=== PATIENT | female | born 1950 | race Caucasian/White ===

== ENCOUNTER 2019-10-09 06:33 | Outpatient (CLI) | payer OTHER, SELFPAY ==
--- NOTE | ~2019-10-09 | CT_ITS ---
EXAMINATION: CT abdomen pelvis w con DATE: 10/09/2019 07:15 INDICATION: Abdominal and pelvic pain, swelling, mass TECHNIQUE: Computed tomography (CT) of the abdomen and pelvis was performed with 100 cc Omnipaque 350 intravenous contrast. Automated exposure control and iterative reconstruction technique were employe d. Exam dose: 1510.42 mGy-cm total exam DLP. COMPARISON: 08/20/2013 CT abdomen pelvis FINDINGS: Calcified pulmonary granuloma, right lower lobe. No infiltrate or consolidation at the incl uded lung bases. Normal heart size. Pacemaker leads are noted in the right atrium, right ventricle and coronary sinus. The liver, gallbladder, bile ducts, pancreas and pancreatic duct are unremarkable. There are calcifie d splenic granulomas. Normal adrenal glands. No renal mass lesion, urinary tract calculus or hydroureteronephrosis. The urinary bladder is unrema rkable. Status post hysterectomy. There is atherosclerotic calcification of the abdominal aorta and branches but no abdominal aortic an eurysm. No intraperitoneal or retroperitoneal or pelvic mass lesion or adenopathy or ascites. Small sliding hiatal hernia. Normal appendix. No bowel obstruction, bowel wall thickening, pneumatosi s or intraperitoneal free air. Small fat-containing umbilical hernia. There are some degenerative changes of the thoracic and lumbar spine. No suspicious osteolytic or ost eoblastic lesions. IMPRESSION: Small sliding hiatal hernia Reviewed, dictated and finalized at [facility] Reviewed, dictated and finalized at [facility]. IMPRESSION: Small sliding hiatal hernia
[2019-10-09 07:05] LABS: Estimated Glomerular Filt Rate 32
== END 2019-10-09 06:34 | disposition home or self-care (01) ==
LOC: ANHIMG 06:37
PROVIDERS: PCP Family Medicine; Visit Provider Family Medicine
DX: R19.00 Intra-abdominal and pelvic swelling, mass and lump, unspecified site (principal); K44.9 Diaphragmatic hernia without obstruction or gangrene
CPT/HCPCS: 36415; 74177; Q9967

== ENCOUNTER 2020-01-14 03:12 | Inpatient (IN) | payer OTHER, MEDICARE, SELFPAY ==
[2020-01-14] VITALS (10 sets, daily range): BP systolic 100–145; BP diastolic 48–79; PULSE 73–86; RESP 16–18; TEMP 35.9–37.3; O2SAT 92–100; BMI 45.0
--- NOTE | ~2020-01-14 | US_ITS ---
EXAMINATION: US right upper quadrant DATE: 01/14/2020 10:58 INDICATION: Right upper quadrant abdominal pain. Acute pancreatitis. TECHNIQUE: Multiple grayscale and Doppler ultrasound images of the abdomen were obtained. COMPARISON: CT abdomen and pelvis 01/14/2020 FINDINGS: The visualized portions of the head and body of the pancreas are normal. The liver is sophie l without focal lesion. There is normal flow in main portal vein. The gallbladder is normal in size a nd contains sludge. No gallbladder wall thickening. There was no sonographic Giron sign. The common duct is normal and measures 5 mm. IMPRESSION: 1. Gallbladder sludge. No evidence of acute cholecystitis. Reviewed, dictated and finalized at [facility].
--- NOTE | ~2020-01-14 | CT_ITS ---
EXAMINATION: CT abdomen pelvis wo con DATE: 01/14/2020 04:00 INDICATION: Right flank pain. TECHNIQUE: Computed tomography (CT) of the abdomen and pelvis was performed without intravenous contr ast. Automated exposure control and iterative reconstruction technique were employed. The dose-length product was 1506.55 mGy-cm. COMPARISON: CT abdomen and pelvis 10/09/2019 FINDINGS: The visualized portions of the lung bases demonstrate minimal atelectasis on the right. Chepe cified right lung nodules are consistent with old granulomatous disease. No pleural effusion. The hea rt size is normal. No pericardial effusion. Partially visualized are pacer wires in right ventricle a nd coronary sinus. There is a small sliding hiatal hernia. The liver and gallbladder are normal. Calc ifications in the spleen are consistent with old granulomatous disease. There is fat stranding around the head of the pancreas, consistent with acute interstitial pancreatitis. The adrenal glands and ki dneys are normal. There is diverticulosis of the colon without evidence of diverticulitis. There are no dilated loops of bowel. The appendix is normal. There are no pathologically enlarged lymph nodes. There is no free intraperitoneal fluid. There is a 2.3 cm cyst in the left ovary, likely benign. Ther e is moderate thoracolumbar spondylosis. IMPRESSION: 1. Acute interstitial pancreatitis. 2. Small sliding hiatal hernia. Reviewed, dictated and finalized at [facility].
--- NOTE | ~2020-01-14 | XR_ITS ---
EXAMINATION: XR chest 1V portable DATE: 01/15/2020 13:58 INDICATION: Acute pancreatitis. Preop. TECHNIQUE: A single frontal view of the chest was obtained. COMPARISON: CT abdomen and pelvis 01/14/2020, chest 2 views 10/01/2018 FINDINGS: There is no pneumonia, pleural effusion, or pneumothorax. Cardiomegaly is noted. There is a right chest pacer with leads in right atrium, right ventricle, and coronary sinus. IMPRESSION: 1. Cardiomegaly. Reviewed, dictated and finalized at [facility]. IMPRESSION: 1. Cardiomegaly.
--- NOTE | ~2020-01-14 | XR_ITS ---
EXAMINATION: XR cholangiogram surg 1st inj DATE: 01/16/2020 15:07 INDICATION: Intraoperative cholangiogram TECHNIQUE: 161 fluoroscopic images of the right upper quadrant were obtained during intraoperative ch olangiography performed by the surgeon. I was not present in the operating room. Fluoroscopy exposure time was 24.2 seconds. The DAP was 0.22160 mGym2. COMPARISON: None. FINDINGS: There is no filling defect or stricture of the common bile duct. There is free spillage of contrast into the duodenum. IMPRESSION: 1. No biliary obstruction identified. This was communicated directly to Dr. Marks by phone in the oper ating room at 1458 hours on 01/16/2020. Reviewed, dictated and finalized at [facility]. IMPRESSION: 1. No biliary obstruction identified. This was communicated directly to Dr. Matt moody by phone in the operating room at 1458 hours on 01/16/2020.
--- NOTE | 2020-01-14 03:28 | ED.BACK ---
HPI - Back Pain/Injury General Chief Complaint: Back Pain/Injury Stated Complaint: RIGHT SIDE PAIN INTO BACK Time Seen by Provider: 01/14/20 03:24 History of Present Illness HPI Narrative: RLQ pain radiating into the flank/back for the past 2 days. Associated with loss of appetitie. Improves slightly with pressure. Unable to sleep tonight due to the pain. No prior abdominal surgery. She tried alkaseltzer and mountain dew without relief. Related Data Home Medications Medication Instructions Recorded Confirmed aspirin 81 mg tablet,delayed 81 mg PO DAILY 06/28/19 release carvedilol 12.5 mg tablet 12.5 mg PO Q12H 06/28/19 citalopram 40 mg tablet 20 mg PO DAILY 06/28/19 furosemide 20 mg tablet 20 mg PO TID tablet 06/28/19 losartan 25 mg tablet 25 mg PO DAILY 06/28/19 pantoprazole 40 mg tablet,delayed 40 mg PO QAM 06/28/19 release simvastatin 20 mg tablet 20 mg PO DAILY 06/28/19 spironolactone 25 mg tablet 25 mg PO DAILY 06/28/19 calcium carbonate 600 mg (1,500 1 cap PO .QD cap 10/07/19 mg)-vitamin D3 500 unit capsule Allergies Allergy/AdvReac Type Severity Reaction Status Date / Time duloxetine Allergy Unknown jittery Verified 10/07/19 11:29 and hyper lisinopril Allergy Unknown cough Verified 01/14/20 03:27 naproxen Allergy Unknown swelling Verified 01/14/20 03:27 in ankles and feet Review of Systems Review of Systems: All systems reviewed & are unremarkable except as noted in HPI and below Constitutional: Constitutional: Denies fever(s) Cardiovascular: Cardiovascular: Denies chest pain Respiratory: Respiratory: Denies dyspnea Gastrointestinal: Gastrointestinal: Reports abdominal pain, Denies constipation, Denies diarrhea, Denies nausea and Denies vomiting Genitourinary: Genitourinary: Denies hematuria, Denies nocturia and Denies dysuria Neurologic: Denies dizziness and Denies weakness [facility] Past Medical History Medical History (Updated 01/14/20 @ 03:56 by Landen Laird MD) Cardiomyopathy Pacemaker Surgical History Surgical History H/O: hysterectomy History of cardiac cath History of implantable cardioverter-defibrillator (ICD) placement History of knee replacement Hx of tonsillectomy Family History Family History Father Acute myocardial infarction Hypertension Family history of cardiovascular disease Mother Diabetes mellitus Hypertension Family history of cardiovascular disease Sibling Hypertension Social History Social History Smoking status: Former smoker Alcohol intake: never Gender identity (if verbalized by the patient): Female Exam Const: General: healthy appearing, no acute distress and alert Nutritional Appearance: obese Orientation/consciousness: patient oriented x3 HENMT: Head: normal to inspection Neck: Neck: normal visual inspection and no lymphadenopathy Chest: Chest palpation & inspection: no tenderness Resp: Effort & Inspection: normal respiratory effort Auscultation: clear to auscultation bilaterally, no rales, no rhonchi and no wheezes Cardio: Jugular venous distension: no JVD Rate: regular rate Rhythm: regular rhythm Heart sounds: no murmurs GI: Inspection: non-distended GI Palp: Yes Soft to palpation and No Tenderness to palpation present (GI) Skin: General skin exam: normal color Neuro: General: patient oriented x3 and moves all extremities Speech: normal speech Extrem: General: no edema Psych: Appearance: well kempt Affect: normal affect Course Vital Signs Vital signs: Vital Signs Temperature 35.9 C L 01/14/20 03:21 Pulse Rate 86 01/14/20 03:21 Respiratory Rate 18 01/14/20 03:21 Blood Pressure 133/54 L 01/14/20 03:21 Pulse Oximetry 99 01/14/20 03:21 Temperature 35.9 C L 01/14/20 03:21 Pulse Rate
[2020-01-14] MEDS: MORPHINE SULFATE 4 MG/ML INJ 2 MG IV PUSH (03:45)
[2020-01-14 03:51] LABS: Basophils Absolute Auto 0.1 K/mm3 (0.0-0.1); Basophils Percent Auto 0.4 % (0.2-1.2); Eosinophils Absolute Auto 0.3 K/mm3 (0-0.3); Eosinophils Percent Auto 2.3 % (0-4.4); Hematocrit 37.6 % (37.0-47.0); Hemoglobin 12.8 g/dL (12.0-15.0); Immature Granulocyte Absolute 0.06 K/mm3 (0.00-0.031); Immature Granulocyte Percent A 0.4 % (0-0.5); Lymphocytes Percent Auto 15.5 % (18.3-44.2); Mean Corpuscular Hemoglobin 31.4 pg (26-34); Mean Corpuscular Volume 92.4 fl (80-100); Mean Platelet Volume 9.8 fl (7.4-10.4); Monocytes Absolute Auto 1.1 K/mm3 (0.1-0.6); Monocytes Percent Auto 7.6 % (2.6-8.5); Neutrophils Absolute Auto 10.5 K/mm3 (1.3-6.7); Neutrophils Percent Auto 73.8 % (45.5-73.1); Platelet Count Result 199 k/mm3 (150-375); Red Blood Count 4.07 M/mm3 (4.2-5.4); Red Cell Distribution Width 12.8 % (11.5-14.5); White Blood Count 14.2 K/mm3 (4.5-10.0)
[2020-01-14 03:56] LABS: Add Urine Microscopic? YES; Appearance Urine Clear (Clear); Bacteria Urine Trace /hpf; Bilirubin Urine Negative (Negative); Blood Urine Negative (Negative); Color Urine Straw (Yellow); Glucose Urine UA Negative (Negative); Ketones Urine Negative (Negative); Leukocyte Esterase Ur Trace LEU/UL (Negative); Nitrate Urine Negative (Negative); Protein Urine Negative (Negative); RBC Urine 0-2 /hpf (0-2); Specific Grav Ur 1.009 (1.001-1.035); Squamous Epithelial Cell Urine Moderate /hpf (Few); Urobilinogen Urine Negative mg/dL (<2.0)
[2020-01-14 04:03] LABS: Alanine Aminotransferase 24 U/L (4-35); Albumin Level 4.4 g/dL (3.5-5.1); Alkaline Phosphatase 134 U/L (38-126); Aspartate Amino Transferase 23 U/L (14-36); Bilirubin,Total 1.6 mg/dL (0.2-1.3); Blood Urea Nitrogen 28 mg/dL (7-17); Calcium 9.2 mg/dL (8.4-10.2); Carbon Dioxide 28 mmol/L (22-30); Chloride 96 mmol/L (98-107); Estimated CRCL calculation 41 ml/min; Estimated Glomerular Filt Rate 32; Glucose 133 mg/dL (65-105); Lipase 969 U/L (23-300); Potassium 4.1 mmol/L (3.4-5.0); Sodium 133 mmol/L (137-145)
[2020-01-14] MEDS: MORPHINE SULFATE 4 MG/ML INJ IV PUSH ×6 (04:34→21:33)
--- NOTE | 2020-01-14 06:15 | ADMGEN ---
This patient, Eva Arriaza, was admitted to [facility] Surg Room 321-01. Patient/family oriented to hospital policies and general routines including ID bracelet, bed and alarms, visiting hours, pain management, procedures, bathroom and other care routines, personal items, smoking policy, room service/diet, and visiting hours. Valuables list has been completed. Information on how to activate the Rapid Response Team has been discussed. Patient/Family are encouraged to report perceived risks to care and to ask questions if they do not understand what they are told or what they should do.
[2020-01-14] MEDS: LACTATED RINGERS 1,000 ML 125 ML IV CONT ×2 (06:19→17:16)
--- NOTE | 2020-01-14 13:15 | PM.IMHP ---
H&P: HPI History of Present Illness Chief complaint: Acute pancreatitis Narrative: Eva Arriaza is a 69 year old female with history of cardiomyopathy morbidly obesity patient presented emergency department with 1 day onset of epigastric pain radiating to the back nausea and just did not feel right see denies any fever or chills, denies any history of alcohol, is no family history of pancreatitis, patient had a CT scan of the abdomen which showed patient has a interstitial pancreatitis with elevated lipase of close to 1 thigh, to further evaluate with abdominal ultrasound which showed biliary sludge but no acute cholecystitis, the plan is to continue hydrate the patient continue pain management and trend lipase, currently NPO, her symptoms improved will start the patient on clear liquid and further recommendation to follow, patient may benefit surgical consult as outpatient to electively remove the gallbladder as patient is morbidly obese high risk of gallstones Review of Systems Review of Systems: All systems reviewed & are unremarkable except as noted in HPI and below PMFSH Surgical History Surgical History H/O: hysterectomy History of cardiac cath History of implantable cardioverter-defibrillator (ICD) placement History of knee replacement Hx of tonsillectomy Family History Family History Father Acute myocardial infarction Hypertension Family history of cardiovascular disease Mother Diabetes mellitus Hypertension Family history of cardiovascular disease Sibling Hypertension Social History Social History Smoking status: Former smoker Alcohol intake: never Substance use: never Gender identity (if verbalized by the patient): Female Spiritual care concerns: No Meds Home Medications and Allergies Home Medications Medication Instructions Recorded Confirmed Type aspirin 81 mg tablet,delayed 81 mg PO DAILY 06/28/19 01/14/20 History release carvedilol 12.5 mg tablet 12.5 mg PO Q12H 06/28/19 01/14/20 History citalopram 40 mg tablet 20 mg PO DAILY 06/28/19 01/14/20 History furosemide 20 mg tablet 20 mg PO BID tablet 06/28/19 01/14/20 History losartan 25 mg tablet 25 mg PO DAILY 06/28/19 01/14/20 History pantoprazole 40 mg tablet,delayed 40 mg PO QAM 06/28/19 01/14/20 History release simvastatin 20 mg tablet 20 mg PO DAILY 06/28/19 01/14/20 History spironolactone 25 mg tablet 25 mg PO DAILY 06/28/19 01/14/20 History Allergies Allergy/AdvReac Type Severity Reaction Status Date / Time duloxetine Allergy Unknown jittery Verified 10/07/19 11:29 and hyper lisinopril Allergy Unknown cough Verified 01/14/20 03:27 naproxen Allergy Unknown swelling Verified 01/14/20 03:27 in ankles and feet Vital Signs Vital Signs - 24 hr 01/14/20 03:21 01/14/20 04:12 01/14/20 04:40 Temperature 96.6 F L Pulse Rate 86 82 74 Respiratory Rate 18 18 18 Blood Pressure 133/54 L 130/79 100/69 Pulse Oximetry 99 100 97 01/14/20 05:19 01/14/20 05:37 01/14/20 05:45 Temperature 99.1 F Pulse Rate 75 73 76 Respiratory Rate 18 16 16 Blood Pressure 137/67 145/48 H 140/72 Pulse Oximetry 95 97 95 Exam Narrative: Exam Narrative: Morbidly obese with BMI 45 Const: General: no acute distress and uncomfortable HENMT: General nose exam: Normal nares present Mouth: Yes moist mucous membranes Eyes: General: appearance normal, both eyes and all related structures Sclera: sclerae normal Neck: Neck: supple Resp: Effort & Inspection: normal respiratory effort Auscultation: clear to auscultation bilaterally Cardio: Rate: regular rate Rhythm: regular rhythm GI: GI Palp: Yes Soft to palpation Auscultation: normal bowel sounds Other: Tender in epigastric Skin: General skin exam: normal color Neuro: Speech: normal spe
[2020-01-14] MEDS: FUROSEMIDE 20 MG TABLET PO (18:56)
[2020-01-14] MEDS: carvediloL 12.5 MG TABLET PO (21:34)
[2020-01-15] MEDS: LACTATED RINGERS 1,000 ML 125 ML IV CONT (01:18)
[2020-01-15] MEDS: MORPHINE SULFATE 4 MG/ML INJ IV PUSH ×2 (01:23→05:52)
[2020-01-15 06:00] VITALS: BP 142/58; PULSE 77; RESP 18; TEMP 36.6; O2SAT 96
[2020-01-15 06:47] LABS: Hematocrit 32.5 % (37.0-47.0); Hemoglobin 10.9 g/dL (12.0-15.0); Mean Corpuscular HGB Conc 33.5 g/dl (32-36); Mean Corpuscular Hemoglobin 31.5 pg (26-34); Mean Corpuscular Volume 93.9 fl (80-100); Mean Platelet Volume 10.1 fl (7.4-10.4); Platelet Count Result 154 k/mm3 (150-375); Red Blood Count 3.46 M/mm3 (4.2-5.4); Red Cell Distribution Width 13.1 % (11.5-14.5); White Blood Count 11.6 K/mm3 (4.5-10.0)
[2020-01-15 06:57] LABS: Alanine Aminotransferase 19 U/L (4-35); Albumin Level 3.8 g/dL (3.5-5.1); Alkaline Phosphatase 99 U/L (38-126); Aspartate Amino Transferase 19 U/L (14-36); Bilirubin,Total 2.8 mg/dL (0.2-1.3); Blood Urea Nitrogen 22 mg/dL (7-17); Calcium 8.5 mg/dL (8.4-10.2); Carbon Dioxide 27 mmol/L (22-30); Chloride 102 mmol/L (98-107); Estimated CRCL calculation 46 ml/min; Estimated Glomerular Filt Rate 37; Glucose 109 mg/dL (65-105); Lipase 359 U/L (23-300); Potassium 4.2 mmol/L (3.4-5.0); Sodium 134 mmol/L (137-145)
[2020-01-15 09:16] VITALS: PULSE 77
[2020-01-15] MEDS: CITALOPRAM HYDROBROMIDE 20 MG TABLET PO (09:16)
[2020-01-15] MEDS: LOSARTAN POTASSIUM 25 MG TABLET PO (09:16)
[2020-01-15] MEDS: FUROSEMIDE 20 MG TABLET PO ×2 (09:16→18:05)
[2020-01-15] MEDS: carvediloL 12.5 MG TABLET PO ×2 (09:16→21:25)
[2020-01-15] MEDS: ASPIRIN 81 MG ENTERIC TABLET PO (09:16)
[2020-01-15] MEDS: PANTOPRAZOLE 40 MG TABLET PO (09:17)
[2020-01-15] MEDS: SPIRONOLACTONE 25 MG TABLET PO (09:17)
[2020-01-15] MEDS: SIMVASTATIN 20 MG TABLET PO (09:17)
--- NOTE | 2020-01-15 13:01 | PM.CNGS ---
Assessment and Plan Assessment and plan (1) Acute pancreatitis: Code(s): K85.90 - Acute pancreatitis without necrosis or infection, unspecified Status: Acute Assessment and Plan: CT shows evidence of acute pancreatitis. She has been started on analgesics, IV fluids and bowel rest. Lipase is down to 359 today and she seems to be clinically improving. She has no history of alcohol abuse or binge drinking that would account for the etiology. No recent medications that would be a likely cause. No lipid panel has been ordered, but hypertriglyceridemia is a less likely, but other possible etiology. She does have evidence of gallbladder sludge on the ultrasound, which would be the most likely cause of her pancreatitis. Discussed the patient's case and plan of care with Dr. Marks. Would continue with current management of the pancreatitis. I discussed the disease process with the patient and treatment options at this point. To prevent further complications or episodes of pancreatitis, we would recommend proceeding with a laparoscopic cholecystectomy, possible IOC, by Dr. Marks. She does have multiple co-morbidities that increase her risk for surgery, which I discussed with the patient. Description of the procedure, risks, benefits, indications, and expected outcomes were discussed with the patient in detail. All questions were answered. She would like to proceed with surgery. We will plan to proceed with her surgery tomorrow and make her NPO after midnight. Thank you for allowing me to see the patient in consultation and we will continue to follow along with you. (2) Gallbladder sludge: Code(s): K82.8 - Other specified diseases of gallbladder Status: Acute (3) Dilated cardiomyopathy: Code(s): I42.0 - Dilated cardiomyopathy Status: Acute Assessment and Plan: Increases risk of surgery. Last Echocardiogram was 01/10/20 that showed an ejection fraction of 35%. (4) Obstructive sleep apnea (adult) (pediatric): Code(s): G47.33 - Obstructive sleep apnea (adult) (pediatric) Status: Acute Assessment and Plan: Increases risk of surgery. (5) Essential (primary) hypertension: Code(s): I10 - Essential (primary) hypertension Status: Acute (6) Mixed hyperlipidemia: Code(s): E78.2 - Mixed hyperlipidemia Status: Acute Assessment and Plan: Will check a lipid panel. (7) ICD (implantable cardioverter-defibrillator) battery depletion: Code(s): Z45.02 - Encounter for adjustment and management of automatic implantable cardiac defibrillator Status: Acute Assessment and Plan: Total bilirubin up to 2.8 today. Unable to do an MRI due to the ICD. Could consider an intra-operative cholangiogram to look for common bile duct obstruction. (8) Morbid obesity with BMI of 45.0-49.9, adult: Code(s): E66.01 - Morbid (severe) obesity due to excess calories; Z68.42 - Body mass index (BMI) 45.0-49.9, adult Status: Acute Assessment and Plan: Increases risk of surgery. Encouraged weight loss. History of Present Illness Consult details Consult date: 01/15/20 Reason for consult: other (Gallbladder sludge with acute interstitial pancreatitis) Requesting physician: Bing Espinal MD Narrative: This is a 69-year-old obese female with a history of cardiomyopathy, obstructive sleep apnea, and hyperlipidemia, who presented to the emergency department with complaints of right-sided abdominal pain.The patient reports a sudden onset of mild right upper quadrant abdominal pain 3 days ago. Initially, she thought the abdominal pain was gas related and states that it would come and go. She states the pain was mild enough to sleep but continued through to Monday. During the day, her pain gradually worsened. She had associated nausea but no vomiting. Denies fever or chills. Reports bowels have been moving normally with her last bowel movement Monday. She tried taking
--- NOTE | 2020-01-15 13:28 | PM.IMPN ---
Progress Note: A&P Assessment and Plan (1) Acute pancreatitis: Code(s): K85.90 - Acute pancreatitis without necrosis or infection, unspecified Status: Acute Assessment and Plan: 01/15/20 13:28 Eva Arriaza is a 69 year old female with history of cardiomyopathy morbidly obesity patient presented emergency department with 1 day onset of epigastric pain radiating to the back nausea and just did not feel right see denies any fever or chills, denies any history of alcohol, is no family history of pancreatitis, patient had a CT scan of the abdomen which showed patient has a interstitial pancreatitis with elevated lipase of close to 1 thigh, to further evaluate with abdominal ultrasound which showed biliary sludge but no acute cholecystitis, the plan is to continue hydrate the patient continue pain management and trend lipase, currently NPO, her symptoms improved will start the patient on clear liquid and further recommendation to follow, patient may benefit surgical consult as outpatient to electively remove the gallbladder as patient is morbidly obese high risk of gallstones, today patient states feeling not as nauseated pain is also better denies any fever or chills, patient's lipase are trending down will going to start the patient on clear liquid, patient would like to consult surgery for possible cholecystectomy, patient has a history of cardiomyopathy seen by cardiology last ejection fraction was 35%, patient is being hydrated that appear volume overload note patient has any complaint, since patient is drinking on clear liquids will stop the IV fluids, will monitor patient 1 more day discharge the patient in the morning, and will be seen by surgery and further recommendation to follow Subjective Date/time seen: 01/15/20 13:28 Eva Arriaza is a 69 year old female with history of cardiomyopathy morbidly obesity patient presented emergency department with 1 day onset of epigastric pain radiating to the back nausea and just did not feel right see denies any fever or chills, denies any history of alcohol, is no family history of pancreatitis, patient had a CT scan of the abdomen which showed patient has a interstitial pancreatitis with elevated lipase of close to 1 thigh, to further evaluate with abdominal ultrasound which showed biliary sludge but no acute cholecystitis, the plan is to continue hydrate the patient continue pain management and trend lipase, currently NPO, her symptoms improved will start the patient on clear liquid and further recommendation to follow, patient may benefit surgical consult as outpatient to electively remove the gallbladder as patient is morbidly obese high risk of gallstones, today patient states feeling not as nauseated pain is also better denies any fever or chills, patient's lipase are trending down will going to start the patient on clear liquid, patient would like to consult surgery for possible cholecystectomy, patient has a history of cardiomyopathy seen by cardiology last ejection fraction was 35%, patient is being hydrated that appear volume overload note patient has any complaint, since patient is drinking on clear liquids will stop the IV fluids, will monitor patient 1 more day discharge the patient in the morning, and will be seen by surgery and further recommendation to follow Review of Systems Review of Systems: All systems reviewed & are unremarkable except as noted in HPI and below Exam Narrative: Exam Narrative: Morbidly obese with BMI 45 Const: General: no acute distress and uncomfortable HENMT: General nose exam: Normal nares present Mouth: Yes moist mucous membranes Eyes: General: appearance normal, both eyes and all related structures Sclera: sclerae normal Neck: Neck: supple Resp: Effort & Inspection: normal respiratory effort Auscultation: clear to auscultation bilaterally Cardio: Rate: regular rate Rhythm: regular rhythm GI: Auscultation: normal bowel sounds O
--- NOTE | 2020-01-15 13:45 | ECG_ITS ---
Measurements Intervals [place] Rate: 77 P: 267 LA: 121 QRS: -72 QRSD: 154 T: 70 QT: 445 QTc: 504 Interpretive Statements ELECTRONIC ATRIAL PACEMAKER ELECTRONIC VENTRICULAR PACEMAKER BASELINE ARTIFACT- I, III, AVL, AVF, V6 NO FURTHER INTERPRETATION IS POSSIBLE ATYPICAL ECG Electronically Signed On 01-15-2020 14:27:14 CDT by Dagoberto Ruff D.O.
[2020-01-15 14:00] VITALS: BP 90/68; PULSE 76; RESP 18; TEMP 36.7; O2SAT 94
[2020-01-15 15:16] LABS: Cholesterol 133 mg/dL (0-200); HDL Direct 27 mg/dL; Triglycerides 75 mg/dL (<150)
[2020-01-15 15:26] LABS: LDL Cholesterol Direct 81 mg/dL
--- NOTE | 2020-01-15 16:46 | PM.PNGS ---
Progress Note: A&P Assessment and Plan (1) Acute biliary pancreatitis without infection or necrosis: Code(s): K85.10 - Biliary acute pancreatitis without necrosis or infection Status: Acute Assessment and Plan: I explained to the patient that the likely cause of her acute pancreatitis is the sludge and possibly even stones in her gallbladder. I have recommended proceeding with laparoscopic cholecystectomy with intraoperative cholangiogram. I discussed this procedure thoroughly with the patient. I discussed the usual hospital stay and time of recovery. I talked about the time she would need to be off work. All questions were answered. She understands and agrees to go ahead. (2) Type 2 diabetes mellitus with complication, without long-term current use of insulin: Code(s): E11.8 - Type 2 diabetes mellitus with unspecified complications Status: Chronic Assessment and Plan: Increases risk of the surgical procedure. (3) Dilated cardiomyopathy: Code(s): I42.0 - Dilated cardiomyopathy Status: Chronic Assessment and Plan: Increases risk of the surgical procedure. (4) ICD (implantable cardioverter-defibrillator) battery depletion: Code(s): Z45.02 - Encounter for adjustment and management of automatic implantable cardiac defibrillator Status: Chronic (5) Essential (primary) hypertension: Code(s): I10 - Essential (primary) hypertension Status: Chronic Assessment and Plan: Increases risk of the surgical procedure. (6) Morbid obesity with BMI of 45.0-49.9, adult: Code(s): E66.01 - Morbid (severe) obesity due to excess calories; Z68.42 - Body mass index (BMI) 45.0-49.9, adult Status: Chronic Assessment and Plan: Increases risk of the surgical procedure. Subjective Subjective Date/Time Seen: 01/15/20 16:46 Patient is a 69-year-old woman with multiple medical problems including and dilated cardiomyopathy and an internal cardioverter defibrillator. She presented with epigastric pain that radiated to her back. She was found to have very elevated serum lipase as well as CT scan evidence of acute pancreatitis primarily in the head of the pancreas. An ultrasound of the gallbladder shows biliary sludge. She does not drink alcohol. She feels better today with her pain almost gone. She would like to eat. She is seen in consultation regarding her biliary pancreatitis. Review of Systems Review of Systems: All systems reviewed & are unremarkable except as noted in HPI and below Constitutional: Constitutional: Denies headache(s) ENT: Denies headache(s) Cardiovascular: Cardiovascular: Denies chest pain and Denies dyspnea Respiratory: Respiratory: Denies cough and Denies dyspnea Gastrointestinal: Gastrointestinal: Reports as per HPI Neurologic: Denies confusion and Denies headache(s) Psychiatric: Psychiatric: Denies confusion Exam Const: General: comfortable, no acute distress, alert, awake and well groomed; No confusion Nutritional Appearance: obese Orientation/consciousness: patient oriented x3 and No confusion Resp: Effort & Inspection: normal respiratory effort Auscultation: clear to auscultation bilaterally Cardio: Rate: regular rate Rhythm: regular rhythm GI: Inspection: obesity and no scars GI Palp: Yes Firmness to palpation present (GI) ( Especially upper abdomen), Yes Tenderness to palpation present (GI) ( Right upper quadrant and epigastric area.), No Guarding due to palpation present (GI), No Hernia present, No Palpable mass present and No Rebound tenderness present Auscultation: normal bowel sounds Neuro: General: patient oriented x3, no focal motor deficits and No confusion Extrem: General: no calf tenderness and no edema Psych: Affect: normal affect Insight: Good insight present (Psych) Judgement: Good judgement present (Psych) Objective Data Vital Signs Vital Signs: Vital Signs - 24 hr 01/14/20
--- NOTE | 2020-01-15 17:15 | WPDANESEPP ---
Anes - Eval Pre Procedure Procedure: Operation Date: 01/16/20 14:30 Proposed Procedures p Laparoscopic Cholecystectomy With Intraoperative Cholangiogram - Francesco Marks MD Date/Time: 01/15/20 17:15 Pre Op Diagnosis: Acute pancreatitis Patient Data Age: 69 Gender: F Height: 5 ft 6 in Weight: 126.6 kg Last Vital Signs Temp 98.1 F 01/15/20 14:00 Pulse 76 01/15/20 14:00 Resp 18 01/15/20 14:00 BP 90/68 L 01/15/20 14:00 Pulse Ox 94 01/15/20 14:00 Allergies Allergy/AdvReac Type Severity Reaction Status Date / Time duloxetine Allergy Unknown jittery Verified 10/07/19 11:29 and hyper lisinopril Allergy Unknown cough Verified 01/14/20 03:27 naproxen Allergy Unknown swelling Verified 01/14/20 03:27 in ankles and feet Home Medications Medication Instructions Recorded Confirmed Type aspirin 81 mg tablet,delayed 81 mg PO DAILY 06/28/19 01/14/20 History release carvedilol 12.5 mg tablet 12.5 mg PO Q12H 06/28/19 01/14/20 History citalopram 40 mg tablet 20 mg PO DAILY 06/28/19 01/14/20 History furosemide 20 mg tablet 20 mg PO BID tablet 06/28/19 01/14/20 History losartan 25 mg tablet 25 mg PO DAILY 06/28/19 01/14/20 History pantoprazole 40 mg tablet,delayed 40 mg PO QAM 06/28/19 01/14/20 History release simvastatin 20 mg tablet 20 mg PO DAILY 06/28/19 01/14/20 History spironolactone 25 mg tablet 25 mg PO DAILY 06/28/19 01/14/20 History Laboratory Tests 01/15/20 01/15/20 01/15/20 06:40 06:40 14:48 WBC 11.6 K/mm3 H K/mm3 (4.5-10.0) RBC 3.46 M/mm3 L M/mm3 (4.2-5.4) Hgb 10.9 g/dL L g/dL (12.0-15.0) Hct 32.5 % L % (37.0-47.0) MCV 93.9 fl fl (80-100) MCH 31.5 pg pg (26-34) MCHC 33.5 g/dl g/dl (32-36) RDW 13.1 % % (11.5-14.5) Plt Count 154 k/mm3 k/mm3 (150-375) MPV 10.1 fl fl (7.4-10.4) Sodium 134 mmol/L L mmol/L (137-145) Potassium 4.2 mmol/L mmol/L (3.4-5.0) Chloride 102 mmol/L mmol/L (98-107) Carbon Dioxide 27 mmol/L mmol/L (22-30) BUN 22 mg/dL H mg/dL (7-17) Creatinine 1.40 mg/dL H mg/dL (0.7-1.0) Estim Creat Clear Calc 46 ml/min ml/min Estimated GFR 37 L (59 - ) Glucose 109 mg/dL H mg/dL (65-105) Calcium 8.5 mg/dL mg/dL (8.4-10.2) Total Bilirubin 2.8 mg/dL H mg/dL (0.2-1.3) AST 19 U/L U/L (14-36) ALT 19 U/L U/L (4-35) Alkaline Phosphatase 99 U/L U/L (38-126) Total Protein 7.0 g/dL g/dL (6.3-8.2) Albumin 3.8 g/dL g/dL (3.5-5.1) Triglycerides 75 mg/dL mg/dL (<150) Cholesterol 133 mg/dL mg/dL (0-200) LDL Cholesterol Direct 81 mg/dL mg/dL HDL Direct 27 mg/dL mg/dL Lipase 359 U/L H U/L (23-300) Blood Type Antibody Screen 01/15/20 14:48 WBC RBC Hgb Hct MCV MCH MCHC RDW Plt Count MPV Sodium Potassium Chloride Carbon Dioxide BUN Creatinine Estim Creat Clear Calc Estimated GFR Glucose Calcium Total Bilirubin AST ALT Alkaline Phosphatase Total Protein Albumin Triglycerides Cholesterol LDL Cholesterol Direct HDL Direct Lipase Blood Type A Negative Antibody Screen Negative Patient hx anesthesia problems: none Family hx anesthesia problems: none PMFSH Past Medical History Medical History Acute biliary pancreatitis without infection or necrosis Acute pancreatitis Arthritis Cardiomyopathy Most recent JANINA with Echo on 01/10/20 showing an ejection fraction of 35%, mild to moderate aortic valve regurgitation, left ventricu
[2020-01-15 21:25] VITALS: PULSE 80
[2020-01-15 22:00] VITALS: BP 111/54; PULSE 77; RESP 16; TEMP 36.6; O2SAT 95
[2020-01-16] VITALS (14 sets, daily range): BP systolic 100–129; BP diastolic 47–82; PULSE 64–81; RESP 8–20; TEMP 36.6–36.8; O2SAT 93–100
[2020-01-16 06:30] LABS: Hematocrit 32.4 % (37.0-47.0); Hemoglobin 10.7 g/dL (12.0-15.0); Mean Corpuscular Hemoglobin 31.1 pg (26-34); Mean Corpuscular Volume 94.2 fl (80-100); Mean Platelet Volume 10.6 fl (7.4-10.4); Platelet Count Result 145 k/mm3 (150-375); Red Blood Count 3.44 M/mm3 (4.2-5.4); White Blood Count 7.9 K/mm3 (4.5-10.0)
[2020-01-16 06:45] LABS: Alanine Aminotransferase 22 U/L (4-35); Albumin Level 3.6 g/dL (3.5-5.1); Alkaline Phosphatase 102 U/L (38-126); Aspartate Amino Transferase 24 U/L (14-36); Bilirubin,Total 2.7 mg/dL (0.2-1.3); Blood Urea Nitrogen 27 mg/dL (7-17); Calcium 8.5 mg/dL (8.4-10.2); Carbon Dioxide 25 mmol/L (22-30); Chloride 103 mmol/L (98-107); Estimated CRCL calculation 38 ml/min; Estimated Glomerular Filt Rate 30; Glucose 105 mg/dL (65-105); Lipase 313 U/L (23-300); Sodium 136 mmol/L (137-145)
[2020-01-16] MEDS: CITALOPRAM HYDROBROMIDE 20 MG TABLET PO (08:55)
[2020-01-16] MEDS: carvediloL 12.5 MG TABLET PO ×2 (08:55→21:05)
[2020-01-16] MEDS: LACTATED RINGERS 1,000 ML 30 ML IV CONT ×2 (13:00→15:28)
--- NOTE | 2020-01-16 13:33 | WPDANESEFPP ---
Anes - Eval Final PreProcedure Day of Procedure 01/16/20 13:33 Patient weight: morbidly obese Heart: regular rate and rhythm Lungs: clear to auscultation Airway: Mallampati scale class II Neurological: alert and oriented Last oral intake: >/= 8 hours ASA classification: III Emergent: no Anesthetic plan: proceed Anesthesia type and monitoring: general ETT and standard monitoring Informed Consent: The patient's anesthetic plan and its attendant risks and benefits were discussed with the patient/family/POA. Questions were solicited and answers provided to the satisfaction of the patient/family/POA.
[2020-01-16] MEDS: ceFAZolin 3 GM/D5W 100 ML 100 ML IVPB (13:40)
[2020-01-16] MEDS: BUPIVACAINE/EPINEPHRINE 0.5% 30 ML VIAL INFILTRATE (14:39)
--- NOTE | 2020-01-16 15:11 | PM.IMPN ---
Progress Note: A&P Assessment and Plan (1) Acute pancreatitis: Code(s): K85.90 - Acute pancreatitis without necrosis or infection, unspecified Status: Acute Assessment and Plan: 01/16/20 15:11 Eva Arriaza is a 69 year old female with history of cardiomyopathy morbidly obesity patient presented emergency department with 1 day onset of epigastric pain radiating to the back nausea and just did not feel right see denies any fever or chills, denies any history of alcohol, is no family history of pancreatitis, patient had a CT scan of the abdomen which showed patient has a interstitial pancreatitis with elevated lipase of close to 1 thigh, to further evaluate with abdominal ultrasound which showed biliary sludge but no acute cholecystitis, the plan is to continue hydrate the patient continue pain management and trend lipase, currently NPO, her symptoms improved will start the patient on clear liquid and further recommendation to follow, patient may benefit surgical consult as outpatient to electively remove the gallbladder as patient is morbidly obese high risk of gallstones, today patient states feeling not as nauseated pain is also better denies any fever or chills, patient's lipase are trending down will going to start the patient on clear liquid, patient would like to consult surgery for possible cholecystectomy, patient has a history of cardiomyopathy seen by cardiology last ejection fraction was 35%, patient is being hydrated that appear volume overload note patient has any complaint, since patient is drinking on clear liquids will stop the IV fluids, patient was seen by surgery team on 01/14 and scheduled for cholecystectomy later today, patient lipase and liver enzymes are trending down, patient is in pain and is persisting denies any nausea or vomiting fever or chill, will follow-up Subjective Date/time seen: 01/16/20 15:11 Eva Arriaza is a 69 year old female with history of cardiomyopathy morbidly obesity patient presented emergency department with 1 day onset of epigastric pain radiating to the back nausea and just did not feel right see denies any fever or chills, denies any history of alcohol, is no family history of pancreatitis, patient had a CT scan of the abdomen which showed patient has a interstitial pancreatitis with elevated lipase of close to 1 thigh, to further evaluate with abdominal ultrasound which showed biliary sludge but no acute cholecystitis, the plan is to continue hydrate the patient continue pain management and trend lipase, currently NPO, her symptoms improved will start the patient on clear liquid and further recommendation to follow, patient may benefit surgical consult as outpatient to electively remove the gallbladder as patient is morbidly obese high risk of gallstones, today patient states feeling not as nauseated pain is also better denies any fever or chills, patient's lipase are trending down will going to start the patient on clear liquid, patient would like to consult surgery for possible cholecystectomy, patient has a history of cardiomyopathy seen by cardiology last ejection fraction was 35%, patient is being hydrated that appear volume overload note patient has any complaint, since patient is drinking on clear liquids will stop the IV fluids, patient was seen by surgery team on 01/14 and scheduled for cholecystectomy later today, patient lipase and liver enzymes are trending down, patient is in pain and is persisting denies any nausea or vomiting fever or chill, will follow-up Review of Systems Review of Systems: All systems reviewed & are unremarkable except as noted in HPI and below Exam Narrative: Exam Narrative: Morbidly obese with BMI 45 Const: General: no acute distress and uncomfortable HENMT: General nose exam: Normal nares present Mouth: Yes moist mucous membranes Eyes: General: appearance normal, both eyes and all related structures Sclera: sclerae normal Neck: Nec
--- NOTE | 2020-01-16 15:42 | P.OP_ITS ---
Procedure Note - Detailed Date of procedure: 01/16/20 Pre-op diagnosis: Acute biliary pancreatitis Acute biliary pancreatitis Post-op diagnosis: same Procedure performed: Laparoscopic cholecystectomy with intraoperative cholangiogram Description of procedure: The patient was taken to surgery and induced into general anesthesia. The abdomen was prepped and draped. Trocars were placed in the usual fashion using 0.5% Marcaine with epinephrine and applied Medical optical trocars. A 5 millimeter camera was used. There were multiple adhesions to the gallbladder. The gallbladder was very edematous probably from the pancreatitis but also possibly from chronic cholecystitis. The adhesions were taken down so that the gallbladder was exposed. The gallbladder was decompressed with a laparoscopic aspirator. The cholecystotomy was closed with a Vicryl endo-loop. Eventually these adhesions were taken down and the infundibulum of the gallbladder was exposed. It was retracted anterosuperiorly. We exposed the cholecystohepatic triangle and dissected out the cystic duct and cystic artery.The gallbladder was dissected off the liver at its lower 3rd. Critical view was achieved. The cystic artery was securely clipped and divided. Cystic duct was dissected through most of its length. The cystic duct was clipped at the distal gallbladder. A small incision was made in the upper cystic duct with cystic duct scissors. The cholangiogram catheter was passed into the cystic duct. We then brought the C-arm fluoroscopy into the field. Intraoperative cholangiograms were done with C-arm fluoroscopy. This showed a normal cholangiogram with no evidence of common bile duct filling defects. There was prompt duodenal filling and no evidence of common bile duct injury. I discussed the cholangiogram results with the radiologist over the speaker phone. The cholangiogram catheter was removed from the cystic duct. The cystic duct was then securely clipped and divided. The gallbladder was then dissected free of its peritoneal attachments to the liver. Once completely freed, it was placed in an Endo-Catch bag and retrieved through the 10 11 epigastric trocar. The epigastric trocar was then replaced. We reviewed the right upper quadrant and gallbladder fossa. It was irrigated and suctioned repeatedly. All looked good with no evidence of bleeding or bile leakage. We then evacuated CO2 and removed the trocar sleeves. The fascia was closed at the epigastric trocar site with [id number] 0 Vicryl suture. The subcutaneous was closed with interrupted 3 0 Vicryl suture. All skin wounds were closed with subcuticular 4 O Monocryl skin suture. The wounds were dressed with Exofin surgical adhesive. The patient transferred to recovery in good condition. Sponge and needle counts were correct x2. Anesthesia: GETA and local (0.5% Marcaine with epinephrine) Surgeon: Francesco Marks MD Raw Stock Machine Feeder: Gavin BABCOCK Estimated blood loss (mL): 10 Drains: No Packing: No Pathology: yes (Gallbladder) Complications: None Condition: stable Disposition: PACU Findings: Chronic inflammation with no biliary ductal dilatation. Cholangiogram showed prompt duodenal filling with no filling defects in the extrahepatic or intrahepatic biliary system. No stones in the gallbladder but with thickened gallbladder wall and edema in the gallbladder wall as well.
--- NOTE | 2020-01-16 18:17 | PC.NURSE ---
Returned from OR per @ [id number].
[2020-01-16] MEDS: SIMVASTATIN 20 MG TABLET PO (18:21)
[2020-01-16] MEDS: FUROSEMIDE 20 MG TABLET PO (18:21)
[2020-01-16] MEDS: SPIRONOLACTONE 25 MG TABLET PO (18:21)
[2020-01-16] MEDS: PANTOPRAZOLE 40 MG TABLET PO (18:21)
[2020-01-16] MEDS: LOSARTAN POTASSIUM 25 MG TABLET PO (18:22)
[2020-01-16] MEDS: LACTATED RINGERS 1,000 ML 100 ML IV CONT (18:33)
[2020-01-16] MEDS: SENNA/DOCUSATE SODIUM TABLET 2 TAB PO (21:05)
[2020-01-16] MEDS: ENOXAPARIN 30 MG/0.3 ML SYRINGE SUB-Q (21:05)
[2020-01-17 02:00] VITALS: BP 115/58; PULSE 83; RESP 18; TEMP 36.2; O2SAT 94
[2020-01-17 06:00] VITALS: BP 130/84; PULSE 76; RESP 18; TEMP 36.4; O2SAT 97
[2020-01-17 06:21] LABS: Hematocrit 32.9 % (37.0-47.0); Hemoglobin 10.9 g/dL (12.0-15.0); Mean Corpuscular HGB Conc 33.1 g/dl (32-36); Mean Corpuscular Hemoglobin 30.4 pg (26-34); Mean Corpuscular Volume 91.9 fl (80-100); Mean Platelet Volume 10.1 fl (7.4-10.4); Platelet Count Result 178 k/mm3 (150-375); Red Blood Count 3.58 M/mm3 (4.2-5.4); Red Cell Distribution Width 12.6 % (11.5-14.5); White Blood Count 9.1 K/mm3 (4.5-10.0)
[2020-01-17 06:29] LABS: Alanine Aminotransferase 43 U/L (4-35); Albumin Level 3.9 g/dL (3.5-5.1); Alkaline Phosphatase 101 U/L (38-126); Aspartate Amino Transferase 52 U/L (14-36); Bilirubin,Total 1.4 mg/dL (0.2-1.3); Blood Urea Nitrogen 26 mg/dL (7-17); Calcium 8.8 mg/dL (8.4-10.2); Carbon Dioxide 28 mmol/L (22-30); Chloride 102 mmol/L (98-107); Estimated CRCL calculation 41 ml/min; Estimated Glomerular Filt Rate 32; Glucose 151 mg/dL (65-105); Lipase 79 U/L (23-300); Potassium 4.5 mmol/L (3.4-5.0); Sodium 137 mmol/L (137-145)
[2020-01-17] MEDS: SIMVASTATIN 20 MG TABLET PO (08:20)
[2020-01-17] MEDS: FUROSEMIDE 20 MG TABLET PO ×2 (08:20→16:45)
[2020-01-17] MEDS: ASPIRIN 81 MG ENTERIC TABLET PO (08:20)
[2020-01-17] MEDS: SPIRONOLACTONE 25 MG TABLET PO (08:20)
[2020-01-17] MEDS: PANTOPRAZOLE 40 MG TABLET PO (08:20)
[2020-01-17] MEDS: ENOXAPARIN 30 MG/0.3 ML SYRINGE SUB-Q (08:20)
[2020-01-17] MEDS: CITALOPRAM HYDROBROMIDE 20 MG TABLET PO (08:20)
[2020-01-17] MEDS: LOSARTAN POTASSIUM 25 MG TABLET PO (08:20)
[2020-01-17] MEDS: polyethylene glycoL 3350 17 GM POWD.PACK PO (08:20)
[2020-01-17 08:21] VITALS: PULSE 63
[2020-01-17] MEDS: carvediloL 12.5 MG TABLET PO (08:21)
[2020-01-17] MEDS: SODIUM CHLORIDE 0.9% IV 1,000 ML 75 ML IV CONT (08:22)
--- NOTE | 2020-01-17 09:11 | WPDANESPN ---
Anes - Prog Note Post-Op Date/Time: 01/17/20 09:11 Cardiovascular status: normal Respiratory status: normal Airway patency: baseline Mental status: baseline Post-Op hydration status: normal Vital Signs: Last Vital Signs Temp 36.4 C 01/17/20 06:00 Pulse 63 01/17/20 08:21 Resp 18 01/17/20 06:00 BP 130/84 01/17/20 06:00 Pulse Ox 97 01/17/20 06:00 I/O: Intake & Output 01/16/20 01/17/20 01/17/20 23:59 07:59 15:59 Intake Total 360 340 Output Total 600 800 Balance -240 -460 Laboratory Tests 01/17/20 06:01 01/17/20 06:01 01/17/20 01/17/20 06:01 06:01 WBC 9.1 RBC 3.58 L Hgb 10.9 L Hct 32.9 L MCV 91.9 MCH 30.4 MCHC 33.1 RDW 12.6 Plt Count 178 MPV 10.1 Sodium 137 Potassium 4.5 Chloride 102 Carbon Dioxide 28 BUN 26 H Creatinine 1.60 H Estim Creat Clear Calc 41 Estimated GFR 32 L Glucose 151 H Calcium 8.8 Total Bilirubin 1.4 H AST 52 H ALT 43 H Alkaline Phosphatase 101 Total Protein 7.0 Albumin 3.9 Lipase 79 Post-procedural complaints: none Patient Feedback: Patient satisfied with anesthetic care.
[2020-01-17 09:35] VITALS: O2SAT 97
[2020-01-17 10:14] VITALS: BP 127/73; PULSE 68; RESP 18; TEMP 36.6; O2SAT 99
--- NOTE | 2020-01-17 12:35 | PM.PNGS ---
Progress Note: A&P Assessment and Plan (1) Acute biliary pancreatitis without infection or necrosis: Code(s): K85.10 - Biliary acute pancreatitis without necrosis or infection Status: Acute Assessment and Plan: Doing well after laparoscopic cholecystectomy yesterday. Intraoperative cholangiogram was negative. Okay to discharge later today from surgical standpoint. I will see her in 2 weeks. She does not need any prescription analgesics. Subjective Subjective Date/Time Seen: 01/17/20 12:35 Post Op day: 1 Patient reports: no new complaints, feels better, pain is less and afebrile Exam GI: Inspection: non-distended and incision (Trocar sites all healing well) GI Palp: Yes Soft to palpation, Yes Tenderness to palpation present (GI), No Guarding due to palpation present (GI), No Hernia present and No Palpable mass present Auscultation: normal bowel sounds Objective Data Vital Signs Vital Signs: Vital Signs - 24 hr 01/16/20 13:20 01/16/20 15:28 01/16/20 15:40 Temperature 36.8 C 36.7 C Pulse Rate 74 77 77 Respiratory Rate 18 8 L 12 Blood Pressure 124/63 100/54 L 119/53 L Pulse Oximetry 99 95 99 01/16/20 15:55 01/16/20 16:10 01/16/20 16:25 Temperature Pulse Rate 75 75 76 Respiratory Rate 10 L 10 L 18 Blood Pressure 127/58 L 123/51 L 115/47 L Pulse Oximetry 100 97 95 01/16/20 16:40 01/16/20 17:00 01/16/20 17:15 Temperature Pulse Rate 75 76 75 Respiratory Rate 18 16 16 Blood Pressure 129/82 122/53 L 119/53 L Pulse Oximetry 93 93 95 01/16/20 18:00 01/16/20 21:05 01/16/20 22:00 Temperature 36.6 C Pulse Rate 73 64 81 Respiratory Rate 16 18 Blood Pressure 120/51 L 123/55 L Pulse Oximetry 96 97 01/17/20 02:00 01/17/20 06:00 01/17/20 08:21 Temperature 36.2 C L 36.4 C Pulse Rate 83 76 63 Respiratory Rate 18 18 Blood Pressure 115/58 L 130/84 Pulse Oximetry 94 97 01/17/20 09:35 01/17/20 10:14 Temperature 36.6 C Pulse Rate 68 Respiratory Rate 18 Blood Pressure 127/73 Pulse Oximetry 97 99 Intake/Output Intake/Output: Intake & Output 01/14/20 01/15/20 01/16/20 01/17/20 23:59 23:59 23:59 23:59 Intake Total 1000 2340 960 460 Output Total 1000 1300 1700 800 Balance 0 4140 -935 -686 Meds/Results Medications: Active Medications Generic Name Dose Route Start Last Admin Trade Name Freq PRN Reason Stop Dose Admin Acetaminophen 500 mg 01/16/20 16:50 Tylenol Tablet PO Q6H PRN Mild Pain (1-3) or Fever Hydrocodone Bitart/Acetaminophen 1 tab 01/16/20 16:50 [place] 5-325 Mg PO Q4H PRN Pain Rated 4-6 Hydrocodone Bitart/Acetaminophen 1 tab 01/16/20 16:50 01/17/20 00:33 [place] 10-325 Mg PO 1 tab Q6H PRN Administration Pain Rated 7-10 Aspirin 81 mg 01/15/20 09:00 01/17/20 08:20 Aspirin Ec PO 81 mg DAILY SHARIFA Administration Carvedilol 12.5 mg 01/14/20 21:00 01/17/20 08:21 Coreg PO 12.5 mg Q12HR SHARIFA Administration Citalopram Hydrobromide 20 mg 01/15/20 09:00 01/17/20 08:20 Celexa PO 20 mg DAILY SHARIFA Administration Diphenhydramine HCl 25 mg 01/16/20 16:50 Benadryl Inj IV PUSH Q6H PRN Itching Enoxaparin Sodium 30 mg 01/16/20 21:00 01/17/20 08:20 Lovenox SUB-Q 30 mg Q12HR SHARIFA Administration Furosemide 20 mg 01/14/20 17:00 01/17/20 08:20 Lasix Tablet PO 20 mg BID SHARIFA Administration Sodium Chloride 1,000 mls @ 75 mls/hr 01/17/20 07:55 01/17/20 10:08 Normal Saline Iv IV CONT 75 mls/hr .[id number] SHARIFA Infusion Losartan Potassium 25 mg 01/15/20 09:00 01/17/20 08:20 Cozaar PO 25 mg DAILY SHARIFA Administration Morphine Sulfate 1 mg 01/16/20 16:50 Morphine Sulfate Inj IV PUSH Q2H PRN Pain Rated 4-6 Morphine Sulfate 2 mg 01/16/20 16:50 Morphine Sulfate Inj IV PUSH Q2H PRN Pain Rated 7-10 Naloxone HCl 0.1 mg 01/16/20 16:50 Narcan IV PUSH Q2M PRN Opiate Reversal Ondansetron H
[2020-01-17 14:00] VITALS: BP 120/46; PULSE 76; RESP 18; TEMP 36.7; O2SAT 98
[2020-01-17 16:20] LABS: Potassium 4.1 mmol/L (3.4-5.0)
[2020-01-17 16:38] LABS: Blood Urea Nitrogen 27 mg/dL (7-17); Calcium 8.5 mg/dL (8.4-10.2); Carbon Dioxide 25 mmol/L (22-30); Chloride 104 mmol/L (98-107); Estimated CRCL calculation 43 ml/min; Estimated Glomerular Filt Rate 34; Glucose 116 mg/dL (65-105); Sodium 137 mmol/L (137-145)
--- NOTE | 2020-01-17 16:52 | PM.DS ---
DS: Admitting Diagnosis Admitting Diagnosis Admitting Diagnosis: Acute pancreatitis without necrosis or infection, unspecified DS: Discharge Diagnosis Discharge Diagnosis (1) Acute pancreatitis: Code(s): K85.90 - Acute pancreatitis without necrosis or infection, unspecified Status: Acute Assessment and Plan: 01/16/20 15:11 Eva Arriaza is a 69 year old female with history of cardiomyopathy morbidly obesity patient presented emergency department with 1 day onset of epigastric pain radiating to the back nausea and just did not feel right see denies any fever or chills, denies any history of alcohol, is no family history of pancreatitis, patient had a CT scan of the abdomen which showed patient has a interstitial pancreatitis with elevated lipase of close to 1 thigh, to further evaluate with abdominal ultrasound which showed biliary sludge but no acute cholecystitis, the plan is to continue hydrate the patient continue pain management and trend lipase, currently NPO, her symptoms improved will start the patient on clear liquid and further recommendation to follow, patient may benefit surgical consult as outpatient to electively remove the gallbladder as patient is morbidly obese high risk of gallstones, today patient states feeling not as nauseated pain is also better denies any fever or chills, patient's lipase are trending down will going to start the patient on clear liquid, patient would like to consult surgery for possible cholecystectomy, patient has a history of cardiomyopathy seen by cardiology last ejection fraction was 35%, patient is being hydrated that appear volume overload note patient has any complaint, since patient is drinking on clear liquids will stop the IV fluids, patient was seen by surgery team on 01/14 and scheduled for cholecystectomy later today, patient lipase and liver enzymes are trending down, patient is in pain and is persisting denies any nausea or vomiting fever or chill, will follow-up DS: Summary Hospital Course Reason for hospitalization: Eva Arriaza is a 69 year old female with history of cardiomyopathy morbidly obesity patient presented emergency department with 1 day onset of epigastric pain radiating to the back nausea and just did not feel right see denies any fever or chills, denies any history of alcohol, is no family history of pancreatitis, patient had a CT scan of the abdomen which showed patient has a interstitial pancreatitis with elevated lipase of close to 1 thigh, to further evaluate with abdominal ultrasound which showed biliary sludge but no acute cholecystitis, the plan is to continue hydrate the patient continue pain management and trend lipase, currently NPO, her symptoms improved will start the patient on clear liquid and further recommendation to follow, patient may benefit surgical consult as outpatient to electively remove the gallbladder as patient is morbidly obese high risk of gallstones Hospital Course: 01/16/20 15:11 Eva Arriaza is a 69 year old female with history of cardiomyopathy morbidly obesity patient presented emergency department with 1 day onset of epigastric pain radiating to the back nausea and just did not feel right see denies any fever or chills, denies any history of alcohol, is no family history of pancreatitis, patient had a CT scan of the abdomen which showed patient has a interstitial pancreatitis with elevated lipase of close to 1 thigh, to further evaluate with abdominal ultrasound which showed biliary sludge but no acute cholecystitis, the plan is to continue hydrate the patient continue pain management and trend lipase, currently NPO, her symptoms improved will start the patient on clear liquid and further recommendation to follow, patient may benefit surgical consult as outpatient to electively remove the gallbladder as patient is morbidly obese high risk of gallstones, today patient states feeling not as nauseated pain is also better denies an
== END 2020-01-17 18:00 | disposition home or self-care (01) | DRG 418 ==
LOC: ANHED 05:22 → ANH3MEDSUR 08:37
PROVIDERS: Nurse Practitioner Family; Surgery; Admitting Provider Internal Medicine; Emergency Provider Emergency Medicine; PCP Family Medicine; Visit Provider Family Medicine
PROC: 0FT44ZZ Resection of Gallbladder, Percutaneous Endoscopic Approach (ICD-10-PCS; CPT 47562; principal; 2020-01-16 14:30)
DX: K85.10 Biliary acute pancreatitis without necrosis or infection (principal); Z68.42 Body mass index [BMI] 45.0-49.9, adult; I42.0 Dilated cardiomyopathy; F33.9 Major depressive disorder, recurrent, unspecified; K81.1 Chronic cholecystitis; E66.01 Morbid (severe) obesity due to excess calories; E11.8 Type 2 diabetes mellitus with unspecified complications; E78.2 Mixed hyperlipidemia; G47.33 Obstructive sleep apnea (adult) (pediatric); I44.7 Left bundle-branch block, unspecified; I10 Essential (primary) hypertension; M19.90 Unspecified osteoarthritis, unspecified site; Z96.653 Presence of artificial knee joint, bilateral; Z90.710 Acquired absence of both cervix and uterus; Z95.810 Presence of automatic (implantable) cardiac defibrillator; Z87.891 Personal history of nicotine dependence; Z79.82 Long term (current) use of aspirin
CPT/HCPCS: 36415; 71045; 74176; 74300; 76705; 80048; 80053; 80061; 81001; 83690; 85025; 85027; 86850; 86900; 86901; 87077; 87086; 87088; 87186; 88304; 93005; 96374; 96376; 99285; A9270; C1713; J0330; J0690; J1100; J1650; J2001; J2250; J2270; J2405; J2704; J3010; J7030; J7120; Q9966

== ENCOUNTER → 2020-03-28 08:03 | Outpatient (CLI) | payer OTHER, SELFPAY ==
--- NOTE | ~2020-03-28 | US_ITS ---
US renal BI 03/28/2020 08:22 Procedure: Realtime transabdominal ultrasound of the kidneys and bladder. Indication: Chronic kidney disease stage III Comparison: CT dated 01/14/2020 Findings: There is mild bilateral renal cortical thinning. No stones, hydronephrosis or renal masses are identified. The right kidney measures 10.8 cm and left kidney measures 9.9 cm. Bladder within no rmal limits. Impression: 1: Mild bilateral renal cortical thinning. Reviewed, dictated and finalized at location A. Impression: 1: Mild bilateral renal cortical thinning.
== END ==
PROVIDERS: Visit Provider Internal Medicine Nephrology
DX: N18.3 Chronic kidney disease, stage 3 (moderate) (principal); E11.29 Type 2 diabetes mellitus with other diabetic kidney complication; I42.8 Other cardiomyopathies
CPT/HCPCS: 76775

== ENCOUNTER → 2020-06-29 12:20 | Outpatient (CLI) | payer OTHER, SELFPAY ==
--- NOTE | ~2020-06-29 | XR_ITS ---
EXAMINATION: XR foot LT min 3V EXAM DATE: 06/29/2020 12:34 INDICATION: R60.9 - Edema, unspecified; lat Lt foot pain x 4 days;no inj. TECHNIQUE: Left foot dorsoplantar, lateral and oblique projections obtained and reviewed. Comparison is made to prior examination from 08/16/2014. FINDINGS: Left metatarsal bones unremarkable. There is mild polyarticular primary osteoarthritis. S everal 1st metatarsal head. Lucencies probably subchondral cysts from osteoarthritis. Moderate size i nferior calcaneal spur. There are no acute fractures or dislocations identified. There is no subcuta neous gas. Mild soft tissue swelling over the foot. There are no radiopaque foreign bodies. IMPRESSION: 1. XR foot LT min 3V exam without acute osseous findings. 2. Soft tissue swelling. 3. Mild osteoarthritis. 4. Moderate sized calcaneal spur Reviewed, dictated and finalized at location A. 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
== END ==
PROVIDERS: PCP Family Medicine; Visit Provider Family Medicine
DX: I50.9 Heart failure, unspecified (principal); M79.672 Pain in left foot; M19.072 Primary osteoarthritis, left ankle and foot; M77.32 Calcaneal spur, left foot; M79.89 Other specified soft tissue disorders; R60.0 Localized edema
CPT/HCPCS: 73630

== ENCOUNTER → 2020-10-28 10:27 | Outpatient (CLI) | payer OTHER, SELFPAY ==
--- NOTE | ~2020-10-28 | MM_ITS ---
EXAMINATION: MM screening [facility] BI w neo HISTORY: Screening mammogram TECHNIQUE: Craniocaudal and mediolateral oblique 3-D tomosynthesis images were obtained and synthetic 2-D images were generated. CAD analysis was submitted and interpreted. COMPARISON: 07/03/2019, 07/25/2017, 06/28/2017, 06/14/2014 BREAST PARENCHYMAL COMPOSITION: There are scattered areas of fibroglandular density. FINDINGS: There is no evidence of suspicious mass, calcification, or architectural distortion to sugg est malignancy in either breast. There has been no suspicious interval change. IMPRESSION: 1. No mammographic evidence of malignancy. 2. Recommend routine screening mammography in one year. BI-RADS Category 1: Negative Reviewed, dictated and finalized at location A.
== END ==
PROVIDERS: PCP Family Medicine; Visit Provider Family Medicine
DX: Z12.31 Encounter for screening mammogram for malignant neoplasm of breast (principal)
CPT/HCPCS: 77063; 77067

== ENCOUNTER → 2021-10-21 12:34 | Outpatient (CLI) | payer OTHER, SELFPAY ==
--- NOTE | ~2021-10-21 | XR_ITS ---
XR chest 2V 10/21/2021 12:57 Indication: Preop. Cardiomyopathy. Procedure: 2 view chest Comparison: Comparison to multiple prior studies sequentially, with oldest reviewed study dated 01/14. Findings: Cardiomegaly. Pacemaker/defibrillator leads are stable. No focal air space disease, pulmona ry edema, pleural effusion or suspected pneumothorax. Impression: 1: No acute cardiopulmonary disease. Reviewed, dictated and finalized at location A. Impression: 1: No acute cardiopulmonary disease.
== END ==
PROVIDERS: PCP Family Medicine; Visit Provider Family Medicine
DX: Z01.818 Encounter for other preprocedural examination (principal); I42.9 Cardiomyopathy, unspecified
CPT/HCPCS: 71046

== ENCOUNTER → 2022-02-18 11:45 | Outpatient (CLI) | payer OTHER, SELFPAY ==
--- NOTE | ~2022-02-18 | XR_ITS ---
XR foot LT min 3V DATE: 02/18/2022 12:54 INDICATION: Left foot pain TECHNIQUE: 4 views COMPARISON: 06/29/2020 left foot FINDINGS: Moderate plantar calcaneal enthesopathy. Slight distal Achilles tendon calcification. Osteopenia. No fracture, dislocation, periosteal reaction or bone destruction is detected. Mild osteoarthritis at first metatarsophalangeal joint. IMPRESSION: Plantar calcaneal enthesopathy Minimal distal Achilles tendon calcification Mild osteoarthritis at the first metatarsophalangeal joint Reviewed, dictated and finalized at location B.
== END ==
PROVIDERS: PCP Family Medicine; Visit Provider Physician Assistant
DX: M79.672 Pain in left foot (principal); M77.32 Calcaneal spur, left foot; M65.872 Other synovitis and tenosynovitis, left ankle and foot; M19.072 Primary osteoarthritis, left ankle and foot
CPT/HCPCS: 73630

== ENCOUNTER 2022-07-22 00:15 | Day surgery (SDC) | payer OTHER, SELFPAY ==
[2022-07-18 14:12] VITALS: BMI 47.0
--- NOTE | 2022-07-21 12:46 | PM.HPGS ---
History of Present Illness History of Present Illness Consent: Risks, benefits, and alternatives have been discussed and questions answered. Patient agrees to proceed with procedure. Chief complaint: neoplasm screening Narrative: Eva Arriaza is a 71 year old female Referred for colon cancer screening. Her last colonoscopy was 10 years ago. Review of Systems Review of Systems: All systems reviewed & are unremarkable except as noted in HPI and below PMFSH Past Medical History Medical History Abdominal mass fullness Acute biliary pancreatitis without infection or necrosis Acute pancreatitis Arthritis Cardiomyopathy Most recent [facility] with Echo on 01/10/20 showing an ejection fraction of 35%, mild to moderate aortic valve regurgitation, left ventricular systolic dysfunction, and grade II diastolic dysfunction. Depression, recurrent Encounter for surgical aftercare following surgery on the digestive system Esophageal reflux Essential (primary) hypertension Gallbladder sludge History of type 2 diabetes mellitus No current home medications. Reportedly her last Hgb A1C was normal. Hyperlipidemia ICD (implantable cardioverter-defibrillator) battery depletion placed 2009 ICD (implantable cardioverter-defibrillator) in place Left hip pain Lumbago Major depressive disorder, single episode, unspecified Metabolic syndrome Morbid obesity Morbid obesity with BMI of 45.0-49.9, adult Obstructive sleep apnea Osteopenia after menopause Other left bundle branch block Type 2 diabetes mellitus with unspecified complications Surgical History Surgical History H/O: hysterectomy Vaginal partial hysterectomy History of cardiac cath 2009 cardiac cath due to abnormal stress test that reportedly showed no coronary artery disease. History of implantable cardioverter-defibrillator (ICD) placement replaced 04/21 History of knee replacement Bilateral Hx laparoscopic cholecystectomy Hx of tonsillectomy Family History Family History Father Acute myocardial infarction Hypertension Family history of cardiovascular disease Gallbladder disease Mother Diabetes mellitus Hypertension Family history of cardiovascular disease Sibling Hypertension Social History Social History Social History: caffeine-daily soda Smoking status: Former smoker Tobacco type: cigarettes Alcohol intake: current Alcohol use details: Rare occasions, such as 2-3 times per year. Substance use: never Substance use type: does not use Living arrangements: with family Additional living arrangements comments: Her . Has 4 children. Additional occupation/education comments: [employer]. Gender identity (if verbalized by the patient): Female Sexual Orientation (if Verbalized by the Patient): Straight or Heterosexual Spiritual care concerns: No Meds Home Medications and Allergies Home Medications Medication Instructions Recorded Confirmed Type aspirin 81 mg tablet,delayed 81 mg PO DAILY 06/28/19 07/18/22 History release carvedilol 12.5 mg tablet 12.5 mg PO BID #180 tabs 10/11/21 07/18/22 Rx losartan 25 mg tablet 25 mg PO DAILY #90 tabs 10/11/21 07/18/22 Rx pantoprazole 40 mg tablet,delayed 40 mg PO QAM #90 tabs 10/11/21 07/18/22 Rx release simvastatin 20 mg tablet 20 mg PO QHS #90 tabs 10/11/21 07/18/22 Rx spironolactone 25 mg tablet 25 mg PO BID #180 tabs 10/11/21 07/18/22 Rx apixaban 5 mg tablet (Eliquis) 5 mg PO BID 06/01/22 07/18/22 History budesonide-formoterol HFA 160 2 puff inhalation Q12H PRN 06/01/22 07/18/22 History mcg-4.5 mcg/actuation aerosol Shortness Of Breath Or Wheezing inhaler (Symbicort) furosemide 20 mg tablet 20 mg PO DAILY 06/01/22 07/18/22 History allopurinol 100 m
[2022-07-22 07:00] VITALS: BP 123/74; PULSE 94; RESP 20; TEMP 36.4; O2SAT 100; BMI 47.4
[2022-07-22] MEDS: LACTATED RINGERS 1,000 ML 150 ML IV CONT (07:11)
--- NOTE | 2022-07-22 07:41 | WPDANESEPPF ---
Anes - Initial Pre Proc Eval Procedure: Operation Date: 07/22/22 08:30 Proposed Procedures p Screening Colonoscopy - Rufus Peters MD Date/Time: 07/22/22 07:41 Surgeon: Rufus Peters MD Pre Op Diagnosis: neoplasm screening Patient Data Age: 71 Gender: F Height: 1.68 m Weight: 133.3 kg Last Vital Signs Temp 36.4 C L 07/22/22 07:00 Pulse 94 07/22/22 07:00 Resp 20 07/22/22 07:00 BP 123/74 07/22/22 07:00 Pulse Ox 100 07/22/22 07:00 O2 Del Method Room Air 07/22/22 07:00 Allergies Allergy/AdvReac Type Severity Reaction Status Date / Time naproxen Allergy Severe swelling Verified 07/22/22 06:59 in ankles and feet duloxetine Allergy Intermediate jittery Verified 07/22/22 06:59 and hyper lisinopril Allergy Intermediate cough Verified 07/22/22 06:59 Home Medications Medication Instructions Recorded Confirmed Type aspirin 81 mg tablet,delayed 81 mg PO DAILY 06/28/19 07/18/22 History release carvedilol 12.5 mg tablet 12.5 mg PO BID #180 tabs 10/11/21 07/18/22 Rx losartan 25 mg tablet 25 mg PO DAILY #90 tabs 10/11/21 07/18/22 Rx pantoprazole 40 mg tablet,delayed 40 mg PO QAM #90 tabs 10/11/21 07/18/22 Rx release simvastatin 20 mg tablet 20 mg PO QHS #90 tabs 10/11/21 07/18/22 Rx spironolactone 25 mg tablet 25 mg PO BID #180 tabs 10/11/21 07/18/22 Rx apixaban 5 mg tablet (Eliquis) 5 mg PO BID 06/01/22 07/18/22 History budesonide-formoterol HFA 160 2 puff inhalation Q12H PRN 06/01/22 07/18/22 History mcg-4.5 mcg/actuation aerosol Shortness Of Breath Or Wheezing inhaler (Symbicort) furosemide 20 mg tablet 20 mg PO DAILY 06/01/22 07/18/22 History allopurinol 100 mg tablet 200 mg PO DAILY 07/18/22 07/18/22 History citalopram 40 mg tablet 40 mg PO DAILY 07/18/22 07/18/22 History Patient hx anesthesia problems: none Family hx anesthesia problems: none Results Review: All pre-operative results and documents have been reviewed as part of the pre-operative evaluation. [facility] Past Medical History Medical History Abdominal mass fullness Acute biliary pancreatitis without infection or necrosis Acute pancreatitis Arthritis Cardiomyopathy Most recent JANINA with Echo on 01/10/20 showing an ejection fraction of 35%, mild to moderate aortic valve regurgitation, left ventricular systolic dysfunction, and grade II diastolic dysfunction. Depression, recurrent Encounter for surgical aftercare following surgery on the digestive system Esophageal reflux Essential (primary) hypertension Gallbladder sludge History of type 2 diabetes mellitus No current home medications. Reportedly her last Hgb A1C was normal. Hyperlipidemia ICD (implantable cardioverter-defibrillator) battery depletion placed 2009 ICD (implantable cardioverter-defibrillator) in place Left hip pain Lumbago Major depressive disorder, single episode, unspecified Metabolic syndrome Morbid obesity Morbid obesity with BMI of 45.0-49.9, adult Obstructive sleep apnea Osteopenia after menopause Other left bundle branch block Type 2 diabetes mellitus with unspecified complications Surgical History Surgical History H/O: hysterectomy Vaginal partial hysterectomy History of cardiac cath 2009 cardiac cath due to abnormal stress test that reportedly showed no coronary artery disease. History of implantable cardioverter-defibrillator (ICD) placement replaced 04/21 History of knee replacement Bilateral Hx laparoscopic cholecystectomy Hx of tonsillectomy Family History Family History Father Acute myocardial infarction Hypertension Family history of cardiovascular disease Gallbladder disease Mother Diabetes mellitus Hypertension Family history of cardiovascular disease Sibling Hypertension Social History Social History (Rev
[2022-07-22 08:10] VITALS: BP 126/72; PULSE 67; RESP 20; O2SAT 100
[2022-07-22 08:20] VITALS: BP 147/60; PULSE 64; RESP 20; O2SAT 100
[2022-07-22 08:30] VITALS: BP 129/61; PULSE 64; RESP 20; O2SAT 100
== END 2022-07-22 08:41 | disposition home or self-care (01) ==
PROVIDERS: PCP Family Medicine; Visit Provider Internal Medicine Gastroenterology
PROC: 0DJD8ZZ Inspection of Lower Intestinal Tract, Via Natural or Artificial Opening Endoscopic (ICD-10-PCS; CPT 45378; principal; 2022-07-22 08:30)
DX: Z12.11 Encounter for screening for malignant neoplasm of colon (principal); I42.9 Cardiomyopathy, unspecified; F33.9 Major depressive disorder, recurrent, unspecified; I10 Essential (primary) hypertension; E78.5 Hyperlipidemia, unspecified; G47.33 Obstructive sleep apnea (adult) (pediatric); M85.80 Other specified disorders of bone density and structure, unspecified site; K21.9 Gastro-esophageal reflux disease without esophagitis; Z95.810 Presence of automatic (implantable) cardiac defibrillator; E66.01 Morbid (severe) obesity due to excess calories; Z68.42 Body mass index [BMI] 45.0-49.9, adult; Z87.891 Personal history of nicotine dependence; Z79.01 Long term (current) use of anticoagulants; Z79.82 Long term (current) use of aspirin; Z79.51 Long term (current) use of inhaled steroids
CPT/HCPCS: G0121; J2704; J7120

== ENCOUNTER → 2022-09-21 13:10 | Outpatient (CLI) | payer OTHER, SELFPAY ==
--- NOTE | ~2022-09-21 | MM_ITS ---
EXAMINATION: MM screening [facility] BI w neo HISTORY: Screening mammogram TECHNIQUE: Craniocaudal and mediolateral oblique 3-D tomosynthesis images were obtained and synthetic 2-D images were generated. CAD analysis was submitted and interpreted. COMPARISON: 3 , 06/2019 screening mammogram examinations BREAST PARENCHYMAL COMPOSITION: There are scattered areas of fibroglandular density. FINDINGS: There is no evidence of suspicious mass, calcification, or architectural distortion to sugg est malignancy in either breast. There has been no suspicious interval change. IMPRESSION: 1. No mammographic evidence of malignancy. 2. Recommend routine screening mammography in one year. BI-RADS Category 1: Negative Reviewed, dictated and finalized at location A. EMENTATION LEAD
--- NOTE | ~2022-09-21 | DEXA_ITS ---
Bone Density Report Name: GULSHAN PARKER Age: 72 Sex: Female Ethnicity: White Date of : 1950 Indication: postmenopausal; screening for osteoporosis; parental hip fracture; height loss; hysterectomy; Referring Provider: Dawna Akers Study: Bone densitometry was performed. Exam Date: September 21, 2022 Accession number: [id number] Bone Density: Region BMD T-score Z-score Classification AP Spine (L1-L4) 1.154 1.0 3.2 Normal Femoral Neck (Left) 0.561 -2.6 -0.7 Osteoporosis Total Hip (Left) 0.856 -0.7 0.9 Normal Femoral Neck (Right) 0.676 -1.6 0.4 Osteopenia Total Hip (Right) 0.874 -0.6 1.1 Normal Total Hip Mean 0.865 -0.7 1.0 Normal World Health Organization criteria for BMD impression classify patients as: Normal (T-score at or above -1.0), Osteopenia (T-score between -1.0 and -2.5), or Osteoporosis (T-score at or below -2.5). 10-year Fracture Risk: FRAX not reported because: Some T-score for Spine Total or Hip Total or Femoral Neck at or below -2.5 Previous Exams: Region Exam Age BMD T-score BMD Change BMD Change Date g/cm2 vs Baseline vs Previous AP Spine(L1-L4) 09/21/2022 72 1.154 1.0 0.007 0.137* 07/03/2019 68 1.017 -0.3 -0.130* -0.130* 06/28/2017 66 1.147 0.9 Total Hip(Left) 09/21/2022 72 0.856 -0.7 -0.012 -0.023 07/03/2019 68 0.879 -0.5 0.011 0.011 06/28/2017 66 0.868 -0.6 Total Hip(Right) 09/21/2022 72 0.874 -0.6 -0.005 0.009 07/03/2019 68 0.865 -0.6 -0.014 -0.014 06/28/2017 66 0.879 -0.5 *Denotes significance at 95% confidence level, LSC for AP Spine = 0.022 g/cm2, LSC for Total Hip = 0.027 g/cm2 Clinical Information Provided by Patient: Parent has had a hip fracture Has the following medical conditions: Hysterectomy Patient maximum height was 66.5 Menopause Age: 44 No regular weight bearing exercise Drinks caffeinated beverages Onset of menses at age 12 Number of children 5 Impression: The patient has osteoporosis, based on the Left Femoral Neck T-score. The patient has risk factors, including: parental hip fracture. No significant bone loss was observed. Discussion: INCREASED RISK OF FRACTURE. BONE DENSITY IS UNDESIRABLY LOW AT ONE OR MORE SKELETAL SITES, CONSISTENT WITH POSTMENOPAUSAL OSTEOPOROSIS. This patient's lowest T-score meets the World Health Organization's (WHO) c
== END ==
PROVIDERS: PCP Family Medicine; Visit Provider Physician Assistant
DX: Z12.31 Encounter for screening mammogram for malignant neoplasm of breast (principal); Z78.0 Asymptomatic menopausal state; M81.0 Age-related osteoporosis without current pathological fracture; M85.851 Other specified disorders of bone density and structure, right thigh
CPT/HCPCS: 77063; 77067; 77080

== ENCOUNTER → 2023-09-12 14:33 | Outpatient (CLI) | payer OTHER, SELFPAY ==
--- NOTE | ~2023-09-12 | XR_ITS ---
XR foot LT 2V DATE: 09/12/2023 14:56 INDICATION: Lateral foot pain. No injury. TECHNIQUE: AP and lateral views COMPARISON: None FINDINGS: Prominent plantar calcaneal enthesopathy without associated erosive change or periostitis. Chronic minimal distal Achilles tendon calcification. Mild osteoarthritis at the first metatarsophalangeal joint. No fracture, dislocation, periosteal reaction or bone destruction is detected. IMPRESSION: Plantar calcaneal enthesopathy Mild osteoarthritis at first metatarsophalangeal joint No significant change since 02/18/2022 Reviewed, dictated and finalized at location L. 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
== END ==
PROVIDERS: PCP Family Medicine; Visit Provider Physician Assistant
DX: M77.32 Calcaneal spur, left foot (principal); M19.072 Primary osteoarthritis, left ankle and foot
CPT/HCPCS: 73620

== ENCOUNTER 2023-10-31 12:32 | Outpatient (CLI) | payer OTHER, SELFPAY ==
--- NOTE | ~2023-10-31 | MM_ITS ---
EXAMINATION: MM screening [facility] BI w neo HISTORY: Screening TECHNIQUE: Craniocaudal and mediolateral oblique 3-D tomosynthesis images were obtained and synthetic 2-D images were generated. CAD analysis was submitted and interpreted. COMPARISON: Comparison to multiple prior studies sequentially, with oldest reviewed study dated 04/30. BREAST PARENCHYMAL COMPOSITION: Dense: The breasts are heterogeneously dense, which may obscure small masses FINDINGS: There is no evidence of suspicious mass, calcification, or architectural distortion to sugg est malignancy in either breast. There has been no suspicious interval change. IMPRESSION: 1. No mammographic evidence of malignancy. 2. Recommend routine screening mammography in one year. BI-RADS Category 1: Negative Reviewed, dictated and finalized at location A.
== END 2023-10-31 12:33 ==
PROVIDERS: PCP Family Medicine; Visit Provider Family Medicine
DX: Z12.31 Encounter for screening mammogram for malignant neoplasm of breast (principal)
CPT/HCPCS: 77063; 77067

== ENCOUNTER 2024-03-08 08:24 | Outpatient (CLI) | payer OTHER, SELFPAY ==
--- NOTE | ~2024-03-08 | XR_ITS ---
XR foot RT 2V Ordering provider: Álvaro French APRN History: . M79.671 - Pain in right foot . Comparison: None. FINDINGS: BONES: No acute fracture or dislocation. Calcaneus spur. JOINT SPACES: Narrowing of the proximal and distal interphalangeal joints. Possible fusion of the cub oid and navicular bone is not excluded. SOFT TISSUES: Normal. IMPRESSION: No acute osseous abnormality of the right foot. Reviewed, dictated and finalized at location A.
== END 2024-03-08 08:25 ==
PROVIDERS: PCP Family Medicine; Visit Provider Student in an Organized Health Care Education/Training Program
DX: M79.671 Pain in right foot (principal)
CPT/HCPCS: 73620

== ENCOUNTER 2024-03-26 08:38 | Outpatient (CLI) | payer OTHER, SELFPAY ==
--- NOTE | 2024-04-18 12:47 | WPDSLEEPSTUD ---
Sleep Study Date of Study: 03/26/24 Ordering Provider: Charisse Isaac MD Interpreting Physician: Maris Garcia DO Sleep Study Type: Split Polysomnogram Height: 1.68 m Weight: 135.171 kg Body Mass Index: 48.1 Neck Circumference (inches): 19 Bath: 12 Reason for Sleep Study Daytime hypersomnia Sleep History The patient is a 73-year-old female that had a sleep study ordered by her primary care physician for evaluation of daytime hypersomnia despite CPAP use. The patient denies awakening from sleep short breath. She rarely awakens at night with heartburn, belching or cough. She denies snoring. She rarely has trouble sleeping when she has a cold. She denies waking up gasping for air throughout the night. She denies having breathing problems at night observed by herself or others. He denies sweating excessively at night. She denies having heart palpitations or irregular heartbeats during the night. He frequently falls asleep during the day but never while driving. She denies sleep paralysis, cataplexy and hypnagogic / hypnopompic hallucinations. She denies having trouble at school or work due to sleepiness. She occasionally feels afraid of going to sleep. She occasionally has nightmares. She occasionally has thoughts racing through her mind. She denies feeling sad or depressed. She rarely has anxiety. She denies having muscular tension. She denies noticing parts of her body jerk. She denies kicking during the. She occasionally has crawling and aching feelings in her legs but denies having leg pain during the night. She denies grinding her teeth during sleep and denies awakening with morning jaw pain. She is occasionally bothered by pain during the day but never awakened by pain during the. She occasionally wakes feeling stiff morning. She denies waking up with sore or achy muscles. She denies waking up with pain in the or other. She goes to bed at 9:00 p.m. on both weekdays and weekends. It takes her 5-30 minutes to fall asleep. She wakes up 3-4 times throughout the night for unknown reasons and she will read for 30-60 minutes until she is able to fall back asleep. She wakes up at 6:30 a.m. weekdays but does not have set wake up time on the weekends. She typically gets 7-8 hours of sleep per night. She does not stay in bed after waking morning. She currently lives with her . She denies consuming any caffeinated beverages within 2 hours of bedtime. She denies engaging in physical exercise before bedtime. She will read watch television before falling asleep. He will take naps in the afternoon or the evening but they are refreshing. She consumes 1 caffeinated beverage per day. She denies tobacco, and recreational drug use. [facility] Past Medical History Medical History Abdominal mass fullness Acute biliary pancreatitis without infection or necrosis Arthritis Esophageal reflux Foot pain, left Great toe pain Hyperlipidemia Left hip pain Lumbago Other left bundle branch block Surgical History Surgical History H/O: hysterectomy Vaginal partial hysterectomy History of cardiac cath 2009 cardiac cath due to abnormal stress test that reportedly showed no coronary artery disease. History of implantable cardioverter-defibrillator (ICD) placement replaced 04/21 History of knee replacement Bilateral Hx laparoscopic cholecystectomy Hx of tonsillectomy Family History Family History Father Acute myocardial infarction Hypertension Family history of cardiovascular disease Gallbladder disease Mother Diabetes mellitus Hypertension Family history of cardiovascular disease Sibling Hypertension Social History Social History Social History: caffeine-daily soda Sm
[2024-04-18 12:49] VITALS: BMI 48.1
== END 2024-03-27 07:46 | disposition home or self-care (01) ==
LOC: ANHCSM 08:39
PROVIDERS: PCP Family Medicine; Visit Provider Family Medicine
DX: G47.33 Obstructive sleep apnea (adult) (pediatric) (principal); I95.9 Hypotension, unspecified
CPT/HCPCS: 95811

== ENCOUNTER 2024-08-01 13:32 | Outpatient (CLI) | payer OTHER, SELFPAY ==
--- NOTE | ~2024-08-01 | XR_ITS ---
CHEST RADIOGRAPH, PA AND LATERAL CLINICAL HISTORY: R05.8 - Other specified cough . COMPARISON: 07/28/2010 TECHNIQUE: PA and lateral views of the chest. FINDINGS The left mid lung is partially obscured due to pacemaker/AICD generator. Wires project over the right atrium, coronary sinus and right ventricle. The remainder of the cardiomediastinal silhouette is otherwise unremarkable. The lungs are clear. Visualized osseous structures and soft tissues are unremarkable. IMPRESSION: No focal infiltrate or effusion. Reviewed, dictated and finalized at location A. ER SOLDERER
== END 2024-08-01 13:33 | disposition home or self-care (01) ==
LOC: GOSHIMG 13:33
PROVIDERS: PCP Family Medicine; Visit Provider Family Medicine
DX: R05.8 Other specified cough (principal)
CPT/HCPCS: 71046

== ENCOUNTER 2024-11-11 13:15 | Outpatient (RCR) | payer OTHER, SELFPAY ==
--- NOTE | 2024-10-29 13:21 | OPREHPOC ---
Outpatient Therapy Plan of Care This is a Multidisciplinary Plan of Care that may contain components documented by all disciplines (PT, OT, and ST.) PT Problem 1 PT Problem #1 Knowledge Deficit PT Goal 1 Goal / Goal Update 1. Patient will perform independent HEP 2. Patient will verbalize urge suppression strategies Target Visit 3 PT Problem 2 PT Problem #2 Impaired Strength PT Goal 1 Goal / Goal Update 1. Improve pelvic floor strength to 4/5 to reduce incontinence 2. Improve pelvic floor endurance to 10 seconds to reduce incontinence 3. Improve hip strength to 4+/5 in all planes trina Target Visit 5 PT Problem 3 PT Problem #3 Impaired Functional ADLs PT Goal 1 Goal / Goal Update 1. Patient will report no fecal incontinence for at least 1 month 2. Patient will report urinary incontinence no more than 1 time per week 3. Patient will not report limitation going out in the community due to incontinence Target Visit 5
--- NOTE | 2024-10-29 13:21 | PTOPEVAL1 ---
Assessment and note entered by Charlotte Kent DPT Evaluation Information Assessment Status Evaluation Diagnosis r15.9 ICD-10 Condition Codes (PT) Weakness R53.1,Stress incontinence N39.3 Subjective Information Pt reports fecal incontinence that has been happening for a few years. Pt unable to correlate any triggers. Reports frequency varies often, 1 instance in the last month. Volume is a large amount when it does happen and patient will change clothes and shower. Wears pads, 2-4 a day. Has been increasing fiber intake per MD and may have BM daily but not always. Denies pain with BM. Voids more than 10 times a day and takes a diuretic. Up to 2-3 times at night. Can hold urge to void at least 15-30 minutes depending on the situation. Urinary incontinence multiple times a day, often if waiting too long to void and with coughing, sneezing, lifting. Denies pain with urination. Denies history of pelvic pain. Pt had 5 vaginal deliveries, thinks she had tearing with at least 1. Partial hysterectomy in approximately 1993. No b/b history. Diet: drinks water, 1 can of soda or a glass of tea in the evening, 10 ounce cup of coffee. sometimes juice or milk. Eats 3 meals a day and snacks, does not eat a lot of fruit but does eat some vegetables. Eats all food groups. Due to incontinence, patient reports she does not go out in the community as much. Will take a change of clothes if going out. Patient goal: get back to normal and not have to worry about the incontinence Returns to MD today. Reported Pain Level Pain Score 0: Self Report Assessment PT Clinical Summary The patient is presenting to skilled therapy with a history of fecal and urinary incontinence. She presents with decreased pelvic floor muscle strength and endurance, as well as decreased hip and abdominal strength. These impairments are contributing to her fecal incontinence and daily urinary incontinence. She will highly benefit from skilled therapy to address her impairments in order to reduce incontinence and restore function. Plan of Care Interventions Manual Therapy,Neuro Re-education,Patient/ Caregiver Education,Therapeutic Activities, Therapeutic Exercise PT Services Indicated Yes Treatment Frequency and 1 time a week for 5 visits Duration These treatments will address the objective and functional deficits as defined above. The patient will be advanced safely and appropriately in order for the patient to progress towards his/her prior level of function. Additional exercises will be introduced and as well as a comprehensive home exercise program upon discharge, if needed, ?to ensure carryover of functional gains achieved in the clinic. This treatment plan has been reviewed and agreement upon by the patient.
--- NOTE | 2024-11-18 13:37 | PCPTNOTE ---
Patient did not show up for appointment 11/18/24. Left voicemail for patient to reschedule.
--- NOTE | 2024-11-25 11:36 | PCPTNOTE ---
Patient called to cancel appointment 11/25/24 due to a in the family. Rescheduled to next week.
--- NOTE | 2024-12-16 13:40 | PCPTNOTE ---
Called patient 12/16/24 who reported she is still in the hospital. Plan to keep chart open for another month and will discharge if patient cannot return during that time.
--- NOTE | 2025-01-09 10:08 | PTOPDC ---
Assessment and note entered by Charlotte Kent DPT Evaluation Information Assessment Status Discharge - Pt Not Present Diagnosis r15.9 ICD-10 Condition Codes (PT) Weakness R53.1,Stress incontinence N39.3 Subjective Information - Assessment PT Clinical Summary The patient has not returned to therapy after extended hospitalization. Her case will be discharged this date. Plan of Care PT Services Indicated No
== END 2025-01-09 13:37 | disposition home or self-care (01) ==
LOC: ANHGOSHPT 13:15
PROVIDERS: PCP Family Medicine; Visit Provider Family Medicine
DX: R15.9 Full incontinence of feces (principal)
CPT/HCPCS: 97112; 97161; 97530

== ENCOUNTER 2024-11-25 14:13 | Emergency (ER) | payer OTHER, SELFPAY ==
[2024-11-25] VITALS (7 sets, daily range): BP systolic 108–159; BP diastolic 67–123; PULSE 95–109; RESP 19–22; TEMP 36.4–37.1; O2SAT 98–100
--- NOTE | ~2024-11-25 | XR_ITS ---
EXAMINATION: XR chest 2V Exam Date/Time: 11/25/2024 15:12 CDT HISTORY: SOB Comparison: None. RESULT: Lines, tubes, and devices: The right chest pacer/AICD, with intact leads, terminating in expected po sition. Leads coil at the pocket. Right upper quadrant surgical clips. Lungs and pleura: Clear. Cardiomediastinal silhouette: Stable. Right atrial enlargement. Other: No acute osseous or upper abdominal finding. IMPRESSION: No acute cardiopulmonary process. Reviewed, dictated and finalized at location K.
--- NOTE | 2024-11-25 14:35 | ECG_ITS ---
Test Date: 2024-11-25 14:42:39 Measurements Intervals [place] Rate: 97 P: -78 NC: 262 QRS: -21 QRSD: 149 T: 85 QT: 402 QTc: 511 Interpretive Statements ELECTRONIC VENTRICULAR PACEMAKER WITH FUSION COMPLEXES UNDERLYING ATRIAL FLUTTER/TACHYCARDIA BASELINE ARTIFACT- I, II, III, AVR, AVL, AVF, V4-V6 NO FURTHER INTERPRETATION IS POSSIBLE ABNORMAL ECG No previous ECG available for comparison Electronically Signed On 11-25-2024 14:51:33 CDT by Dagoberto Ruff D.O.
--- NOTE | 2024-11-25 14:35 | ED.SOB ---
HPI - SOB/Dyspnea General Chief Complaint: Shortness of Breath/Dyspnea <Keila Pina PA-C - Last Filed: 11/26/24 10:32> Stated Complaint: SOB w exertion <Keila Pina PA-C - Last Filed: 11/26/24 10:32> Time Seen by Provider: 11/25/24 14:35 <Keila Pina PA-C - Last Filed: 11/26/24 10:32> Focused HPI: This is a 74 year old female that presents to the ER for shortness of breath. Reports when she was walking out of the store today she had to stop twice because she was having trouble breathing. Reports she does have a pacemaker. Her spool maker is Dr. Wyatt. Reports feeling hot. Denies chest pain. GENERAL: Well-appearing, well-nourished, and in no acute distress. HEAD: Normocephalic, atraumatic. CHEST: Clear to auscultation. ?No respiratory distress. HEART: Regular rate and rhythm.? NEURO: ?Alert and oriented x3. Patient screened in triage and initial orders placed.? ?Additional care and disposition to be based upon?diagnostic testing and treatment. <Keila Pina PA-C - Last Filed: 11/26/24 10:32> Focused HPI: This is a 74 year old female that presents to the ER for shortness of breath. Reports when she was walking out of the store today she had to stop twice because she was having trouble breathing. Reports she does have a pacemaker. Her spool maker is Dr. Wyatt. Reports feeling hot. Denies chest pain. Patient states she feels like she was having a panic attack as presently she is asymptomatic. GENERAL: Well-appearing, well-nourished, and in no acute distress. HEAD: Normocephalic, atraumatic. CHEST: Clear to auscultation. ?No respiratory distress. HEART: Regular rate and rhythm.? NEURO: ?Alert and oriented x3. Patient screened in triage and initial orders placed.? ?Additional care and disposition to be based upon?diagnostic testing and treatment. <Bradley Lanier MD - Last Filed: 11/25/24 20:18> History of Present Illness HPI Narrative: Agree with the HPI above <Bradley Lanier MD - Last Filed: 11/25/24 20:18> Related Data Home Medications: Home Medications ?Medication ?Instructions ?Recorded ?Confirmed ?Last Taken ?Type aspirin 81 mg tablet,delayed 81 mg PO DAILY 06/28/19 10/29/24 07/21/22 History release <Keila Pina PA-C - Last Filed: 11/26/24 10:32> Allergies/Adverse Reactions: Allergies Allergy/AdvReac Type Severity Reaction Status Date / Time naproxen Allergy Severe swelling Verified 11/25/24 18:58 in ankles and feet duloxetine Allergy Intermediate jittery Verified 11/25/24 18:58 and hyper lisinopril Allergy Intermediate cough Verified 11/25/24 18:58 <Keila Pina PA-C - Last Filed: 11/26/24 10:32> Review of Systems Review of Systems: As reviewed above in HPI <Bradley Lanier MD - Last Filed: 11/25/24 20:18> [facility] Past Medical History Medical History: Medical History Great toe pain Epistaxis Foot pain, left Lumbago Left hip pain Esophageal reflux Acute biliary pancreatitis without infection or necrosis Arthritis Hyperlipidemia Abdominal mass fullness Other left bundle branch block <Keila Pina PA-C - Last Filed: 11/26/24 10:32> Surgical History Surgical History: Surgical History Hx laparoscopic cholecystectomy History of implantable cardioverter-defibrillator (ICD) placement replaced 04/21 Hx of tonsillectomy H/O: hysterectomy Vaginal partial hysterectomy History of knee replacement Bilateral History of cardiac cath 2010 cardiac cath due to abnormal stress test that reportedly showed no coronary artery disease. <Keila Pina PA-C - Last Filed: 11/26/24 10:32> Family History Family History: Family History Father Acute myocardial infarction Hypertension Family history of cardiovascular disease Gallbladder disease Mother Diabetes mellitus Hypertension Family history of cardiovascular disease Sibling Hypertension <Keila Pina PA-C - Last Filed: 11/26/24 10:32> Social History Social History: Social History Social History: caffeine-daily soda Smoking status: Former smoker Tobacco type: cigarettes Alcohol intake: current Alcohol use details: Rare occasions, such as 2-3 times per year. Substance use: never Substance use type: does not use Do You Feel Safe in your Home?: Yes Lack of Transportation: No Lack of Food: Never True Current Housing: I Have Housing Concerned About Future Housing: No Difficulty Paying Gas/Electric Bills: No Difficulty Paying for Meds: No Currently Unemployed: No Education: High School Diploma/GED Difficulty w/ Childcare or Family Care: No Living arrangements: with family Additional living arrangements comments: Her . Has 4 children. Occupation/Education: occupation Additional occupation/education comments: [employer]. Gender identity (if verbalized by the patient): Female Sexual Orientation (if Verbalized by the Patient): Straight or Heterosexual Spiritual care concerns: No <Keila Pina PA-C - Last Filed: 11/26/24 10:32> Exam Narrative: GENERAL: [Well-appearing, well-nourished, and in no acute distress.] HEAD: [Normocephalic, atraumatic.] EYES: [PERRLA and EOMI.] ENT: Nares clear, no rhinorrhea or epistaxis. Mucous membranes moist. NECK: Supple. CHEST: [Clear to auscultation. No respiratory distress.] HEART: [Regular rate and rhythm]. No murmur heard. [Normal peripheral pulses.] ABDOMEN: [Soft, nondistended], [nontender], [No rigidity or guarding] EXTREMITIES: Normal range of motion. [No edema.] SKIN: Warm, dry, no rash. NEURO: [No focal deficits]. Alert and oriented [x3.] PSYCH: [Normal mood and affect.] <Bradley Lanier MD - Last Filed: 11/25/24 20:18> Course Vital Signs Vital signs: Vital Signs Temperature 97.5 F L 11/25/24 14:36 Pulse Rate 102 H 11/25/24 14:36 Respiratory Rate 22 H 11/25/24 14:36 Blood Pressure 133/67 11/25/24 14:36 Pulse Oximetry 100 11/25/24 14:36 Oxygen Delivery Room Air 11/25/24 14:36 Temperature 98.8 F 11/25/24 20:10 Pulse Rate 97 11/25/24 20:10 Respiratory Rate 20 11/25/24 20:10 Blood Pressure 108/70 11/25/24 20:10 Pulse Oximetry 98 11/25/24 20:10 Oxygen Delivery Room Air 11/25/24 18:57 <Keila Pina PA-C - Last Filed: 11/26/24 10:32> Vital Signs Temperature 97.5 F L 11/25/24 14:36 Pulse Rate 102 H 11/25/24 14:36 Respiratory Rate 22 H 11/25/24 14:36 Blood Pressure 133/67 11/25/24 14:36 Pulse Oximetry 100 11/25/24 14:36 Oxygen Delivery Room Air 11/25/24 14:36 Temperature 98.8 F 11/25/24 20:10 Pulse Rate 97 11/25/24 20:10 Respiratory Rate 20 11/25/24 20:10 Blood Pressure 108/70 11/25/24 20:10 Pulse Oximetry 98 11/25/24 20:10 Oxygen Delivery Room Air 11/25/24 18:57 <Bradley Lanier MD - Last Filed: 11/25/24 20:18> MDM - SOB/Dyspnea MDM Narrative Medical decision making narrative: 74-year-old female with a past medical history including cardiomyopathy status post AICD pacemaker placement 10 years ago. She presents to the emergency room today with some shortness of breath she experienced while walking around a grocery/department store. Patient states that she was feeling panicky and feeling like she was having anxiety attack. She has had similar symptoms before but has been exacerbated recently and she has had multiple family members dying last few weeks. Presently she is asymptomatic and wishes to go home. She denies any chest pain, shortness a breath, nausea, vomiting abdominal pain, back pain, fever, chills. No worsening leg swelling. She takes her medications without issue and follows up regularly with her doctor. She is overall well-appearing not any distress, normal vital signs presently without any hypoxia or significant tachycardia. Suspicion presently for potential anxiety, ACS, pneumonia, pneumothorax, deconditioning, anemia, CHF exacerbation. Workup ordered including a BNP, troponin, EKG, chest x-ray, CBC and CMP. Patient was placed on environmental monitoring technician and pulse oximetry and frequently was re-evaluated. Workup shows slight leukocytosis of 10.9 but nonspecific. No anemia, normal platelet count. Normal coagulation panel, negative initial troponin. BUN and creatinine at her normal CKD range. No significant will change from baseline. Slight hyperkalemia 5.3 but not severe range. No need for emergent correction. Glucose 111. BNP elevated congruent with her cardiomyopathy history. Mildly elevated LFTs. Chest x-ray shows no acute cardiopulmonary disease. EKG shows ventricular paced rhythm, no ST segment concerns such as elevations or acute depressions. Patient re-evaluated and still asymptomatic. Patient requesting to go home at this time and since she does not have any urgent or emergent need for hospitalization we had some shared decision-making and instructions to have close outpatient follow-up with her PCP. Patient was safely discharged home at this time with return precautions. <Bradley Lanier MD - Last Filed: 11/25/24 20:18> Medical Records Attestation: I reviewed the patient's medical records. <Bradley Lanier MD - Last Filed: 11/25/24 20:18> Lab Data Attestation: I reviewed the patient's lab results. <Bradley Lanier MD - Last Filed: 11/25/24 20:18> Result diagrams: 11/25/24 17:11 11/25/24 17:11 <Keila Pina PA-C - Last Filed: 11/26/24 10:32> Labs: Lab Results 11/25/24 11/25/24 11/25/24 Range/Units 17:11 17:11 17:11 WBC 10.9 H (4.5-10.0) K/mm3 RBC 3.97 L (4.2-5.4) M/mm3 Hgb 13.1 (12.0-15.0) g/dL Hct 39.4 (37.0-47.0) % MCV 99.2 (80-100) fl MCH 33.0 (26-34) pg MCHC 33.2 (32-36) g/dl RDW 13.6 (11.5-14.5) % Plt Count 189 (150-375) k/mm3 MPV 10.3 (7.4-10.4) fl Immature Gran % (Auto) 0.3 (0-0.5) % Neut % (Auto) 69.9 (45.5-73.1) % Lymph % (Auto) 21.7 (18.3-44.2) % [place] % (Auto) 6.3 (2.6-8.5) % Eos % (Auto) 1.3 (0-4.4) % Baso % (Auto) 0.5 (0.2-1.2) % Lymph # (Auto) 2.37 (0.9-3.2) K/mm3 [place] # (Auto) 0.7 H (0.1-0.6) K/mm3 Eos # (Auto) 0.1 (0-0.3) K/mm3 Baso # (Auto) 0.1 (0.0-0.1) K/mm3 Abs Immat Gran (auto) 0.03 (0.00-0.031) K/mm3 Absolute Neuts (auto) 7.6 H (1.3-6.7) K/mm3 Absolute Nucleated RBC 0.000 (0.0-0.012) K/mm3 Nucleated RBC % 0.0 (0.0-0.2) % PT 13.8 (11.1-14.7) Seconds INR 1.0 APTT 27.2 (22.3-36.8) Seconds Sodium Cancelled 138 Potassium Cancelled 5.3 H Chloride Cancelled Carbon Dioxide Anion Gap BUN Creatinine Estim Creat Clear Calc Estimated GFR Glucose Calcium Total Bilirubin AST ALT Alkaline Phosphatase Troponin I (0.000-0.034) ng/mL NT-Pro-B Natriuret Pep Total Protein Albumin Lipase (23-300) U/L 11/25/24 11/25/24 11/25/24 Range/Units 17:11 17:11 17:11 WBC (4.5-10.0) K/mm3 RBC (4.2-5.4) M/mm3 Hgb (12.0-15.0) g/dL Hct (37.0-47.0) % MCV (80-100) fl MCH (26-34) pg MCHC (32-36) g/dl RDW (11.5-14.5) % Plt Count (150-375) k/mm3 MPV (7.4-10.4) fl Immature Gran % (Auto) (0-0.5) % Neut % (Auto) (45.5-73.1) % Lymph % (Auto) (18.3-44.2) % [place] % (Auto) (2.6-8.5) % Eos % (Auto) (0-4.4) % Baso % (Auto) (0.2-1.2) % Lymph # (Auto) (0.9-3.2) K/mm3 [place] # (Auto) (0.1-0.6) K/mm3 Eos # (Auto) (0-0.3) K/mm3 Baso # (Auto) (0.0-0.1) K/mm3 Abs Immat Gran (auto) (0.00-0.031) K/mm3 Absolute Neuts (auto) (1.3-6.7) K/mm3 Absolute Nucleated RBC (0.0-0.012) K/mm3 Nucleated RBC % (0.0-0.2) % PT (11.1-14.7) Seconds INR APTT (22.3-36.8) Seconds Sodium Potassium Chloride 105 Carbon Dioxide Cancelled 27 Anion Gap Cancelled 6 BUN Cancelled Creatinine Estim Creat Clear Calc Estimated GFR Glucose Calcium Total Bilirubin AST ALT Alkaline Phosphatase Troponin I (0.000-0.034) ng/mL NT-Pro-B Natriuret Pep Total Protein Albumin Lipase (23-300) U/L 11/25/24 11/25/24 11/25/24 Range/Units 17:11 17:11 17:11 WBC (4.5-10.0) K/mm3 RBC (4.2-5.4) M/mm3 Hgb (12.0-15.0) g/dL Hct (37.0-47.0) % MCV (80-100) fl MCH (26-34) pg MCHC (32-36) g/dl RDW (11.5-14.5) % Plt Count (150-375) k/mm3 MPV (7.4-10.4) fl Immature Gran % (Auto) (0-0.5) % Neut % (Auto) (45.5-73.1) % Lymph % (Auto) (18.3-44.2) % [place] % (Auto) (2.6-8.5) % Eos % (Auto) (0-4.4) % Baso % (Auto) (0.2-1.2) % Lymph # (Auto) (0.9-3.2) K/mm3 [place] # (Auto) (0.1-0.6) K/mm3 Eos # (Auto) (0-0.3) K/mm3 Baso # (Auto) (0.0-0.1) K/mm3 Abs Immat Gran (auto) (0.00-0.031) K/mm3 Absolute Neuts (auto) (1.3-6.7) K/mm3 Absolute Nucleated RBC (0.0-0.012) K/mm3 Nucleated RBC % (0.0-0.2) % PT (11.1-14.7) Seconds INR APTT (22.3-36.8) Seconds Sodium Potassium Chloride Carbon Dioxide Anion Gap BUN 32 H Creatinine Cancelled 1.76 H Estim Creat Clear Calc Cancelled 35 Estimated GFR Cancelled Glucose Calcium Total Bilirubin AST ALT Alkaline Phosphatase Troponin I (0.000-0.034) ng/mL NT-Pro-B Natriuret Pep Total Protein Albumin Lipase (23-300) U/L 11/25/24 11/25/24 11/25/24 Range/Units 17:11 17:11 17:11 WBC (4.5-10.0) K/mm3 RBC (4.2-5.4) M/mm3 Hgb (12.0-15.0) g/dL Hct (37.0-47.0) % MCV (80-100) fl MCH (26-34) pg MCHC (32-36) g/dl RDW (11.5-14.5) % Plt Count (150-375) k/mm3 MPV (7.4-10.4) fl Immature Gran % (Auto) (0-0.5) % Neut % (Auto) (45.5-73.1) % Lymph % (Auto) (18.3-44.2) % [place] % (Auto) (2.6-8.5) % Eos % (Auto) (0-4.4) % Baso % (Auto) (0.2-1.2) % Lymph # (Auto) (0.9-3.2) K/mm3 [place] # (Auto) (0.1-0.6) K/mm3 Eos # (Auto) (0-0.3) K/mm3 Baso # (Auto) (0.0-0.1) K/mm3 Abs Immat Gran (auto) (0.00-0.031) K/mm3 Absolute Neuts (auto) (1.3-6.7) K/mm3 Absolute Nucleated RBC (0.0-0.012) K/mm3 Nucleated RBC % (0.0-0.2) % PT (11.1-14.7) Seconds INR APTT (22.3-36.8) Seconds Sodium Potassium Chloride Carbon Dioxide Anion Gap BUN Creatinine Estim Creat Clear Calc Estimated GFR 28 L Glucose Cancelled 111 H Calcium Cancelled 9.2 Total Bilirubin Cancelled AST ALT Alkaline Phosphatase Troponin I (0.000-0.034) ng/mL NT-Pro-B Natriuret Pep Total Protein Albumin Lipase (23-300) U/L 11/25/24 11/25/24 11/25/24 Range/Units 17:11 17:11 17:11 WBC (4.5-10.0) K/mm3 RBC (4.2-5.4) M/mm3 Hgb (12.0-15.0) g/dL Hct (37.0-47.0) % MCV (80-100) fl MCH (26-34) pg MCHC (32-36) g/dl RDW (11.5-14.5) % Plt Count (150-375) k/mm3 MPV (7.4-10.4) fl Immature Gran % (Auto) (0-0.5) % Neut % (Auto) (45.5-73.1) % Lymph % (Auto) (18.3-44.2) % [place] % (Auto) (2.6-8.5) % Eos % (Auto) (0-4.4) % Baso % (Auto) (0.2-1.2) % Lymph # (Auto) (0.9-3.2) K/mm3 [place] # (Auto) (0.1-0.6) K/mm3 Eos # (Auto) (0-0.3) K/mm3 Baso # (Auto) (0.0-0.1) K/mm3 Abs Immat Gran (auto) (0.00-0.031) K/mm3 Absolute Neuts (auto) (1.3-6.7) K/mm3 Absolute Nucleated RBC (0.0-0.012) K/mm3 Nucleated RBC % (0.0-0.2) % PT (11.1-14.7) Seconds INR APTT (22.3-36.8) Seconds Sodium Potassium Chloride Carbon Dioxide Anion Gap BUN Creatinine Estim Creat Clear Calc Estimated GFR Glucose Calcium Total Bilirubin 1.7 H AST Cancelled 37 H ALT Cancelled 41 H Alkaline Phosphatase Cancelled Troponin I (0.000-0.034) ng/mL NT-Pro-B Natriuret Pep Total Protein Albumin Lipase (23-300) U/L 11/25/24 11/25/24 11/25/24 Range/Units 17:11 17:11 17:11 WBC (4.5-10.0) K/mm3 RBC (4.2-5.4) M/mm3 Hgb (12.0-15.0) g/dL Hct (37.0-47.0) % MCV (80-100) fl MCH (26-34) pg MCHC (32-36) g/dl RDW (11.5-14.5) % Plt Count (150-375) k/mm3 MPV (7.4-10.4) fl Immature Gran % (Auto) (0-0.5) % Neut % (Auto) (45.5-73.1) % Lymph % (Auto) (18.3-44.2) % [place] % (Auto) (2.6-8.5) % Eos % (Auto) (0-4.4) % Baso % (Auto) (0.2-1.2) % Lymph # (Auto) (0.9-3.2) K/mm3 [place] # (Auto) (0.1-0.6) K/mm3 Eos # (Auto) (0-0.3) K/mm3 Baso # (Auto) (0.0-0.1) K/mm3 Abs Immat Gran (auto) (0.00-0.031) K/mm3 Absolute Neuts (auto) (1.3-6.7) K/mm3 Absolute Nucleated RBC (0.0-0.012) K/mm3 Nucleated RBC % (0.0-0.2) % PT (11.1-14.7) Seconds INR APTT (22.3-36.8) Seconds Sodium Potassium Chloride Carbon Dioxide Anion Gap BUN Creatinine Estim Creat Clear Calc Estimated GFR Glucose Calcium Total Bilirubin AST ALT Alkaline Phosphatase 143 H Troponin I 0.021 (0.000-0.034) ng/mL NT-Pro-B Natriuret Pep Cancelled 42762 H Total Protein Cancelled 7.0 Albumin Cancelled Lipase (23-300) U/L 11/25/24 Range/Units 17:11 WBC (4.5-10.0) K/mm3 RBC (4.2-5.4) M/mm3 Hgb (12.0-15.0) g/dL Hct (37.0-47.0) % MCV (80-100) fl MCH (26-34) pg MCHC (32-36) g/dl RDW (11.5-14.5) % Plt Count (150-375) k/mm3 MPV (7.4-10.4) fl Immature Gran % (Auto) (0-0.5) % Neut % (Auto) (45.5-73.1) % Lymph % (Auto) (18.3-44.2) % [place] % (Auto) (2.6-8.5) % Eos % (Auto) (0-4.4) % Baso % (Auto) (0.2-1.2) % Lymph # (Auto) (0.9-3.2) K/mm3 [place] # (Auto) (0.1-0.6) K/mm3 Eos # (Auto) (0-0.3) K/mm3 Baso # (Auto) (0.0-0.1) K/mm3 Abs Immat Gran (auto) (0.00-0.031) K/mm3 Absolute Neuts (auto) (1.3-6.7) K/mm3 Absolute Nucleated RBC (0.0-0.012) K/mm3 Nucleated RBC % (0.0-0.2) % PT (11.1-14.7) Seconds INR APTT (22.3-36.8) Seconds Sodium Potassium Chloride Carbon Dioxide Anion Gap BUN Creatinine Estim Creat Clear Calc Estimated GFR Glucose Calcium Total Bilirubin AST ALT Alkaline Phosphatase Troponin I (0.000-0.034) ng/mL NT-Pro-B Natriuret Pep Total Protein Albumin 4.0 Lipase 114 (23-300) U/L <Keila Pina PA-C - Last Filed: 11/26/24 10:32> Lab Results 11/25/24 11/25/24 11/25/24 Range/Units 17:11 17:11 17:11 WBC 10.9 H (4.5-10.0) K/mm3 RBC 3.97 L (4.2-5.4) M/mm3 Hgb 13.1 (12.0-15.0) g/dL Hct 39.4 (37.0-47.0) % MCV 99.2 (80-100) fl MCH 33.0 (26-34) pg MCHC 33.2 (32-36) g/dl RDW 13.6 (11.5-14.5) % Plt Count 189 (150-375) k/mm3 MPV 10.3 (7.4-10.4) fl Immature Gran % (Auto) 0.3 (0-0.5) % Neut % (Auto) 69.9 (45.5-73.1) % Lymph % (Auto) 21.7 (18.3-44.2) % [place] % (Auto) 6.3 (2.6-8.5) % Eos % (Auto) 1.3 (0-4.4) % Baso % (Auto) 0.5 (0.2-1.2) % Lymph # (Auto) 2.37 (0.9-3.2) K/mm3 [place] # (Auto) 0.7 H (0.1-0.6) K/mm3 Eos # (Auto) 0.1 (0-0.3) K/mm3 Baso # (Auto) 0.1 (0.0-0.1) K/mm3 Abs Immat Gran (auto) 0.03 (0.00-0.031) K/mm3 Absolute Neuts (auto) 7.6 H (1.3-6.7) K/mm3 Absolute Nucleated RBC 0.000 (0.0-0.012) K/mm3 Nucleated RBC % 0.0 (0.0-0.2) % PT 13.8 (11.1-14.7) Seconds INR 1.0 APTT 27.2 (22.3-36.8) Seconds Sodium Cancelled 138 Potassium Cancelled 5.3 H Chloride Cancelled Carbon Dioxide Anion Gap BUN Creatinine Estim Creat Clear Calc Estimated GFR Glucose Calcium Total Bilirubin AST ALT Alkaline Phosphatase Troponin I (0.000-0.034) ng/mL NT-Pro-B Natriuret Pep Total Protein Albumin Lipase (23-300) U/L 11/25/24 11/25/24 11/25/24 Range/Units 17:11 17:11 17:11 WBC (4.5-10.0) K/mm3 RBC (4.2-5.4) M/mm3 Hgb (12.0-15.0) g/dL Hct (37.0-47.0) % MCV (80-100) fl MCH (26-34) pg MCHC (32-36) g/dl RDW (11.5-14.5) % Plt Count (150-375) k/mm3 MPV (7.4-10.4) fl Immature Gran % (Auto) (0-0.5) % Neut % (Auto) (45.5-73.1) % Lymph % (Auto) (18.3-44.2) % [place] % (Auto) (2.6-8.5) % Eos % (Auto) (0-4.4) % Baso % (Auto) (0.2-1.2) % Lymph # (Auto) (0.9-3.2) K/mm3 [place] # (Auto) (0.1-0.6) K/mm3 Eos # (Auto) (0-0.3) K/mm3 Baso # (Auto) (0.0-0.1) K/mm3 Abs Immat Gran (auto) (0.00-0.031) K/mm3 Absolute Neuts (auto) (1.3-6.7) K/mm3 Absolute Nucleated RBC (0.0-0.012) K/mm3 Nucleated RBC % (0.0-0.2) % PT (11.1-14.7) Seconds INR APTT (22.3-36.8) Seconds Sodium Potassium Chloride 105 Carbon Dioxide Cancelled 27 Anion Gap Cancelled 6 BUN Cancelled Creatinine Estim Creat Clear Calc Estimated GFR Glucose Calcium Total Bilirubin AST ALT Alkaline Phosphatase Troponin I (0.000-0.034) ng/mL NT-Pro-B Natriuret Pep Total Protein Albumin Lipase (23-300) U/L 11/25/24 11/25/24 11/25/24 Range/Units 17:11 17:11 17:11 WBC (4.5-10.0) K/mm3 RBC (4.2-5.4) M/mm3 Hgb (12.0-15.0) g/dL Hct (37.0-47.0) % MCV (80-100) fl MCH (26-34) pg MCHC (32-36) g/dl RDW (11.5-14.5) % Plt Count (150-375) k/mm3 MPV (7.4-10.4) fl Immature Gran % (Auto) (0-0.5) % Neut % (Auto) (45.5-73.1) % Lymph % (Auto) (18.3-44.2) % [place] % (Auto) (2.6-8.5) % Eos % (Auto) (0-4.4) % Baso % (Auto) (0.2-1.2) % Lymph # (Auto) (0.9-3.2) K/mm3 [place] # (Auto) (0.1-0.6) K/mm3 Eos # (Auto) (0-0.3) K/mm3 Baso # (Auto) (0.0-0.1) K/mm3 Abs Immat Gran (auto) (0.00-0.031) K/mm3 Absolute Neuts (auto) (1.3-6.7) K/mm3 Absolute Nucleated RBC (0.0-0.012) K/mm3 Nucleated RBC % (0.0-0.2) % PT (11.1-14.7) Seconds INR APTT (22.3-36.8) Seconds Sodium Potassium Chloride Carbon Dioxide Anion Gap BUN 32 H Creatinine Cancelled 1.76 H Estim Creat Clear Calc Cancelled 35 Estimated GFR Cancelled Glucose Calcium Total Bilirubin AST ALT Alkaline Phosphatase Troponin I (0.000-0.034) ng/mL NT-Pro-B Natriuret Pep Total Protein Albumin Lipase (23-300) U/L 11/25/24 11/25/24 11/25/24 Range/Units 17:11 17:11 17:11 WBC (4.5-10.0) K/mm3 RBC (4.2-5.4) M/mm3 Hgb (12.0-15.0) g/dL Hct (37.0-47.0) % MCV (80-100) fl MCH (26-34) pg MCHC (32-36) g/dl RDW (11.5-14.5) % Plt Count (150-375) k/mm3 MPV (7.4-10.4) fl Immature Gran % (Auto) (0-0.5) % Neut % (Auto) (45.5-73.1) % Lymph % (Auto) (18.3-44.2) % [place] % (Auto) (2.6-8.5) % Eos % (Auto) (0-4.4) % Baso % (Auto) (0.2-1.2) % Lymph # (Auto) (0.9-3.2) K/mm3 [place] # (Auto) (0.1-0.6) K/mm3 Eos # (Auto) (0-0.3) K/mm3 Baso # (Auto) (0.0-0.1) K/mm3 Abs Immat Gran (auto) (0.00-0.031) K/mm3 Absolute Neuts (auto) (1.3-6.7) K/mm3 Absolute Nucleated RBC (0.0-0.012) K/mm3 Nucleated RBC % (0.0-0.2) % PT (11.1-14.7) Seconds INR APTT (22.3-36.8) Seconds Sodium Potassium Chloride Carbon Dioxide Anion Gap BUN Creatinine Estim Creat Clear Calc Estimated GFR 28 L Glucose Cancelled 111 H Calcium Cancelled 9.2 Total Bilirubin Cancelled AST ALT Alkaline Phosphatase Troponin I (0.000-0.034) ng/mL NT-Pro-B Natriuret Pep Total Protein Albumin Lipase (23-300) U/L 11/25/24 11/25/24 11/25/24 Range/Units 17:11 17:11 17:11 WBC (4.5-10.0) K/mm3 RBC (4.2-5.4) M/mm3 Hgb (12.0-15.0) g/dL Hct (37.0-47.0) % MCV (80-100) fl MCH (26-34) pg MCHC (32-36) g/dl RDW (11.5-14.5) % Plt Count (150-375) k/mm3 MPV (7.4-10.4) fl Immature Gran % (Auto) (0-0.5) % Neut % (Auto) (45.5-73.1) % Lymph % (Auto) (18.3-44.2) % [place] % (Auto) (2.6-8.5) % Eos % (Auto) (0-4.4) % Baso % (Auto) (0.2-1.2) % Lymph # (Auto) (0.9-3.2) K/mm3 [place] # (Auto) (0.1-0.6) K/mm3 Eos # (Auto) (0-0.3) K/mm3 Baso # (Auto) (0.0-0.1) K/mm3 Abs Immat Gran (auto) (0.00-0.031) K/mm3 Absolute Neuts (auto) (1.3-6.7) K/mm3 Absolute Nucleated RBC (0.0-0.012) K/mm3 Nucleated RBC % (0.0-0.2) % PT (11.1-14.7) Seconds INR APTT (22.3-36.8) Seconds Sodium Potassium Chloride Carbon Dioxide Anion Gap BUN Creatinine Estim Creat Clear Calc Estimated GFR Glucose Calcium Total Bilirubin 1.7 H AST Cancelled 37 H ALT Cancelled 41 H Alkaline Phosphatase Cancelled Troponin I (0.000-0.034) ng/mL NT-Pro-B Natriuret Pep Total Protein Albumin Lipase (23-300) U/L 11/25/24 11/25/24 11/25/24 Range/Units 17:11 17:11 17:11 WBC (4.5-10.0) K/mm3 RBC (4.2-5.4) M/mm3 Hgb (12.0-15.0) g/dL Hct (37.0-47.0) % MCV (80-100) fl MCH (26-34) pg MCHC (32-36) g/dl RDW (11.5-14.5) % Plt Count (150-375) k/mm3 MPV (7.4-10.4) fl Immature Gran % (Auto) (0-0.5) % Neut % (Auto) (45.5-73.1) % Lymph % (Auto) (18.3-44.2) % [place] % (Auto) (2.6-8.5) % Eos % (Auto) (0-4.4) % Baso % (Auto) (0.2-1.2) % Lymph # (Auto) (0.9-3.2) K/mm3 [place] # (Auto) (0.1-0.6) K/mm3 Eos # (Auto) (0-0.3) K/mm3 Baso # (Auto) (0.0-0.1) K/mm3 Abs Immat Gran (auto) (0.00-0.031) K/mm3 Absolute Neuts (auto) (1.3-6.7) K/mm3 Absolute Nucleated RBC (0.0-0.012) K/mm3 Nucleated RBC % (0.0-0.2) % PT (11.1-14.7) Seconds INR APTT (22.3-36.8) Seconds Sodium Potassium Chloride Carbon Dioxide Anion Gap BUN Creatinine Estim Creat Clear Calc Estimated GFR Glucose Calcium Total Bilirubin AST ALT Alkaline Phosphatase 143 H Troponin I 0.021 (0.000-0.034) ng/mL NT-Pro-B Natriuret Pep Cancelled 43275 H Total Protein Cancelled 7.0 Albumin Cancelled Lipase (23-300) U/L 11/25/24 Range/Units 17:11 WBC (4.5-10.0) K/mm3 RBC (4.2-5.4) M/mm3 Hgb (12.0-15.0) g/dL Hct (37.0-47.0) % MCV (80-100) fl MCH (26-34) pg MCHC (32-36) g/dl RDW (11.5-14.5) % Plt Count (150-375) k/mm3 MPV (7.4-10.4) fl Immature Gran % (Auto) (0-0.5) % Neut % (Auto) (45.5-73.1) % Lymph % (Auto) (18.3-44.2) % [place] % (Auto) (2.6-8.5) % Eos % (Auto) (0-4.4) % Baso % (Auto) (0.2-1.2) % Lymph # (Auto) (0.9-3.2) K/mm3 [place] # (Auto) (0.1-0.6) K/mm3 Eos # (Auto) (0-0.3) K/mm3 Baso # (Auto) (0.0-0.1) K/mm3 Abs Immat Gran (auto) (0.00-0.031) K/mm3 Absolute Neuts (auto) (1.3-6.7) K/mm3 Absolute Nucleated RBC (0.0-0.012) K/mm3 Nucleated RBC % (0.0-0.2) % PT (11.1-14.7) Seconds INR APTT (22.3-36.8) Seconds Sodium Potassium Chloride Carbon Dioxide Anion Gap BUN Creatinine Estim Creat Clear Calc Estimated GFR Glucose Calcium Total Bilirubin AST ALT Alkaline Phosphatase Troponin I (0.000-0.034) ng/mL NT-Pro-B Natriuret Pep Total Protein Albumin 4.0 Lipase 114 (23-300) U/L <Bradley Lanier MD - Last Filed: 11/25/24 20:18> Imaging Data Attestation: I personally reviewed and interpreted this imaging study as follows: <Bradley Lanier MD - Last Filed: 11/25/24 20:18> My impression: Impressions Chest X-Ray 11/25/24 15:24 IMPRESSION: No acute cardiopulmonary process. ADDENDUM: 11/25/24 1528 Comparison made to 08/01/2024. 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 <Bradley Lanier MD - Last Filed: 11/25/24 20:18> Critical Care Time Critical Care Time Critical Care Time: No <Keila Pina PA-C - Last Filed: 11/26/24 10:32> Discharge Plan Discharge Clinical Impression: Shortness of breath <Keila Pina PA-C - Last Filed: 11/26/24 10:32> Patient Disposition: Home <ALEXIS Swain Last Filed: 11/26/24 10:32> Condition: Stable <ALEXIS Swain Last Filed: 11/26/24 10:32> Instructions: Antibiotic Form <ALEXIS Swain Last Filed: 11/26/24 10:32> Additional Instructions: Follow-up with your primary care provider on a short-term basis regarding your shortness of breath. If you have any persistent or new symptoms return to the emergency department. <ALEXIS Swain Last Filed: 11/26/24 10:32> Patient Language: Maltese <ALEXIS Swain Last Filed: 11/26/24 10:32> Prescriptions: No Action aspirin 81 mg tablet,delayed release (DR/EC) 81 mg PO DAILY (DME) cpap See Rx Instructions .Route .MEDSUPPLY Qty: 1 0RF Rx Instructions: Resmed AirSense 11 CPAP 11 cm H2O, size medium Resmed AirTouch F20 full face mask, CPAP filters/tubing and heated humidity. furosemide 20 mg tablet 20 mg PO DAILY Qty: 90 1RF carvedilol 12.5 mg tablet 12.5 mg PO BID Qty: 180 1RF allopurinol 300 mg tablet 300 mg PO BID Qty: 180 3RF budesonide-formoterol [Symbicort] 160-4.5 mcg/actuation HFA aerosol inhaler 2 puff inhalation Q12H PRN (Reason: Shortness Of Breath Or Wheezing) Qty: 10.2 1RF albuterol sulfate 90 mcg/actuation HFA aerosol inhaler See Rx Instructions .ROUTE .COMPLEX Qty: 8.5 0RF Dose Instruction: INHALE 1 PUFF EVERY 4 HOURS NEEDED FOR SHORTNESS OF BREATH OR WHEEZING Rx Instructions: INHALE 1 PUFF EVERY 4 HOURS NEEDED FOR SHORTNESS OF BREATH OR WHEEZING citalopram 40 mg tablet See Rx Instructions .ROUTE .COMPLEX Qty: 90 1RF Dose Instruction: TAKE 1 TABLET BY MOUTH EVERY DAY Rx Instructions: TAKE 1 TABLET BY MOUTH EVERY DAY simvastatin 20 mg tablet See Rx Instructions .ROUTE .COMPLEX Qty: 90 1RF Dose Instruction: TAKE 1 TABLET BY MOUTH EVERYDAY AT BEDTIME Rx Instructions: TAKE 1 TABLET BY MOUTH EVERYDAY AT BEDTIME pantoprazole 40 mg tablet,delayed release (DR/EC) See Rx Instructions .ROUTE .COMPLEX Qty: 90 1RF Dose Instruction: TAKE 1 TABLET BY MOUTH EVERY DAY IN THE MORNING Rx Instructions: TAKE 1 TABLET BY MOUTH EVERY DAY IN THE MORNING spironolactone 25 mg tablet 25 mg PO DAILY Qty: 90 1RF losartan 25 mg tablet 25 mg PO DAILY Qty: 90 1RF <Keila Pina PA-C - Last Filed: 11/26/24 10:32> Follow-up/Referrals: Charisse Isaac MD [Primary Care Provider] - <Keila Pina PA-C - Last Filed: 11/26/24 10:32> Time of Disposition: 19:44 <Keila Pina PA-C - Last Filed: 11/26/24 10:32> 19:44 <Bradley Lanier MD - Last Filed: 11/25/24 20:18>
--- OUTSIDE RECORDS SUMMARY | 2024-11-25 16:17 | XMS_ITS | Referral Summary ---
Author Organization [address] Address [address] [place] [phone] Care Team Providers Care Sign Manufacturer Name Role Phone Charisse Isaac MD Primary Care Provider + Charisse Isaac MD Unavailable [phone] Encounters Date Type Department Care Team Description 10/23/2024 11:15 AM CDT Office Visit [facility] Surgery [address] [place] [address] Medical Office Building 4 [address] [place] [address] Gianna Thomas PA Incontinence of feces, unspecified fecal incontinence type (Primary Dx); Urinary incontinence, unspecified type 10/21/2024 2:45 PM CDT Ancillary Procedure [facility] [address] [facility] [address] [address] Presence of biventricular automatic cardioverter/defibril lator (AICD) (Primary Dx); Dilated cardiomyopathy (HCC) 09/11/2024 9:30 AM CUSTOMER SALES ADVISOR Telemedicine [facility] Surgery [address] [place] [address] Medical Office Building [address] [place] [address] Gianna Thomas PA Incontinence of feces, unspecified fecal incontinence type (Primary Dx); Urinary incontinence, unspecified type from Last 3 Months Allergies Active Allergy Reactions Criticality Noted Date Comments Ibuprofen Naproxen Swelling Medium Salicylates Unknown 08/06/2013 Medications carvedilol (COREG) 12.5 mg tablet take 1 tablet (12.5MG) by oral route 2 times every day with food 60 6 2 Active simvastatin (ZOCOR) 20 mg tablet take 1 tablet (20MG) by oral route every day at bedtime 0 2 Active aspirin 81 mg chewable tablet chew 1 tablet (81MG) by oral route every day [address] (PROTONIX) 40 mg EC tablet take 1 tablet (40MG) by oral route every day 0 3 Active furosemide (LASIX) 20 mg tablet take 1 tablet by oral route every day 0 0 5 Active losartan (COZAAR) 25 mg tablet take 1 tablet by oral route every day 90 3 6 Active Symbicort 160-4.5 mcg/actuation inhaler 0 Active spironolactone (ALDACTONE) 25 mg tablet Take 1 tablet (25 mg total) by mouth 2 (two) times a day 0 Active citalopram (CeleXA) 20 mg tablet Take 1 tablet (20 mg total) by mouth daily Active allopurinoL (ZYLOPRIM) 300 mg tablet Take 1 tablet (300 mg total) by mouth daily Active cholestyramine (QUESTRAN) 4 gram packet TAKE 1 PACKET BY MOUTH 2 TIMES A DAY WITH MEALS. 180 packet 1 5 Active cholestyramine (QUESTRAN) 4 gram packet Take 1 packet by mouth 2 (two) times a day with meals 30 packet 5 11/05/19 25 Discontinued Active Problems Problem Noted Date Diagnosed Date Visit for wound check 04/11/2022 Presence of biventricular au tomatic cardioverter/defibrillator (AICD) 03/03/2022 Overview (04/05/2022): Medtronic [place] BIV ICD. Dx; NICM (Dilated), CHF, LBBB. DOI 04/01/2022-Cipriano. Chronic leads 07/13/2010. Carelink remote monitoring. Dilated cardiomyopathy 03/30/2017 Social History Tobacco Use Types Packs/Day Years Used Date Smoking Tobacco: Former Cigarettes Q uit: 1994 Smokeless Tobacco: Never Tobacco Cessation:Counseling Given: Not Answered Comments:Smoking History Packs/day: 1 Packs Alcohol Use Standard Drinks/Week Comments Yes 0 (1 standard drink = 0.6 oz pur e alcohol) AUDIT-C Answer Date Recorded Q1: How often do you have a drink containing alcohol? Never 10/23/2024 Q2: How many drinks containi ng alcohol do you have on a typical day when you are drinking? Patient does not drink Q3: How often do you have si x or more drinks on one occasion? Never 10/23/2024 Comments Unknown Sex and Gender Information Value Date Recorded Sex Assigned at Not on file Legal Sex Female 3:20 PM CUSTOMER SALES ADVISOR Gender Identity Female 09/10/2024 9:39 PM CUSTOMER SALES ADVISOR Sexual Orientation Straight 09/10/2024 9: 39 PM CUSTOMER SALES ADVISOR Last Filed Vital Signs Vital Sign Reading Time Taken Comments Blood Pressure 136/78 10/23/2024 11:15 AM CDT Pulse 93 10/23/2024 11:15 AM CDT Temperature 36.9 C (98.5 F) 10/23/2024 11:15 AM CDT Respiratory Rate 16 06/29/2023 10:0 4 AM CUSTOMER SALES ADVISOR Oxygen Saturation 93% 10/23/2024 11: 15 AM CDT Inhaled Oxygen Concentration - - Weight 130.4 kg (287 lb 6.4 oz) 025 11:15 AM CDT Height 167.6 cm (5' 6 ) 10/23/2024 11:1 5 AM CDT Body Mass Index 46.39 10/23/2024 11:15 AM CDT Plan of Treatment Not on file Medical Devices Implanted Type Area Civil Drafter Device Identifier Shelf Expiration Date Model / Serial / Lot Medtronic Inc [place] Hf Tray Server-D Mri Surescan Df1 [id number] - [id number] - [id number] Implanted:Qty: 1 on 04/01/2022 by Brayan Cota MD at [facility] ICD Medtronic Inc [id number] 06/27/2023 [id number] / [id number] / Medtronic Inc Tyrx Absorbable Antibacterial Envelope-Large 3.3x2.9in [id number] - [id number] Implanted:Qty: 1 on 04/01/2022 by Brayan Cota MD at [facility] Medtronic Inc 12/25/2022 CMR [id number] / / [id number] Procedures Procedure Name Priority Date/Time Associated Diagnosis Comments DEVICE CHECK - REMOTE Routine 10/21/2024 2:43 PM CDT Dilated cardiomyopathy (HCC) from Last 3 Months Results * DEVICE CHECK - REMOTE (10/21/2024 2:43 PM CDT) Anatomical Region Laterality Modality Other Narrative 10/29/2024 10:34 AM CDT Table formatting from the original result was not included. BiV ICD CHECK (REMOTE) Patient ID: Norberto Arriaza is a 74 y.o. female. This patient received a Medtronic BiV ICD. They had a routine remote transmission on 10/21/2024 Device implant indications: Nonischemic cardiomyopathy, CHF, LBBB Interrogation of the patient's device demonstrates the following: Presenting EGM: A paced Bi V paced @ 75 bpm Original Device Settings Right Atrium Right Ventricle Left Ventricle Sensitivity (mV) 0.3 mV 0.3 mV N/a mV Pacing Outputs 1.50 V @ 0.4 ms 1.125 V @ 0.4 ms 3.5 V @ 1.0 ms Testing Measurements Right Atrium Right Ventricle Left Ventricle Sensitivity (mV) 2.6 mV 9 mV Not done mV Impedence (Ohms) 437 ohms 361 ohms 741 ohms Pace Threshold 0.375 V @ 0.4 ms 1.125 V @ 0.4 ms 2.75 V @ 1.0 ms Pacing % 56.4 % 93.1 % 93.1 % HV Lead Impedance N/A 48/61 ohms N/A Battery Status: 3.8 years to KT, charge time 4 seconds. Episodes last 90 days/Comments: AF [place] <0.1 %, 1 episode of AFib lasting 1 minute 41 seconds. This episode was treated with ATP x3 with eventual termination of AF. No new ventricular events . NORMAL DEVICE FUNCTION PROGRAMMED MEDICATIONS: Anti-coagulant(s): Aspirin 81 mg Anti-arrhythmic(s): Coreg 12.5 mg twice a day PLAN: 1) Medtronic BiV ICD evaluation 2) Medtronic remote transmission scheduled in 3 months. 3) Programming appropriate for device settings Katelyn Conley RN Benji Lock MD [facility] CARDIAC SERVICES PROC EDURES Final Result from Last 3 Months Insurance HEALTHCARE HEALTHCARE HEALTHCARE [facility] [place] Care Teams Sign Manufacturer Relationship Specialty Start Date End Date Charisse Isaac MD [address] [place] [address] [address] [place] [address] PCP - General Family Medicine 08/15/24 Charisse Isaac MD [address] [place] [address] [address] [place] [address] [phone] Family Medicine 08/15/24
--- OUTSIDE RECORDS SUMMARY | 2024-11-25 16:17 | XMS_ITS | Clinical Summary ---
Author Organization [address] Address [address] [place] [phone] Care Team Providers Care Rodeo Performer Name Role Phone Charisse Isaac MD Primary Care Provider + Charisse Isaac MD Unavailable [phone] Allergies Active Allergy Reactions Criticality Noted Date [...] tomatic cardioverter/defibrillator (AICD) 03/03/2022 Overview (04/05/2022): Medtronic [place] BIV ICD. Dx; NICM (Dilated), CHF, LBBB. DOI 04/01/2022-Cipriano. Chronic leads 07/13/2010. Carelink remote monitoring. Dilated cardiomyopathy 03/30/2017 Encounters Date Type Department Care Team Description 10/23/2024 11:15 AM CDT Office Visit [facility] Surgery [address] [place] [address] Medical Office Building [address] [place] [address] Gianna Thomas PA Incontinence of feces, unspecified fecal incontinence type (Primary Dx); Urinary incontinence, unspecified type 10/21/2024 2:45 PM CDT Ancillary Procedure Arrhythmia Center [address] [facility] [address], [place] [address] Presence of biventricular automatic cardioverter/defibril lator (AICD) (Primary Dx); Dilated cardiomyopathy (HCC) 09/11/2024 9:30 AM DEPUTY CLERK Telemedicine [facility] Surgery [address] [place] [address] Medical Office Building [address] [place] [phone] Gianna Thomas PA Incontinence of feces, unspecified fecal incontinence type (Primary Dx); Urinary incontinence, unspecified type from Last 3 Months Surgical History Surgery Date Site/Laterality Comments INSERT / REPLACE / REMOVE PACEMAKER OTHER SURGICAL HISTORY generator changes in 2013 and 2019 HYSTERECTOMY 1994 CHOLECYSTECTOMY 2020 COLONOSCOPY 07/31/2023 - 07/30/2024 TONSILLECTOMY 1957 Medical History Medical History Date Comments Depression Depression Presence of biventricular au tomatic cardioverter/defibrillator (AICD) Medtronic 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 Hypertension Sleep apnea Gout Family History Medical History Relation Name Comments Heart attack Father Myocardial Infa rction; Cause of : Myocardial Infarction Other Mother due to age Relation Name Status Comments Father (Age 71) Mother (Age 93) Social History Tobacco Use Types Packs/Day Years [...] on file Legal Sex Female 3:20 PM DEPUTY CLERK Gender Identity Female 09/10/2024 9:39 PM DEPUTY CLERK Sexual Orientation Straight 09/10/2024 9: 39 PM DEPUTY CLERK Obstetrics History Last Filed Vital Signs Vital Sign Reading Time Taken Comments Blood Pressure 136/78 10/23/2024 11:15 AM CDT Pulse 93 10/23/2024 11:15 AM CDT Temperature 36.9 C (98.5 F) 10/23/2024 11:15 AM CDT Respiratory Rate 16 06/29/2023 10:0 4 AM DEPUTY CLERK Oxygen Saturation 93% 10/23/2024 11: 15 AM CDT Inhaled Oxygen Concentration - - Weight 130.4 kg (287 lb 6.4 oz) 025 11:15 AM CDT Height 167.6 cm (5' 6 ) 10/23/2024 11:1 5 AM CDT Body Mass Index 46.39 10/23/2024 11:15 AM CDT Plan of Treatment Health Maintenance Due Date Last Done Comments Breast Cancer Screening-Mammogram 1950 Colon Cancer Screening-Colonoscopy 1950 Depression Screening 1950 Hepatitis C Screening 1950 Osteoporosis Screening-Bone Density Scan 1950 DTaP/Tdap/Td Vaccine (1 - Tdap) 1961 Hepatitis B Screening 1968 Pneumococcal vaccine 65+ (1 of 1 - PCV) 2000 Zoster Vaccine (1 of 2) 2000 Well Visit 65+ 2015 Fall Risk Assessment 04/01/2023 04/01/2022 Influenza Vaccine (Season Ended) 2025 05/17/2019, 07/02/2018, 08/27/2013, Additional history exists Medical Devices Implanted Type Area Hair Machine Operator Device Identifier Shelf Expiration Date Model / Serial / Lot Medtronic Inc [place] Hf Head Teller-D Mri Surescan Df1 [id number] - [id number] - [id number] Implanted:Qty: 1 on 04/01/2022 by Brayan Cota MD at [facility] ICD Medtronic Inc [id number] 06/27/2023 [id number] / [id number] / Medtronic Inc Tyrx Absorbable Antibacterial Envelope-Large 3.3x2.9in [id number] - [id number] Implanted:Qty: 1 on 04/01/2022 by Brayan Cota MD at [facility] Medtronic Inc 12/25/2022 CMR M6133 / / [id number] Procedures Procedure Name Priority Date/Time Associated Diagnosis [...] 4 seconds. Episodes last 90 days/Comments: AF [place] <0.1 %, 1 episode of AFib lasting [...] Final Result from Last 3 Months Insurance [facility] Care Teams Rodeo Performer Relationship Specialty Start Date End Date Charisse Isaac MD [facility] [address] [place] [address] PCP - General Family Medicine 08/15/24 Charisse Isaac MD [address] [place] [address] [address] [place] [phone] Family Medicine 08/15/24
[2024-11-25 17:33] LABS: Basophils Absolute Auto 0.1 K/mm3 (0.0-0.1); Basophils Percent Auto 0.5 % (0.2-1.2); Eosinophils Absolute Auto 0.1 K/mm3 (0-0.3); Eosinophils Percent Auto 1.3 % (0-4.4); Hematocrit 39.4 % (37.0-47.0); Hemoglobin 13.1 g/dL (12.0-15.0); Immature Granulocyte Absolute 0.03 K/mm3 (0.00-0.031); Immature Granulocyte Percent A 0.3 % (0-0.5); Lymphocytes Absolute Auto 2.37 K/mm3 (0.9-3.2); Lymphocytes Percent Auto 21.7 % (18.3-44.2); Mean Corpuscular HGB Conc 33.2 g/dl (32-36); Mean Corpuscular Volume 99.2 fl (80-100); Mean Platelet Volume 10.3 fl (7.4-10.4); Monocytes Absolute Auto 0.7 K/mm3 (0.1-0.6); Monocytes Percent Auto 6.3 % (2.6-8.5); Neutrophils Absolute Auto 7.6 K/mm3 (1.3-6.7); Neutrophils Percent Auto 69.9 % (45.5-73.1); Platelet Count Result 189 k/mm3 (150-375); Red Blood Count 3.97 M/mm3 (4.2-5.4); Red Cell Distribution Width 13.6 % (11.5-14.5); White Blood Count 10.9 K/mm3 (4.5-10.0)
[2024-11-25 17:43] LABS: Prothrombin Time 13.8 Seconds (11.1-14.7)
[2024-11-25 17:44] LABS: Partial Thromboplastin Time 27.2 Seconds (22.3-36.8)
[2024-11-25 17:55] LABS: Alanine Aminotransferase 41 U/L (6-35); Alkaline Phosphatase 143 U/L (38-126); Anion Gap 6 mmol/L (4-12); Aspartate Amino Transferase 37 U/L (14-36); Bilirubin,Total 1.7 mg/dL (0.2-1.3); Blood Urea Nitrogen 32 mg/dL (7-17); Calcium 9.2 mg/dL (8.4-10.2); Carbon Dioxide 27 mmol/L (22-30); Chloride 105 mmol/L (98-107); Estimated CRCL calculation 35 ml/min; Estimated Glomerular Filt Rate 28; Glucose 111 mg/dL (65-110); Potassium 5.3 mmol/L (3.4-5.0); Sodium 138 mmol/L (137-145)
[2024-11-25 18:06] LABS: NT Pro B Type Natriuretic Pept 11900 pg/mL (19.9-100); Troponin I 0.021 ng/mL (0.000-0.034)
[2024-11-25 19:00] LABS: Lipase 114 U/L (23-300)
--- NOTE | 2024-11-25 19:31 | PC.NURSE ---
Assumed care of pt after receiving bedside report from Gisela @ 0590.
--- OUTSIDE RECORDS SUMMARY | 2024-11-25 19:57 | XMS_ITS | Referral Summary ---
Author Organization [address] Address [address] [place] [phone] Care Team Providers Care Slate Trimmer Name Role Phone Charisse Isaac MD Primary Care Provider + Charisse Isaac MD Unavailable [phone] Encounters Date Type Department Care Team Description 10/23/2024 11:15 AM CDT Office Visit [facility] Surgery [address] [place] [address] Medical Office Building [address] [place] [address] Gianna Thomas PA Incontinence of feces, unspecified fecal incontinence type (Primary Dx); Urinary incontinence, unspecified type 10/21/2024 2:45 PM CDT Ancillary Procedure Ar[facility]hythmia [facility] [address] [facility] [address], [place] [address] Presence of biventricular automatic cardioverter/defibril lator (AICD) (Primary Dx); Dilated cardiomyopathy (HCC) 09/11/2024 9:30 AM MARSHMALLOW MAKER Telemedicine [facility] Surgery [address] [place] [address] Medical Office Building [address] [place] [address] Gianna Thomas PA Incontinence of [...] tomatic cardioverter/defibrillator (AICD) 03/03/2022 Overview (04/05/2022): Medtronic [place] BIV ICD. Dx; NICM (Dilated), CHF, LBBB. [...] on file Legal Sex Female 3:20 PM MARSHMALLOW MAKER Gender Identity Female 09/10/2024 9:39 PM MARSHMALLOW MAKER Sexual Orientation Straight 09/10/2024 9: 39 PM MARSHMALLOW MAKER Last Filed Vital Signs Vital Sign Reading Time Taken Comments Blood Pressure 136/78 10/23/2024 11:15 AM CDT Pulse 93 10/23/2024 11:15 AM CDT Temperature 36.9 C (98.5 F) 10/23/2024 11:15 AM CDT Respiratory Rate 16 06/29/2023 10:0 4 AM MARSHMALLOW MAKER Oxygen Saturation 93% 10/23/2024 11: 15 AM CDT Inhaled Oxygen Concentration - - Weight 130.4 kg (287 lb 6.4 oz) 025 11:15 AM CDT Height 167.6 cm (5' 6 ) 10/23/2024 11:1 5 AM CDT Body Mass Index 46.39 10/23/2024 11:15 AM CDT Plan of Treatment Not on file Medical Devices Implanted Type Area Placement Assistant Device Identifier Shelf Expiration Date Model / Serial / Lot Medtronic Inc [place] Hf Oral Surgeon-D Mri Surescan Df1 [id number] - [id number] - [id number] Implanted:Qty: 1 on 04/01/2022 by Brayan Cota MD at [facility] ICD Medtronic Inc [id number] 06/27/2023 [id number] / [id number] / Medtronic Inc Tyrx Absorbable Antibacterial Envelope-Large 3.3x2.9in [id number] - [id number] Implanted:Qty: 1 on 04/01/2022 by Brayan Cota MD at [facility] Medtronic Inc 12/25/2022 CMR M6133 / / [id number] Procedures Procedure Name Priority Date/Time Associated Diagnosis [...] 4 seconds. Episodes last 90 days/Comments: AF [place] <0.1 %, 1 episode of AFib lasting [...] Last 3 Months Insurance [facility]ALTHCARE HEALTHCARE [facility]ARE [facility] Care Teams Slate Trimmer Relationship Specialty Start Date End Date Charisse Isaac MD [address] [place] [address] [address] [place] [address] PCP - General Family Medicine 08/15/24 Charisse Isaac MD [address] [place] [address] [address] [place] [phone] Family Medicine 08/15/24
--- OUTSIDE RECORDS SUMMARY | 2024-11-25 19:57 | XMS_ITS | Clinical Summary ---
Author Organization [address] Address [address] [place] [phone] Care Team Providers Care Tariff Clerk Name Role Phone Charisse Isaac MD Primary Care Provider + Charisse Isaac MD Unavailable [phone] Allergies Active Allergy Reactions Criticality Noted Date [...] tomatic cardioverter/defibrillator (AICD) 03/03/2022 Overview (04/05/2022): Medtronic [place] BIV ICD. Dx; NICM (Dilated), CHF, LBBB. DOI 04/01/2022-Cipriano. Chronic leads 07/13/2010. Carelink remote monitoring. Dilated cardiomyopathy 03/30/2017 Encounters Date Type Department Care Team Description 10/23/2024 11:15 AM CDT Office Visit [facility] Surgery [address] [place] [address] Medical Office Building [address] [place] [address] Gianna Thomas PA Incontinence of feces, unspecified fecal incontinence type (Primary Dx); Urinary incontinence, unspecified type 10/21/2024 2:45 PM CDT Ancillary Procedure Arrhythmia Center [address] [facility] [address], [place] [address] Presence of biventricular automatic cardioverter/defibril lator (AICD) (Primary Dx); Dilated cardiomyopathy (HCC) 09/11/2024 9:30 AM A AND P TECHNICIAN Telemedicine [facility] Surgery [address] [place] [address] Medical Office Building [address] [place] [phone] Gianna Thomas PA Incontinence of feces, unspecified [...] biventricular au tomatic cardioverter/defibrillator (AICD) Medtronic 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 -D Hypertension Sleep apnea Gout Family History [...] on file Legal Sex Female 3:20 PM A AND P TECHNICIAN Gender Identity Female 09/10/2024 9:39 PM A AND P TECHNICIAN Sexual Orientation Straight 09/10/2024 9: 39 PM A AND P TECHNICIAN Obstetrics History Last Filed Vital Signs Vital Sign Reading Time Taken Comments Blood Pressure 136/78 10/23/2024 11:15 AM CDT Pulse 93 10/23/2024 11:15 AM CDT Temperature 36.9 C (98.5 F) 10/23/2024 11:15 AM CDT Respiratory Rate 16 06/29/2023 10:0 4 AM A AND P TECHNICIAN Oxygen Saturation 93% 10/23/2024 11: 15 AM [...] history exists Medical Devices Implanted Type Area Maintenance Carpenter Device Identifier Shelf Expiration Date Model / Serial / Lot Medtronic Inc [place] Hf Stranding Machine Operator-D Mri Surescan Df1 [id number] - [id number] - [id number] Implanted:Qty: 1 on 04/01/2022 by Brayan Cota MD at [facility] ICD Medtronic Inc [id number] 06/27/2023 [id number] / [id number] / Medtronic Inc Tyrx Absorbable Antibacterial Envelope-Large 3.3x2.9in [id number] - [id number] Implanted:Qty: 1 on 04/01/2022 by Brayan Cota MD at [facility] Medtronic Inc 12/25/2022 CMR M6133 / / [id number] Procedures Procedure Name Priority Date/Time Associated Diagnosis [...] 4 seconds. Episodes last 90 days/Comments: AF [place] <0.1 %, 1 episode of AFib lasting [...] Final Result from Last 3 Months Insurance [facility] HE[facility]CARE HEALTHCARE HEALTHCARE Care Teams Tariff Clerk Relationship Specialty Start Date End Date Charisse Isaac MD [facility] [address] [place] [address] PCP - General Family Medicine 08/15/24 Charisse Isaac MD [address] [place] [address] [address] [place] [id number] Family Medicine 08/15/24
== END 2024-11-25 20:12 | disposition home or self-care (01) ==
LOC: ANHED 19:56
PROVIDERS: Physician Assistant; Emergency Provider Student in an Organized Health Care Education/Training Program; PCP Family Medicine
DX: R06.02 Shortness of breath (principal); I42.9 Cardiomyopathy, unspecified; E78.5 Hyperlipidemia, unspecified; M19.90 Unspecified osteoarthritis, unspecified site; K21.9 Gastro-esophageal reflux disease without esophagitis; Z95.810 Presence of automatic (implantable) cardiac defibrillator; Z87.891 Personal history of nicotine dependence; Z90.49 Acquired absence of other specified parts of digestive tract; Z90.710 Acquired absence of both cervix and uterus; Z79.82 Long term (current) use of aspirin; Z79.899 Other long term (current) drug therapy; I48.92 Unspecified atrial flutter; I47.19 Other supraventricular tachycardia
CPT/HCPCS: 36415; 71046; 80053; 83690; 83880; 84484; 85025; 85610; 85730; 93005; 99284

== ENCOUNTER 2024-12-03 22:27 | Inpatient (IN) | payer OTHER, SELFPAY ==
--- NOTE | ~2024-12-03 | XR_ITS ---
CHEST RADIOGRAPH CLINICAL HISTORY: ROEL . COMPARISON: TECHNIQUE: Single portable view of the chest. FINDINGS The right mid to upper lung is partially obscured due to AICD generator. Wires project over the right atrium, coronary sinus and right ventricle. The remainder of the cardiomediastinal silhouette is enlarged (unchanged) and otherwise unremarkable. Coarse interstitial lung markings are redemonstrated. The remainder of the lungs are clear. IMPRESSION: Persistent cardiomegaly coarse lung markings, without focal infiltrate or effusion Reviewed, dictated and finalized at location A. IMPRESSION: Persistent cardiomegaly coarse lung markings, without focal infiltrate or effus ion
--- NOTE | ~2024-12-03 | NM_ITS ---
EXAMINATION: NM lung vent and perfusion DATE: 12/04/2024 13:45 INDICATION: Hypoxic respiratory failure. Elevated d-dimer. TECHNIQUE: 7.9 mCi xenon-133 by inhalation and 4.51 mCi Tc-99m MAA by intravenous route. Scintigraph ic images of the chest were obtained. COMPARISON: Chest radiograph dated 12/04/2024 FINDINGS: There is homogeneous radiotracer activity throughout the lungs on the single breath ventilation seque nce. There is relatively homogeneous perfusion throughout the lungs. No discrete ventilation and pe rfusion mismatch is identified. There is photopenic defect overlying the anterior right upper lung zo ne corresponding to a cardiac pacemaker. Cardiomegaly. IMPRESSION: 1. Low probability for pulmonary embolism. Reviewed, dictated and finalized at location A.
--- NOTE | ~2024-12-03 | US_ITS ---
EXAMINATION: US renal BI, US abdomen limited DATE: 12/04/2024 14:31 INDICATION: Elevated liver function tests. Acute on chronic kidney disease. TECHNIQUE: Multiple ultrasound grayscale images of the right upper quadrant of the abdomen as well as of the kidneys were obtained. COMPARISON: None. FINDINGS: The pancreatic head and body are normal in appearance. The pancreatic tail is not visualized. Liver has normal echogenicity and contour, with a smooth surface. No liver lesion identified. No intrahepat ic biliary duct dilation suspected. Portal venous flow was seen in the hepatopetal, normal direction. There is increased portal venous pulsatility along with dilation of the hepatic veins, both findings which can be seen in setting of right heart failure. The gallbladder is nonvisualized and reportedly surgically absent. The common bile duct measures up to 6 7 7 mm which within normal limits for age a nd accounting for prior cholecystectomy. The right kidney measures 11.2 x 5.0 x 5.2 cm. The left kidney measures 10.5 x 4.9 x 5.4 cm. There is cortical thinning with diffuse mild increased cortical echogenicity of both kidneys consistent with medical renal disease. There is no hydronephrosis in either kidney. No stones identified. The bladde r is decompressed with a Matos catheter reportedly in place which limits evaluation. IMPRESSION: 1. Normal portal venous direction of flow but with increased pulsatility which along with dilation o f the hepatic veins, can be seen in the setting of right heart failure. 2. Mild bilateral renal cortical thinning with increased echogenicity consistent with likely chronic medical renal disease. No hydronephrosis. Reviewed, dictated and finalized at location A. IMPRESSION: 1. Normal portal venous direction of flow but with increased pulsatility which along with dilation of the hepatic veins, can be seen in the setting of right heart failure. 2. Mild bilateral renal cortical thinning with increased echogenicity consisten t with likely chronic medical renal disease. No hydronephrosis.
--- NOTE | ~2024-12-03 | XR_ITS ---
Portable chest x-ray Comparison: 12/04/2024 Clinical History: Shortness of breath Findings: Lungs are clear, without focal consolidation or pleural effusion. Cardiomediastinal silho uette is stable, with pacemaker device. Bones and soft tissues are unremarkable. Impression: Clear lungs. Stable cardiomegaly with pacemaker device. Reviewed, dictated and finalized at location . Impression: Clear lungs. Stable cardiomegaly with pacemaker device.
--- NOTE | ~2024-12-03 | US_ITS ---
BILATERAL LOWER EXTREMITY VENOUS ULTRASOUND Ordering provider: Paulo Leslie MD History: . Swelling . Comparison: None. FINDINGS: RIGHT LOWER EXTREMITY VEINS: --COMMON FEMORAL: Patent and free of thrombus. Normal compressibility, phasic flow and augmentation. --PROXIMAL SUPERFICIAL FEMORAL: Patent and free of thrombus. Normal compressibility, phasic flow and augmentation. --DISTAL SUPERFICIAL FEMORAL: Patent and free of thrombus. Normal compressibility, phasic flow and au gmentation. --POPLITEAL: Patent and free of thrombus. Normal compressibility, phasic flow and augmentation. --POSTERIOR TIBIAL: Patent and free of thrombus. Normal compressibility, phasic flow and augmentation . LEFT LOWER EXTREMITY VEINS: --COMMON FEMORAL: Patent and free of thrombus. Normal compressibility, phasic flow and augmentation. --PROXIMAL SUPERFICIAL FEMORAL: Patent and free of thrombus. Normal compressibility, phasic flow and augmentation. --DISTAL SUPERFICIAL FEMORAL: Patent and free of thrombus. Normal compressibility, phasic flow and au gmentation. --POPLITEAL: Patent and free of thrombus. Normal compressibility, phasic flow and augmentation. --POSTERIOR TIBIAL: Patent and free of thrombus. Normal compressibility, phasic flow and augmentation . IMPRESSION: Negative bilateral lower extremity venous US. No deep vein thrombosis. Reviewed, dictated and finalized at location A.
--- NOTE | ~2024-12-03 | XR_ITS ---
Portable chest x-ray Comparison: 12/03/2024 Clinical History: Hypoxic respiratory failure Findings: Lungs are clear, without focal consolidation or pleural effusion. Cardiomediastinal silho uette is stable, with pacemaker device. Bones and soft tissues are unremarkable. Impression: Clear lungs. Reviewed, dictated and finalized at location . Impression: Clear lungs.
--- OUTSIDE RECORDS SUMMARY | 2024-12-03 22:29 | XMS_ITS | Referral Summary ---
Author Organization [address] Address [address] [place] [phone] Care Team Providers Care Human Services Supervisor Name Role Phone Charisse Isaac MD Primary Care Provider + Charisse Isaac MD Unavailable [phone] Encounters Date Type Department Care Team Description 12/02/2024 Telephone [facility] [address] [address] Marcy Kent NP Insurance Referrals 11/27/2024 Orders Only [facility] [address] [place] [phone] Benji Lock MD Cardiac arrhythmia, unspecified cardiac arrhythmia type (Primary Dx); Atrial flutter, unspecified type (HCC) 11/27/2024 Orders Only [facility] [address] [address] Miscellaneous, Not In File 11/27/2024 Telephone [facility] [address] [address] Benji Lock MD Medtronic alert for AF burden and HVRs during AF 10/23/2024 11:15 AM CDT Office Visit [facility] Office Building [address] [place] [address] Gianna Thomas PA Incontinence of feces, unspecified fecal incontinence type (Primary Dx); Urinary incontinence, unspecified type 10/21/2024 2:45 PM CDT Ancillary Procedure [facility] [address] [facility] [address] [place] [address] Presence of biventricular automatic cardioverter/defibril lator (AICD) (Primary Dx); Dilated cardiomyopathy (HCC) 09/11/2024 9:30 AM DIRECTOR DIGITAL COMMUNICATIONS Telemedicine [facility] Surgery [address] [facility] Building [address] [place] [address] Gianna Thomas PA Incontinence of [...] tomatic cardioverter/defibrillator (AICD) 03/03/2022 Overview (04/05/2022): Medtronic [place] BIV ICD. Dx; NICM (Dilated), CHF, LBBB. [...] on file Legal Sex Female 3:20 PM DIRECTOR DIGITAL COMMUNICATIONS Gender Identity Female 09/10/2024 9:39 PM DIRECTOR DIGITAL COMMUNICATIONS Sexual Orientation Straight 09/10/2024 9: 39 PM DIRECTOR DIGITAL COMMUNICATIONS Last Filed Vital Signs Vital Sign Reading Time Taken Comments Blood Pressure 136/78 10/23/2024 11:15 AM CDT Pulse 93 10/23/2024 11:15 AM CDT Temperature 36.9 C (98.5 F) 10/23/2024 11:15 AM CDT Respiratory Rate 16 06/29/2023 10:0 4 AM DIRECTOR DIGITAL COMMUNICATIONS Oxygen Saturation 93% 10/23/2024 11: 15 AM CDT Inhaled Oxygen Concentration - - Weight 130.4 kg (287 lb 6.4 oz) 025 11:15 AM CDT Height 167.6 cm (5' 6 ) 10/23/2024 11:1 5 AM CDT Body Mass Index 46.39 10/23/2024 11:15 AM CDT Plan of Treatment Not on file Medical Devices Implanted Type Area Desktop Specialist Device Identifier Shelf Expiration Date Model / Serial / Lot Medtronic Inc [place] Hf Fiberglass Machine Operator-D Mri Surescan Df1 [id number] - [id number] - [id number] Implanted:Qty: 1 on 04/01/2022 by Brayan Cota MD at [facility] ICD Medtronic Inc [id number] 06/27/2023 [id number] / [id number] / Medtronic Inc Tyrx Absorbable Antibacterial Envelope-Large 3.3x2.9in [id number] - [id number] Implanted:Qty: 1 on 04/01/2022 by Brayan Cota MD at [facility] Medtronic Inc 12/25/2022 CMR [id number] / / [id number] Procedures Procedure Name Priority Date/Time Associated Diagnosis Comments DEVICE CHECK - REMOTE Routine 11/27/2024 7:13 AM CDT DEVICE CHECK - REMOTE Routine 10/21/2024 2:43 PM CDT Dilated cardiomyopathy (HCC) from Last 3 Months Results * DEVICE CHECK - REMOTE (11/27/2024 7:13 AM CDT) Anatomical Region Laterality Modality Other 11/27/2024 7:13 AM CDT Narrative 11/27/2024 10:18 AM CDT Refer to Epic phone encounter. MUNDO Gamez Device Specialist us Not In File Miscellaneous CV CARDIAC SERVICES MD OCEDURES Final Result * DEVICE CHECK - REMOTE (10/21/2024 2:43 PM CDT) Anatomical Region Laterality Modality Other Narrative 10/29/2024 10:34 AM CDT Table formatting from the original result was not included. BiV ICD CHECK (REMOTE) Patient ID: Norberot Arriaza is a 74 y.o. female. This [...] 4 seconds. Episodes last 90 days/Comments: AF [place] <0.1 %, 1 episode of AFib lasting [...] Final Result from Last 3 Months Insurance [facility] Care Teams Human Services Supervisor Relationship Specialty Start Date End Date Charisse Isaac MD [address] [place] [address] [address] [place] [address] PCP - General Family Medicine 08/15/24 Charisse Isaac MD [address] [place] [address] [address] [place] [address] Family Medicine 08/15/24
--- OUTSIDE RECORDS SUMMARY | 2024-12-03 22:29 | XMS_ITS | Clinical Summary ---
Author Organization [address] Address [address] [place] [address] Care Team Providers Care Information Security Architect Name Role Phone Charisse Isaac MD Primary Care Provider + Charisse Isaac MD Unavailable [phone] Allergies Active Allergy Reactions Criticality Noted Date [...] tomatic cardioverter/defibrillator (AICD) 03/03/2022 Overview (04/05/2022): Medtronic [place] BIV ICD. Dx; NICM (Dilated), CHF, LBBB. DOI 04/01/2022-Cipriano. Chronic leads 07/13/2010. [facility]link remote monitoring. Dilated cardiomyopathy 03/30/2017 Encounters Date Type Department Care Team Description 12/02/2024 Telephone [facility] [address] [place] [phone] Marcy Kent NP Insurance Referrals 11/27/2024 Orders Only [facility] [address] [place] [phone] Benji Lock MD Cardiac arrhythmia, unspecified cardiac arrhythmia type (Primary Dx); Atrial flutter, unspecified type (HCC) 11/27/2024 Orders Only [facility] [address] [place] [phone] Miscellaneous, Not In File 11/27/2024 Telephone [facility] [address] [place] [address] Benji Lock MD Medtronic alert for AF burden and HVRs during AF 10/23/2024 11:15 AM CDT Office Visit [facility] Surgery [address] [facility] Building [address] [place] [address] Gianna Thomas PA Incontinence of feces, unspecified fecal incontinence type (Primary Dx); Urinary incontinence, unspecified type 10/21/2024 2:45 PM CDT Ancillary Procedure [facility] [address] [facility] [address] [place] [address] Presence of biventricular automatic cardioverter/defibril lator (AICD) (Primary Dx); Dilated cardiomyopathy (HCC) 09/11/2024 9:30 AM HOSTESS PARTY SALES REPRESENTATIVE Telemedicine [facility] Surgery [address] [facility] Building [address] [place] [address] Ginana Thomas PA Incontinence of feces, unspecified fecal [...] biventricular au tomatic cardioverter/defibrillator (AICD) Medtronic Claria BEEF FARMER -D Hypertension Sleep apnea Gout Family History [...] on file Legal Sex Female 3:20 PM HOSTESS PARTY SALES REPRESENTATIVE Gender Identity Female 09/10/2024 9:39 PM HOSTESS PARTY SALES REPRESENTATIVE Sexual Orientation Straight 09/10/2024 9: 39 PM HOSTESS PARTY SALES REPRESENTATIVE Obstetrics History Last Filed Vital Signs Vital Sign Reading Time Taken Comments Blood Pressure 136/78 10/23/2024 11:15 AM CDT Pulse 93 10/23/2024 11:15 AM CDT Temperature 36.9 C (98.5 F) 10/23/2024 11:15 AM CDT Respiratory Rate 16 06/29/2023 10:0 4 AM HOSTESS PARTY SALES REPRESENTATIVE Oxygen Saturation 93% 10/23/2024 11: 15 AM [...] history exists Medical Devices Implanted Type Area Supervisor Machining Device Identifier Shelf Expiration Date Model / Serial / Lot Medtronic Inc [place] Hf Tripe Washer-D Mri Surescan Df1 [id number] - [id number] - [id number] Implanted:Qty: 1 on 04/01/2022 by Brayan Cota MD at [facility] ICD Medtronic Inc [id number] 06/27/2023 [id number] / [id number] / Medtronic Inc Tyrx Absorbable Antibacterial Envelope-Large 3.3x2.9in [id number] - [id number] Implanted:Qty: 1 on 04/01/2022 by Brayan Cota MD at [facility] Med[employer]onic Inc 12/25/2022 CMR [id number] / / [id number] Procedures Procedure Name Priority Date/Time Associated Diagnosis Comments DEVICE CHECK - REMOTE Routine 11/27/2024 7:13 AM CDT DEVICE CHECK - REMOTE Routine 10/21/2024 2:43 PM CDT Dilated cardiomyopathy (HCC) from Last 3 Months Results * DEVICE CHECK - REMOTE (11/27/2024 7:13 AM CDT) Anatomical Region Laterality Modality Other 11/27/2024 7:1 3 AM CDT Narrative 11/27/2024 10:18 AM CDT Refer to Epic phone encounter. MUNDO Gamez Device Specialist us Not In File Miscellaneous CV CARDIAC SERVICES ID OCEDURES Final Result * DEVICE CHECK - [...] 4 seconds. Episodes last 90 days/Comments: AF [place] <0.1 %, 1 episode of AFib lasting [...] Final Result from Last 3 Months Insurance [facility] Care Teams Information Security Architect Relationship Specialty Start Date End Date Charisse Isaac MD [address] [place] [address] [address] [place] [address] PCP - General Family Medicine 08/15/24 Charisse Isaac MD [address] [place] [address] [address] [place], [place] [id number] Family Medicine 08/15/24
--- OUTSIDE RECORDS SUMMARY | 2024-12-03 22:29 | XMS_ITS | Encounter Summary ---
Author Organization [facility] Healthcare Address [address] [place] [address] Care Team Providers Care Rigging Man Name Role Phone Charsise Isaac MD Primary Care Provider + Charisse Isaac MD Unavailable [phone] Reason for Visit * Reason Onset Date Comments Insurance Referrals 12/02/2024 Encounter Details Date Type Department Care Team (Late st Contact Info) Description 12/02/2024 Telephone Arrhythmia Center [address] [facility] [address], [place] [address] Marcy Kent NP [address] [facility] [address], [place] [address] Insurance Referrals Social History Tobacco Use Types Packs/Day Years Used Date Smoking Tobacco: Former Cigarettes Q uit: 1994 Smokeless Tobacco: Never Comments:Smoking History Pac ks/day: 1 Packs Alcohol Use Standard Drinks/Week Comments [...] file Legal Sex Female 3:20 PM DIRECTOR OF RETENTION Gender Identity Female 09/10/2024 9:39 PM DIRECTOR OF RETENTION Sexual Orientation Straight 09/10/2024 9: 39 PM DIRECTOR OF RETENTION documented as of this encounter Miscellaneous Notes * Telephone Encounter - Noemi Vieira - 12/02/2024 9:44 AM CDT Requested [employer] referral from 's office documented in this encounter Plan of Treatment Not on file documented as of this encounter Visit Diagnoses Not on filedocumented in this encounter Care Teams Rigging Man Relationship Specialty Start Date End Date Charisse Isaac MD [address] [place] [address] [place] [address] PCP - General Family Medicine 08/15/24 Charisse Isaac MD [address] [place] [address] [address] [place] [address] Family Medicine 08/15/24 documented as of this encounter
--- NOTE | 2024-12-03 22:30 | ECG_ITS ---
Test Date: 2024-12-03 22:43:44 Measurements Intervals [place] Rate: 156 P: 0 MD: 0 QRS: 10 QRSD: 165 T: 149 QT: 304 QTc: 490 Interpretive Statements ATRIAL FIBRILLATION WITH RAPID VENTRICULAR RESPONSE LEFT BUNDLE BRANCH BLOCK ABNORMAL ECG Compared to ECG 11/25/2024 14:42:39 ATRIAL FIBRILLATION REPLACES SINUS RHYTHM WITH ATRIAL SENSING AND VENTRICULAR PACING PACEMAKER IS INHIBITED Electronically Signed On 12-04-2024 07:24:31 CDT by Matheus Wyatt M.D.
[2024-12-03 22:43] VITALS: BP 130/93; PULSE 177; RESP 30; TEMP 36.1; O2SAT 85
--- NOTE | 2024-12-03 22:53 | ED.ARRPALP ---
HPI - Arrhythmia/Palpitations General Chief Complaint: Arrhythmia/Palpitations <Bridget Smallwood PA-C - Last Filed: 12/04/24 02:19> Stated Complaint: Hx Afib-shortness of breath <ALEXIS Forde Last Filed: 12/04/24 02:19> Time Seen by Provider: 12/03/24 22:45 <ALEXIS Forde Last Filed: 12/04/24 02:19> History of Present Illness HPI narrative: 74-year-old female history of AICD placement, type 2 diabetes, CKD, dilated cardiomyopathy, hypertension, hyperlipidemia presents to the emergency department for shortness of breath the past 3 days. Patient states she received a call from her pacemaker company that she was in AFib last week. She is post follow-up with her state attorney today but did not make her appointment. She has had shortness of breath for the past 3 days but came in today because the shortness of breath worsened. Upon arrival the patient was found to be hypoxic at 85%. She was placed on 3 L nasal cannula, normally does not wear O2. She denies chest pain, lower extremity edema, abdominal pain, cough, congestion, hemoptysis. Is endorsing nausea. Denies smoking, history of COPD or asthma, history of CHF. Her state attorney is Dr. Wyatt. willie drip protocol <ALEXIS Forde Last Filed: 12/04/24 02:19> Related Data Home Medications: Home Medications ?Medication ?Instructions ?Recorded ?Confirmed ?Last Taken ?Type aspirin 81 mg tablet,delayed 81 mg PO DAILY 06/28/19 10/29/24 07/21/22 History release <ALEXIS Forde Last Filed: 12/04/24 02:19> Allergies/Adverse Reactions: Allergies Allergy/AdvReac Type Severity Reaction Status Date / Time naproxen Allergy Severe swelling Verified 12/03/24 22:28 in ankles and feet duloxetine Allergy Intermediate jittery Verified 12/03/24 22:28 and hyper lisinopril Allergy Intermediate cough Verified 12/03/24 22:28 <ALEXIS Forde Last Filed: 12/04/24 02:19> Review of Systems Review of Systems: All systems reviewed & are unremarkable except as noted in HPI and below <Bridget Smallwood PA-C - Last Filed: 12/04/24 02:19> [facility] Past Medical History Medical History: Medical History (Updated 12/04/24 @ 02:32 by YOMAIRA Aldridge) Acute kidney injury Leukocytosis Shock Hypoxic respiratory failure Septic shock Great toe pain Epistaxis Foot pain, left Lumbago Left hip pain Esophageal reflux Acute biliary pancreatitis without infection or necrosis Arthritis Hyperlipidemia Abdominal mass fullness Other left bundle branch block <Bridget Smallwood PA-C - Last Filed: 12/04/24 02:19> Surgical History Surgical History: Surgical History Hx laparoscopic cholecystectomy History of implantable cardioverter-defibrillator (ICD) placement replaced 04/21 Hx of tonsillectomy H/O: hysterectomy Vaginal partial hysterectomy History of knee replacement Bilateral History of cardiac cath 2009 cardiac cath due to abnormal stress test that reportedly showed no coronary artery disease. <Bridget Smallwood PA-C - Last Filed: 12/04/24 02:19> Family History Family History: Family History Father Acute myocardial infarction Hypertension Family history of cardiovascular disease Gallbladder disease Mother Diabetes mellitus Hypertension Family history of cardiovascular disease Sibling Hypertension <Bridget Smallwood PA-C - Last Filed: 12/04/24 02:19> Social History Social History: Social History Social History: caffeine-daily soda Smoking status: Former smoker Tobacco type: cigarettes Alcohol intake: current Alcohol use details: Rare occasions, such as 2-3 times per year. Substance use: never Substance use type: does not use Do You Feel Safe in your Home?: Yes Lack of Transportation: No Lack of Food: Never True Current Housing: I Have Housing Concerned About Future Housing: No Difficulty Paying Gas/Electric Bills: No Difficulty Paying for Meds: No Currently Unemployed: No Education: High School Diploma/GED Difficulty w/ Childcare or Family Care: No Living arrangements: with family Additional living arrangements comments: Her . Has 4 children. Occupation/Education: occupation Additional occupation/education comments: [employer] [place]. Gender identity (if verbalized by the patient): Female Sexual Orientation (if Verbalized by the Patient): Straight or Heterosexual Spiritual care concerns: No <Bridget Smallwood PA-C - Last Filed: 12/04/24 02:19> Exam Narrative: GENERAL: Ill-appearing, obese, diaphoretic HEAD: Normocephalic, atraumatic. EYES: EOMI. ENT: Nares clear, no rhinorrhea or epistaxis. Mucous membranes moist. NECK: Supple. CHEST: Labored breathing, tachypnea, decreased breath sounds in lower lung vinson HEART: Regular rate and rhythm. No murmur heard. Normal peripheral pulses. ABDOMEN: Soft, nontender, nondistended, normal active bowel sounds. EXTREMITIES: Normal range of motion. No edema. SKIN: Cool extremities, diaphoretic NEURO: No focal deficits. Alert and oriented x3 <Bridget Smallwood PA-C - Last Filed: 12/04/24 02:19> Course SMALL ANIMAL VETERINARIAN/PA Physician Supervision I agree with midlevel documentation; I performed the medical decision making component of this evaluation. Briefly, patient presenting with AFib with RVR, initially shortness of breath and respiratory distress, improved on BiPAP and after several doses of metoprolol, the heart rate still persistently elevated, discussed with Cardiology and starting amiodarone with improvement and will be admitted to ICU. <Cristina Martin MD - Last Filed: 12/04/24 03:43> Vital Signs Vital signs: Vital Signs Temperature 97 F L 12/03/24 22:43 Pulse Rate 177 H 12/03/24 22:43 Respiratory Rate 30 H 12/03/24 22:43 Blood Pressure 130/93 H 12/03/24 22:43 Pulse Oximetry 85 L 12/03/24 22:43 Oxygen Delivery Room Air 12/03/24 22:43 Temperature 97 F L 12/03/24 22:43 Pulse Rate 110 H 12/04/24 03:29 Respiratory Rate 28 H 12/04/24 03:29 Blood Pressure 96/77 L 12/04/24 03:29 Pulse Oximetry 98 12/04/24 03:29 Oxygen Delivery BiPAP 12/04/24 01:20 Oxygen Flow Rate 5 12/03/24 23:06 <Bridget Smallwood PA-C - Last Filed: 12/04/24 02:19> Vital Signs Temperature 97 F L 12/03/24 22:43 Pulse Rate 177 H 12/03/24 22:43 Respiratory Rate 30 H 12/03/24 22:43 Blood Pressure 130/93 H 12/03/24 22:43 Pulse Oximetry 85 L 12/03/24 22:43 Oxygen Delivery Room Air 12/03/24 22:43 Temperature 97 F L 12/03/24 22:43 Pulse Rate 110 H 12/04/24 03:29 Respiratory Rate 28 H 12/04/24 03:29 Blood Pressure 96/77 L 12/04/24 03:29 Pulse Oximetry 98 12/04/24 03:29 Oxygen Delivery BiPAP 12/04/24 01:20 Oxygen Flow Rate 5 12/03/24 23:06 <Cristina Martin MD - Last Filed: 12/04/24 03:43> Procedures EJ/Peripheral Line Arm L: EJ/Peripheral Line Date: 12/04/24 <Cristina Martin MD - Last Filed: 12/04/24 03:43> EJ/Peripheral Line Time: 03:41 <Cristina Martin MD - Last Filed: 12/04/24 03:43> Skin Cleansed in Sterile Fashion: Yes <Cristina Martin MD - Last Filed: 12/04/24 03:43> Ultrasound Guided: Yes <Cristina Martin MD - Last Filed: 12/04/24 03:43> Size (gauge): 18 <Cristina Martin MD - Last Filed: 12/04/24 03:43> IV Secured and Dressing Applied: Yes <Cristina Martin MD - Last Filed: 12/04/24 03:43> Patient Tolerated Procedure: well and no complications <Cristina Martin MD - Last Filed: 12/04/24 03:43> Arm R: EJ/Peripheral Line Date: 12/03/24 <Cristina Martin MD - Last Filed: 12/04/24 03:43> EJ/Peripheral Line Time: 23:06 <Cristina Martin MD - Last Filed: 12/04/24 03:43> Skin Cleansed in Sterile Fashion: Yes <Cristina Martin MD - Last Filed: 12/04/24 03:43> Ultrasound Guided: Yes <Cristina Martin MD - Last Filed: 12/04/24 03:43> Size (gauge): 18 <Cristina Martin MD - Last Filed: 12/04/24 03:43> IV Secured and Dressing Applied: Yes <Cristina Martin MD - Last Filed: 12/04/24 03:43> Patient Tolerated Procedure: well and no complications <Cristina Martin MD - Last Filed: 12/04/24 03:43> MDM - Arrhythmia/Palpitations MDM Narrative Medical decision making narrative: 74-year-old female history of AICD placement, type 2 diabetes, CKD, dilated cardiomyopathy, hypertension, hyperlipidemia presents to the emergency department for shortness of breath the past 3 days. Upon arrival to the ED patient was found to be in AFib RVR with a rate of 177, tachypneic, diaphoretic, hypoxic at 85% on room air and respiratory distress. She was placed on 3 L nasal cannula and brought back to exam room. IV access obtained patient given 5 mg of metoprolol push and p.o. metoprolol with minimal improvement, repeat metoprolol provided. Patient monitored and did have some improvement in heart rate but still in AFib RVR with a rate of 140 bpm. She was also immediately placed on BiPAP. CBC with leukocytosis of 21.6. Chemistries with mild hyperkalemia of 5.1, bicarb of 21 anion gap of 15, creatinine of 2.06 and BUN of 34. Patient's renal function normally ranges between 1.3-1.75. TSH and Mag [place] [address], [place] [address]. Chest x-ray does show cardiomegaly and coarse lung markings, patient was given 40 mg of Lasix. Troponin is within normal limits. D-dimer is elevated to 3.07. Unfortunately patient's GFR is too low at [address] with contrast. Plan to obtain V/Q scan upon admission for evaluation of PE. Patient monitored in the ED and unfortunately her heart rate remained elevated despite metoprolol. Blood pressures did become soft. I did contact state attorney, Dr. Sparks, who advises to start amiodarone. Patient significantly improved after amiodarone. Heart rate now less than 110 blood pressure is stable at 100s-110s/70s. Clinically she looks much better is speaking full sentences, for some BiPAP. Plan to admit to ICU for further management. Discussed with Dr. Leslie who recommends starting the patient on antibiotics to cover CAP and to obtain blood cultures, lactic procalcitonin. Advises Matos catheter for I&Os. Patient started on Rocephin and doxycycline due to borderline prolonged QTC. She is agreeable to admission. She does verbalize that she would like to be DNR/DNI. She was also given a dose of Lovenox for chadsvasc score of 5 and to cover for potential PE until V/Q scan is able to be completed. <Bridget Smallwood PA-C - Last Filed: 12/04/24 02:19> Lab Data Result diagrams: 12/03/24 23:03 12/03/24 23:03 <Bridget Smallwood PA-C - Last Filed: 12/04/24 02:19> Labs: Lab Results 12/03/24 12/03/24 12/03/24 Range/Units 22:51 23:02 23:03 WBC 21.6 H (4.5-10.0) K/mm3 RBC 4.06 L (4.2-5.4) M/mm3 Hgb 13.2 (12.0-15.0) g/dL Hct 41.0 (37.0-47.0) % MCV 101.0 H (80-100) fl MCH 32.5 (26-34) pg MCHC 32.2 (32-36) g/dl RDW 13.6 (11.5-14.5) % Plt Count 237 (150-375) k/mm3 MPV 10.5 H (7.4-10.4) fl Immature Gran % (Auto) 0.6 H (0-0.5) % Neut % (Auto) 76.1 H (45.5-73.1) % Lymph % (Auto) 13.2 L (18.3-44.2) % Mellette % (Auto) 9.6 H (2.6-8.5) % Eos % (Auto) 0.1 (0-4.4) % Baso % (Auto) 0.4 (0.2-1.2) % Lymph # (Auto) 2.86 (0.9-3.2) K/mm3 Mellette # (Auto) 2.1 H (0.1-0.6) K/mm3 Eos # (Auto) 0.0 (0-0.3) K/mm3 Baso # (Auto) 0.1 (0.0-0.1) K/mm3 Abs Immat Gran (auto) 0.14 H (0.00-0.031) K/mm3 Absolute Neuts (auto) 16.4 H (1.3-6.7) K/mm3 Absolute Nucleated RBC 0.020 H (0.0-0.012) K/mm3 Nucleated RBC % 0.1 (0.0-0.2) % PT (11.1-14.7) Seconds INR APTT (22.3-36.8) Seconds D-Dimer (<0.48) ug/mL Expiratory Pressure 7 CMH2O Inspiratory Pressure 16 CMH2O Sodium 135 L (137-145) mmol/L Potassium 5.1 H (3.4-5.0) mmol/L Chloride 99 (98-107) mmol/L Carbon Dioxide 21 L (22-30) mmol/L Anion Gap 15 H (4-12) mmol/L BUN 34 H (7-17) mg/dL Creatinine 2.06 H (0.7-1.0) mg/dL Estim Creat Clear Calc 30 ml/min Estimated GFR 24 L (59 - ) Glucose 219 H (65-110) mg/dL Calcium 9.0 (8.4-10.2) mg/dL Magnesium 1.9 (1.6-2.3) mg/dL Total Bilirubin 4.1 H (0.2-1.3) mg/dL AST 36 (14-36) U/L ALT 37 H (6-35) U/L Alkaline Phosphatase 154 H (38-126) U/L Troponin I 0.028 (0.000-0.034) ng/mL NT-Pro-B Natriuret Pep 92222 H (19.9-100) pg/mL Total Protein 8.0 (6.3-8.2) g/dL Albumin 4.3 (3.5-5.1) g/dL Lipase 74 (23-300) U/L TSH (Reflex) 1.910 (0.465-4.68) uIU/mL 12/03/24 12/03/24 12/04/24 Range/Units 23:07 23:07 01:47 WBC (4.5-10.0) K/mm3 RBC (4.2-5.4) M/mm3 Hgb (12.0-15.0) g/dL Hct (37.0-47.0) % MCV (80-100) fl MCH (26-34) pg MCHC (32-36) g/dl RDW (11.5-14.5) % Plt Count (150-375) k/mm3 MPV (7.4-10.4) fl Immature Gran % (Auto) (0-0.5) % Neut % (Auto) (45.5-73.1) % Lymph % (Auto) (18.3-44.2) % Mellette % (Auto) (2.6-8.5) % Eos % (Auto) (0-4.4) % Baso % (Auto) (0.2-1.2) % Lymph # (Auto) (0.9-3.2) K/mm3 Mellette # (Auto) (0.1-0.6) K/mm3 Eos # (Auto) (0-0.3) K/mm3 Baso # (Auto) (0.0-0.1) K/mm3 Abs Immat Gran (auto) (0.00-0.031) K/mm3 Absolute Neuts (auto) (1.3-6.7) K/mm3 Absolute Nucleated RBC (0.0-0.012) K/mm3 Nucleated RBC % (0.0-0.2) % PT 16.1 H (11.1-14.7) Seconds INR 1.2 APTT 27.8 (22.3-36.8) Seconds D-Dimer 3.07 H Cancelled (<0.48) ug/mL Expiratory Pressure CMH2O Inspiratory Pressure CMH2O Sodium (137-145) mmol/L Potassium (3.4-5.0) mmol/L Chloride (98-107) mmol/L Carbon Dioxide (22-30) mmol/L Anion Gap (4-12) mmol/L BUN (7-17) mg/dL Creatinine (0.7-1.0) mg/dL Estim Creat Clear Calc ml/min Estimated GFR (59 - ) Glucose (65-110) mg/dL Calcium (8.4-10.2) mg/dL Magnesium (1.6-2.3) mg/dL Total Bilirubin (0.2-1.3) mg/dL AST (14-36) U/L ALT (6-35) U/L Alkaline Phosphatase (38-126) U/L Troponin I 0.070 H* D (0.000-0.034) ng/mL NT-Pro-B Natriuret Pep (19.9-100) pg/mL Total Protein (6.3-8.2) g/dL Albumin (3.5-5.1) g/dL Lipase (23-300) U/L TSH (Reflex) (0.465-4.68) uIU/mL <Bridget Smallwood PA-C - Last Filed: 12/04/24 02:19> Lab Results 12/03/24 12/03/24 12/03/24 Range/Units 22:51 23:02 23:03 WBC 21.6 H (4.5-10.0) K/mm3 RBC 4.06 L (4.2-5.4) M/mm3 Hgb 13.2 (12.0-15.0) g/dL Hct 41.0 (37.0-47.0) % MCV 101.0 H (80-100) fl MCH 32.5 (26-34) pg MCHC 32.2 (32-36) g/dl RDW 13.6 (11.5-14.5) % Plt Count 237 (150-375) k/mm3 MPV 10.5 H (7.4-10.4) fl Immature Gran % (Auto) 0.6 H (0-0.5) % Neut % (Auto) 76.1 H (45.5-73.1) % Lymph % (Auto) 13.2 L (18.3-44.2) % Mellette % (Auto) 9.6 H (2.6-8.5) % Eos % (Auto) 0.1 (0-4.4) % Baso % (Auto) 0.4 (0.2-1.2) % Lymph # (Auto) 2.86 (0.9-3.2) K/mm3 Mellette # (Auto) 2.1 H (0.1-0.6) K/mm3 Eos # (Auto) 0.0 (0-0.3) K/mm3 Baso # (Auto) 0.1 (0.0-0.1) K/mm3 Abs Immat Gran (auto) 0.14 H (0.00-0.031) K/mm3 Absolute Neuts (auto) 16.4 H (1.3-6.7) K/mm3 Absolute Nucleated RBC 0.020 H (0.0-0.012) K/mm3 Nucleated RBC % 0.1 (0.0-0.2) % PT (11.1-14.7) Seconds INR APTT (22.3-36.8) Seconds D-Dimer (<0.48) ug/mL Expiratory Pressure 7 CMH2O Inspiratory Pressure 16 CMH2O Sodium 135 L (137-145) mmol/L Potassium 5.1 H (3.4-5.0) mmol/L Chloride 99 (98-107) mmol/L Carbon Dioxide 21 L (22-30) mmol/L Anion Gap 15 H (4-12) mmol/L BUN 34 H (7-17) mg/dL Creatinine 2.06 H (0.7-1.0) mg/dL Estim Creat Clear Calc 30 ml/min Estimated GFR 24 L (59 - ) Glucose 219 H (65-110) mg/dL Calcium 9.0 (8.4-10.2) mg/dL Magnesium 1.9 (1.6-2.3) mg/dL Total Bilirubin 4.1 H (0.2-1.3) mg/dL AST 36 (14-36) U/L ALT 37 H (6-35) U/L Alkaline Phosphatase 154 H (38-126) U/L Troponin I 0.028 (0.000-0.034) ng/mL NT-Pro-B Natriuret Pep 65205 H (19.9-100) pg/mL Total Protein 8.0 (6.3-8.2) g/dL Albumin 4.3 (3.5-5.1) g/dL Lipase 74 (23-300) U/L TSH (Reflex) 1.910 (0.465-4.68) uIU/mL 12/03/24 12/03/24 12/04/24 Range/Units 23:07 23:07 01:47 WBC (4.5-10.0) K/mm3 RBC (4.2-5.4) M/mm3 Hgb (12.0-15.0) g/dL Hct (37.0-47.0) % MCV (80-100) fl MCH (26-34) pg MCHC (32-36) g/dl RDW (11.5-14.5) % Plt Count (150-375) k/mm3 MPV (7.4-10.4) fl Immature Gran % (Auto) (0-0.5) % Neut % (Auto) (45.5-73.1) % Lymph % (Auto) (18.3-44.2) % Mellette % (Auto) (2.6-8.5) % Eos % (Auto) (0-4.4) % Baso % (Auto) (0.2-1.2) % Lymph # (Auto) (0.9-3.2) K/mm3 Mellette # (Auto) (0.1-0.6) K/mm3 Eos # (Auto) (0-0.3) K/mm3 Baso # (Auto) (0.0-0.1) K/mm3 Abs Immat Gran (auto) (0.00-0.031) K/mm3 Absolute Neuts (auto) (1.3-6.7) K/mm3 Absolute Nucleated RBC (0.0-0.012) K/mm3 Nucleated RBC % (0.0-0.2) % PT 16.1 H (11.1-14.7) Seconds INR 1.2 APTT 27.8 (22.3-36.8) Seconds D-Dimer 3.07 H Cancelled (<0.48) ug/mL Expiratory Pressure CMH2O Inspiratory Pressure CMH2O Sodium (137-145) mmol/L Potassium (3.4-5.0) mmol/L Chloride (98-107) mmol/L Carbon Dioxide (22-30) mmol/L Anion Gap (4-12) mmol/L BUN (7-17) mg/dL Creatinine (0.7-1.0) mg/dL Estim Creat Clear Calc ml/min Estimated GFR (59 - ) Glucose (65-110) mg/dL Calcium (8.4-10.2) mg/dL Magnesium (1.6-2.3) mg/dL Total Bilirubin (0.2-1.3) mg/dL AST (14-36) U/L ALT (6-35) U/L Alkaline Phosphatase (38-126) U/L Troponin I 0.070 H* D (0.000-0.034) ng/mL NT-Pro-B Natriuret Pep (19.9-100) pg/mL Total Protein (6.3-8.2) g/dL Albumin (3.5-5.1) g/dL Lipase (23-300) U/L TSH (Reflex) (0.465-4.68) uIU/mL <Cristina Martin MD - Last Filed: 12/04/24 03:43> ABG Data ABG results: 12/03/24 22:51 Puncture Site Right radial ABG pH 7.301 L ABG pCO2 38.6 ABG pO2 62.6 L ABG PO2/FiO2 Ratio 1.79 ABG HCO3 18.6 L ABG O2 Saturation 89.9 L ABG O2 Content 17.4 ABG Base Excess -7.2 A-a Gradient 142.1 Oxyhemoglobin 88.2 L Total Hemoglobin 14.0 O2 Delivery Device Non-invasive vent O2 Liters/Min Not Reportable Vent Rate 18 FiO2 35 <Bridget Smallwood PA-C - Last Filed: 12/04/24 02:19> 12/03/24 22:51 Puncture Site Right radial ABG pH 7.301 L ABG pCO2 38.6 ABG pO2 62.6 L ABG PO2/FiO2 Ratio 1.79 ABG HCO3 18.6 L ABG O2 Saturation 89.9 L ABG O2 Content 17.4 ABG Base Excess -7.2 A-a Gradient 142.1 Oxyhemoglobin 88.2 L Total Hemoglobin 14.0 O2 Delivery Device Non-invasive vent O2 Liters/Min Not Reportable Vent Rate 18 FiO2 35 <Cristina Martin MD - Last Filed: 12/04/24 03:43> Discharge Plan Discharge Clinical Impression: Atrial fibrillation with RVR, Pulmonary congestion, D-dimer, elevated, Acute hypoxic respiratory failure <Bridget Smallwood PA-C - Last Filed: 12/04/24 02:19> Patient Disposition: Still a Patient <Bridget Smallwood PA-C - Last Filed: 12/04/24 02:19> Condition: Stable <Bridget Smallwood PA-C - Last Filed: 12/04/24 02:19>
[2024-12-03 22:59] VITALS: PULSE 144
[2024-12-03] MEDS: METOPROLOL TARTRATE 50 MG TAB PO (22:59)
[2024-12-03 23:01] VITALS: PULSE 165
[2024-12-03] MEDS: METOPROLOL TARTRATE INJ 5 MG/5 ML VIAL IV PUSH ×2 (23:01→23:42)
[2024-12-03 23:06] VITALS: O2SAT 96
--- OUTSIDE RECORDS SUMMARY | 2024-12-03 23:07 | XMS_ITS | Clinical Summary ---
Author Organization [address] Address [address] [place] [id number] Care Team Providers Care Retail Asset Protection Specialist Name Role Phone Charisse Isaac MD Primary Care Provider + Charisse Isaac MD Unavailable [phone] Allergies Active Allergy Reactions Criticality Noted Date [...] tomatic cardioverter/defibrillator (AICD) 03/03/2022 Overview (04/05/2022): Medtronic [place] BIV ICD. Dx; NICM (Dilated), CHF, LBBB. DOI 04/01/2022-Cipriano. Chronic leads 07/13/2010. [facility] remote monitoring. Dilated cardiomyopathy 03/30/2017 Encounters Date Type Department Care Team Description 12/02/2024 Telephone [facility] [address] [place] [phone] Marcy Kent NP Insurance Referrals 11/27/2024 Orders Only [facility] [address] [place] [phone] Benji Lock MD Cardiac arrhythmia, unspecified cardiac arrhythmia type (Primary Dx); Atrial flutter, unspecified type (HCC) 11/27/2024 Orders Only Ar[facility] [address] [place] [phone] Miscellaneous, Not In File 11/27/2024 Telephone Ar[facility]hythmia Center [address] [place] [phone] Benji Lock MD Medtronic alert for AF burden and HVRs during AF 10/23/2024 11:15 AM CDT Office Visit [facility] [address] [facility] [address] [place] [address] Gianna Thomas PA Incontinence of feces, unspecified fecal incontinence type (Primary Dx); Urinary incontinence, unspecified type 10/21/2024 2:45 PM CDT Ancillary Procedure Arrhythmia [facility] [address] [facility] [address] [place] [address] Presence of biventricular automatic cardioverter/defibril lator (AICD) (Primary Dx); Dilated cardiomyopathy (HCC) 09/11/2024 9:30 AM SENIOR ELECTRICAL ENGINEER Telemedicine [facility] [address] [facility] [address] [place] [address] Gianna Tohmas PA Incontinence of feces, unspecified fecal incontinence [...] biventricular au tomatic cardioverter/defibrillator (AICD) Medtronic Claria SCRUB WHEEL OPERATOR -D Hypertension Sleep apnea Gout Family History [...] on file Legal Sex Female 3:20 PM SENIOR ELECTRICAL ENGINEER Gender Identity Female 09/10/2024 9:39 PM SENIOR ELECTRICAL ENGINEER Sexual Orientation Straight 09/10/2024 9: 39 PM SENIOR ELECTRICAL ENGINEER Obstetrics History Last Filed Vital Signs Vital Sign Reading Time Taken Comments Blood Pressure 136/78 10/23/2024 11:15 AM CDT Pulse 93 10/23/2024 11:15 AM CDT Temperature 36.9 C (98.5 F) 10/23/2024 11:15 AM CDT Respiratory Rate 16 06/29/2023 10:0 4 AM SENIOR ELECTRICAL ENGINEER Oxygen Saturation 93% 10/23/2024 11: 15 AM [...] history exists Medical Devices Implanted Type Area Feather Shaper Device Identifier Shelf Expiration Date Model / Serial / Lot Medtronic Inc [place] H[employer] Services Administrator-D Mri Surescan Df1 [id number] - [id number] - [id number] Implanted:Qty: 1 on 04/01/2022 by Brayan Cota MD at [facility] ICD Medtronic Inc [id number] 06/27/2023 [id number] / [id number] / Medtronic Inc Tyrx Absorbable Antibacterial Envelope-Large 3.3x2.9in [id number] - [id number] Implanted:Qty: 1 on 04/01/2022 by Brayan Cota MD at [facility] Med[employer]onic Inc 12/25/2022 CMR [id number] / / [id number] Procedures Procedure Name Priority Date/Time Associated Diagnosis [...] Not In File Miscellaneous CV CARDIAC SERVICES [place] OCEDURES Final Result * DEVICE CHECK - [...] 4 seconds. Episodes last 90 days/Comments: AF [place] <0.1 %, 1 episode of AFib [...] Final Result from Last 3 Months Insurance [facility] Care Teams Retail Asset Protection Specialist Relationship Specialty Start Date End Date Charisse Isaac MD [address] [place] [address] [address] [place] [address] PCP - General Family Medicine 08/15/24 Charisse Isaac MD [address] [place] [address] [address] [place], [place] [id number] Family Medicine 08/15/24
--- OUTSIDE RECORDS SUMMARY | 2024-12-03 23:07 | XMS_ITS | Referral Summary ---
Author Organization [address] Address [address] [place] [id number] Care Team Providers Care Pony Trimmer Name Role Phone Charisse Isaac MD Primary Care Provider + Charisse Isaac MD Unavailable [phone] Encounters Date Type Department Care Team Description 12/02/2024 Telephone [facility] [address] [address] Marcy Kent NP Insurance Referrals 11/27/2024 Orders Only [facility] [address] [place] [id number] Benji Lock MD Cardiac arrhythmia, unspecified cardiac arrhythmia type (Primary Dx); Atrial flutter, unspecified type (HCC) 11/27/2024 Orders Only [facility] [address] [address] Miscellaneous, Not In File 11/27/2024 Telephone [facility] [address] [address] Benji Lock MD Medtronic alert for AF burden and HVRs during AF 10/23/2024 11:15 AM CDT Office Visit [facility] Located Within [facility] Medical Office Building [address] [place] [address] Gianna Thomas PA Incontinence of feces, unspecified fecal incontinence type (Primary Dx); Urinary incontinence, unspecified type 10/21/2024 2:45 PM CDT Ancillary Procedure [facility] [address] [facility] [address] [place] [address] Presence of biventricular automatic cardioverter/defibril lator (AICD) (Primary Dx); Dilated cardiomyopathy (HCC) 09/11/2024 9:30 AM MARINE HABITAT RESOURCE SPECIALIST Telemedicine [facility] Surgery [address] Located Within [facility] Medical Office Building [address] [place] [address] Gianna Thomas PA Incontinence of [...] tomatic cardioverter/defibrillator (AICD) 03/03/2022 Overview (04/05/2022): Medtronic [place] BIV ICD. Dx; NICM (Dilated), CHF, LBBB. [...] on file Legal Sex Female 3:20 PM MARINE HABITAT RESOURCE SPECIALIST Gender Identity Female 09/10/2024 9:39 PM MARINE HABITAT RESOURCE SPECIALIST Sexual Orientation Straight 09/10/2024 9: 39 PM MARINE HABITAT RESOURCE SPECIALIST Last Filed Vital Signs Vital Sign Reading Time Taken Comments Blood Pressure 136/78 10/23/2024 11:15 AM CDT Pulse 93 10/23/2024 11:15 AM CDT Temperature 36.9 C (98.5 F) 10/23/2024 11:15 AM CDT Respiratory Rate 16 06/29/2023 10:0 4 AM MARINE HABITAT RESOURCE SPECIALIST Oxygen Saturation 93% 10/23/2024 11: 15 AM CDT Inhaled Oxygen Concentration - - Weight 130.4 kg (287 lb 6.4 oz) 025 11:15 AM CDT Height 167.6 cm (5' 6 ) 10/23/2024 11:1 5 AM CDT Body Mass Index 46.39 10/23/2024 11:15 AM CDT Plan of Treatment Not on file Medical Devices Implanted Type Area Yarn Salvager Device Identifier Shelf Expiration Date Model / Serial / Lot Medtronic Inc [place] Hf Qa Specialist-D Mri Surescan Df1 [id number] - [id number] - [id number] Implanted:Qty: 1 on 04/01/2022 by Brayan Cota MD at [facility] ICD Medtronic Inc [id number] 06/27/2023 [id number] / [id number] / Medtronic Inc Tyrx Absorbable Antibacterial Envelope-Large 3.3x2.9in [id number] - [id number] Implanted:Qty: 1 on 04/01/2022 by Brayan Cota MD at [facility] Medtronic Inc 12/25/2022 CMR [id number] / / [id number] Procedures Procedure Name Priority Date/Time Associated Diagnosis [...] Not In File Miscellaneous CV CARDIAC SERVICES [place] OCEDURES Final Result * DEVICE CHECK - [...] 4 seconds. Episodes last 90 days/Comments: AF [place] <0.1 %, 1 episode of AFib lasting [...] Final Result from Last 3 Months Insurance [facility] HE[facility]CARE HEALTHCARE Care Teams Pony Trimmer Relationship Specialty Start Date End Date Charisse Isaac MD [address] [place] [address] [address] [place] [address] PCP - General Family Medicine 08/15/24 Charisse Isaac MD [address] [place] [address] [address] [place] [address] Family Medicine 08/15/24
--- OUTSIDE RECORDS SUMMARY | 2024-12-03 23:08 | XMS_ITS | Encounter Summary ---
Author Organization [facility] Address [address] [place] [address] Care Team Providers Care Project Engineer Chemicals Name Role Phone Charisse Isaac MD Primary Care Provider + Charisse Isaac MD Unavailable [phone] Reason for Visit * Reason Onset Date Comments Insurance Referrals 12/02/2024 Encounter Details Date Type Department Care Team (Late st Contact Info) Description 12/02/2024 Telephone Arrhythmia [facility] [address] [facility] [address], [place] [address] Marcy Kent NP [address] [facility] [address] [address] Insurance Referrals Social History Tobacco Use Types [...] on file Legal Sex Female 3:20 PM BRAILLE AND TALKING BOOKS CLERK Gender Identity Female 09/10/2024 9:39 PM BRAILLE AND TALKING BOOKS CLERK Sexual Orientation Straight 09/10/2024 9: 39 PM BRAILLE AND TALKING BOOKS CLERK documented as of this encounter Miscellaneous Notes * Telephone Encounter - Noemi Vieira - 12/02/2024 9:44 AM CDT Requested [employer] referral from 's office documented in this encounter Plan of Treatment Not on file documented as of this encounter Visit Diagnoses Not on filedocumented in this encounter Care Teams Project Engineer Chemicals Relationship Specialty Start Date End Date Charisse Isaac MD [address] [place] [address] [place] [address] PCP - General Family Medicine 08/15/24 Charisse Isaac MD [address] [place] [address] [place] [address] Family Medicine 08/15/24 documented as of this encounter
[2024-12-03 23:11] LABS: Basophils Absolute Auto 0.1 K/mm3 (0.0-0.1); Basophils Percent Auto 0.4 % (0.2-1.2); Eosinophils Percent Auto 0.1 % (0-4.4); Hemoglobin 13.2 g/dL (12.0-15.0); Immature Granulocyte Absolute 0.14 K/mm3 (0.00-0.031); Immature Granulocyte Percent A 0.6 % (0-0.5); Lymphocytes Absolute Auto 2.86 K/mm3 (0.9-3.2); Lymphocytes Percent Auto 13.2 % (18.3-44.2); Mean Corpuscular HGB Conc 32.2 g/dl (32-36); Mean Corpuscular Hemoglobin 32.5 pg (26-34); Mean Platelet Volume 10.5 fl (7.4-10.4); Monocytes Absolute Auto 2.1 K/mm3 (0.1-0.6); Monocytes Percent Auto 9.6 % (2.6-8.5); Neutrophils Absolute Auto 16.4 K/mm3 (1.3-6.7); Neutrophils Percent Auto 76.1 % (45.5-73.1); Nucleated Red Blood Cells Perc 0.1 % (0.0-0.2); Platelet Count Result 237 k/mm3 (150-375); Red Blood Count 4.06 M/mm3 (4.2-5.4); Red Cell Distribution Width 13.6 % (11.5-14.5); White Blood Count 21.6 K/mm3 (4.5-10.0)
[2024-12-03 23:11] LABS: Alveolar/Arterial O2 Gradient 142.1 mmHg; Base Excess ABG -7.2 mEq/l (+/-2.0); Fractional Inspired Oxygen 35 %; HCO3 ABG 18.6 mEq/l (22.0-26.0); Oxygen Content ABG 17.4 %vol (16.0-22.0); Oxygen Saturation ABG 89.9 % (95.0-100.0); Oxyhemoglobin 88.2 % THb (90.0-100.0); PCO2 ABG 38.6 mmHg (35.0-45.0); PO2 ABG 62.6 mmHg (80.0-100.0); PO2 FiO2 Ratio Arterial Blood 1.79 %; pH ABG 7.301 (7.350-7.450)
[2024-12-03 23:12] LABS: Device NON-INVASIVE VENT; Modified Allen's Test Pass; Non-Invasive Expiratory Pressure 7 CMH2O; Non-Invasive Inspiratory Pressure 16 CMH2O; Non-Invasive Vent Rate 18 /MIN; Site Drawn RIGHT RADIAL
[2024-12-03 23:13] VITALS: RESP 46
[2024-12-03 23:19] LABS: Alanine Aminotransferase 37 U/L (6-35); Albumin Level 4.3 g/dL (3.5-5.1); Alkaline Phosphatase 154 U/L (38-126); Anion Gap 15 mmol/L (4-12); Aspartate Amino Transferase 36 U/L (14-36); Bilirubin,Total 4.1 mg/dL (0.2-1.3); Blood Urea Nitrogen 34 mg/dL (7-17); Carbon Dioxide 21 mmol/L (22-30); Chloride 99 mmol/L (98-107); Estimated CRCL calculation 30 ml/min; Estimated Glomerular Filt Rate 24; Glucose 219 mg/dL (65-110); Potassium 5.1 mmol/L (3.4-5.0); Sodium 135 mmol/L (137-145)
[2024-12-03 23:39] LABS: Lipase 74 U/L (23-300)
[2024-12-03 23:40] LABS: Magnesium 1.9 mg/dL (1.6-2.3)
[2024-12-03 23:42] VITALS: PULSE 165
[2024-12-03 23:51] LABS: NT Pro B Type Natriuretic Pept 13300 pg/mL (19.9-100); Troponin I 0.028 ng/mL (0.000-0.034)
[2024-12-04] VITALS (32 sets, daily range): BP systolic 89–154; BP diastolic 52–124; PULSE 90–146; RESP 18–48; TEMP 36.1–36.9; O2SAT 95–100; BMI 45.6
--- NOTE | 2024-12-04 | ECHO_ITS ---
Patient Info Name: Eva Arriaza Age: 74 years : 1950 Gender: Female Ht: 66 in Wt: 282 lbs BSA: 2.51 m2 HR: 91 bpm BP: 116 / 62 mmHg Heart Rhythm: Atrial Fibrillation Technical Quality: Fair Exam Date: 12/04/2024 11:55 AM Exam Location: Echo Lab Patient Status: Inpatient Admit Date: 12/04/2024 Staff Ordering Physician: Maris Portillo Cook Seafood: Kina Schneider RDCS Attending Provider: Fawad Jackson MD Referring Physician: Bandar GRAHAM; Exam Type: CA echo dop color flow w con Study Info Indications - Respiratory failure Complete two-dimensional, color flow and Doppler transthoracic echocardiogram is performed with contrast to opacify the left ventricle and to improve the deliniation of the left ventricle endocardial borders. Contrast/Agitated Saline Contrast/Ag. Saline: Definity Amount: 5.00 ml Summary 1. Left ventricular chamber dimension is moderately enlarged. 2. Left ventricular systolic function is moderately reduced, estimated at 30-35%. 3. There is mildly increased left ventricular wall thickness. 4. Right ventricular systolic function is normal. 5. Left atrial chamber dimension is severely enlarged. 6. Right atrial chamber dimension is moderately enlarged. 7. There is moderate to severe mitral valve regurgitation. 8. There is mild tricuspid valve regurgitation. 9. There is mild aortic valve regurgitation. 10. There is small pericardial effusion. Left Ventricle Left ventricular chamber dimension is moderately enlarged. Left ventricular systolic function is moderately reduced, estimated at 30-35%. There is mildly increased left ventricular wall thickness. The left ventricular diastolic function is abnormal. Right Ventricle Linear artifact in right ventricle suggestive of catheter(s), pacemaker lead(s), or ICD lead(s). Right ventricular chamber dimension is normal. Right ventricular systolic function is normal. Left Atria Left atrial chamber dimension is severely enlarged. Right Atria Linear artifact in the right atrium suggestive of catheter(s), pacemaker lead(s), or ICD lead(s). Right atrial chamber dimension is moderately enlarged. Atrial Septum Intact interatrial septum visualized by color flow imaging. Aortic Valve The aortic valve is not well visualized. There is no aortic valve stenosis. There is mild aortic valve regurgitation. Pulmonic Valve The pulmonic valve is not well visualized. Mitral Valve The mitral valve has thickened leaflets. There is moderate to severe mitral valve regurgitation. Tricuspid Valve There is mild tricuspid valve regurgitation. Pericardium/Pleural There is small pericardial effusion. Inferior Vena Cava Inferior vena cava is not well visualized. Aorta The aortic root size at the sinus of Valsalva is normal. Left Ventricular Outflow Tract Name Value Normal LVOT 2D LVOT Diameter 2.14 cm LVOT Doppler LVOT Peak Gradient 3 mmHg LVOT Mean Gradient 1 mmHg LVOT VTI 16.04 cm LVOT VTI/AV VTI Ratio 0.52 LVOT Stroke Volume 57.48 ml LVOT CO 4.11 l/min LVOT CI 1.64 L/min/m2 Pulmonic Valve Name Value Normal RVOT Doppler RVOT Peak Gradient 1 mmHg PV Doppler PV Peak Gradient 3 mmHg PV Regurgitation Doppler DC Peak End Diastolic Velocity 134.92 cm/s Mitral Valve Name Value Normal MV Doppler MV Decel [place] 678.20 cm/s2 MV PHT 0 s MV Area (PHT) 3.46 cm2 4.00-5.00 MV Diastolic Function MV E Peak Velocity 148.70 cm/s MV A Peak Velocity 1.57 cm/s MV E/A 94.56 MV Decel Time 0 s MV Annular TDI MV E/e' (Septal) 15.33 <=8.00 MV E/e' (Lateral) 19.22 <=8.00 MV E/e' (Average) 17.27 Tricuspid Valve Name Value Normal TV Regurgitation Doppler TR Peak Velocity 294.85 cm/s TR Peak Gradient 35 mmHg Aortic Valve Name Value Normal AV Doppler AV Peak Velocity 161.24 cm/s AV Peak Gradient 9 mmHg AV Mean Gradient 5 mmHg AV VTI 31.09 cm AV Area (Cont Eq VTI) 1.85 cm2 >=3.00 AV Area (Cont Eq Chinedu) 1.78 cm2 AV Regurgitation 2D LVOT Area 3.58 cm2 Ventricles Name Value Normal LV Dimensions 2D/MM IVS Diastolic Thickness (2D) 0.96 cm 0.60-1.00 LVID Diastole (2D) 5.86 cm 3.80-5.20 LVIW Diastolic Thickness (2D) 1.18 cm 0.60-0.90 LVID Systole (2D) 5.05 cm 2.20-3.50 LVOT Diameter 2.14 cm LV Mass (2D Cubed) 259.68 g 67.00-162.00 LV Mass Index (2D Cubed) 0.01 g/cm2 0.00-0.01 Relative Wall Thickness (2D) 0.40 LV Fractional Shortening/Ejection Fraction 2D/MM LV Fractional Shortening (2D) 14 % 27-45 LV EF (2D Teichandrey) 29 % 54-74 LV Diastolic Volume (4C MOD) 194.31 ml LV EF (4C MOD) 52 % LV Diastolic Volume (2C MOD) 207.04 ml LV EF (2C MOD) 28 % LV Diastolic Volume (BP MOD) 205.37 ml 46.00-106.00 LV Diastolic Volume Index (BP MOD) 0.08 l/m2 0.03-0.06 LV Systolic Volume (BP MOD) 122.02 ml 14.00-42.00 LV Systolic Volume Index (BP MOD) 0.05 l/m2 0.01-0.02 LV EF (BP MOD) 41 % 54-74 LV Diastolic Length (4C) 7.93 cm LV Systolic Length (4C) 6.79 cm LV Stroke Volume (4C MOD) 101.39 ml Atria Name Value Normal LA Dimensions LA Volume (4C A-L) 240.93 ml LA Volume (BP A-L) 175.09 ml RA Dimensions RA Area (4C) 30.69 cm2 <=18.00 Report Signatures
[2024-12-04 00:21] LABS: INR 1.2; Prothrombin Time 16.1 Seconds (11.1-14.7)
[2024-12-04 00:22] LABS: Partial Thromboplastin Time 27.8 Seconds (22.3-36.8)
[2024-12-04 00:29] LABS: D Dimer 3.07 ug/mL (<0.48)
[2024-12-04] MEDS: FUROSEMIDE INJ 40 MG/4 ML VIAL IV PUSH (01:25)
[2024-12-04] MEDS: AMIODARONE 150 MG/D5W 100 ML 150 MG/100 ML BAG 600 MG IV CONT (01:36)
--- NOTE | 2024-12-04 01:54 | ECG_ITS ---
Test Date: 2024-12-04 02:01:40 Measurements Intervals [place] Rate: 96 P: 0 [place]: 0 QRS: -47 QRSD: 162 T: 94 QT: 422 QTc: 533 Interpretive Statements ATRIAL FLUTTER ELECTRONIC VENTRICULAR PACEMAKER ABNORMAL RHYTHM ECG Compared to ECG 12/03/2024 22:43:44 VENTRICULAR RESPONSE TO ATRIAL FLUTTER IS SLOWED ELECTRONIC VENTRICULAR PACING IS SEEN Electronically Signed On 12-04-2024 07:26:35 CDT by Matheus Wyatt M.D.
[2024-12-04] MEDS: AMIODARONE 360 MG/D5W 200 ML 360 MG/200 ML BAG 33.33 MG IV CONT (02:02)
--- NOTE | 2024-12-04 02:11 | P.HP_ITS ---
H&P: HPI History of Present Illness Date/Time: 12/04/24 02:11 Chief Complaint: Palpitations and dyspnea Narrative: This is a very pleasant 74-year-old female patient with past medical history significant of type 2 diabetes mellitus, chronic kidney disease, atrial fibrillation with pacemaker/AICD placement, left bundle-branch block, hypertension, cardiomyopathy, hypertension, hyperlipidemia, GERD and Pancreatit is who presents to the emergency room with complaints of having 2 days of persistent dyspnea and palpitations that is worsening. Patient endorses that last week her pacemaker company called her and told her that she had been in AFib. Patient was supposed to see Dr. Lock, her corrections counselor at [facility] tomorrow, however patient states her symptoms became so severe she decided to come to the emergency room today. She denies any chest pain. Patient also sees Dr. Matias for routine cardiology care. Patient has not recently had any acute illness but today when her palpitations became so severe she had an episode of nausea followed by diarrhea. Upon arrival to the emergency room she was found to be in respiratory distress with initial saturations 85% and found to be in atrial fibrillation with rapid ventricular response with initial rate in the 160s to 180s. Patient ultimately required BiPAP and amiodarone drip based upon patient's soft blood pressures to maintain her hemodynamic and respiratory status. Patient started on BiPAP at a pressure of 16/7, rate of 18 and 45% oxygen. ABG showing pH of 7.301, pCO2 of 38.6, PO2 of 62.6 and bicarb of 18.6. Again amiodarone was initiated based upon patient has soft blood pressures of 90s over 50s. Once initiating amiodarone patient's blood pressure is improved and her rate decreased. Further workup performed in the emergency room consisted of EKG demonstrating AFib RVR with a rate of 156 and a new intraventricular conduction delay. Repeat EKG after initiating amiodarone demonstrating a normal ventricular paced rhythm at 96 beats per minute and resolution of intraventricular conduction delay and AFib. Cardiology will be consulted for comanagement of this patient. Labs were performed showing elevated white blood cell count of 21.6 with left shift. H&H is normal at 13.2/41.0 and platelets are normal at 237. Metabolic panel demonstrating worsening of kidney function with a creatinine of 2.06 were baseli ne is 1.3-1.7. Sodium is 135 and potassium was 5.1. Alk-phos is elevated at 154, magnesium 1.9. Patient's total bilirubin is elevated at 4.1. Coags are unremarkable with PT of 16.1, INR 1.2 and PTT of 27.8. Patient's D-dimer is noted to be elevated at 3.07, unable to age adjust and given patient's renal function we are unable to do IV contrast she will need a V/Q scan. Patient's imaging showing persistent cardiomegaly with coarse lung markings without focal infiltrate or effusion, however given patient's left shifted leukocytosis will empirically begin treatment with antibiotics. ER physician has discussed with medical officer psychiatry, Dr. Leslie, and he will consult on pt's care. She is being admitted to ICU at this time in guarded condition with concern for decompensation requiring IV pressors, intubation and possible cardioversion. Acute Admitting dx: A-Fib RVR, Septic Shock, Hypoxic Respiratory Failure. Elevated D-dimer Review of Systems Review of Systems: All systems reviewed & are unremarkable except as noted in HPI and below PMFSH Past Medical History Medical History (Updated 12/04/24 @ 02:32 by YOMAIRA Aldridge) Acute kidney injury Leukocytosis Shock Hypoxic respiratory failure Septic shock Great toe pain Epistaxis Foot pain, left Lumbago Left hip pain Esophageal reflux Acute biliary pancreatitis without infection or necrosis Arthritis Hyperlipidemia Abdominal mass fullness Other left bundle branch block Surgical History Surgical History Hx laparoscopic cholecystectomy History of implantable cardioverter-defibrillator (ICD) placement replaced 04/21 Hx of tonsillectomy H/O: hysterectomy Vaginal partial hysterectomy History of knee replacement Bilateral History of cardiac cath 2009 cardiac cath due to abnormal stress test that reportedly showed no coronary artery disease. Family History Family History Father Acute myocardial infarction Hypertension Family history of cardiovascular disease Gallbladder disease Mother Diabetes mellitus Hypertension Family history of cardiovascular disease Sibling Hypertension Social History Social History Social History: caffeine-daily soda Smoking status: Former smoker Tobacco type: cigarettes Alcohol intake: current Alcohol use details: Rare occasions, such as 2-3 times per year. Substance use: never Substance use type: does not use Do You Feel Safe in your Home?: Yes Lack of Transportation: No Lack of Food: Never True Current Housing: I Have Housing Concerned About Future Housing: No Difficulty Paying Gas/Electric Bills: No Difficulty Paying for Meds: No Currently Unemployed: No Education: High School Diploma/GED Difficulty w/ Childcare or Family Care: No Living arrangements: with family Additional living arrangements comments: Her . Has 4 children. Occupation/Education: occupation Additional occupation/education comments: [employer]. Gender identity (if verbalized by the patient): Female Sexual Orientation (if Verbalized by the Patient): Straight or Heterosexual Spiritual care concerns: No Meds Home Medications and Allergies Home Medications ?Medication ?Instructions ?Recorded ?Confirmed ?Type aspirin 81 mg tablet,delayed 81 mg PO DAILY 06/28/19 10/29/24 History release cpap #1 ea 04/18/24 10/29/24 Rx carvedilol 12.5 mg tablet 12.5 mg PO BID #180 tabs 05/20/24 10/29/24 Rx furosemide 20 mg tablet 20 mg PO DAILY #90 tabs 05/20/24 10/29/24 Rx allopurinol 300 mg tablet 300 mg PO BID #180 tabs 05/30/24 10/29/24 Rx budesonide-formoterol HFA 160 2 puff inhalation Q12H PRN 07/25/24 10/29/24 Rx mcg-4.5 mcg/actuation aerosol Shortness Of Breath Or Wheezing inhaler (Symbicort) #10.2 grams albuterol sulfate 90 mcg/actuation See Rx Instructions .Route 08/26/24 10/29/24 Rx aerosol inhaler .COMPLEX #8.5 ea citalopram 40 mg tablet See Rx Instructions .Route 09/30/24 10/29/24 Rx .COMPLEX #90 tabs pantoprazole 40 mg tablet,delayed See Rx Instructions .Route 10/02/24 10/29/24 Rx release .COMPLEX #90 tabs simvastatin 20 mg tablet See Rx Instructions .Route 10/02/24 10/29/24 Rx .COMPLEX #90 tabs spironolactone 25 mg tablet 25 mg PO DAILY #90 tabs 10/14/24 10/29/24 Rx losartan 25 mg tablet 25 mg PO DAILY #90 tabs 10/24/24 10/29/24 Rx Allergies Allergy/AdvReac Type Severity Reaction Status Date / Time naproxen Allergy Severe swelling Verified 12/03/24 22:28 in ankles and feet duloxetine Allergy Intermediate jittery Verified 12/03/24 22:28 and hyper lisinopril Allergy Intermediate cough Verified 12/03/24 22:28 Vital Signs Vital Signs - 24 hr 12/03/24 22:43 12/03/24 22:59 12/03/24 23:01 Temperature 97 F L Pulse Rate 177 H 144 H 165 H Respiratory Rate 30 H Blood Pressure 130/93 H Pulse Oximetry 85 L Oxygen Delivery Room Air Oxygen Flow Rate 12/03/24 23:06 12/03/24 23:13 12/03/24 23:42 Temperature Pulse Rate 165 H Respiratory Rate 46 H Blood Pressure Pulse Oximetry 96 Oxygen Delivery Nasal Cannula BiPAP Oxygen Flow Rate 5 12/04/24 00:00 12/04/24 01:20 12/04/24 01:36 Temperature Pulse Rate 146 H 129 H Respiratory Rate 48 H 30 H Blood Pressure 154/124 H 89/62 L Pulse Oximetry 100 Oxygen Delivery BiPAP Oxygen Flow Rate 12/04/24 01:49 12/04/24 01:55 12/04/24 02:02 Temperature Pulse Rate 128 H 129 H 120 H Respiratory Rate 27 H Blood Pressure 111/57 L 100/61 100/61 Pulse Oximetry 98 Oxygen Delivery Oxygen Flow Rate Exam Const: General: uncomfortable Other: Morbidly obese female patient sitting up in bed in high Murguia's position at this time. BiPAP is on patient. HENMT: Face/Nose/Sinus: Normal nares present Mouth: Yes dry mucous membranes Eyes: General: appearance normal, both eyes and all related structures Sclera: sclerae normal Pupils: Equal, round and reactive pupils present EOM: EOMs intact bilaterally Neck: Neck: supple and no JVD Carotids: no bruits Lymphatic: lymphadenopathy not noted Chest: Other: Nontender Resp: Effort & Inspection: abnormal respiratory effort (Increased respiratory effort) Auscultation: rales bilateral (Very faint) in the lower lung vinson Cardio: Rate: tachycardic Rhythm: abnormal rhythm (AFib) regularly irregular Heart sounds: no gallops, no murmurs and no rubs GI: Inspection: non-distended GI Palp: Yes Soft to palpation and No Tenderness to palpation present (GI) Auscultation: normal bowel sounds Urinary Catheter: Urinary Catheter: other (Pure wick present) Skin: General skin exam: normal color and no rashes or lesions noted Lesions: no lesions noted Rashes: no rashes noted Wounds: no wounds Neuro: General: gait normal Speech: normal speech Motor exam (neuro): 5/5 motor strength present throughout, Normal motor muscle tone present throughout and strength normal Sensory Exam: normal sensation Extrem: General: normal exam except as noted and edema (Bilateral lower extremity nonpitting) Psych: Mental Status: mental status grossly normal Affect: normal affect H&P: Results Labs Labs: Short CBC 12/03/24 Range/Units 23:03 WBC 21.6 H (4.5-10.0) K/mm3 Hgb 13.2 (12.0-15.0) g/dL Hct 41.0 (37.0-47.0) % Plt Count 237 (150-375) k/mm3 BMP 12/03/24 23:03 Sodium 135 L Potassium 5.1 H Chloride 99 Carbon Dioxide 21 L BUN 34 H Creatinine 2.06 H Glucose 219 H Calcium 9.0 Cardiac Enzymes 12/03/24 Range/Units 23:02 Troponin I 0.028 (0.000-0.034) ng/mL Liver Function 12/03/24 Range/Units 23:03 Total Bilirubin 4.1 H (0.2-1.3) mg/dL AST 36 (14-36) U/L ALT 37 H (6-35) U/L Alkaline Phosphatase 154 H (38-126) U/L Albumin 4.3 (3.5-5.1) g/dL Assessment and Plan Assessment and plan (1) Atrial fibrillation with RVR: Code(s): I48.91 - Unspecified atrial fibrillation Status: Acute Assessment and Plan: * Acute on chronic with exacerbation as demonstrated by RVR with rates in the 160s * As patient has history of cardiomyopathy, Cardizem not initiated and amiodarone initiated in its place. * Continue amiodarone drip as per protocol * Consult cardiology * Heparin 5000 units BID ordered * Trend labs and imaging * Telemetry * Initial troponin normal. (2) Shock: Code(s): R57.9 - Shock, unspecified Status: Acute Assessment and Plan: * Etiology unknown. Suspect degree of infection as patient has left shifted leukocytosis, however potential for cardiogenic especially with history cardiomyopathy. * Obtain echo * Blood pressures waxing and waning. * Consider addition of Levophed * Trend vital signs * Maintain map greater than 65 * Blood cultures pending, procalcitonin and lactic acid 4. Still awaiting UA. * Consult medical officer psychiatry (3) Leukocytosis: Code(s): D72.829 - Elevated white blood cell count, unspecified Status: Acute Assessment and Plan: * Source of infection on known. * Elevated at 21.6 with elevated absolute neutrophils * Blood cultures pending * Awaiting procalcitonin, lactic acid and urinalysis. * Empiric antibiotics initiated with Rocephin and doxycycline given patient's prolonged QTC on EKG. * Trend labs and vital signs (4) Hypoxic respiratory failure: Code(s): J96.91 - Respiratory failure, unspecified with hypoxia Status: Acute Assessment and Plan: * BiPAP initiated with settings of pressure 16/7, rate of 18 and 45% FiO2. * ABG after initiation of BiPAP with pH of 7.301, pCO2 of 38.6, PO2 of 62.6 and bicarb of 18.6. * BNP elevated at 13,300 thousand three hundred. * Chest x-ray nondiagnostic for acute pulmonary infection * Patient unable to have IV contrast due to declined renal function. * Consider non con CT of chest when stable * Empirically treating with Rocephin and doxycycline. (5) Acute kidney injury: Code(s): N17.9 - Acute kidney failure, unspecified Status: Acute Assessment and Plan: * Baseline renal function 1.3-1.7. * Mild elevation with creatinine of 2.06. * Etiology of elevation shock versus chronic effects long-term diabetes mellitus * Gentle hydration * Monitor from labs, consider Nephrology consult if worsening (6) Essential (primary) hypertension: Code(s): I10 - Essential (primary) hypertension Status: Chronic Assessment and Plan: * Continue home medications as appropriate after confirmed dosing (7) Dilated cardiomyopathy: Code(s): I42.0 - Dilated cardiomyopathy Status: Chronic Assessment and Plan: * Repeat echocardiogram * Daily weight * Accurate I&O (8) D-dimer, elevated: Code(s): R79.89 - Other specified abnormal findings of blood chemistry Status: Acute Assessment and Plan: * Acutely elevated D-dimer is 3.07. Etiology cardiac demand versus pulmonary embolism. * Unable to perform CT with contrast secondary to declining renal function therefore will order V/Q scan * Heparin 5000 units SC Q12 hrs (9) Type 2 DM with CKD stage 3 and hypertension: Code(s): E11.22 - Type 2 diabetes mellitus with diabetic chronic kidney disease; I12.9 - Hypertensive chronic kidney disease with stage 1 through stage 4 chronic kidney disease, or unspecified chronic kidney disease; N18.30 - Chronic kidney disease, stage 3 unspecified Status: Acute Assessment and Plan: * Adult sliding scale protocol * Check A1c * Hypoglycemic protocol * Glucose checks a.c. and HS * Monitor and trend labs Quality VTE Prophylaxis VTE prophylaxis: pharmacologic ordered Hospitalist MIPS Advance Care Plan I have confirmed that the patient's Advanced Care Plan is present, code status is documented, or surrogate decision maker is listed in patient medical record.: Yes Medication Reconciliation I have utilized all available resources to obtain, update and review the patients current medications (includes all prescriptions, OTC, herbals, cannabis, and nutritional supplements).: Yes
[2024-12-04 02:53] LABS: Lactic Acid Reflex 1.7 mmol/L (0.7-2.0)
[2024-12-04 03:18] LABS: Add Urine Microscopic? YES; Appearance Urine Turbid (Clear); Bacteria Urine 1+ /hpf; Bilirubin Urine 1+ (Negative); Blood Urine Trace (Negative); Budding Yeast Urine Present /hpf; Color Urine Dark Yellow (Yellow); Glucose Urine UA Negative (Negative); Ketones Urine Trace mg/dL (Negative); Leukocyte Esterase Ur 3+ LEU/UL (Negative); Need Manual Microscopic Reviewed; Nitrate Urine Negative (Negative); Protein Urine 1+ mg/dL (Negative); RBC Urine 0-2 /hpf (0-2); Specific Grav Ur 1.016 (1.001-1.035); Squamous Epithelial Cell Urine Few /hpf (Few); WBC Urine >100 /hpf (0-3)
[2024-12-04] MEDS: HEPARIN SODIUM 5,000 UNITS/ML VIAL 5000 UNITS SUB-Q (03:24)
[2024-12-04 03:44] LABS: Hemoglobin A1C 6.4 % (<5.7)
--- NOTE | 2024-12-04 04:31 | ADMGEN ---
This patient, Eva Arriaza, was admitted to Intensive Care Unit-4. Patient/family oriented to hospital policies and general routines including ID bracelet, bed and alarms, visiting hours, pain management, procedures, bathroom and other care routines, personal items, smoking policy, room service/diet, and visiting hours. Information on how to activate the Rapid Response Team has been discussed. Patient/Family are encouraged to report perceived risks to care and to ask questions if they do not understand what they are told or what they should do.
[2024-12-04] MEDS: DOXYCYCLINE 100 MG/NS 100 ML 100 MG/100 ML BAG IVPB ×2 (04:44→16:52)
[2024-12-04] MEDS: SODIUM CHLORIDE 0.9% IV 1,000 ML 75 ML IV CONT (04:48)
[2024-12-04 05:06] LABS: Basophils Percent Auto 0.2 % (0.2-1.2); Hematocrit 36.9 % (37.0-47.0); Hemoglobin 11.8 g/dL (12.0-15.0); Immature Granulocyte Percent A 0.6 % (0-0.5); Lymphocytes Absolute Auto 1.15 K/mm3 (0.9-3.2); Lymphocytes Percent Auto 7.3 % (18.3-44.2); Mean Corpuscular Hemoglobin 32.3 pg (26-34); Mean Corpuscular Volume 101.1 fl (80-100); Mean Platelet Volume 10.4 fl (7.4-10.4); Monocytes Absolute Auto 0.8 K/mm3 (0.1-0.6); Neutrophils Absolute Auto 13.8 K/mm3 (1.3-6.7); Neutrophils Percent Auto 86.9 % (45.5-73.1); Platelet Count Result 158 k/mm3 (150-375); Red Blood Count 3.65 M/mm3 (4.2-5.4); Red Cell Distribution Width 13.7 % (11.5-14.5); White Blood Count 15.9 K/mm3 (4.5-10.0)
[2024-12-04 05:18] LABS: INR 1.5; Partial Thromboplastin Time 28.8 Seconds (22.3-36.8); Prothrombin Time 18.5 Seconds (11.1-14.7)
[2024-12-04 05:24] LABS: Alveolar/Arterial O2 Gradient 153.7 mmHg; Base Excess ABG -1.7 mEq/l (+/-2.0); Device NON-INVASIVE VENT; Fractional Inspired Oxygen 45 %; HCO3 ABG 21.7 mEq/l (22.0-26.0); Modified Allen's Test Pass; Oxygen Content ABG 17.6 %vol (16.0-22.0); Oxygen Saturation ABG 98.7 % (95.0-100.0); PCO2 ABG 32.9 mmHg (35.0-45.0); PO2 ABG 129.7 mmHg (80.0-100.0); PO2 FiO2 Ratio Arterial Blood 2.88 %; Site Drawn LEFT RADIAL; Total Hemoglobin 12.6 g/dL (12.0-18.0); pH ABG 7.438 (7.350-7.450)
[2024-12-04 05:25] LABS: Non-Invasive Expiratory Pressure 7 CMH2O; Non-Invasive Inspiratory Pressure 16 CMH2O; Non-Invasive Vent Rate 18 /MIN
[2024-12-04 05:30] LABS: Albumin Level 3.7 g/dL (3.5-5.1); Alkaline Phosphatase 126 U/L (38-126); Anion Gap 12 mmol/L (4-12); Bilirubin,Total 3.9 mg/dL (0.2-1.3); Blood Urea Nitrogen 40 mg/dL (7-17); Calcium 8.8 mg/dL (8.4-10.2); Carbon Dioxide 26 mmol/L (22-30); Chloride 101 mmol/L (98-107); Estimated CRCL calculation 22 ml/min; Estimated Glomerular Filt Rate 16; Glucose 169 mg/dL (65-110); Magnesium 1.9 mg/dL (1.6-2.3); Potassium 4.5 mmol/L (3.4-5.0); Sodium 139 mmol/L (137-145)
[2024-12-04 05:35] LABS: Alanine Aminotransferase 795 U/L (6-35); Aspartate Amino Transferase 847 U/L (14-36)
[2024-12-04] MEDS: AMIODARONE 360 MG/D5W 200 ML 360 MG/200 ML BAG 16.67 MG IV CONT ×2 (07:12→18:18)
[2024-12-04 07:45] LABS: MRSA (PCR) DETECTED (NOT DETECTE)
[2024-12-04 08:02] LABS: Troponin I 0.086 ng/mL (0.000-0.034)
[2024-12-04 08:18] LABS: Glucose Point of Care 129 mg/dl (65-105)
[2024-12-04 10:14] LABS: Creatine Kinase 50 U/L (30-135)
[2024-12-04] MEDS: APIXABAN 5 MG TABLET PO ×2 (10:24→20:40)
[2024-12-04] MEDS: ALBUMIN HUMAN 25% 25 GM/100 ML 100 ML IVPB ×3 (10:27→20:40)
--- NOTE | 2024-12-04 11:21 | WPDCNINT ---
Assessment and Plan Assessment and plan (1) Acute hypoxic respiratory failure: Code(s): J96.01 - Acute respiratory failure with hypoxia Status: Acute Assessment and Plan: Patient presented with acute respiratory failure likely secondary to pulmonary edema from congestive heart failure and AFib with RVR. Chest x-ray showed clear lungs at the time of admission She has a perfusion scan ordered which is pending. Patient has been started on anticoagulation for her AFib. She is not a candidate for CTA due to her elevated creatinine. Will also check Dopplers of lower extremity Patient was started on BiPAP but has not been weaned off to 2 L nasal cannula. Continue monitor Hold diuretics at this time considering worsening renal function She was also started on antibiotics to cover community-acquired pneumonia. Cultures have been sent and are pending Urine Legionella and pneumococcal antigen are pending (2) Atrial fibrillation with RVR: Code(s): I48.91 - Unspecified atrial fibrillation Status: Acute Assessment and Plan: Presented with AFib with RVR. Patient has history of atrial flutter in the past and was on apixaban which was discontinued due to resolution. She was started on amiodarone infusion in the ER I will restart apixaban. Check echocardiogram Continue amiodarone infusion Cardiology consult pending (3) Dilated cardiomyopathy: Code(s): I42.0 - Dilated cardiomyopathy Status: Chronic Assessment and Plan: Patient has dilated cardiomyopathy status post AICD and pacemaker placement She has evidence of heart failure as she has lower extremity edema I have consulted Cardiology Repeat echo Serial troponins are being done Aspirin apixaban Resume Coreg at low-dose as blood pressure allows Started is on hold due to worsening renal function Statins on hold due to elevated LFTs (4) Nonrheumatic mitral (valve) insufficiency: Code(s): I34.0 - Nonrheumatic mitral (valve) insufficiency Status: Acute Assessment and Plan: See above (5) AICD (automatic cardioverter/defibrillator) present: Code(s): Z95.810 - Presence of automatic (implantable) cardiac defibrillator Status: Acute Assessment and Plan: See above (6) Type 2 DM with CKD stage 3 and hypertension: Code(s): E11.22 - Type 2 diabetes mellitus with diabetic chronic kidney disease; I12.9 - Hypertensive chronic kidney disease with stage 1 through stage 4 chronic kidney disease, or unspecified chronic kidney disease; N18.30 - Chronic kidney disease, stage 3 unspecified Status: Acute Assessment and Plan: Sliding scale insulin ordered (7) Acute kidney injury: Code(s): N17.9 - Acute kidney failure, unspecified Status: Acute Assessment and Plan: Patient has a chronic kidney disease but presented with elevated creatinine likely secondary to AFib with RVR leading to hypotension and respiratory distress hypoxia Check renal ultrasound Consult nephrology Normal CK Cautious IV fluid Monitor urine output electrolytes and creatinine (8) Stage 3b chronic kidney disease (CKD): Code(s): N18.32 - Chronic kidney disease, stage 3b Status: Acute Assessment and Plan: See above (9) Elevated liver enzymes: Code(s): R74.8 - Abnormal levels of other serum enzymes Status: Acute Assessment and Plan: Likely secondary to hypoperfusion from AFib with RVR and poor cardiac function Check right upper quadrant ultrasound Hold statin (10) UTI (urinary tract infection): Code(s): N39.0 - Urinary tract infection, site not specified Status: Acute Assessment and Plan: UA suggestive UTI. Urine cultures pending. History of E coli UTI which was pansensitive few years ago. Continue Rocephin Plan DVT prophylaxis -start apixaban Stress ulcer prophylaxis -PPI Nutrition -diet ordered Code Status -at the admission time patient expressed her wishes to be DNR DNI but after discussion with her daughter she changed her mind and wants to be full code. Code status changed in the chart I spoke to patient and her family at bedside answered all their questions. Total Critical Care Time - 35 minutes Due to a high probability of clinically significant, life threatening deterioration, the patient required my highest level of preparedness to intervene emergently and I personally spent this critical care time directly and personally managing the patient. This critical care time included obtaining a history; examining the patient; pulse oximetry; ordering and review of studies; arranging urgent treatment with development of a management plan; evaluation of patient's response to treatment; frequent reassessment; and discussions with other providers. It was exclusive of separately billable procedures and treating other patients and teaching time. Please see Assessment and Plan section and the rest of the note for further information on patient assessment and treatment Signal Apprentice Consult Note Consult date: 12/04/24 Reason for consult: Acute respiratory failure, AFib with RVR HPI: Eva Arriaza is a 74 year old female with history of nonischemic dilated cardiomyopathy status post pacemaker and AICD. History of atrial flutter but not on any anticoagulation at this time, left bundle-branch block, CKD, hypertension, hyperlipidemia who presented to ER yesterday with chief complaint of shortness of breath. Patient states that she has been feeling short of breath since Monday. Shortness of breath was worse with exertion and she was unable to lay flat are back. She felt weak and tired and had poor appetite. She did not had any palpitations or chest pain. She also did not had any cough or fever. She denies any dysuria hematuria hematochezia melena. No abdominal pain all other systems were reviewed and were negative. She was told by the pacemaker company that she was having AFib and she was supposed to see her EP doctor but symptoms got worse and hence she presented to ER. In ER patient was diagnosed with AFib with RVR and was in respiratory distress and placed on BiPAP. Patient was given several dose of metoprolol but did not help hence patient was started on amiodarone infusion. Workup also showed elevated WBC at 15.9 hemoglobin 11.8 ABG 7.43//32/ 129/21 on BiPAP. Creatinine elevated at 2.87 lactic 1.6 troponin elevated at 0.07 elevated ALT and AST Procalcitonin 5 UA was suggestive of UTI Patient was admitted to ICU for further evaluation management. This morning patient states she feels much better. Overnight BiPAP was weaned off and she is currently on 2 L nasal cannula. She is on amiodarone 0.5 and she is mostly in a paced rhythm she denies any shortness a breath at this time. All other systems were reviewed and were negative. Review of Systems Review of Systems: All systems reviewed & are unremarkable except as noted in HPI and below (HPI) [facility] Past Medical History Medical History Acute kidney injury Leukocytosis Shock Hypoxic respiratory failure Septic shock Great toe pain Epistaxis Foot pain, left Lumbago Left hip pain Esophageal reflux Acute biliary pancreatitis without infection or necrosis Arthritis Hyperlipidemia Abdominal mass fullness Other left bundle branch block Surgical History Surgical History Hx laparoscopic cholecystectomy History of implantable cardioverter-defibrillator (ICD) placement replaced 09/22 Hx of tonsillectomy H/O: hysterectomy Vaginal partial hysterectomy History of knee replacement Bilateral History of cardiac cath 2010 cardiac cath due to abnormal stress test that reportedly showed no coronary artery disease. Family History Family History Father Acute myocardial infarction Hypertension Family history of cardiovascular disease Gallbladder disease Mother Diabetes mellitus Hypertension Family history of cardiovascular disease Sibling Hypertension Social History Social History Social History: caffeine-daily soda Smoking packs per day: 1 Smoking cigarettes per day: 20.0 Years smoked: 10 Smoking pack-years: 10.00 Smoking status: Former smoker Tobacco type: cigarettes Alcohol intake: former Alcohol use details: Rare occasions, such as 2-3 times per year. Substance use: never Substance use type: does not use Do You Feel Safe in your Home?: Yes Lack of Transportation: No Lack of Food: Never True Current Housing: I Have Housing Concerned About Future Housing: No Difficulty Paying Gas/Electric Bills: No Difficulty Paying for Meds: No Currently Unemployed: No Education: High School Diploma/GED Difficulty w/ Childcare or Family Care: No Living arrangements: with family Additional living arrangements comments: Her . Has 4 children. Occupation/Education: occupation Additional occupation/education comments: [employer]. Gender identity (if verbalized by the patient): Female Sexual Orientation (if Verbalized by the Patient): Straight or Heterosexual Spiritual care concerns: No Meds Home Medications and Allergies Home Medications ?Medication ?Instructions ?Recorded ?Confirmed ?Type aspirin 81 mg tablet,delayed 81 mg PO DAILY 06/28/19 12/04/24 History release cpap #1 ea 04/18/24 12/04/24 Rx carvedilol 12.5 mg tablet 12.5 mg PO BID #180 tabs 05/20/24 12/04/24 Rx furosemide 20 mg tablet 20 mg PO DAILY #90 tabs 05/20/24 12/04/24 Rx allopurinol 300 mg tablet 300 mg PO BID #180 tabs 05/30/24 12/04/24 Rx budesonide-formoterol HFA 160 2 puff inhalation Q12H PRN 07/25/24 12/04/24 Rx mcg-4.5 mcg/actuation aerosol Shortness Of Breath Or Wheezing inhaler (Symbicort) #10.2 grams albuterol sulfate 90 mcg/actuation See Rx Instructions .Route 08/26/24 12/04/24 Rx aerosol inhaler .COMPLEX #8.5 ea citalopram 40 mg tablet See Rx Instructions .Route 09/30/24 12/04/24 Rx .COMPLEX #90 tabs pantoprazole 40 mg tablet,delayed See Rx Instructions .Route 10/02/24 12/04/24 Rx release .COMPLEX #90 tabs simvastatin 20 mg tablet See Rx Instructions .Route 10/02/24 12/04/24 Rx .COMPLEX #90 tabs spironolactone 25 mg tablet 25 mg PO DAILY #90 tabs 10/14/24 12/04/24 Rx losartan 25 mg tablet 25 mg PO DAILY #90 tabs 10/24/24 12/04/24 Rx Allergies Allergy/AdvReac Type Severity Reaction Status Date / Time naproxen Allergy Severe swelling Verified 12/03/24 22:28 in ankles and feet duloxetine Allergy Intermediate jittery Verified 12/03/24 22:28 and hyper lisinopril Allergy Intermediate cough Verified 12/03/24 22:28 Vital Signs Vital Signs - 24 hr 12/03/24 22:43 12/03/24 22:59 12/03/24 23:01 Temperature 36.1 C L Pulse Rate 177 H 144 H 165 H Respiratory Rate 30 H Blood Pressure 130/93 H Pulse Oximetry 85 L Oxygen Delivery Room Air Oxygen Flow Rate 12/03/24 23:06 12/03/24 23:13 12/03/24 23:42 Temperature Pulse Rate 165 H Respiratory Rate 46 H Blood Pressure Pulse Oximetry 96 Oxygen Delivery Nasal Cannula BiPAP Oxygen Flow Rate 5 12/04/24 00:00 12/04/24 01:20 12/04/24 01:36 Temperature Pulse Rate 146 H 129 H Respiratory Rate 48 H 30 H Blood Pressure 154/124 H 89/62 L Pulse Oximetry 100 Oxygen Delivery BiPAP Oxygen Flow Rate 12/04/24 01:49 12/04/24 01:55 12/04/24 02:02 Temperature Pulse Rate 128 H 129 H 120 H Respiratory Rate 27 H Blood Pressure 111/57 L 100/61 100/61 Pulse Oximetry 98 Oxygen Delivery Oxygen Flow Rate 12/04/24 02:15 12/04/24 03:00 12/04/24 03:29 Temperature Pulse Rate 113 H 135 H 110 H Respiratory Rate 31 H 26 H 28 H Blood Pressure 117/89 103/66 96/77 L Pulse Oximetry 99 98 98 Oxygen Delivery Oxygen Flow Rate 12/04/24 04:23 12/04/24 04:26 12/04/24 05:27 Temperature 36.1 C L Pulse Rate 99 92 Respiratory Rate 26 H 19 27 H Blood Pressure 121/72 Pulse Oximetry 98 99 Oxygen Delivery BiPAP BiPAP Oxygen Flow Rate 12/04/24 05:30 12/04/24 05:53 12/04/24 06:00 Temperature Pulse Rate 99 91 Respiratory Rate 23 H Blood Pressure 93/52 L Pulse Oximetry 99 97 Oxygen Delivery Nasal Cannula Oxygen Flow Rate 2 12/04/24 06:00 12/04/24 07:12 12/04/24 08:00 Temperature Pulse Rate 90 96 101 H Respiratory Rate Blood Pressure 93/52 L 112/73 Pulse Oximetry Oxygen Delivery Oxygen Flow Rate 12/04/24 08:00 12/04/24 08:00 12/04/24 08:00 Temperature 36.9 C Pulse Rate 101 H 95 Respiratory Rate 20 Blood Pressure 94/65 L 94/65 L Pulse Oximetry 97 97 Oxygen Delivery Nasal Cannula Oxygen Flow Rate 2 12/04/24 08:58 12/04/24 10:00 12/04/24 10:00 Temperature 36.8 C Pulse Rate 97 97 Respiratory Rate 21 H Blood Pressure 106/72 106/72 Pulse Oximetry 98 97 Oxygen Delivery Nasal Cannula Oxygen Flow Rate 2 Exam Narrative: General: Pt is alert awake and in NAD Lungs/Chest: Trachea central Clear BS B/L, few bibasilar crackles, no wheezing Cardiac: RRR. Normal S1 S2. No murmurs Circulation: Pedal pulses are intact and symmetrical. Abdomen: Normal bowel sounds. Obese. Soft. NT. ND. Extremities: Bilateral pitting edema present : Matos in place Neurologic: Follows commands. Moves all 4 extremities PERRL AO x3 Skin: No Rash Results Labs 12/04/24 05:00 12/04/24 05:00 Labs: Short CBC 12/03/24 12/04/24 Range/Units 23:03 05:00 WBC 21.6 H 15.9 H (4.5-10.0) K/mm3 Hgb 13.2 11.8 L (12.0-15.0) g/dL Hct 41.0 36.9 L (37.0-47.0) % Plt Count 237 158 (150-375) k/mm3 BMP 12/03/24 12/04/24 23:03 05:00 Sodium 135 L 139 Potassium 5.1 H 4.5 Chloride 99 101 Carbon Dioxide 21 L 26 BUN 34 H 40 H Creatinine 2.06 H 2.87 H Glucose 219 H 169 H Calcium 9.0 8.8 Cardiac Enzymes 12/03/24 12/04/24 12/04/24 Range/Units 23:02 01:47 05:00 Total Creatine Kinase 50 (30-135) U/L Troponin I 0.028 0.070 H* D 0.086 H* D (0.000-0.034) ng/mL Liver Function 12/03/24 12/04/24 Range/Units 23:03 05:00 Total Bilirubin 4.1 H 3.9 H (0.2-1.3) mg/dL AST 36 847 H (14-36) U/L ALT 37 H 795 H (6-35) U/L Alkaline Phosphatase 154 H 126 (38-126) U/L Albumin 4.3 3.7 (3.5-5.1) g/dL Urine 12/04/24 Range/Units 02:59 Urine Color Dark yellow (Yellow) Urine Appearance Turbid H (Clear) Urine pH 5.0 (5.0-9.0) Ur Specific [place] 1.016 (1.001-1.035) Urine Protein 1+ H (Negative) mg/dL Urine Glucose (UA) Negative (Negative) mg/dL
[2024-12-04 11:30] LABS: Troponin I 0.093 ng/mL (0.000-0.034)
--- NOTE | 2024-12-04 12:22 | P.CONNP_ITS ---
Assessment and Plan Assessment and plan (1) Acute kidney injury: Code(s): N17.9 - Acute kidney failure, unspecified Status: Acute Assessment and Plan: * as noted on admission * suspect multifactorial: * atrial fibrillation with RVR * hypotension/hemodynamic instability * ARB use prior to admission * diuretic use (lasix + spironolactone) prior to admission * infection/early sepsis(?) * worsening of cardiomyopathy(?) * other (?) * follow-up on renal ultrasound and urine studies * monitor trend of repeat labs and UOP (2) Stage 3b chronic kidney disease (CKD): Code(s): N18.32 - Chronic kidney disease, stage 3b Status: Chronic Assessment and Plan: * baseline creatinine has been running ~ 1.5 - 2.0mg/dl in the last several years * however, has been closer to 1.5 - 1.7mg/dl in the last year or so... * due to diabetes, hypertension, cardiovascular disease (cardiomyopathy/CHF), and age-related change * outpatient evaluation noted a normal kidneys by ultrasound and a serological evaluation that was negative wtih mild proteinuria History of Present Illness Reason for Consult Consult date: 12/06/24 Reason for consult: acute renal failure (on chronic kidney disease) Chief Complaint Chief complaint: Acute hypoxic respiratory failure Review of Systems 2 Review of Systems: As per HPI. [facility] Past Medical History Medical History Acute kidney injury Leukocytosis Shock Hypoxic respiratory failure Septic shock Great toe pain Epistaxis Foot pain, left Lumbago Left hip pain Esophageal reflux Acute biliary pancreatitis without infection or necrosis Arthritis Hyperlipidemia Abdominal mass fullness Other left bundle branch block Surgical History Surgical History Hx laparoscopic cholecystectomy History of implantable cardioverter-defibrillator (ICD) placement replaced 04/21 Hx of tonsillectomy H/O: hysterectomy Vaginal partial hysterectomy History of knee replacement Bilateral History of cardiac cath 2009 cardiac cath due to abnormal stress test that reportedly showed no coronary artery disease. Family History Family History Father Acute myocardial infarction Hypertension Family history of cardiovascular disease Gallbladder disease Mother Diabetes mellitus Hypertension Family history of cardiovascular disease Sibling Hypertension Social History Social History Social History: caffeine-daily soda Smoking packs per day: 1 Smoking cigarettes per day: 20.0 Years smoked: 10 Smoking pack-years: 10.00 Smoking status: Former smoker Tobacco type: cigarettes Alcohol intake: former Alcohol use details: Rare occasions, such as 2-3 times per year. Substance use: never Substance use type: does not use Do You Feel Safe in your Home?: Yes Lack of Transportation: No Lack of Food: Never True Current Housing: I Have Housing Concerned About Future Housing: No Difficulty Paying Gas/Electric Bills: No Difficulty Paying for Meds: No Currently Unemployed: No Education: High School Diploma/GED Difficulty w/ Childcare or Family Care: No Living arrangements: with family Additional living arrangements comments: Her . Has 4 children. Occupation/Education: occupation Additional occupation/education comments: [employer]. Gender identity (if verbalized by the patient): Female Sexual Orientation (if Verbalized by the Patient): Straight or Heterosexual Spiritual care concerns: No Meds Home Medications and Allergies Home Medications ?Medication ?Instructions ?Recorded ?Confirmed ?Type aspirin 81 mg tablet,delayed 81 mg PO DAILY 06/28/19 12/04/24 History release cpap #1 ea 04/18/24 12/04/24 Rx carvedilol 12.5 mg tablet 12.5 mg PO BID #180 tabs 05/20/24 12/04/24 Rx furosemide 20 mg tablet 20 mg PO DAILY #90 tabs 05/20/24 12/04/24 Rx allopurinol 300 mg tablet 300 mg PO BID #180 tabs 05/30/24 12/04/24 Rx budesonide-formoterol HFA 160 2 puff inhalation Q12H PRN 07/25/24 12/04/24 Rx mcg-4.5 mcg/actuation aerosol Shortness Of Breath Or Wheezing inhaler (Symbicort) #10.2 grams albuterol sulfate 90 mcg/actuation See Rx Instructions .Route 08/26/24 12/04/24 Rx aerosol inhaler .COMPLEX #8.5 ea citalopram 40 mg tablet See Rx Instructions .Route 09/30/24 12/04/24 Rx .COMPLEX #90 tabs pantoprazole 40 mg tablet,delayed See Rx Instructions .Route 10/02/24 12/04/24 Rx release .COMPLEX #90 tabs simvastatin 20 mg tablet See Rx Instructions .Route 10/02/24 12/04/24 Rx .COMPLEX #90 tabs spironolactone 25 mg tablet 25 mg PO DAILY #90 tabs 10/14/24 12/04/24 Rx losartan 25 mg tablet 25 mg PO DAILY #90 tabs 10/24/24 12/04/24 Rx Allergies Allergy/AdvReac Type Severity Reaction Status Date / Time naproxen Allergy Severe swelling Verified 12/03/24 22:28 in ankles and feet duloxetine Allergy Intermediate jittery Verified 12/03/24 22:28 and hyper lisinopril Allergy Intermediate cough Verified 12/03/24 22:28 Vital Signs Vital Signs Temp Pulse Resp BP Pulse Ox O2 Del Method O2 Flow Rate 12/04/24 12:00 97.7 F 102 H 22 H 106/64 95 Nasal Cannula 1 12/04/24 10:00 97 12/04/24 10:00 97 106/72 12/04/24 10:00 98.2 F 97 21 H 106/72 97 12/04/24 08:58 98 Nasal Cannula 2 12/04/24 08:00 97 Nasal Cannula 2 12/04/24 08:00 98.5 F 95 20 94/65 L 97 12/04/24 08:00 101 H 94/65 L 12/04/24 08:00 101 H 12/04/24 07:12 96 112/73 12/04/24 06:00 90 93/52 L 12/04/24 06:00 91 23 H 93/52 L 97 12/04/24 05:53 99 12/04/24 05:30 99 Nasal Cannula 2 12/04/24 05:27 92 27 H 99 BiPAP 12/04/24 04:26 97 F L 99 19 121/72 98 12/04/24 04:23 26 H BiPAP 12/04/24 03:29 110 H 28 H 96/77 L 98 12/04/24 03:00 135 H 26 H 103/66 98 12/04/24 02:15 113 H 31 H 117/89 99 12/04/24 02:02 120 H 100/61 12/04/24 01:55 129 H 100/61 12/04/24 01:49 128 H 27 H 111/57 L 98 12/04/24 01:36 129 H 89/62 L 12/04/24 01:20 30 H BiPAP 12/04/24 00:00 146 H 48 H 154/124 H 100 12/03/24 23:42 165 H 12/03/24 23:13 46 H BiPAP 12/03/24 23:06 96 Nasal Cannula 5 12/03/24 23:01 165 H 12/03/24 22:59 144 H 12/03/24 22:43 97 F L 177 H 30 H 130/93 H 85 L Room Air Results Lab Results 12/06/24 04:15 12/06/24 04:15 Lab results: Most recent lab results ABG pH 7.438 (7.350-7.450) 12/04/24 05:15 ABG pCO2 32.9 mmHg (35.0-45.0) L 12/04/24 05:15 ABG pO2 129.7 mmHg (80.0-100.0) H 12/04/24 05:15 ABG HCO3 21.7 mEq/l (22.0-26.0) L 12/04/24 05:15 ABG O2 Saturation 98.7 % (95.0-100.0) 12/04/24 05:15 Calcium 8.8 mg/dL (8.4-10.2) 12/04/24 05:00 Magnesium 1.9 mg/dL (1.6-2.3) 12/04/24 05:00
[2024-12-04] MEDS: PERFLUTREN LIPID MICROSPHERES 1.5 ML VIAL DILUTED TO 10 ML TOTAL VOLUME IV PUSH (12:40)
--- NOTE | 2024-12-04 12:49 | IVDEFINITY ---
Prior to administration of IV Definity the patient was educated on the risks and benefits of the imaging enhancing agent including potential adverse side effects. The patient verbalized understanding. Allergies were verified. No exclusion criteria were identified and at least one of the following inclusion criteria were met: 1) physician request, 2) patient technically difficult to image (per the [place] [employer] guidelines of two or more segments not discernable within the apical view), or 3) questionable left ventricular function. ?
[2024-12-04 13:00] LABS: Glucose Point of Care 126 mg/dl (65-105)
--- NOTE | 2024-12-04 13:40 | PM.CNCAR ---
Assessment and Plan Assessment and plan (1) Atrial fibrillation with RVR: Code(s): I48.91 - Unspecified atrial fibrillation Status: Acute (2) Dilated cardiomyopathy: Code(s): I42.0 - Dilated cardiomyopathy Status: Chronic (3) AICD (automatic cardioverter/defibrillator) present: Code(s): Z95.810 - Presence of automatic (implantable) cardiac defibrillator Status: Acute (4) Mixed hyperlipidemia: Code(s): E78.2 - Mixed hyperlipidemia Status: Acute (5) Essential (primary) hypertension: Code(s): I10 - Essential (primary) hypertension Status: Chronic (6) D-dimer, elevated: Code(s): R79.89 - Other specified abnormal findings of blood chemistry Status: Acute Plan Problem list: -A fib with RVR -Moderate to severe MR -SOB secondary to above -Elevated troponin without chest pain- most likely secondary to A fib with RVR -Elevated D-dimer but unable to do CT chest due to renal failure -Hypoxic respiratory failure- most likely secondary to MR -HTN -HLD -Chronic systolic heart failure with LVEF 30-35% -S/p PM, ICD -Sepsis -Acute on chronic kidney disease -T2DM Plan: -Continue amiodarone drip. Rates are in the 90s-100s with this -Continue Apixaban for anticoagulation -TTE -IV lasix 40 mg BID if SBP>110 -Start GDMT when SBP>110. Can start with carvedilol 6.25mg BID -Add SGLT2 inhibitor -Consider V/Q scan to r/o PE -Outpatient SHD consult to evaluate MR with JANINA and institute appropriate therapy. She would be a candidate for MitraClip if MR remains moderate to severe after diuresis and GDMT -Management of other medical problems per primary team. Cardiology will continue to follow History of Present Illness History of Present Illness Consult date/time: 12/04/24 13:40 Reason For Visit: Acute hypoxic respiratory failure Narrative: 74-year-old female with history of hyperlipidemia, HTN, cardiomyopathy with LVEF 35% in 2019 (originally diagnoses in 2009 at which time cath showed no CAD), transient A flutter 3 years ago (was on Xarelto for 6 months and then stopped), s/p PM and ICD, type 2 diabetes mellitus, chronic kidney disease,GERD, arthritis, left branch block presents with chief complaints of worsening dyspnea for the past few days. She states that she was short of breath since last Monday and progressively getting worse. Last week, her pacemaker company called and told her she had been in A fib for which she was supposed to see Dr. Lock, her allergist/pediatric pulmonologist at [facility] tomorrow. But given worsening of her symptoms, she presented to the ER today. She states that she had an episode of A flutter 3 years ago which was transient. She took Xarelto for 6 months and then stopped as there was no recurrence. Since then she has not had A flutter or fib until now. She reports an episode of emesis and diarrhea today. No chest pain, dizziness, LH, pre syncope, syncope, leg swelling, recent weight gain, palpitations, orthopnea, PND. In the ER, she was in respiratory distress with SaO2 of 85% and SBP in the 90s. She was noted to have A fib with RVR with ventricular rates in the 160s to 180s. Patient was placed on BiPAP and started on amiodarone drip. Work up: EKG: A fib with rate of 156 Follow up EKG: V paced rhythm WBC: 21.6 Creatinine: 2.87 (baseline 1.3-1.7) Troponin: 0.028--0.070 D-dimer: elevated at 3.07 CXR: cardiomegaly with coarse lung markings without focal infiltrate or effusion TTE: LVEF 30-35%, grade II diastolic dysfunction, moderate to severe MR, mild AR, mild TR, small pericardial effusion (TTE in 2019 also showed LVEF of 35%) Review of Systems Review of Systems: Complete review of systems was performed and pertinent positives are reported in HPI [facility] Past Medical History Medical History Acute kidney injury Leukocytosis Shock Hypoxic respiratory failure Septic shock Great toe pain Epistaxis Foot pain, left Lumbago Left hip pain Esophageal reflux Acute biliary pancreatitis without infection or necrosis Arthritis Hyperlipidemia Abdominal mass fullness Other left bundle branch block Surgical History Surgical History Hx laparoscopic cholecystectomy History of implantable cardioverter-defibrillator (ICD) placement replaced 04/21 Hx of tonsillectomy H/O: hysterectomy Vaginal partial hysterectomy History of knee replacement Bilateral History of cardiac cath 2009 cardiac cath due to abnormal stress test that reportedly showed no coronary artery disease. Family History Family History Father Acute myocardial infarction Hypertension Family history of cardiovascular disease Gallbladder disease Mother Diabetes mellitus Hypertension Family history of cardiovascular disease Sibling Hypertension Social History Social History Social History: caffeine-daily soda Smoking packs per day: 1 Smoking cigarettes per day: 20.0 Years smoked: 10 Smoking pack-years: 10.00 Smoking status: Former smoker Tobacco type: cigarettes Alcohol intake: former Alcohol use details: Rare occasions, such as 2-3 times per year. Substance use: never Substance use type: does not use Do You Feel Safe in your Home?: Yes Lack of Transportation: No Lack of Food: Never True Current Housing: I Have Housing Concerned About Future Housing: No Difficulty Paying Gas/Electric Bills: No Difficulty Paying for Meds: No Currently Unemployed: No Education: High School Diploma/GED Difficulty w/ Childcare or Family Care: No Living arrangements: with family Additional living arrangements comments: Her . Has 4 children. Occupation/Education: occupation Additional occupation/education comments: [employer]. Gender identity (if verbalized by the patient): Female Sexual Orientation (if Verbalized by the Patient): Straight or Heterosexual Spiritual care concerns: No Meds Home Medications and Allergies Home Medications ?Medication ?Instructions ?Recorded ?Confirmed ?Type aspirin 81 mg tablet,delayed 81 mg PO DAILY 06/28/19 12/04/24 History release cpap #1 ea 04/18/24 12/04/24 Rx carvedilol 12.5 mg tablet 12.5 mg PO BID #180 tabs 05/20/24 12/04/24 Rx furosemide 20 mg tablet 20 mg PO DAILY #90 tabs 05/20/24 12/04/24 Rx allopurinol 300 mg tablet 300 mg PO BID #180 tabs 05/30/24 12/04/24 Rx budesonide-formoterol HFA 160 2 puff inhalation Q12H PRN 07/25/24 12/04/24 Rx mcg-4.5 mcg/actuation aerosol Shortness Of Breath Or Wheezing inhaler (Symbicort) #10.2 grams albuterol sulfate 90 mcg/actuation See Rx Instructions .Route 08/26/24 12/04/24 Rx aerosol inhaler .COMPLEX #8.5 ea citalopram 40 mg tablet See Rx Instructions .Route 09/30/24 12/04/24 Rx .COMPLEX #90 tabs pantoprazole 40 mg tablet,delayed See Rx Instructions .Route 10/02/24 12/04/24 Rx release .COMPLEX #90 tabs simvastatin 20 mg tablet See Rx Instructions .Route 10/02/24 12/04/24 Rx .COMPLEX #90 tabs spironolactone 25 mg tablet 25 mg PO DAILY #90 tabs 10/14/24 12/04/24 Rx losartan 25 mg tablet 25 mg PO DAILY #90 tabs 10/24/24 12/04/24 Rx Allergies Allergy/AdvReac Type Severity Reaction Status Date / Time naproxen Allergy Severe swelling Verified 12/03/24 22:28 in ankles and feet duloxetine Allergy Intermediate jittery Verified 12/03/24 22:28 and hyper lisinopril Allergy Intermediate cough Verified 12/03/24 22:28 Vital Signs Vital Signs - 24 hr 12/03/24 22:43 12/03/24 22:59 12/03/24 23:01 Temperature 36.1 C L Pulse Rate 177 H 144 H 165 H Respiratory Rate 30 H Blood Pressure 130/93 H Pulse Oximetry 85 L Oxygen Delivery Room Air Oxygen Flow Rate 12/03/24 23:06 12/03/24 23:13 12/03/24 23:42 Temperature Pulse Rate 165 H Respiratory Rate 46 H Blood Pressure Pulse Oximetry 96 Oxygen Delivery Nasal Cannula BiPAP Oxygen Flow Rate 5 12/04/24 00:00 12/04/24 01:20 12/04/24 01:36 Temperature Pulse Rate 146 H 129 H Respiratory Rate 48 H 30 H Blood Pressure 154/124 H 89/62 L Pulse Oximetry 100 Oxygen Delivery BiPAP Oxygen Flow Rate 12/04/24 01:49 12/04/24 01:55 12/04/24 02:02 Temperature Pulse Rate 128 H 129 H 120 H Respiratory Rate 27 H Blood Pressure 111/57 L 100/61 100/61 Pulse Oximetry 98 Oxygen Delivery Oxygen Flow Rate 12/04/24 02:15 12/04/24 03:00 12/04/24 03:29 Temperature Pulse Rate 113 H 135 H 110 H Respiratory Rate 31 H 26 H 28 H Blood Pressure 117/89 103/66 96/77 L Pulse Oximetry 99 98 98 Oxygen Delivery Oxygen Flow Rate 12/04/24 04:23 12/04/24 04:26 12/04/24 05:27 Temperature 36.1 C L Pulse Rate 99 92 Respiratory Rate 26 H 19 27 H Blood Pressure 121/72 Pulse Oximetry 98 99 Oxygen Delivery BiPAP BiPAP Oxygen Flow Rate 12/04/24 05:30 12/04/24 05:53 12/04/24 06:00 Temperature Pulse Rate 99 91 Respiratory Rate 23 H Blood Pressure 93/52 L Pulse Oximetry 99 97 Oxygen Delivery Nasal Cannula Oxygen Flow Rate 2 12/04/24 06:00 12/04/24 07:12 12/04/24 08:00 Temperature Pulse Rate 90 96 101 H Respiratory Rate Blood Pressure 93/52 L 112/73 Pulse Oximetry Oxygen Delivery Oxygen Flow Rate 12/04/24 08:00 12/04/24 08:00 12/04/24 08:00 Temperature 36.9 C Pulse Rate 101 H 95 Respiratory Rate 20 Blood Pressure 94/65 L 94/65 L Pulse Oximetry 97 97 Oxygen Delivery Nasal Cannula Oxygen Flow Rate 2 12/04/24 08:58 12/04/24 10:00 12/04/24 10:00 Temperature 36.8 C Pulse Rate 97 97 Respiratory Rate 21 H Blood Pressure 106/72 106/72 Pulse Oximetry 98 97 Oxygen Delivery Nasal Cannula Oxygen Flow Rate 2 12/04/24 10:00 12/04/24 12:00 12/04/24 12:00 Temperature Pulse Rate 97 96 Respiratory Rate Blood Pressure 106/64 Pulse Oximetry 95 Oxygen Delivery Nasal Cannula Oxygen Flow Rate 1 12/04/24 12:00 12/04/24 12:00 Temperature 36.5 C Pulse Rate 102 H 92 Respiratory Rate 22 H Blood Pressure 106/64 Pulse Oximetry 95 Oxygen Delivery Oxygen Flow Rate Exam Narrative: General: Alert oriented x3, no acute distress Neck: Supple, unable to assess JVD due to thick neck Chest: Bilaterally clear to auscultation, no rales or rhonchi Cardiac: S1, S2 +, irregularly irregular rhythm, systolic murmur present at apex Extremities: Bilateral lower extremity edema 1+, no skin rash Neurologic: Alert and oriented x3, no focal neurological deficits Results Labs and Meds 12/04/24 05:00 12/04/24 05:00 Lab results: Cardiac Enzymes 12/03/24 12/03/24 12/04/24 Range/Units 23:02 23:03 01:47 AST 36 (14-36) U/L Troponin I 0.028 0.070 H* D (0.000-0.034) ng/mL 12/04/24 12/04/24 Range/Units 05:00 10:59 AST 847 H (14-36) U/L Troponin I 0.086 H* D 0.093 H* (0.000-0.034) ng/mL Coagulation 12/03/24 12/04/24 Range/Units 23:07 05:00 PT 16.1 H 18.5 H (11.1-14.7) Seconds APTT 27.8 28.8 (22.3-36.8) Seconds CBC 12/03/24 12/04/24 Range/Units 23:03 05:00 WBC 21.6 H 15.9 H (4.5-10.0) K/mm3 RBC 4.06 L 3.65 L (4.2-5.4) M/mm3 Hgb 13.2 11.8 L (12.0-15.0) g/dL Hct 41.0 36.9 L (37.0-47.0) % Plt Count 237 158 (150-375) k/mm3 Lymph # (Auto) 2.86 1.15 (0.9-3.2) K/mm3 [place] # (Auto) 2.1 H 0.8 H (0.1-0.6) K/mm3 Eos # (Auto) 0.0 0.0 (0-0.3) K/mm3 Baso # (Auto) 0.1 0.0 (0.0-0.1) K/mm3 Comprehensive Metabolic Panel 12/03/24 12/04/24 Range/Units 23:03 05:00 Sodium 135 L 139 (137-145) mmol/L Potassium 5.1 H 4.5 (3.4-5.0) mmol/L Chloride 99 101 (98-107) mmol/L Carbon Dioxide 21 L 26 (22-30) mmol/L BUN 34 H 40 H (7-17) mg/dL Creatinine 2.06 H 2.87 H (0.7-1.0) mg/dL Glucose 219 H 169 H (65-110) mg/dL Calcium 9.0 8.8 (8.4-10.2) mg/dL AST 36 847 H (14-36) U/L ALT 37 H 795 H (6-35) U/L Alkaline Phosphatase 154 H 126 (38-126) U/L Total Protein 8.0 7.0 (6.3-8.2) g/dL Albumin 4.3 3.7 (3.5-5.1) g/dL Intake and Output 12/03/24 12/04/24 12/04/24 23:59 07:59 15:59 Intake Total 357.2 179.9 Output Total 50 Balance 307.2 179.9 Intake: IV 282.2 179.9 Amiodarone 150 mg/D5w 100 ml 100 150 mg In 100 ml @ 15 MG/MIN 600 mls/hr IV CONT .Q10M ONE Rx #:[id number] Amiodarone 360 mg/D5w 200 ml 132.2 79.9 360 mg In 200 ml @ 0.5 MG/MIN 16.667 mls/hr IV CONT .Q12H [facility] Rx#:[id number] Albumin Human 25% 25 gm/100 ml 100 100 ml @ 60 mls/hr IVPB Q6H [facility] Rx#:[id number] cefTRIAXone 1 GM/NS 50 ML 1 gm 50 In 50 ml @ 100 mls/hr IVPB ONCE STA Rx#:[id number] Oral 75 Output: Catheter Urine 50 Urethral Catheter 50 Other: Number of Bowel Movements Today 1 2 Patient Weight 12/04/24 23:59 Weight 128.3 kg
[2024-12-04 15:07] LABS: Troponin I 0.084 ng/mL (0.000-0.034)
--- NOTE | 2024-12-04 16:23 | PM.IMPN ---
Progress Note: A&P Assessment and Plan (1) Acute hypoxic respiratory failure: Code(s): J96.01 - Acute respiratory failure with hypoxia Status: Acute Assessment and Plan: Patient presented with acute respiratory failure likely secondary to pulmonary edema from congestive heart failure and AFib with RVR. Chest x-ray showed clear lungs at the time of admission She has a perfusion scan ordered which Low probability for PE. Patient has been started on anticoagulation for her AFib. She is not a candidate for CTA due to her elevated creatinine. Will also check Dopplers of lower extremity Patient was started on BiPAP but has not been weaned off to 2 L nasal cannula. Continue monitor Hold diuretics at this time considering worsening renal function She was also started on antibiotics to cover community-acquired pneumonia. Cultures have been sent and are pending Urine Legionella and pneumococcal antigen are pending (2) Atrial fibrillation with RVR: Code(s): I48.91 - Unspecified atrial fibrillation Status: Acute Assessment and Plan: Presented with AFib with RVR. Patient has history of atrial flutter in the past and was on apixaban which was discontinued due to resolution. She was started on amiodarone infusion in the ER Restart apixaban. Echocardiogram shows ventricular systolic function 30-35 was Continue amiodarone infusion As per cardiology: -Continue amiodarone drip. Rates are in the 90s-100s with this -Continue Apixaban for anticoagulation -TTE -IV lasix 40 mg BID if SBP>110 -Start GDMT when SBP>110. Can start with carvedilol 6.25mg BID -Add SGLT2 inhibitor -Consider V/Q scan to r/o PE -Outpatient SHD consult to evaluate MR with JANINA and institute appropriate therapy. She would be a candidate for MitraClip if MR remains moderate to severe after diuresis and GDMT (3) Dilated cardiomyopathy: Code(s): I42.0 - Dilated cardiomyopathy Status: Chronic Assessment and Plan: Patient has dilated cardiomyopathy status post AICD and pacemaker placement She has evidence of heart failure as she has lower extremity edema Consulted Cardiology Echo shows 30-35% EF Serial troponins are being done Aspirin apixaban Resume Coreg at low-dose as blood pressure allows Started is on hold due to worsening renal function Statins on hold due to elevated LFTs As per cardiology: -Continue amiodarone drip. Rates are in the 90s-100s with this -Continue Apixaban for anticoagulation -TTE -IV lasix 40 mg BID if SBP>110 -Start GDMT when SBP>110. Can start with carvedilol 6.25mg BID -Add SGLT2 inhibitor -Consider V/Q scan to r/o PE -Outpatient SHD consult to evaluate MR with JANINA and institute appropriate therapy. She would be a candidate for MitraClip if MR remains moderate to severe after diuresis and GDMT (4) Nonrheumatic mitral (valve) insufficiency: Code(s): I34.0 - Nonrheumatic mitral (valve) insufficiency Status: Acute Assessment and Plan: See above (5) AICD (automatic cardioverter/defibrillator) present: Code(s): Z95.810 - Presence of automatic (implantable) cardiac defibrillator Status: Acute Assessment and Plan: See above (6) Type 2 DM with CKD stage 3 and hypertension: Code(s): E11.22 - Type 2 diabetes mellitus with diabetic chronic kidney disease; I12.9 - Hypertensive chronic kidney disease with stage 1 through stage 4 chronic kidney disease, or unspecified chronic kidney disease; N18.30 - Chronic kidney disease, stage 3 unspecified Status: Acute Assessment and Plan: Sliding scale insulin ordered (7) Acute kidney injury: Code(s): N17.9 - Acute kidney failure, unspecified Status: Acute Assessment and Plan: Patient has a chronic kidney disease but presented with elevated creatinine likely secondary to AFib with RVR leading to hypotension and respiratory distress hypoxia Renal ultrasound:1. Normal portal venous direction of flow but with increased pulsatility which along with dilation of the hepatic veins, can be seen in the setting of right heart failure. 2. Mild bilateral renal cortical thinning with increased echogenicity consistent with likely chronic medical renal disease. No hydronephrosis. Consult nephrology Normal CK Cautious IV fluid Monitor urine output electrolytes and creatinine (8) Stage 3b chronic kidney disease (CKD): Code(s): N18.32 - Chronic kidney disease, stage 3b Status: Acute Assessment and Plan: See above (9) Elevated liver enzymes: Code(s): R74.8 - Abnormal levels of other serum enzymes Status: Acute Assessment and Plan: Likely secondary to hypoperfusion from AFib with RVR and poor cardiac function Check right upper quadrant ultrasound Hold statin (10) UTI (urinary tract infection): Code(s): N39.0 - Urinary tract infection, site not specified Status: Acute Assessment and Plan: UA suggestive UTI. Urine cultures pending. History of E coli UTI which was pansensitive few years ago. Continue Rocephin Subjective Date/time seen: 12/04/24 16:23 Interval history: Due to her CKD patient will undergo weekly scan to rule out PE. Patient is secondary smoker from her . Troponin were elevated and appreciate Cardiology recommendation. Left ventricle systolic function shows 30-35%. Review of Systems Review of Systems: All systems reviewed & are unremarkable except as noted in HPI and below (HPI) Exam Narrative: General: Pt is alert awake and in NAD Lungs/Chest: Trachea central Clear BS B/L, few bibasilar crackles, no wheezing Cardiac: RRR. Normal S1 S2. No murmurs Circulation: Pedal pulses are intact and symmetrical. Abdomen: Normal bowel sounds. Obese. Soft. NT. ND. Extremities: Bilateral pitting edema present : Matos in place Neurologic: Follows commands. Moves all 4 extremities PERRL AO x3 Skin: No Rash Const: General: uncomfortable Other: Morbidly obese female patient sitting up in bed in high Murguia's position at this time. BiPAP is on patient. HENMT: Face/Nose/Sinus: Normal nares present Mouth: Yes dry mucous membranes Eyes: General: appearance normal, both eyes and all related structures Sclera: sclerae normal Pupils: Equal, round and reactive pupils present EOM: EOMs intact bilaterally Neck: Neck: supple and no JVD Carotids: no bruits Lymphatic: lymphadenopathy not noted Chest: Other: Nontender Resp: Effort & Inspection: abnormal respiratory effort (Increased respiratory effort) Auscultation: rales bilateral (Very faint) in the lower lung vinson Cardio: Rate: tachycardic Rhythm: abnormal rhythm (AFib) regularly irregular Heart sounds: no gallops, no murmurs and no rubs GI: Inspection: non-distended Auscultation: normal bowel sounds Urinary Catheter: Urinary Catheter: other (Pure wick present) Skin: General skin exam: normal color, no rashes or lesions noted, No lesion and No rashes Lesions: no lesions noted Rashes: no rashes noted Wounds: no wounds Neuro: General: gait normal Cranial nerves: Yes Equal, round and reactive pupils present Speech: normal speech Motor exam (neuro): 5/5 motor strength present throughout, Normal motor muscle tone present throughout and strength normal Sensory Exam: normal sensation Extrem: General: normal exam except as noted and edema (Bilateral lower extremity nonpitting) Psych: Mental Status: mental status grossly normal Affect: normal affect Objective Data Vital Signs Vital Signs: Vital Signs - 24 hr 12/03/24 22:43 12/03/24 22:59 12/03/24 23:01 Temperature 97 F L Pulse Rate 177 H 144 H 165 H Respiratory Rate 30 H Blood Pressure 130/93 H Pulse Oximetry 85 L Oxygen Delivery Room Air Oxygen Flow Rate 12/03/24 23:06 12/03/24 23:13 12/03/24 23:42 Temperature Pulse Rate 165 H Respiratory Rate 46 H Blood Pressure Pulse Oximetry 96 Oxygen Delivery Nasal Cannula BiPAP Oxygen Flow Rate 5 12/04/24 00:00 12/04/24 01:20 12/04/24 01:36 Temperature Pulse Rate 146 H 129 H Respiratory Rate 48 H 30 H Blood Pressure 154/124 H 89/62 L Pulse Oximetry 100 Oxygen Delivery BiPAP Oxygen Flow Rate 12/04/24 01:49 12/04/24 01:55 12/04/24 02:02 Temperature Pulse Rate 128 H 129 H 120 H Respiratory Rate 27 H Blood Pressure 111/57 L 100/61 100/61 Pulse Oximetry 98 Oxygen Delivery Oxygen Flow Rate 12/04/24 02:15 12/04/24 03:00 12/04/24 03:29 Temperature Pulse Rate 113 H 135 H 110 H Respiratory Rate 31 H 26 H 28 H Blood Pressure 117/89 103/66 96/77 L Pulse Oximetry 99 98 98 Oxygen Delivery Oxygen Flow Rate 12/04/24 04:23 12/04/24 04:26 12/04/24 05:27 Temperature 97 F L Pulse Rate 99 92 Respiratory Rate 26 H 19 27 H Blood Pressure 121/72 Pulse Oximetry 98 99 Oxygen Delivery BiPAP BiPAP Oxygen Flow Rate 12/04/24 05:30 12/04/24 05:53 12/04/24 06:00 Temperature Pulse Rate 99 91 Respiratory Rate 23 H Blood Pressure 93/52 L Pulse Oximetry 99 97 Oxygen Delivery Nasal Cannula Oxygen Flow Rate 2 12/04/24 06:00 12/04/24 07:12 12/04/24 08:00 Temperature Pulse Rate 90 96 101 H Respiratory Rate Blood Pressure 93/52 L 112/73 Pulse Oximetry Oxygen Delivery Oxygen Flow Rate 12/04/24 08:00 12/04/24 08:00 12/04/24 08:00 Temperature 98.5 F Pulse Rate 101 H 95 Respiratory Rate 20 Blood Pressure 94/65 L 94/65 L Pulse Oximetry 97 97 Oxygen Delivery Nasal Cannula Oxygen Flow Rate 2 12/04/24 08:58 12/04/24 10:00 12/04/24 10:00 Temperature 98.2 F Pulse Rate 97 97 Respiratory Rate 21 H Blood Pressure 106/72 106/72 Pulse Oximetry 98 97 Oxygen Delivery Nasal Cannula Oxygen Flow Rate 2 12/04/24 10:00 12/04/24 12:00 12/04/24 12:00 Temperature Pulse Rate 97 96 Respiratory Rate Blood Pressure 106/64 Pulse Oximetry 95 Oxygen Delivery Nasal Cannula Oxygen Flow Rate 1 12/04/24 12:00 12/04/24 12:00 12/04/24 14:00 Temperature 97.7 F Pulse Rate 102 H 92 93 Respiratory Rate 22 H Blood Pressure 106/64 122/84 Pulse Oximetry 95 Oxygen Delivery Oxygen Flow Rate 12/04/24 14:00 12/04/24 16:00 12/04/24 16:00 Temperature Pulse Rate 96 102 H Respiratory Rate Blood Pressure 142/86 H Pulse Oximetry 97 Oxygen Delivery Nasal Cannula Oxygen Flow Rate 2 12/04/24 16:00 Temperature 97.7 F Pulse Rate 104 H Respiratory Rate 18 Blood Pressure 142/86 H Pulse Oximetry 95 Oxygen Delivery Oxygen Flow Rate Intake/Output Intake/Output: Intake & Output 12/01/24 12/02/24 12/03/24 12/04/24 23:59 23:59 23:59 23:59 Intake Total 603.7 Output Total 50 Balance 553.7 Meds/Results Medications: Active Medications Generic Name Dose Route Start Last Admin Trade Name Freq PRN Reason Stop Dose Admin Apixaban 5 mg 12/04/24 09:54 12/04/24 10:24 Apixaban 5 Mg Tablet PO 5 mg Q12HR SHARIFA Administration Dextrose 12.5 gm 12/04/24 02:39 Dextrose 50% 25 Gm/50 Ml Syringe IV PUSH PRN PRN Hypoglycemia Protocol Glucagon 1 mg 12/04/24 02:39 Glucagon For Inj 1 Mg Vial IM PRN PRN Hypoglycemia Protocol Glucose 15 gm 12/04/24 02:39 Glucose Oral Gel 15 Gm Of Glucse In 37.5 Gm Tube PO PRN PRN Hypoglycemia Protocol Amiodarone HCl/Dextrose 360 mg in 200 mls @ 16.667 mls/hr 12/04/24 07:00 12/04/24 16:00 Nexterone 360 Mg/D5w 200 Ml IV CONT 0.5 mg/min .Q12H SHARIFA 16.67 mls/hr Infusion 0.5 MG/MIN Ceftriaxone Sodium 1 gm in 50 mls @ 100 mls/hr 12/04/24 23:00 Rocephin 1 Gm/Ns 50 Ml IVPB Q24H SHARIFA Doxycycline Hyclate 100 mg in 100 mls @ 100 mls/hr 12/04/24 17:00 Vibramycin 100 Mg/Ns 100 Ml IVPB Q12H SHARIFA Dextrose 1,000 mls @ 100 mls/hr 12/04/24 02:39 Dextrose 5% 1,000 Ml IVPB PRN PRN Hypoglycemia Protocol Albumin Human 100 mls @ 60 mls/hr 12/04/24 10:00 12/04/24 12:39 Albutein IVPB 12/05/24 05:39 Infused Q6H SHARIFA Infusion Insulin Aspart 3 - 6 units 12/04/24 08:00 12/04/24 12:39 Insulin Aspart (*Bkc) 100 Units/Ml SUB-Q Not Given TIDWM [facility] Protocol Insulin Aspart 1 - 3 units 12/04/24 21:00 Insulin Aspart (*Bkc) 100 Units/Ml SUB-Q HS [facility] Protocol Pantoprazole Sodium 40 mg 12/05/24 09:00 Pantoprazole 40 Mg Tablet PO QAM [facility] Perflutren Lipid Microsphere 0 ml 12/04/24 02:34 Perflutren Lipid Microspheres 1.5 Ml Vial Diluted To 10 Ml Total Volume IV PUSH 12/07/24 02:37 ONCE PRN adequate visualization Protocol Radiology Results: ITS Impressions Chest X-Ray 12/04/24 06:43 Impression: Clear lungs. Pulmonary Perfusion Imaging 12/04/24 13:58 IMPRESSION: 1. Low probability for pulmonary embolism. Venous Doppler Study 12/04/24 14:46 IMPRESSION: Negative bilateral lower extremity venous US. No deep vein thrombosis. Abdomen Ultrasound 12/04/24 15:11 IMPRESSION: 1. Normal portal venous direction of flow but with increased pulsatility which along with dilation of the hepatic veins, can be seen in the setting of right heart failure. 2. Mild bilateral renal cortical thinning with increased echogenicity consistent with likely chronic medical renal disease. No hydronephrosis. Renal Ultrasound 12/04/24 15:11 IMPRESSION: 1. Normal portal venous direction of flow but with increased pulsatility which along with dilation of the hepatic veins, can be seen in the setting of right heart failure. 2. Mild bilateral renal cortical thinning with increased echogenicity consistent with likely chronic medical renal disease. No hydronephrosis. Labs Labs: Laboratory Results - last 24 hr 12/03/24 12/03/24 12/03/24 22:51 23:02 23:03 WBC 21.6 H RBC 4.06 L Hgb 13.2 Hct 41.0 MCV 101.0 H MCH 32.5 MCHC 32.2 RDW 13.6 Plt Count 237 MPV 10.5 H Immature Gran % (Auto) 0.6 H Neut % (Auto) 76.1 H Lymph % (Auto) 13.2 L [place] % (Auto) 9.6 H Eos % (Auto) 0.1 Baso % (Auto) 0.4 Lymph # (Auto) 2.86 [place] # (Auto) 2.1 H Eos # (Auto) 0.0 Baso # (Auto) 0.1 Abs Immat Gran (auto) 0.14 H Absolute Neuts (auto) 16.4 H Absolute Nucleated RBC 0.020 H Nucleated RBC % 0.1 PT INR APTT D-Dimer Puncture Site Right radial ABG pH 7.301 L ABG pCO2 38.6 ABG pO2 62.6 L ABG PO2/FiO2 Ratio 1.79 ABG HCO3 18.6 L ABG O2 Saturation 89.9 L ABG O2 Content 17.4 ABG Base Excess -7.2 A-a Gradient 142.1 Oxyhemoglobin 88.2 L Total Hemoglobin 14.0 O2 Delivery Device Non-invasive vent O2 Liters/Min Not Reportable Vent Rate 18 FiO2 35 Expiratory Pressure 7 Inspiratory Pressure 16 Sodium 135 L Potassium 5.1 H Chloride 99 Carbon Dioxide 21 L Anion Gap 15 H BUN 34 H Creatinine 2.06 H Estim Creat Clear Calc 30 Estimated GFR 24 L Glucose 219 H POC Capillary Glucose Hemoglobin A1c 6.4 H Lactic Acid Calcium 9.0 Magnesium 1.9 Total Bilirubin 4.1 H AST 36 ALT 37 H Alkaline Phosphatase 154 H Total Creatine Kinase Troponin I 0.028 NT-Pro-B Natriuret Pep 62593 H Total Protein 8.0 Albumin 4.3 Lipase 74 Procalcitonin TSH (Reflex) 1.910 Urine Color Urine Appearance Urine pH Ur Specific [place] Urine Protein Urine Glucose (UA) Urine Ketones Ur Blood (Man) Urine Nitrate Urine Bilirubin Urine Urobilinogen Add Ur Microanalysis Leukocyte Esterase Rfl Urine RBC Urine WBC Ur Squamous Epith Cells Urine Bacteria Urine Casts Urine Yeast (Budding) Nasal MRSA (PCR) 12/03/24 12/03/24 12/04/24 23:07 23:07 01:47 WBC RBC Hgb Hct MCV MCH MCHC RDW Plt Count MPV Immature Gran % (Auto) Neut % (Auto) Lymph % (Auto) [place] % (Auto) Eos % (Auto) Baso % (Auto) Lymph # (Auto) [place] # (Auto) Eos # (Auto) Baso # (Auto) Abs Immat Gran (auto) Absolute Neuts (auto) Absolute Nucleated RBC Nucleated RBC % PT 16.1 H INR 1.2 APTT 27.8 D-Dimer 3.07 H Cancelled Puncture Site ABG pH ABG pCO2 ABG pO2 ABG PO2/FiO2 Ratio ABG HCO3 ABG O2 Saturation ABG O2 Content ABG Base Excess A-a Gradient Oxyhemoglobin Total Hemoglobin O2 Delivery Device O2 Liters/Min Vent Rate FiO2 Expiratory Pressure Inspiratory Pressure Sodium Potassium Chloride Carbon Dioxide Anion Gap BUN Creatinine Estim Creat Clear Calc Estimated GFR Glucose POC Capillary Glucose Hemoglobin A1c Lactic Acid Calcium Magnesium Total Bilirubin AST ALT Alkaline Phosphatase Total Creatine Kinase Troponin I 0.070 H* D NT-Pro-B Natriuret Pep Total Protein Albumin Lipase Procalcitonin TSH (Reflex) Urine Color Urine Appearance Urine pH Ur Specific [place] Urine Protein Urine Glucose (UA) Urine Ketones Ur Blood (Man) Urine Nitrate Urine Bilirubin Urine Urobilinogen Add Ur Microanalysis Leukocyte Esterase Rfl Urine RBC Urine WBC Ur Squamous Epith Cells Urine Bacteria Urine Casts Urine Yeast (Budding) Nasal MRSA (PCR) 12/04/24 12/04/24 12/04/24 02:34 02:59 05:00 WBC 15.9 H RBC 3.65 L Hgb 11.8 L Hct 36.9 L MCV 101.1 H MCH 32.3 MCHC 32.0 RDW 13.7 Plt Count 158 MPV 10.4 Immature Gran % (Auto) 0.6 H Neut % (Auto) 86.9 H Lymph % (Auto) 7.3 L [place] % (Auto) 5.0 Eos % (Auto) 0.0 Baso % (Auto) 0.2 Lymph # (Auto) 1.15 [place] # (Auto) 0.8 H Eos # (Auto) 0.0 Baso # (Auto) 0.0 Abs Immat Gran (auto) 0.10 H Absolute Neuts (auto) 13.8 H Absolute Nucleated RBC 0.000 Nucleated RBC % 0.0 PT 18.5 H INR 1.5 APTT 28.8 D-Dimer Puncture Site ABG pH ABG pCO2 ABG pO2 ABG PO2/FiO2 Ratio ABG HCO3 ABG O2 Saturation ABG O2 Content ABG Base Excess A-a Gradient Oxyhemoglobin Total Hemoglobin O2 Delivery Device O2 Liters/Min Vent Rate FiO2 Expiratory Pressure Inspiratory Pressure Sodium 139 Potassium 4.5 Chloride 101 Carbon Dioxide 26 Anion Gap 12 BUN 40 H Creatinine 2.87 H Estim Creat Clear Calc 22 Estimated GFR 16 L Glucose 169 H POC Capillary Glucose Hemoglobin A1c Lactic Acid 1.7 Calcium 8.8 Magnesium 1.9 Total Bilirubin 3.9 H AST 847 H ALT 795 H Alkaline Phosphatase 126 Total Creatine Kinase 50 Troponin I 0.086 H* D NT-Pro-B Natriuret Pep Total Protein 7.0 Albumin 3.7 Lipase Procalcitonin 5.0 TSH (Reflex) 2.310 Urine Color Dark yellow Urine Appearance Turbid H Urine pH 5.0 Ur Specific [place] 1.016 Urine Protein 1+ H Urine Glucose (UA) Negative Urine Ketones Trace H Ur Blood (Man) Trace Urine Nitrate Negative Urine Bilirubin 1+ H Urine Urobilinogen 1.0 Add Ur Microanalysis Reviewed Leukocyte Esterase Rfl 3+ H Urine RBC 0-2 Urine WBC >100 H Ur Squamous Epith Cells Few Urine Bacteria 1+ H Urine Casts 3-5 Urine Yeast (Budding) Present H Nasal MRSA (PCR) 12/04/24 12/04/24 12/04/24 05:15 06:20 08:05 WBC RBC Hgb Hct MCV MCH MCHC RDW Plt Count MPV Immature Gran % (Auto) Neut % (Auto) Lymph % (Auto) [place] % (Auto) Eos % (Auto) Baso % (Auto) Lymph # (Auto) [place] # (Auto) Eos # (Auto) Baso # (Auto) Abs Immat Gran (auto) Absolute Neuts (auto) Absolute Nucleated RBC Nucleated RBC % PT INR APTT D-Dimer Puncture Site Left radial ABG pH 7.438 ABG pCO2 32.9 L ABG pO2 129.7 H ABG PO2/FiO2 Ratio 2.88 ABG HCO3 21.7 L ABG O2 Saturation 98.7 ABG O2 Content 17.6 ABG Base Excess -1.7 A-a Gradient 153.7 Oxyhemoglobin 98.0 Total Hemoglobin 12.6 O2 Delivery Device Non-invasive vent O2 Liters/Min Not Reportable Vent Rate 18 FiO2 45 Expiratory Pressure 7 Inspiratory Pressure 16 Sodium Potassium Chloride Carbon Dioxide Anion Gap BUN Creatinine Estim Creat Clear Calc Estimated GFR Glucose POC Capillary Glucose 129 H Hemoglobin A1c Lactic Acid Calcium Magnesium Total Bilirubin AST ALT Alkaline Phosphatase Total Creatine Kinase Troponin I NT-Pro-B Natriuret Pep Total Protein Albumin Lipase Procalcitonin TSH (Reflex) Urine Color Urine Appearance Urine pH Ur Specific [place] Urine Protein Urine Glucose (UA) Urine Ketones Ur Blood (Man) Urine Nitrate Urine Bilirubin Urine Urobilinogen Add Ur Microanalysis Leukocyte Esterase Rfl Urine RBC Urine WBC Ur Squamous Epith Cells Urine Bacteria Urine Casts Urine Yeast (Budding) Nasal MRSA (PCR) Detected A* 12/04/24 12/04/24 12/04/24 10:59 12:38 14:32 WBC RBC Hgb Hct MCV MCH MCHC RDW Plt Count MPV Immature Gran % (Auto) Neut % (Auto) Lymph % (Auto) [place] % (Auto) Eos % (Auto) Baso % (Auto) Lymph # (Auto) [place] # (Auto) Eos # (Auto) Baso # (Auto) Abs Immat Gran (auto) Absolute Neuts (auto) Absolute Nucleated RBC Nucleated RBC % PT INR APTT D-Dimer Puncture Site ABG pH ABG pCO2 ABG pO2 ABG PO2/FiO2 Ratio ABG HCO3 ABG O2 Saturation ABG O2 Content ABG Base Excess A-a Gradient Oxyhemoglobin Total Hemoglobin O2 Delivery Device O2 Liters/Min Vent Rate FiO2 Expiratory Pressure Inspiratory Pressure Sodium Potassium Chloride Carbon Dioxide Anion Gap BUN Creatinine Estim Creat Clear Calc Estimated GFR Glucose POC Capillary Glucose 126 H Hemoglobin A1c Lactic Acid Calcium Magnesium Total Bilirubin AST ALT Alkaline Phosphatase Total Creatine Kinase Troponin I 0.093 H* 0.084 H* NT-Pro-B Natriuret Pep Total Protein Albumin Lipase Procalcitonin TSH (Reflex) Urine Color Urine Appearance Urine pH Ur Specific [place] Urine Protein Urine Glucose (UA) Urine Ketones Ur Blood (Man) Urine Nitrate Urine Bilirubin Urine Urobilinogen Add Ur Microanalysis Leukocyte Esterase Rfl Urine RBC Urine WBC Ur Squamous Epith Cells Urine Bacteria Urine Casts Urine Yeast (Budding) Nasal MRSA (PCR) Quality VTE Prophylaxis VTE prophylaxis: pharmacologic ordered Hospitalist MIPS Advance Care Plan I have confirmed that the patient's Advanced Care Plan is present, code status is documented, or surrogate decision maker is listed in patient medical record.: Yes Medication Reconciliation I have utilized all available resources to obtain, update and review the patients current medications (includes all prescriptions, OTC, herbals, cannabis, and nutritional supplements).: Yes
[2024-12-04 17:17] LABS: Glucose Point of Care 149 mg/dl (65-105)
--- NOTE | 2024-12-04 21:00 | PM.EVENT ---
Event Note Event Note Event Note: Nursing staff notified me the patient is having wheezing and increased shortness of breath. Patient is on albuterol and Symbicort at home which were not resumed. The patient's home med rec had not been reconciled. Will hold patient's home albuterol in stead place patient on Xopenex 0.63 mg scheduled q.6 hours. Will resume home Symbicort. The remainder the patient's home meds were reviewed and reconciled including decreasing the patient's allopurinol from 300 mg p.o. b.i.d. to renally dosing to 50 mg Q 48 hours. Will resume the patient's home 81 mg aspirin. Initially did reorder the patient's home cor [place] a 12.5 mg b.i.d. but on review of cardiology note they recommended patient's Coreg be restarted 6.25 mg b.i.d.. Patient's losartan will be placed on hold due to acute kidney injury. Patient has QT prolongation on EKG so home Celexa is been placed on hold. Spironolactone is placed on hold due to hyperkalemia and acute kidney injury. P.o. Lasix has been placed on hold as well.
[2024-12-04] MEDS: LEVALBUTEROL NEB 1.25 MG/3 ML 0.63 MG INHALATION (21:10)
[2024-12-04] MEDS: carvediloL 6.25 MG TABLET PO (21:23)
[2024-12-04] MEDS: SIMVASTATIN 20 MG TABLET PO (21:23)
[2024-12-04 21:29] LABS: Glucose Point of Care 142 mg/dl (65-105)
[2024-12-05] VITALS (35 sets, daily range): BP systolic 93–146; BP diastolic 50–100; PULSE 91–128; RESP 21–44; TEMP 36.6–37.3; O2SAT 92–100
[2024-12-05] MEDS: LEVALBUTEROL NEB 1.25 MG/3 ML 0.63 MG INHALATION ×2 (01:20→07:58)
[2024-12-05] MEDS: LORazepam INJ (*CRX) 2 MG/ML VIAL 0.5 MG IV PUSH (01:28)
--- NOTE | 2024-12-05 03:12 | PC.NURSE ---
Dr. Smith notified of decline in patient status. 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 Patient given breathing treatment and 0.5 mg IVP Ativan. Patient called out again around 0250 complaining of increased shortness of breath. Patient restless in bed and breathing 35-45 breaths/minute. Dr. Smith notified about patient's status. Stat CXR and ABG obtained. This RN explained to patient that with her CHF and acute renal failure that patient may require intubation as the next step. Daughter at bedside discussing with patient whether or not patient would like to be intubated. All vitals remain stable at this time. Will continue to monitor.
[2024-12-05 03:32] LABS: Alveolar/Arterial O2 Gradient 187.9 mmHg; Base Excess ABG -4.8 mEq/l (+/-2.0); Carboxyhemoglobin 0.3 % THb (0-2.0); Fractional Inspired Oxygen 45 %; HCO3 ABG 18.9 mEq/l (22.0-26.0); Methemoglobin ABG 0.3 %THb (0-1.5); Oxygen Content ABG 16.8 %vol (16.0-22.0); Oxygen Saturation ABG 97.5 % (95.0-100.0); Oxyhemoglobin 96.6 % THb (90.0-100.0); PO2 ABG 97.7 mmHg (80.0-100.0); PO2 FiO2 Ratio Arterial Blood 2.17 %; Reduced Hemoglobin 2.8 %THb (0-5.0); Total Hemoglobin 12.3 g/dL (12.0-18.0); pH ABG 7.403 (7.350-7.450)
[2024-12-05 03:34] LABS: Site Drawn LEFT RADIAL
[2024-12-05 03:35] LABS: Device BIPAP; Modified Allen's Test Pass
[2024-12-05 03:36] LABS: Expiratory Pressure 7 cmH2O; Inspiratory Pressure 16 cmH2O
[2024-12-05] MEDS: FUROSEMIDE INJ 40 MG/4 ML VIAL IV PUSH ×3 (03:55→18:05)
[2024-12-05 04:20] LABS: Hematocrit 33.8 % (37.0-47.0); Mean Corpuscular HGB Conc 32.5 g/dl (32-36); Mean Corpuscular Hemoglobin 32.4 pg (26-34); Mean Corpuscular Volume 99.7 fl (80-100); Platelet Count Result 130 k/mm3 (150-375); Red Blood Count 3.39 M/mm3 (4.2-5.4); Red Cell Distribution Width 13.5 % (11.5-14.5); White Blood Count 15.3 K/mm3 (4.5-10.0)
--- NOTE | 2024-12-05 04:26 | P.PNCROSS_ITS ---
Event Note Event Note Event Note: Throughout the nursing staff called to discuss the patient multiple times. Padmini rodrigez was initially noted to be wheezing by nursing staff and in AFib RVR. The patient had already been on amiodarone. I reviewed cardiology notes which recommended patient be on Coreg 3.125 as long as systolic blood pressure greater than 110. The patient's blood pressures had been greater than 110 since early in the morning on the . Subsequently I did order the patient's home Coreg and place the patient on Xopenex every 6 hours. Patient did have some mild improvement in her shortness of breath after Xopenex. The patient's respiratory rate did increase again and she reported feeling more short of breath. Although her pulse ox and BiPAP settings had been unchanged. Nursing staff felt the patient was quite anxious I did give the patient a small dose of Ativan with no improvement in her symptoms. Subsequently about an hour later I did order a stat chest x-ray and ABG. ABG did demonstrate evidence of hyperventilation. The patient's PO2 was 97 with normal oxygen saturations. PH of 7.4 and pCO2 was 31. Stat chest x-ray was obtained and reviewed and was relatively stable compared to prior sent at the time of my independent read interpretation. Radiologic interpretation pending. On further review of the patient's chart it appears that the patient's home Lasix was not restarted and the patient had 1 dose of IV Lasix ordered in the ER. It is unclear if this dose of Lasix was ever administered as it was still active within the [facility] system. 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 The patient had only had less than 175 mL of urine output in the prior 24 hours. I did give 1 dose of IV Lasix and went and re- evaluated the patient at which time she already had about 200 mL out of her Fo lisa catheter. When I went in to talk to the patient and both of her daughters at bedside I noted that the patient was pulling larger than needed tidal volumes on BiPAP 16/ 7 with a rate of 18 pulling tidal volumes of 550 to 600. I did drop the patient's BiPAP settings to 12/6 with these changes the patient was pulling more appropriate tidal volumes of 425-450 with improved tachypnea. Her respiratory rate came down from the mid 30s down to the upper 20s to low 30s. She reported that she felt much more comfortable on the settings. The family did have concerns regarding the patient's fluid status and was anchored to discuss the potential for dialysis. I did explain that we needed to give a trial of diuretics and albumin dizzy we could improved the patient renal function prior to jumping to dialysis. We did not administer the most recent dose of albumin until we could provide some diuresis for the patient. Patient did have some crackles at the bases but otherwise lung sounds were clear. She has generalized pallor, mildly anxious no clubbing or cyanosis noted. I did resume the patient's home medication reconciliation with appropriate medications. Assessment: Respiratory distress Acute respiratory alkalosis CHF exacerbation AFib RVR Acute on chronic kidney injury--due to hypotension/hypoperfusion due to above factors Plan: IV Lasix 40 mg x1 now then possible repeat dosing this afternoon. Monitor strict I&O's. Resume Coreg at 3.125 mg dose. Nephrology and Cardiology consulted. BiPAP adjustments made as discussed above. Between multiple discussions with the patient and discussion the patient at bedside and evaluation at bedside total of 65 minutes was spent in critical care activities. Due to a high probability of clinically significant, life threatening de terioration, the patient required my highest level of preparedness to intervene emergently and I personally spent this critical care time directly and personally managing the patient. This critical care time included obtaining a history; examining the patient; pulse oximetry; ordering and review of studies; arranging urgent treatment with development of a management plan; evaluation of patient's response to treatment; frequent reassessment; and discussions with other providers. It was exclusive of separately billable procedures and treating other patients and teaching time. Please see Assessment and Plan section and the rest of the note for further information on patient assessment and treatment.
[2024-12-05 04:49] LABS: Albumin Level 4.1 g/dL (3.5-5.1); Alkaline Phosphatase 112 U/L (38-126); Anion Gap 13 mmol/L (4-12); Bilirubin,Total 2.6 mg/dL (0.2-1.3); Blood Urea Nitrogen 61 mg/dL (7-17); Calcium 8.4 mg/dL (8.4-10.2); Carbon Dioxide 20 mmol/L (22-30); Chloride 100 mmol/L (98-107); Estimated CRCL calculation 21 ml/min; Estimated Glomerular Filt Rate 15; Glucose 132 mg/dL (65-110); Magnesium 1.7 mg/dL (1.6-2.3); Phosphorus 4.7 mg/dL (2.5-4.5); Potassium 4.5 mmol/L (3.4-5.0); Sodium 133 mmol/L (137-145)
[2024-12-05] MEDS: DOXYCYCLINE 100 MG/NS 100 ML 100 MG/100 ML BAG IVPB ×2 (04:52→16:56)
[2024-12-05 04:54] LABS: Alanine Aminotransferase 1030 U/L (6-35); Aspartate Amino Transferase 763 U/L (14-36)
[2024-12-05 05:17] LABS: Hepatitis B Surface Antigen Negative (Negative)
[2024-12-05 05:34] LABS: Hepatitis B Surface Anti Res Negative
[2024-12-05] MEDS: AMIODARONE 360 MG/D5W 200 ML 360 MG/200 ML BAG 16.67 MG IV CONT ×2 (05:49→18:04)
--- NOTE | 2024-12-05 08:05 | P.CDI_ITS ---
CDI Query Clarification Request 1) Shock was documented on H&P on 12/04, but not carried over in progress notes. Please clarify if shock has been ruled in or ruled out. 2) Patient with a BMI of 46.1 please provide a diagnosis to accompany this finding: * Overweight * Obesity * Morbid Obesity * Other/Unknown The medical chart reflects the following: (2) Shock: Code(s): R57.9 - Shock, unspecified Status: Acute Assessment and Plan: * Etiology unknown. Suspect degree of infection as patient has left shifted leukocytosis, however potential for cardiogenic especially with history cardiomyopathy. * Obtain echo * Blood pressures waxing and waning. * Consider addition of Levophed * Trend vital signs * Maintain map greater than 65 * Blood cultures pending, procalcitonin and lactic acid 4. Still awaiting UA. * Consult autobody technician WBC: 12/03: 21.6, 12/04: 15.9, 12/05: 15.3 Lactic acid 12/04: 1.7 Blood Culture Preliminary SOURCE: BLOOD STATUS: PRELIMINARY RESULT: No growth to date. Urine Culture Preliminary Organism 1 Escherichia Coli <Olga Lidia Barkley RN - Last Filed: 12/05/24 08:13> Clarified Diagnosis Clarified Diagnosis: Morbid Obesity <Gilberto Bassett MD - Last Filed: 12/05/24 15:50>
--- NOTE | 2024-12-05 08:05 | WPDCDIQUERY2 ---
CDI Query Clarification Request 1) Shock was documented on H&P on 12/04, but not carried over in progress notes. Please clarify if shock has been ruled in or ruled out. 2) Patient with a BMI of 46.1 please provide a diagnosis to accompany this finding: Overweight Obesity Morbid Obesity Other/Unknown The medical chart reflects the following: (2) Shock: Code(s): R57.9 - Shock, unspecified Status: Acute Assessment and Plan: Etiology unknown. Suspect degree of infection as patient has left shifted leukocytosis, however potential for cardiogenic especially with history cardiomyopathy. Obtain echo Blood pressures waxing and waning. Consider addition of Levophed Trend vital signs Maintain map greater than 65 Blood cultures pending, procalcitonin and lactic acid 4. Still awaiting UA. Consult meat grader WBC: 12/03: 21.6, 12/04: 15.9, 12/05: 15.3 Lactic acid 12/04: 1.7 Blood Culture Preliminary SOURCE: BLOOD STATUS: PRELIMINARY RESULT: No growth to date. Urine Culture Preliminary Organism 1 Escherichia Coli <Olga Lidia Barkley RN - Last Filed: 12/05/24 08:13> Clarified Diagnosis Clarified Diagnosis: Morbid Obesity <Gilberto Bassett MD - Last Filed: 12/05/24 15:50>
[2024-12-05 08:19] LABS: Glucose Point of Care 139 mg/dl (65-105)
[2024-12-05] MEDS: carvediloL 6.25 MG TABLET PO ×2 (09:26→20:16)
[2024-12-05] MEDS: APIXABAN 5 MG TABLET PO (09:26)
[2024-12-05] MEDS: allopurinoL 50 MG TABLET PO (09:27)
[2024-12-05] MEDS: PANTOPRAZOLE 40 MG TABLET PO (09:27)
[2024-12-05] MEDS: ASPIRIN 81 MG ENTERIC TABLET PO (09:27)
[2024-12-05] MEDS: AMIODARONE 150 MG/D5W 100 ML 150 MG/100 ML BAG 600 MG IV CONT (09:38)
--- NOTE | 2024-12-05 11:21 | PM.PNCARD ---
Progress Note: A&P Assessment and Plan (1) Atrial fibrillation with RVR: Code(s): I48.91 - Unspecified atrial fibrillation Status: Acute (2) Dilated cardiomyopathy: Code(s): I42.0 - Dilated cardiomyopathy Status: Chronic (3) AICD (automatic cardioverter/defibrillator) present: Code(s): Z95.810 - Presence of automatic (implantable) cardiac defibrillator Status: Acute (4) Mixed hyperlipidemia: Code(s): E78.2 - Mixed hyperlipidemia Status: Acute (5) Essential (primary) hypertension: Code(s): I10 - Essential (primary) hypertension Status: Chronic (6) Moderate to severe mitral regurgitation: Code(s): I34.0 - Nonrheumatic mitral (valve) insufficiency Status: Acute Plan Problem list: -A fib with RVR -Moderate to severe MR -SOB secondary to above -Elevated troponin without chest pain- most likely secondary to A fib with RVR -Elevated D-dimer with lower extremity Dopplers negative for DVT and V/Q scan showing low probability of PE -Hypoxic respiratory failure- most likely secondary to MR versus respiratory -HTN -HLD -Acute on chronic systolic heart failure with LVEF 30-35% -S/p PM, ICD -Sepsis -Acute on chronic kidney disease -T2DM Plan: -continue amiodarone drip. Rates are in the 90s-100s with this -continue Apixaban for anticoagulation -given depressed LVEF of 30-35% and end-organ damage with worsening renal failure, recommend starting Milrinone drip at 0.125 microgram/kg per minute and continuing for 48 hours. Diuresis with IV Lasix 40 mg q.8 hours -monitor weight, in's and out's, electrolytes, renal function daily. Replace electrolytes as needed to keep potassium greater than 4 and magnesium greater than 2 -GDMT for systolic heart failure- continue Coreg; add SGLT2 inhibitor; allergy to lisinopril-Cough; hold losartan due to ZULY on top of CKD -recommend right heart catheterization to evaluate volume status. Hold Eliquis tonight for right heart catheterization tomorrow -Outpatient SHD consult to evaluate MR with JANINA and institute appropriate therapy. She would be a candidate for MitraClip if MR remains moderate to severe after diuresis and GDMT Subjective Date/time seen: 12/05/24 11:21 Interval history: Reason for encounter: AFib with RVR Relevant history: 74-year-old female with history of hyperlipidemia, HTN, cardiomyopathy with LVEF 35% in 2019 (originally diagnoses in 2009 at which time cath showed no CAD), transient A flutter 3 years ago (was on Xarelto for 6 months and then stopped), s/p PM and ICD, type 2 diabetes mellitus, chronic kidney disease,GERD, arthritis, left branch block presents with chief complaints of worsening dyspnea. She was noted to be in AFib with RVR and started on amiodarone drip and Eliquis for anticoagulation. She has known LVEF of 30-35% and worsening of her MR from mild to moderate to severe. She has acute on chronic renal failure with worsening creatinine. Troponin is elevated to 0.028--0.070. D-dimer is elevated. Lower extremity Dopplers are negative for DVT and V/Q scan is low probability of PE. Interval history: She complains of shortness of breath. She states shortness of breath was worse early in the morning around 2:30 a.m.. At this time the BiPAP settings were changed after which she feels better. No chest pain. Review of Systems Review of Systems: A complete review of systems was performed and pertinent positives are per HPI Exam Narrative: General: Alert oriented x3, no acute distress Neck: Supple, hard to assess JVD because of thick neck Chest: Bilaterally clear to auscultation, no rales or rhonchi Cardiac: S1, S2 +, irregularly irregular rhythm, no murmurs or rubs Extremities: Bilateral lower extremity edema 1+, no skin rash Neurologic: Alert and oriented x3, no focal neurological deficits Objective Data Vital Signs Vital Signs: Vital Signs - 24 hr 12/04/24 12:00 12/04/24 12:12/04/24 12:00 Temperature 36.5 C Pulse Rate 96 102 H Respiratory Rate 22 H Blood Pressure 106/64 106/64 Pulse Oximetry 95 95 Oxygen Delivery Nasal Cannula Oxygen Flow Rate 1 Fraction of Inspired Oxygen 12/04/24 12:00 12/04/24 14:00 12/04/24 14:00 Temperature Pulse Rate 92 93 96 Respiratory Rate Blood Pressure 122/84 Pulse Oximetry Oxygen Delivery Oxygen Flow Rate Fraction of Inspired Oxygen 12/04/24 16:00 12/04/24 16:00 12/04/24 16:00 Temperature 36.5 C Pulse Rate 102 H 104 H Respiratory Rate 18 Blood Pressure 142/86 H 142/86 H Pulse Oximetry 97 95 Oxygen Delivery Nasal Cannula Oxygen Flow Rate 2 Fraction of Inspired Oxygen 12/04/24 16:00 12/04/24 18:00 12/04/24 18:00 Temperature Pulse Rate 91 95 94 Respiratory Rate Blood Pressure 131/81 Pulse Oximetry Oxygen Delivery Oxygen Flow Rate Fraction of Inspired Oxygen 12/04/24 18:18 12/04/24 18:18 12/04/24 20:00 Temperature Pulse Rate 92 92 112 H Respiratory Rate Blood Pressure 131/81 131/81 135/66 Pulse Oximetry Oxygen Delivery Oxygen Flow Rate Fraction of Inspired Oxygen 12/04/24 20:00 12/04/24 20:00 12/04/24 20:10 Temperature 36.6 C Pulse Rate 107 H 107 H 105 H Respiratory Rate 23 H 27 H Blood Pressure 135/66 Pulse Oximetry 97 97 Oxygen Delivery Nasal Cannula Oxygen Flow Rate 2 Fraction of Inspired Oxygen 12/04/24 21:16 12/04/24 21:20 12/04/24 21:23 Temperature Pulse Rate 96 93 111 H Respiratory Rate 20 20 Blood Pressure Pulse Oximetry 96 Oxygen Delivery Nasal Cannula Oxygen Flow Rate 1 Fraction of Inspired Oxygen 24 12/04/24 21:24 12/04/24 22:00 12/04/24 22:00 Temperature Pulse Rate 106 H 109 H 100 Respiratory Rate 20 25 H Blood Pressure 125/75 125/75 Pulse Oximetry 97 Oxygen Delivery Oxygen Flow Rate Fraction of Inspired Oxygen 12/04/24 22:00 12/04/24 22:58 12/05/24 00:00 Temperature Pulse Rate 103 H 98 107 H Respiratory Rate 25 H Blood Pressure 146/80 H Pulse Oximetry 98 Oxygen Delivery BiPAP Oxygen Flow Rate Fraction of Inspired Oxygen 12/05/24 00:00 12/05/24 00:00 12/05/24 00:00 Temperature 36.6 C Pulse Rate 111 H 103 H 116 H Respiratory Rate 22 H 22 H Blood Pressure 146/80 H Pulse Oximetry 99 100 Oxygen Delivery BiPAP Oxygen Flow Rate Fraction of Inspired Oxygen 45 12/05/24 01:20 12/05/24 01:24 12/05/24 01:51 Temperature Pulse Rate 125 H 125 H 112 H Respiratory Rate 33 H 33 H 29 H Blood Pressure Pulse Oximetry 98 Oxygen Delivery BiPAP Oxygen Flow Rate Fraction of Inspired Oxygen 12/05/24 02:00 12/05/24 02:00 12/05/24 02:00 Temperature Pulse Rate 110 H 110 H 109 H Respiratory Rate 32 H Blood Pressure 138/82 138/82 Pulse Oximetry 99 Oxygen Delivery Oxygen Flow Rate Fraction of Inspired Oxygen 12/05/24 03:41 12/05/24 03:55 12/05/24 04:00 Temperature 37.3 C Pulse Rate 127 H 125 H 121 H Respiratory Rate 44 H 44 H 34 H Blood Pressure 145/88 H Pulse Oximetry 99 99 99 Oxygen Delivery BiPAP BiPAP Oxygen Flow Rate Fraction of Inspired Oxygen 45 12/05/24 04:00 12/05/24 04:00 12/05/24 05:49 Temperature Pulse Rate 114 H 115 H 110 H Respiratory Rate Blood Pressure 145/88 H 127/84 Pulse Oximetry Oxygen Delivery Oxygen Flow Rate Fraction of Inspired Oxygen 12/05/24 05:49 12/05/24 06:00 12/05/24 06:00 Temperature Pulse Rate 110 H 113 H 113 H Respiratory Rate 32 H Blood Pressure 127/84 122/75 Pulse Oximetry 96 Oxygen Delivery Oxygen Flow Rate Fraction of Inspired Oxygen 12/05/24 07:08 12/05/24 07:58 12/05/24 07:58 Temperature Pulse Rate 113 H 113 H 113 H Respiratory Rate 28 H 29 H Blood Pressure 122/75 Pulse Oximetry 96 Oxygen Delivery BiPAP Oxygen Flow Rate Fraction of Inspired Oxygen 12/05/24 08:00 12/05/24 08:00 12/05/24 08:00 Temperature 36.8 C Pulse Rate 116 H 116 H Respiratory Rate 29 H Blood Pressure 133/85 133/85 Pulse Oximetry 97 Oxygen Delivery BiPAP Oxygen Flow Rate Fraction of Inspired Oxygen 12/05/24 08:00 12/05/24 08:16 12/05/24 09:26 Temperature Pulse Rate 128 H 103 H 123 H Respiratory Rate 29 H Blood Pressure Pulse Oximetry Oxygen Delivery Oxygen Flow Rate Fraction of Inspired Oxygen 12/05/24 09:38 12/05/24 10:00 12/05/24 10:00 Temperature Pulse Rate 123 H 103 H 103 H Respiratory Rate 32 H Blood Pressure 134/75 133/80 Pulse Oximetry 97 Oxygen Delivery Oxygen Flow Rate Fraction of Inspired Oxygen Intake/Output Intake/Output: Intake & Output 05/05/25 12/03/24 12/04/24 12/05/24 23:59 23:59 23:59 23:59 Intake Total 3053.6 466.5 Output Total 175 625 Balance 2878.6 -158.5 Meds/Results Medications: Active Medications Generic Name Dose Route Start Last Admin Trade Name Freq PRN Reason Stop Dose Admin Allopurinol 50 mg 12/05/24 09:00 12/05/24 09:27 Allopurinol 50 Mg Tablet PO 50 mg Q48H SHARIFA Administration Apixaban 5 mg 12/04/24 09:54 12/05/24 09:26 Apixaban 5 Mg Tablet PO 5 mg Q12HR SHARIFA Administration Aspirin 81 mg 12/05/24 09:00 12/05/24 09:27 Aspirin 81 Mg Enteric Tablet PO 81 mg DAILY SHARIFA Administration Carvedilol 6.25 mg 12/04/24 21:00 12/05/24 09:26 Carvedilol 6.25 Mg Tablet PO 6.25 mg Q12HR SHARIFA Administration Dextrose 12.5 gm 12/04/24 02:39 Dextrose 50% 25 Gm/50 Ml Syringe IV PUSH PRN PRN Hypoglycemia Protocol Glucagon 1 mg 12/04/24 02:39 Glucagon For Inj 1 Mg Vial IM PRN PRN Hypoglycemia Protocol Glucose 15 gm 12/04/24 02:39 Glucose Oral Gel 15 Gm Of Glucse In 37.5 Gm Tube PO PRN PRN Hypoglycemia Protocol Amiodarone HCl/Dextrose 360 mg in 200 mls @ 16.667 mls/hr 12/04/24 07:00 12/05/24 08:00 Nexterone 360 Mg/D5w 200 Ml IV CONT 0.5 mg/min .Q12H SHARIFA 16.67 mls/hr Infusion 0.5 MG/MIN Ceftriaxone Sodium 1 gm in 50 mls @ 100 mls/hr 12/04/24 23:00 12/04/24 22:44 Rocephin 1 Gm/Ns 50 Ml IVPB Infused Q24H SHARIFA Infusion Doxycycline Hyclate 100 mg in 100 mls @ 100 mls/hr 12/04/24 17:00 12/05/24 05:50 Vibramycin 100 Mg/Ns 100 Ml IVPB Infused Q12H SHARIFA Infusion Dextrose 1,000 mls @ 100 mls/hr 12/04/24 02:39 Dextrose 5% 1,000 Ml IVPB PRN PRN Hypoglycemia Protocol Insulin Aspart 3 - 6 units 12/04/24 08:00 12/05/24 08:14 Insulin Aspart (*Bkc) 100 Units/Ml SUB-Q Not Given TIDWM SHARIFA Protocol Insulin Aspart 1 - 3 units 12/04/24 21:00 12/04/24 20:40 Insulin Aspart (*Bkc) 100 Units/Ml SUB-Q Not Given HS SHARIFA Protocol Levalbuterol HCl 0.63 mg 12/05/24 08:01 Levalbuterol Neb 1.25 Mg/3 Ml INHALATION Q6HRT PRN Wheezing Pantoprazole Sodium 40 mg 12/05/24 09:00 12/05/24 09:27 Pantoprazole 40 Mg Tablet PO 40 mg QAM SHARIFA Administration Perflutren Lipid Microsphere 0 ml 12/04/24 02:34 Perflutren Lipid Microspheres 1.5 Ml Vial Diluted To 10 Ml Total Volume IV PUSH 12/07/24 02:37 ONCE PRN adequate visualization Protocol Fluticasone/Salmeterol 2 puff 12/04/24 20:59 Fluticasone/Salmeterol 115-21 Mcg Inhaler 1 Puff INHALATION Q12HRT PRN Shortness Of Breath Or Wheezin Simvastatin 20 mg 12/04/24 21:00 12/04/24 21:23 Simvastatin 20 Mg Tablet PO 20 mg HS SHARIFA Administration Radiology Results: ITS Impressions Pulmonary Perfusion Imaging 12/04/24 13:58 IMPRESSION: 1. Low probability for pulmonary embolism. Venous Doppler Study 12/04/24 14:46 IMPRESSION: Negative bilateral lower extremity venous US. No deep vein thrombosis. Abdomen Ultrasound 12/04/24 15:11 IMPRESSION: 1. Normal portal venous direction of flow but with increased pulsatility which along with dilation of the hepatic veins, can be seen in the setting of right heart failure. 2. Mild bilateral renal cortical thinning with increased echogenicity consistent with likely chronic medical renal disease. No hydronephrosis. Renal Ultrasound 12/04/24 15:11 IMPRESSION: 1. Normal portal venous direction of flow but with increased pulsatility which along with dilation of the hepatic veins, can be seen in the setting of right heart failure. 2. Mild bilateral renal cortical thinning with increased echogenicity consistent with likely chronic medical renal disease. No hydronephrosis. Chest X-Ray 12/05/24 05:29 Impression: Clear lungs. Stable cardiomegaly with pacemaker device. Labs Labs: Laboratory Results - last 24 hr 12/04/24 12/04/24 12/04/24 10:59 12:38 14:32 WBC RBC Hgb Hct MCV MCH MCHC RDW Plt Count MPV Puncture Site ABG pH ABG pCO2 ABG pO2 ABG PO2/FiO2 Ratio ABG HCO3 ABG O2 Saturation ABG O2 Content ABG Base Excess A-a Gradient Oxyhemoglobin Carboxyhemoglobin Methemoglobin Reduced Hemoglobin Total Hemoglobin O2 Delivery Device O2 Liters/Min FiO2 Expiratory Pressure Inspiratory Pressure Sodium Potassium Chloride Carbon Dioxide Anion Gap BUN Creatinine Estim Creat Clear Calc Estimated GFR Glucose POC Capillary Glucose 126 H Calcium Phosphorus Magnesium Total Bilirubin AST ALT Alkaline Phosphatase Troponin I 0.093 H* 0.084 H* Total Protein Albumin Hep Bs Antigen Hep Bs Antibody 12/04/24 12/04/24 12/05/24 17:07 20:39 03:18 WBC RBC Hgb Hct MCV MCH MCHC RDW Plt Count MPV Puncture Site Left radial ABG pH 7.403 ABG pCO2 31.0 L ABG pO2 97.7 ABG PO2/FiO2 Ratio 2.17 ABG HCO3 18.9 L ABG O2 Saturation 97.5 ABG O2 Content 16.8 ABG Base Excess -4.8 A-a Gradient 187.9 Oxyhemoglobin 96.6 Carboxyhemoglobin 0.3 Methemoglobin 0.3 Reduced Hemoglobin 2.8 Total Hemoglobin 12.3 O2 Delivery Device Bipap O2 Liters/Min Not Reportable FiO2 45 Expiratory Pressure 7 Inspiratory Pressure 16 Sodium Potassium Chloride Carbon Dioxide Anion Gap BUN Creatinine Estim Creat Clear Calc Estimated GFR Glucose POC Capillary Glucose 149 H 142 H Calcium Phosphorus Magnesium Total Bilirubin AST ALT Alkaline Phosphatase Troponin I Total Protein Albumin Hep Bs Antigen Hep Bs Antibody 12/05/24 12/05/24 04:13 07:58 WBC 15.3 H RBC 3.39 L Hgb 11.0 L Hct 33.8 L MCV 99.7 MCH 32.4 MCHC 32.5 RDW 13.5 Plt Count 130 L MPV 11.0 H Puncture Site ABG pH ABG pCO2 ABG pO2 ABG PO2/FiO2 Ratio ABG HCO3 ABG O2 Saturation ABG O2 Content ABG Base Excess A-a Gradient Oxyhemoglobin Carboxyhemoglobin Methemoglobin Reduced Hemoglobin Total Hemoglobin O2 Delivery Device O2 Liters/Min FiO2 Expiratory Pressure Inspiratory Pressure Sodium 133 L Potassium 4.5 Chloride 100 Carbon Dioxide 20 L Anion Gap 13 H BUN 61 H D Creatinine 2.96 H Estim Creat Clear Calc 21 Estimated GFR 15 L Glucose 132 H POC Capillary Glucose 139 H Calcium 8.4 Phosphorus 4.7 H Magnesium 1.7 Total Bilirubin 2.6 H AST 763 H ALT 1030 H Alkaline Phosphatase 112 Troponin I Total Protein 7.0 Albumin 4.1 Hep Bs Antigen Negative Hep Bs Antibody Negative
[2024-12-05 11:27] LABS: Glucose Point of Care 178 mg/dl (65-105)
--- NOTE | 2024-12-05 11:33 | P.PNINT_ITS ---
Progress Note: A&P Assessment and Plan (1) Acute hypoxic respiratory failure: Code(s): J96.01 - Acute respiratory failure with hypoxia Status: Acute Assessment and Plan: Patient presented with acute respiratory failure likely secondary to pulmonary edema from congestive heart failure and AFib with RVR. Chest x-ray showed clear lungs at the time of admission She had a perfusion scan which was low probability. Patient has been started on anticoagulation for her AFib. She is not a candidate for CTA due to her elevated creatinine. Venous Dopplers of lower extremity were negative for DVT Patient was started on BiPAP and then was weaned off to 2 L nasal cannula but last night patient had increased work of breathing and respiratory distress and was placed back on BiPAP. Will decrease FiO2 to 40%. ABG reviewed Patient received Lasix and I will continue diuretics through the day She was also started on antibiotics to cover community-acquired pneumonia. Cultures have been sent and are pending Urine Legionella and pneumococcal antigen are pending (2) Atrial fibrillation with RVR: Code(s): I48.91 - Unspecified atrial fibrillation Status: Acute Assessment and Plan: Presented with AFib with RVR. Patient has history of atrial flutter in the past and was on apixaban which was discontinued due to resolution. 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 Hold Eliquis for potential right heart catheterization tomorrow Cardiology recommend starting mobile Milrinone and continuing diuretics Patient may need dialysis for fluid removal if does not respond to diuretics On aspirin and Coreg Started is on hold due to worsening renal function Statins on hold due to elevated LFTs Echocardiogram Summary 1. Left ventricular chamber dimension is moderately enlarged. 2. Left ventricular systolic function is moderately reduced, estimated at 30- 35%. 3. There is mildly increased left ventricular wall thickness. 4. Right ventricular systolic function is normal. 5. Left atrial chamber dimension is severely enlarged. 6. Right atrial chamber dimension is moderately enlarged. 7. There is moderate to severe mitral valve regurgitation. 8. There is mild tricuspid valve regurgitation. 9. There is mild aortic valve regurgitation. 10. There is small pericardial effusion (4) Nonrheumatic mitral (valve) insufficiency: Code(s): I34.0 - Nonrheumatic mitral (valve) insufficiency Status: Acute Assessment and Plan: See above (5) AICD (automatic cardioverter/defibrillator) present: Code(s): Z95.810 - Presence of automatic (implantable) cardiac defibrillator Status: Acute Assessment and Plan: See above (6) Type 2 DM with CKD stage 3 and hypertension: Code(s): E11.22 - Type 2 diabetes mellitus with diabetic chronic kidney disease; I12.9 - Hypertensive chronic kidney disease with stage 1 through stage 4 chronic kidney disease, or unspecified chronic kidney disease; N18.30 - Chronic kidney disease, stage 3 unspecified Status: Acute Assessment and Plan: Sliding scale insulin ordered (7) Acute kidney injury: Code(s): N17.9 - Acute kidney failure, unspecified Status: Acute Assessment and Plan: Patient has a chronic kidney disease but presented with elevated creatinine likely secondary to AFib with RVR leading to hypotension and respiratory distress hypoxia Renal ultrasound confirmed medical renal disease Nephrology consult and follow Normal CK Patient was given Cautious IV fluid on 1st day but now is being diuresed due to her respiratory status Creatinine further increased 2.96 Continue diuretics at this time. Discussed with nephrology. Patient at risk of needing dialysis. Monitor urine output electrolytes and creatinine (8) Stage 3b chronic kidney disease (CKD): Code(s): N18.32 - Chronic kidney disease, stage 3b Status: Acute Assessment and Plan: See above (9) Elevated liver enzymes: Code(s): R74.8 - Abnormal levels of other serum enzymes Status: Acute Assessment and Plan: Likely secondary to hypoperfusion from AFib with RVR and poor cardiac function Check right upper quadrant ultrasound Hold statin (10) UTI (urinary tract infection): Code(s): N39.0 - Urinary tract infection, site not specified Status: Acute Assessment and Plan: UA suggestive UTI. Urine cultures is growing E coli Continue Rocephin Plan DVT prophylaxis -patient is apixaban which will be held for potential right heart catheterization tomorrow Stress ulcer prophylaxis -PPI Nutrition -clear liquid diet due to respiratory status Code Status -discussed in detail with patient's 2 daughter and patient. Discussed possibility of her needing invasive mechanical ventilation. Also discussed possibility of her needing hemodialysis. Explained the difficult situation managing renal failure with heart failure. Answered their questions. Case discussed with Cardiology and Nephrology. Total Critical Care Time - 50 minutes Due to a high probability of clinically significant, life threatening deterioration, the patient required my highest level of preparedness to intervene emergently and I personally spent this critical care time directly and personally managing the patient. This critical care time included obtaining a history; examining the patient; pulse oximetry; ordering and review of studies; arranging urgent treatment with development of a management plan; evaluation of patient's response to treatment; frequent reassessment; and discussions with other providers. It was exclusive of separately billable procedures and treating other patients and teaching time. Please see Assessment and Plan section and the rest of the note for further information on patient assessment and treatment Subjective Date/time seen: 12/05/24 Yesterday patient was on nasal cannula at 2 L during the day but overnight patient developed increased respiratory distress and work of breathing. She was placed on BiPAP. Later she was also given a dose of Lasix and also received bronchodilators. This morning she continues to be on BiPAP and is on 45% FiO2 which I had decreased to 40%. She states she feels better this morning and her breathing is better although she still has variable respiratory rate. She continues to be in AFib but with controlled ventricular rhythm. She is on amiodarone infusion. She is afebrile. Urine output is on the lower side. She denies any chest pain or shortness of breath at this time. No nausea vomiting. No abdominal pain. No headache. No dizziness or lightheadedness. Unable to obtain complete review of system as patient is on BiPAP. Review of Systems Review of Systems: ROS unobtainable: Yes unobtainable due to medical condition and unobtainable due to mental status Exam Narrative: General: Pt is alert awake and in NAD Lungs/Chest: Trachea central Clear BS B/L, few bibasilar crackles, no wheezing Cardiac: RRR. Normal S1 S2. No murmurs Circulation: Pedal pulses are intact and symmetrical. Abdomen: Normal bowel sounds. Obese. Soft. NT. ND. Extremities: Bilateral pitting edema present : Matos in place Neurologic: Follows commands. Moves all 4 extremities PERRL AO x3 Skin: No Rash Objective Data Vital Signs Vital Signs: Vital Signs - 24 hr 12/04/24 12:00 12/04/24 12:00 12/04/24 12:00 Temperature 36.5 C Pulse Rate 96 102 H Respiratory Rate 22 H Blood Pressure 106/64 106/64 Pulse Oximetry 95 95 Oxygen Delivery Nasal Cannula Oxygen Flow Rate 1 Fraction of Inspired Oxygen 12/04/24 12:00 12/04/24 14:00 12/04/24 14:00 Temperature Pulse Rate 92 93 96 Respiratory Rate Blood Pressure 122/84 Pulse Oximetry Oxygen Delivery Oxygen Flow Rate Fraction of Inspired Oxygen 12/04/24 16:00 12/04/24 16:00 12/04/24 16:00 Temperature 36.5 C Pulse Rate 102 H 104 H Respiratory Rate 18 Blood Pressure 142/86 H 142/86 H Pulse Oximetry 97 95 Oxygen Delivery Nasal Cannula Oxygen Flow Rate 2 Fraction of Inspired Oxygen 12/04/24 16:00 12/04/24 18:00 12/04/24 18:00 Temperature Pulse Rate 91 95 94 Respiratory Rate Blood Pressure 131/81 Pulse Oximetry Oxygen Delivery Oxygen Flow Rate Fraction of Inspired Oxygen 12/04/24 18:18 12/04/24 18:18 12/04/24 20:00 Temperature Pulse Rate 92 92 112 H Respiratory Rate Blood Pressure 131/81 131/81 135/66 Pulse Oximetry Oxygen Delivery Oxygen Flow Rate Fraction of Inspired Oxygen 12/04/24 20:00 12/04/24 20:00 12/04/24 20:10 Temperature 36.6 C Pulse Rate 107 H 107 H 105 H Respiratory Rate 23 H 27 H Blood Pressure 135/66 Pulse Oximetry 97 97 Oxygen Delivery Nasal Cannula Oxygen Flow Rate 2 Fraction of Inspired Oxygen 12/04/24 21:16 12/04/24 21:20 12/04/24 21:23 Temperature Pulse Rate 96 93 111 H Respiratory Rate 20 20 Blood Pressure Pulse Oximetry 96 Oxygen Delivery Nasal Cannula Oxygen Flow Rate 1 Fraction of Inspired Oxygen 24 12/04/24 21:24 12/04/24 22:00 12/04/24 22:00 Temperature Pulse Rate 106 H 109 H 100 Respiratory Rate 20 25 H Blood Pressure 125/75 125/75 Pulse Oximetry 97 Oxygen Delivery Oxygen Flow Rate Fraction of Inspired Oxygen 12/04/24 22:00 12/04/24 22:58 12/05/24 00:00 Temperature Pulse Rate 103 H 98 107 H Respiratory Rate 25 H Blood Pressure 146/80 H Pulse Oximetry 98 Oxygen Delivery BiPAP Oxygen Flow Rate Fraction of Inspired Oxygen 12/05/24 00:00 12/05/24 00:00 12/05/24 00:00 Temperature 36.6 C Pulse Rate 111 H 103 H 116 H Respiratory Rate 22 H 22 H Blood Pressure 146/80 H Pulse Oximetry 99 100 Oxygen Delivery BiPAP Oxygen Flow Rate Fraction of Inspired Oxygen 45 12/05/24 01:20 12/05/24 01:24 12/05/24 01:51 Temperature Pulse Rate 125 H 125 H 112 H Respiratory Rate 33 H 33 H 29 H Blood Pressure Pulse Oximetry 98 Oxygen Delivery BiPAP Oxygen Flow Rate Fraction of Inspired Oxygen 12/05/24 02:00 12/05/24 02:00 12/05/24 02:00 Temperature Pulse Rate 110 H 110 H 109 H Respiratory Rate 32 H Blood Pressure 138/82 138/82 Pulse Oximetry 99 Oxygen Delivery Oxygen Flow Rate Fraction of Inspired Oxygen 12/05/24 03:41 12/05/24 03:55 12/05/24 04:00 Temperature 37.3 C Pulse Rate 127 H 125 H 121 H Respiratory Rate 44 H 44 H 34 H Blood Pressure 145/88 H Pulse Oximetry 99 99 99 Oxygen Delivery BiPAP BiPAP Oxygen Flow Rate Fraction of Inspired Oxygen 45 12/05/24 04:00 12/05/24 04:00 12/05/24 05:49 Temperature Pulse Rate 114 H 115 H 110 H Respiratory Rate Blood Pressure 145/88 H 127/84 Pulse Oximetry Oxygen Delivery Oxygen Flow Rate Fraction of Inspired Oxygen 12/05/24 05:49 12/05/24 06:00 12/05/24 06:00 Temperature Pulse Rate 110 H 113 H 113 H Respiratory Rate 32 H Blood Pressure 127/84 122/75 Pulse Oximetry 96 Oxygen Delivery Oxygen Flow Rate Fraction of Inspired Oxygen 12/05/24 07:08 12/05/24 07:58 12/05/24 07:58 Temperature Pulse Rate 113 H 113 H 113 H Respiratory Rate 28 H 29 H Blood Pressure 122/75 Pulse Oximetry 96 Oxygen Delivery BiPAP Oxygen Flow Rate Fraction of Inspired Oxygen 12/05/24 08:00 12/05/24 08:00 12/05/24 08:00 Temperature 36.8 C Pulse Rate 116 H 116 H Respiratory Rate 29 H Blood Pressure 133/85 133/85 Pulse Oximetry 97 Oxygen Delivery BiPAP Oxygen Flow Rate Fraction of Inspired Oxygen 12/05/24 08:00 12/05/24 08:16 12/05/24 09:26 Temperature Pulse Rate 128 H 103 H 123 H Respiratory Rate 29 H Blood Pressure Pulse Oximetry Oxygen Delivery Oxygen Flow Rate Fraction of Inspired Oxygen 12/05/24 09:38 12/05/24 10:00 12/05/24 10:00 Temperature Pulse Rate 123 H 103 H 103 H Respiratory Rate 32 H Blood Pressure 134/75 133/80 Pulse Oximetry 97 Oxygen Delivery Oxygen Flow Rate Fraction of Inspired Oxygen Intake/Output Intake/Output: Intake & Output 12/02/24 12/03/24 12/04/24 12/05/24 23:59 23:59 23:59 23:59 Intake Total 3053.6 466.5 Output Total 175 625 Balance 2878.6 -158.5 Meds/Results Medications: Active Medications Generic Name Dose Route Start Last Admin Trade Name Freq PRN Reason Stop Dose Admin Allopurinol 50 mg 12/05/24 09:00 12/05/24 09:27 Allopurinol 50 Mg Tablet PO 50 mg Q48H SHARIFA Administration Apixaban 5 mg 12/04/24 09:54 12/05/24 09:26 Apixaban 5 Mg Tablet PO 5 mg Q12HR SHARIFA Administration Aspirin 81 mg 12/05/24 09:00 12/05/24 09:27 Aspirin 81 Mg Enteric Tablet PO 81 mg DAILY SHARIFA Administration Carvedilol 6.25 mg 12/04/24 21:00 12/05/24 09:26 Carvedilol 6.25 Mg Tablet PO 6.25 mg Q12HR SHARIFA Administration Dextrose 12.5 gm 12/04/24 02:39 Dextrose 50% 25 Gm/50 Ml Syringe IV PUSH PRN PRN Hypoglycemia Protocol Glucagon 1 mg 12/04/24 02:39 Glucagon For Inj 1 Mg Vial IM PRN PRN Hypoglycemia Protocol Glucose 15 gm 12/04/24 02:39 Glucose Oral Gel 15 Gm Of Glucse In 37.5 Gm Tube PO PRN PRN Hypoglycemia Protocol Amiodarone HCl/Dextrose 360 mg in 200 mls @ 16.667 mls/hr 12/04/24 07:00 12/05/24 08:00 Nexterone 360 Mg/D5w 200 Ml IV CONT 0.5 mg/min .Q12H SHARIFA 16.67 mls/hr Infusion 0.5 MG/MIN Ceftriaxone Sodium 1 gm in 50 mls @ 100 mls/hr 12/04/24 23:00 12/04/24 22:44 Rocephin 1 Gm/Ns 50 Ml IVPB Infused Q24H SHARIFA Infusion Doxycycline Hyclate 100 mg in 100 mls @ 100 mls/hr 12/04/24 17:00 12/05/24 05:50 Vibramycin 100 Mg/Ns 100 Ml IVPB Infused Q12H SHARIFA Infusion Dextrose 1,000 mls @ 100 mls/hr 12/04/24 02:39 Dextrose 5% 1,000 Ml IVPB PRN PRN Hypoglycemia Protocol Insulin Aspart 3 - 6 units 12/04/24 08:00 12/05/24 08:14 Insulin Aspart (*Bkc) 100 Units/Ml SUB-Q Not Given TIDWM SHARIFA Protocol Insulin Aspart 1 - 3 units 12/04/24 21:00 12/04/24 20:40 Insulin Aspart (*Bkc) 100 Units/Ml SUB-Q Not Given HS SHARIFA Protocol Levalbuterol HCl 0.63 mg 12/05/24 08:01 Levalbuterol Neb 1.25 Mg/3 Ml INHALATION Q6HRT PRN Wheezing Pantoprazole Sodium 40 mg 12/05/24 09:00 12/05/24 09:27 Pantoprazole 40 Mg Tablet PO 40 mg QAM SHARIFA Administration Perflutren Lipid Microsphere 0 ml 12/04/24 02:34 Perflutren Lipid Microspheres 1.5 Ml Vial Diluted To 10 Ml Total Volume IV PUSH 12/07/24 02:37 ONCE PRN adequate visualization Protocol Fluticasone/Salmeterol 2 puff 12/04/24 20:59 Fluticasone/Salmeterol 115-21 Mcg Inhaler 1 Puff INHALATION Q12HRT PRN Shortness Of Breath Or Wheezin Simvastatin 20 mg 12/04/24 21:00 12/04/24 21:23 Simvastatin 20 Mg Tablet PO 20 mg HS SHARIFA Administration Radiology Results: ITS Impressions Pulmonary Perfusion Imaging 12/04/24 13:58 IMPRESSION: 1. Low probability for pulmonary embolism. Venous Doppler Study 12/04/24 14:46 IMPRESSION: Negative bilateral lower extremity venous US. No deep vein thrombosis. Abdomen Ultrasound 12/04/24 15:11 IMPRESSION: 1. Normal portal venous direction of flow but with increased pulsatility which along with dilation of the hepatic veins, can be seen in the setting of right heart failure. 2. Mild bilateral renal cortical thinning with increased echogenicity consistent with likely chronic medical renal disease. No hydronephrosis. Renal Ultrasound 12/04/24 15:11 IMPRESSION: 1. Normal portal venous direction of flow but with increased pulsatility which along with dilation of the hepatic veins, can be seen in the setting of right heart failure. 2. Mild bilateral renal cortical thinning with increased echogenicity consistent with likely chronic medical renal disease. No hydronephrosis. Chest X-Ray 12/05/24 05:29 Impression: Clear lungs. Stable cardiomegaly with pacemaker device. Labs Labs: Laboratory Results - last 24 hr 12/04/24 12/04/24 12/04/24 12:38 14:32 17:07 WBC RBC Hgb Hct MCV MCH MCHC RDW Plt Count MPV Puncture Site ABG pH ABG pCO2 ABG pO2 ABG PO2/FiO2 Ratio ABG HCO3 ABG O2 Saturation ABG O2 Content ABG Base Excess A-a Gradient Oxyhemoglobin Carboxyhemoglobin Methemoglobin Reduced Hemoglobin Total Hemoglobin O2 Delivery Device O2 Liters/Min FiO2 Expiratory Pressure Inspiratory Pressure Sodium Potassium Chloride Carbon Dioxide Anion Gap BUN Creatinine Estim Creat Clear Calc Estimated GFR Glucose POC Capillary Glucose 126 H 149 H Calcium Phosphorus Magnesium Total Bilirubin AST ALT Alkaline Phosphatase Troponin I 0.084 H* Total Protein Albumin Hep Bs Antigen Hep Bs Antibody 12/04/24 12/05/24 12/05/24 20:39 03:18 04:13 WBC 15.3 H RBC 3.39 L Hgb 11.0 L Hct 33.8 L MCV 99.7 MCH 32.4 MCHC 32.5 RDW 13.5 Plt Count 130 L MPV 11.0 H Puncture Site Left radial ABG pH 7.403 ABG pCO2 31.0 L ABG pO2 97.7 ABG PO2/FiO2 Ratio 2.17 ABG HCO3 18.9 L ABG O2 Saturation 97.5 ABG O2 Content 16.8 ABG Base Excess -4.8 A-a Gradient 187.9 Oxyhemoglobin 96.6 Carboxyhemoglobin 0.3 Methemoglobin 0.3 Reduced Hemoglobin 2.8 Total Hemoglobin 12.3 O2 Delivery Device Bipap O2 Liters/Min Not Reportable FiO2 45 Expiratory Pressure 7 Inspiratory Pressure 16 Sodium 133 L Potassium 4.5 Chloride 100 Carbon Dioxide 20 L Anion Gap 13 H BUN 61 H D Creatinine 2.96 H Estim Creat Clear Calc 21 Estimated GFR 15 L Glucose 132 H POC Capillary Glucose 142 H Calcium 8.4 Phosphorus 4.7 H Magnesium 1.7 Total Bilirubin 2.6 H AST 763 H ALT 1030 H Alkaline Phosphatase 112 Troponin I Total Protein 7.0 Albumin 4.1 Hep Bs Antigen Negative Hep Bs Antibody Negative 12/05/24 12/05/24 07:58 11:23 WBC RBC Hgb Hct MCV MCH MCHC RDW Plt Count MPV Puncture Site ABG pH ABG pCO2 ABG pO2 ABG PO2/FiO2 Ratio ABG HCO3 ABG O2 Saturation ABG O2 Content ABG Base Excess A-a Gradient Oxyhemoglobin Carboxyhemoglobin Methemoglobin Reduced Hemoglobin Total Hemoglobin O2 Delivery Device O2 Liters/Min FiO2 Expiratory Pressure Inspiratory Pressure Sodium Potassium Chloride Carbon Dioxide Anion Gap BUN Creatinine Estim Creat Clear Calc Estimated GFR Glucose POC Capillary Glucose 139 H 178 H Calcium Phosphorus Magnesium Total Bilirubin AST ALT Alkaline Phosphatase Troponin I Total Protein Albumin Hep Bs Antigen Hep Bs Antibody Quality VTE Prophylaxis VTE prophylaxis: pharmacologic ordered
[2024-12-05] MEDS: MILRINONE LACTATE 20 MG in DEXTROSE 5% 80 ML 4.86 MG IV CONT (12:24)
--- NOTE | 2024-12-05 12:51 | PM.PNNEP ---
Subjective Date/time seen: 12/05/24 12:51 Interval history: Follow-up for acute kidney injury/acute renal failure on chronic kidney disease. Events noted overnight and this morning -- Objective Data Vital Signs Vital Signs: Vital Signs Temp Pulse Resp BP Pulse Ox O2 Del Method O2 Flow Rate 12/05/24 12:30 118/81 12/05/24 12:24 114 H 114/87 12/05/24 12:00 107 H 12/05/24 12:00 103 H 128/100 H 12/05/24 11:57 104 H 24 H 96 BiPAP 12/05/24 11:37 98.5 F 102 H 26 H 109/63 96 12/05/24 11:32 BiPAP 12/05/24 10:00 103 H 32 H 133/80 97 12/05/24 10:00 103 H 12/05/24 09:38 123 H 134/75 12/05/24 09:26 123 H 12/05/24 08:16 103 H 29 H 12/05/24 08:00 128 H 12/05/24 08:00 98.2 F 116 H 29 H 133/85 97 12/05/24 08:00 116 H 133/85 12/05/24 08:00 BiPAP 12/05/24 07:58 113 H 29 H 12/05/24 07:58 113 H 28 H 96 BiPAP 12/05/24 07:08 113 H 122/75 12/05/24 06:00 113 H 32 H 122/75 96 12/05/24 06:00 113 H 12/05/24 05:49 110 H 127/84 12/05/24 05:49 110 H 127/84 12/05/24 04:00 115 H 12/05/24 04:00 114 H 145/88 H 12/05/24 04:00 99.1 F 121 H 34 H 145/88 H 99 12/05/24 03:55 125 H 44 H 99 BiPAP 12/05/24 03:41 127 H 44 H 99 BiPAP 12/05/24 02:00 109 H 138/82 12/05/24 02:00 110 H 32 H 138/82 99 12/05/24 02:00 110 H 12/05/24 01:51 112 H 29 H 12/05/24 01:24 125 H 33 H 12/05/24 01:20 125 H 33 H 98 BiPAP 12/05/24 00:00 116 H 12/05/24 00:00 97.8 F 103 H 22 H 146/80 H 100 12/05/24 00:00 111 H 22 H 99 BiPAP 12/05/24 00:00 107 H 146/80 H 12/04/24 22:58 98 25 H 98 BiPAP 12/04/24 22:00 103 H 12/04/24 22:00 100 25 H 125/75 97 12/04/24 22:00 109 H 125/75 12/04/24 21:24 106 H 20 12/04/24 21:23 111 H 12/04/24 21:20 93 20 96 Nasal Cannula 1 12/04/24 21:16 96 20 12/04/24 20:10 105 H 27 H 97 Nasal Cannula 2 12/04/24 20:00 97.9 F 107 H 23 H 135/66 97 12/04/24 20:00 107 H 12/04/24 20:00 112 H 135/66 12/04/24 18:18 92 131/81 12/04/24 18:18 92 131/81 12/04/24 18:00 94 131/81 12/04/24 18:00 95 Intake/Output Intake/Output: Intake & Output 12/02/24 12/03/24 12/04/24 12/05/24 23:59 23:59 23:59 23:59 Intake Total 3053.6 817.3 Output Total 175 1400 Balance 2878.6 -582.7 Meds/Results Medications: Active Medications Generic Name Dose Route Start Last Admin Trade Name Trace PRN Reason Stop Dose Admin Allopurinol 50 mg 12/05/24 09:00 12/05/24 09:27 Allopurinol 50 Mg Tablet PO 50 mg Q48H SHARIFA Administration Apixaban 5 mg 12/04/24 09:54 12/05/24 09:26 Apixaban 5 Mg Tablet PO 5 mg Q12HR SHARIFA Administration Aspirin 81 mg 12/05/24 09:00 12/05/24 09:27 Aspirin 81 Mg Enteric Tablet PO 81 mg DAILY SHARIFA Administration Carvedilol 6.25 mg 12/04/24 21:00 12/05/24 09:26 Carvedilol 6.25 Mg Tablet PO 6.25 mg Q12HR SHARIFA Administration Dextrose 12.5 gm 12/04/24 02:39 Dextrose 50% 25 Gm/50 Ml Syringe IV PUSH PRN PRN Hypoglycemia Protocol Furosemide 40 mg 12/05/24 18:00 Furosemide Inj 40 Mg/4 Ml Vial IV PUSH 12/05/24 18:01 ONCE ONE Glucagon 1 mg 12/04/24 02:39 Glucagon For Inj 1 Mg Vial IM PRN PRN Hypoglycemia Protocol Glucose 15 gm 12/04/24 02:39 Glucose Oral Gel 15 Gm Of Glucse In 37.5 Gm Tube PO PRN PRN Hypoglycemia Protocol Amiodarone HCl/Dextrose 360 mg in 200 mls @ 16.667 mls/hr 12/04/24 07:00 12/05/24 16:00 Nexterone 360 Mg/D5w 200 Ml IV CONT 0.5 mg/min .Q12H SHARIFA 16.67 mls/hr Infusion 0.5 MG/MIN Ceftriaxone Sodium 1 gm in 50 mls @ 100 mls/hr 12/04/24 23:00 12/04/24 22:44 Rocephin 1 Gm/Ns 50 Ml IVPB Infused Q24H SHARIFA Infusion Doxycycline Hyclate 100 mg in 100 mls @ 100 mls/hr 12/04/24 17:00 12/05/24 16:56 Vibramycin 100 Mg/Ns 100 Ml IVPB 100 mls/hr Q12H SHARIFA Administration Dextrose 1,000 mls @ 100 mls/hr 12/04/24 02:39 Dextrose 5% 1,000 Ml IVPB PRN PRN Hypoglycemia Protocol Milrinone Lactate 20 mg/ 100 mls @ 4.856 mls/hr 12/05/24 11:35 12/05/24 16:00 Dextrose IV CONT 0.125 mcg/kg/min .[id number] SHARIFA 4.86 mls/hr Infusion 0.125 MCG/KG/MIN Insulin Aspart 3 - 6 units 12/04/24 08:00 12/05/24 16:17 Insulin Aspart (*Bkc) 100 Units/Ml SUB-Q Not Given TIDWM SHARIFA Protocol Insulin Aspart 1 - 3 units 12/04/24 21:00 12/04/24 20:40 Insulin Aspart (*Bkc) 100 Units/Ml SUB-Q Not Given HS SHARIFA Protocol Levalbuterol HCl 0.63 mg 12/05/24 08:01 Levalbuterol Neb 1.25 Mg/3 Ml INHALATION Q6HRT PRN Wheezing Pantoprazole Sodium 40 mg 12/05/24 09:00 12/05/24 09:27 Pantoprazole 40 Mg Tablet PO 40 mg QAM SHARIFA Administration Perflutren Lipid Microsphere 0 ml 12/04/24 02:34 Perflutren Lipid Microspheres 1.5 Ml Vial Diluted To 10 Ml Total Volume IV PUSH 12/07/24 02:37 ONCE PRN adequate visualization Protocol Fluticasone/Salmeterol 2 puff 12/04/24 20:59 Fluticasone/Salmeterol 115-21 Mcg Inhaler 1 Puff INHALATION Q12HRT PRN Shortness Of Breath Or Wheezin Simvastatin 20 mg 12/04/24 21:00 12/04/24 21:23 Simvastatin 20 Mg Tablet PO 20 mg HS SHARIFA Administration Radiology Results: ITS Impressions Pulmonary Perfusion Imaging 12/04/24 13:58 IMPRESSION: 1. Low probability for pulmonary embolism. Venous Doppler Study 12/04/24 14:46 IMPRESSION: Negative bilateral lower extremity venous US. No deep vein thrombosis. Abdomen Ultrasound 12/04/24 15:11 IMPRESSION: 1. Normal portal venous direction of flow but with increased pulsatility which along with dilation of the hepatic veins, can be seen in the setting of right heart failure. 2. Mild bilateral renal cortical thinning with increased echogenicity consistent with likely chronic medical renal disease. No hydronephrosis. Renal Ultrasound 12/04/24 15:11 IMPRESSION: 1. Normal portal venous direction of flow but with increased pulsatility which along with dilation of the hepatic veins, can be seen in the setting of right heart failure. 2. Mild bilateral renal cortical thinning with increased echogenicity consistent with likely chronic medical renal disease. No hydronephrosis. Chest X-Ray 12/05/24 05:29 Impression: Clear lungs. Stable cardiomegaly with pacemaker device. Labs Labs: Laboratory Tests 12/05/24 04:13 WBC 15.3 H RBC 3.39 L Hgb 11.0 L Hct 33.8 L MCV 99.7 MCH 32.4 MCHC 32.5 RDW 13.5 Plt Count 130 L Sodium 133 L Potassium 4.5 Chloride 100 Carbon Dioxide 20 L Anion Gap 13 H BUN 61 H D Creatinine 2.96 H Estim Creat Clear Calc 21 Estimated GFR 15 L Glucose 132 H Calcium 8.4 Phosphorus 4.7 H Magnesium 1.7 Total Bilirubin 2.6 H AST 763 H ALT 1030 H Alkaline Phosphatase 112 Total Protein 7.0 Albumin 4.1 Hep Bs Antigen Negative Hep Bs Antibody Negative Microbiology 12/04/24 02:59 Urine Clean Catch Urine Culture - Preliminary Escherichia Coli 12/04/24 02:34 Blood Blood Culture - Preliminary 12/04/24 02:34 Blood Blood Culture - Preliminary
[2024-12-05 16:13] LABS: Glucose Point of Care 159 mg/dl (65-105)
[2024-12-05 17:25] LABS: Anion Gap 11 mmol/L (4-12); Blood Urea Nitrogen 64 mg/dL (7-17); Calcium 8.1 mg/dL (8.4-10.2); Carbon Dioxide 25 mmol/L (22-30); Chloride 99 mmol/L (98-107); Estimated CRCL calculation 19 ml/min; Estimated Glomerular Filt Rate 13; Glucose 175 mg/dL (65-110); Potassium 4.1 mmol/L (3.4-5.0); Sodium 135 mmol/L (137-145)
[2024-12-05 20:21] LABS: Glucose Point of Care 115 mg/dl (65-105)
[2024-12-06] VITALS (16 sets, daily range): BP systolic 95–121; BP diastolic 53–87; PULSE 98–118; RESP 18–30; TEMP 36.3–36.6; O2SAT 95–99
[2024-12-06 04:20] LABS: Hematocrit 31.7 % (37.0-47.0); Hemoglobin 10.4 g/dL (12.0-15.0); Mean Corpuscular HGB Conc 32.8 g/dl (32-36); Mean Corpuscular Hemoglobin 32.3 pg (26-34); Mean Corpuscular Volume 98.4 fl (80-100); Mean Platelet Volume 10.9 fl (7.4-10.4); Platelet Count Result 143 k/mm3 (150-375); Red Blood Count 3.22 M/mm3 (4.2-5.4); Red Cell Distribution Width 13.2 % (11.5-14.5); White Blood Count 9.4 K/mm3 (4.5-10.0)
[2024-12-06] MEDS: DOXYCYCLINE 100 MG/NS 100 ML 100 MG/100 ML BAG IVPB (04:23)
[2024-12-06 04:35] LABS: Albumin Level 3.7 g/dL (3.5-5.1); Alkaline Phosphatase 118 U/L (38-126); Anion Gap 13 mmol/L (4-12); Aspartate Amino Transferase 516 U/L (14-36); Bilirubin,Total 1.9 mg/dL (0.2-1.3); Blood Urea Nitrogen 67 mg/dL (7-17); Calcium 8.2 mg/dL (8.4-10.2); Carbon Dioxide 24 mmol/L (22-30); Chloride 100 mmol/L (98-107); Estimated CRCL calculation 18 ml/min; Estimated Glomerular Filt Rate 13; Glucose 116 mg/dL (65-110); Magnesium 1.7 mg/dL (1.6-2.3); Phosphorus 4.8 mg/dL (2.5-4.5); Potassium 3.8 mmol/L (3.4-5.0); Sodium 137 mmol/L (137-145)
[2024-12-06 04:44] LABS: Alanine Aminotransferase 1022 U/L (6-35)
[2024-12-06] MEDS: MILRINONE LACTATE 20 MG in DEXTROSE 5% 80 ML 4.86 MG IV CONT (05:20)
[2024-12-06] MEDS: AMIODARONE 360 MG/D5W 200 ML 360 MG/200 ML BAG 16.67 MG IV CONT (05:20)
[2024-12-06 07:28] LABS: Glucose Point of Care 160 mg/dl (65-105)
--- NOTE | 2024-12-06 08:40 | PM.PNNEP ---
Subjective Date/time seen: 12/06/24 08:40 Interval history: Follow-up for acute kidney injury/acute renal failure on chronic kidney disease. Objective Data Vital Signs Vital Signs: Vital Signs Temp Pulse Resp BP Pulse Ox O2 Del Method O2 Flow Rate 12/06/24 08:00 108 H 26 H 96 Nasal Cannula 3 12/06/24 08:00 101 H 12/06/24 08:00 105 H 119/65 12/06/24 08:00 101 H 119/65 12/06/24 08:00 97.6 F 118 H 21 H 116/70 96 12/06/24 06:00 105 H 101/65 12/06/24 06:00 115 H 101/65 12/06/24 06:00 105 H 18 101/65 98 12/06/24 06:00 107 H 12/06/24 05:20 107 H 102/87 12/06/24 05:20 107 H 102/87 12/06/24 05:20 114 H 102/87 12/06/24 05:20 115 H 102/87 12/06/24 04:30 107 H 20 96 BiPAP 12/06/24 04:00 114 H 12/06/24 04:00 110 H 110/56 L 12/06/24 04:00 101 H 110/56 L 12/06/24 04:00 97.7 F 117 H 20 110/56 L 96 12/06/24 03:11 101 H 22 H 97 BiPAP 12/06/24 02:00 115 H 96/53 L 12/06/24 02:00 115 H 99/53 L 12/06/24 02:00 105 H 24 H 95/63 L 99 12/06/24 02:00 105 H 12/06/24 00:30 113 H 21 H 97 BiPAP 12/06/24 00:00 113 H 12/06/24 00:00 97.4 F L 113 H 22 H 107/69 98 12/06/24 00:00 113 H 107/69 12/06/24 00:00 113 H 107/69 12/05/24 23:46 91 21 H 97 BiPAP 12/05/24 22:00 105 H 93/50 L 12/05/24 22:00 105 H 93/50 L 12/05/24 22:00 100 24 H 93/50 L 96 12/05/24 22:00 104 H 12/05/24 21:34 101 H 24 H 97 BiPAP 12/05/24 20:16 106 H 12/05/24 20:00 102 H 12/05/24 20:00 98.5 F 107 H 21 H 140/72 99 12/05/24 20:00 107 H 140/72 12/05/24 20:00 107 H 140/72 12/05/24 20:00 102 H 25 H 96 Nasal Cannula 3 12/05/24 18:05 113 H 145/55 H 12/05/24 18:04 113 H 145/55 H 12/05/24 18:04 113 H 145/55 H 12/05/24 18:00 103 H 12/05/24 18:00 98.2 F 108 H 23 H 145/55 H 95 12/05/24 17:15 95 Nasal Cannula 3 12/05/24 16:00 109 H 130/69 12/05/24 16:00 109 H 130/69 12/05/24 16:00 98.2 F 113 H 21 H 130/69 92 12/05/24 15:48 94 Nasal Cannula 3 12/05/24 14:42 116 H 28 H 96 BiPAP 12/05/24 14:00 110 H 12/05/24 14:00 110 H 121/78 12/05/24 14:00 110 H 121/78 12/05/24 14:00 111 H 29 H 121/78 96 Intake/Output Intake/Output: Intake & Output 12/03/24 12/04/24 12/05/24 12/06/24 23:59 23:59 23:59 23:59 Intake Total 3053.6 1192.3 1011.0 Output Total 175 1975 900 Balance 2878.6 -782.7 111.0 Meds/Results Medications: Active Medications Generic Name Dose Route Start Last Admin Trade Name Freq PRN Reason Stop Dose Admin Allopurinol 50 mg 12/05/24 09:00 12/05/24 09:27 Allopurinol 50 Mg Tablet PO 50 mg Q48H SHARIFA Administration Apixaban 5 mg 12/04/24 09:54 12/05/24 09:26 Apixaban 5 Mg Tablet PO 5 mg Q12HR SHARIFA Administration Aspirin 81 mg 12/05/24 09:00 12/06/24 08:52 Aspirin 81 Mg Enteric Tablet PO 81 mg DAILY SHARIFA Administration Carvedilol 6.25 mg 12/04/24 21:00 12/06/24 08:52 Carvedilol 6.25 Mg Tablet PO 6.25 mg Q12HR SHARIFA Administration Dextrose 12.5 gm 12/04/24 02:39 Dextrose 50% 25 Gm/50 Ml Syringe IV PUSH PRN PRN Hypoglycemia Protocol Furosemide 40 mg 12/06/24 17:00 Furosemide Inj 40 Mg/4 Ml Vial IV PUSH BID SHARIFA Glucagon 1 mg 12/04/24 02:39 Glucagon For Inj 1 Mg Vial IM PRN PRN Hypoglycemia Protocol Glucose 15 gm 12/04/24 02:39 Glucose Oral Gel 15 Gm Of Glucse In 37.5 Gm Tube PO PRN PRN Hypoglycemia Protocol Amiodarone HCl/Dextrose 360 mg in 200 mls @ 16.667 mls/hr 12/04/24 07:00 12/06/24 12:00 Nexterone 360 Mg/D5w 200 Ml IV CONT 0.5 mg/min .Q12H SHARIFA 16.67 mls/hr Infusion 0.5 MG/MIN Ceftriaxone Sodium 1 gm in 50 mls @ 100 mls/hr 12/04/24 23:00 12/05/24 23:00 Rocephin 1 Gm/Ns 50 Ml IVPB Not Given Q24H SHARIFA Doxycycline Hyclate 100 mg in 100 mls @ 100 mls/hr 12/04/24 17:00 12/06/24 05:23 Vibramycin 100 Mg/Ns 100 Ml IVPB 12/09/24 16:59 Infused Q12H SHARIFA Infusion Dextrose 1,000 mls @ 100 mls/hr 12/04/24 02:39 Dextrose 5% 1,000 Ml IVPB PRN PRN Hypoglycemia Protocol Milrinone Lactate 20 mg/ 100 mls @ 4.856 mls/hr 12/05/24 11:35 12/06/24 12:00 Dextrose IV CONT 0.125 mcg/kg/min .[id number] SHARIFA 4.86 mls/hr Infusion 0.125 MCG/KG/MIN Insulin Aspart 3 - 6 units 12/04/24 08:00 12/06/24 11:09 Insulin Aspart (*Bkc) 100 Units/Ml SUB-Q Not Given TIDWM SHARIFA Protocol Insulin Aspart 1 - 3 units 12/04/24 21:00 12/05/24 20:16 Insulin Aspart (*Bkc) 100 Units/Ml SUB-Q Not Given HS SHARIFA Protocol Levalbuterol HCl 0.63 mg 12/05/24 08:01 Levalbuterol Neb 1.25 Mg/3 Ml INHALATION Q6HRT PRN Wheezing Pantoprazole Sodium 40 mg 12/05/24 09:00 12/06/24 08:52 Pantoprazole 40 Mg Tablet PO 40 mg QAM SHARIFA Administration Perflutren Lipid Microsphere 0 ml 12/04/24 02:34 Perflutren Lipid Microspheres 1.5 Ml Vial Diluted To 10 Ml Total Volume IV PUSH 12/07/24 02:37 ONCE PRN adequate visualization Protocol Fluticasone/Salmeterol 2 puff 12/04/24 20:59 Fluticasone/Salmeterol 115-21 Mcg Inhaler 1 Puff INHALATION Q12HRT PRN Shortness Of Breath Or Wheezin Simvastatin 20 mg 12/04/24 21:00 12/04/24 21:23 Simvastatin 20 Mg Tablet PO 20 mg HS SHARIFA Administration Radiology Results: ITS Impressions Pulmonary Perfusion Imaging 12/04/24 13:58 IMPRESSION: 1. Low probability for pulmonary embolism. Venous Doppler Study 12/04/24 14:46 IMPRESSION: Negative bilateral lower extremity venous US. No deep vein thrombosis. Abdomen Ultrasound 12/04/24 15:11 IMPRESSION: 1. Normal portal venous direction of flow but with increased pulsatility which along with dilation of the hepatic veins, can be seen in the setting of right heart failure. 2. Mild bilateral renal cortical thinning with increased echogenicity consistent with likely chronic medical renal disease. No hydronephrosis. Renal Ultrasound 12/04/24 15:11 IMPRESSION: 1. Normal portal venous direction of flow but with increased pulsatility which along with dilation of the hepatic veins, can be seen in the setting of right heart failure. 2. Mild bilateral renal cortical thinning with increased echogenicity consistent with likely chronic medical renal disease. No hydronephrosis. Chest X-Ray 12/05/24 05:29 Impression: Clear lungs. Stable cardiomegaly with pacemaker device. Labs Labs: Laboratory Tests 12/06/24 04:15 12/06/24 04:15 Calcium 8.2 L Phosphorus 4.8 H Magnesium 1.7 Total Bilirubin 1.9 H AST 516 H ALT 1022 H Alkaline Phosphatase 118 Total Protein 6.0 L Albumin 3.7 Microbiology 12/04/24 02:59 Urine Clean Catch Urine Culture - Final Escherichia Coli
[2024-12-06] MEDS: ASPIRIN 81 MG ENTERIC TABLET PO (08:52)
[2024-12-06] MEDS: carvediloL 6.25 MG TABLET PO (08:52)
[2024-12-06] MEDS: PANTOPRAZOLE 40 MG TABLET PO (08:52)
--- NOTE | 2024-12-06 09:35 | WPDINTPN ---
Progress Note: A&P Assessment and Plan (1) Acute hypoxic respiratory failure: Code(s): J96.01 - Acute respiratory failure with hypoxia Status: Acute Assessment and Plan: Patient presented with acute respiratory failure likely secondary to pulmonary edema from congestive heart failure and AFib with RVR. Chest x-ray showed clear lungs at the time of admission She had a perfusion scan which was low probability. Patient has been started on anticoagulation for her AFib. She is not a candidate for CTA due to her elevated creatinine. Venous Dopplers of lower extremity were negative for DVT Patient was started on BiPAP. She was diuresed with Milrinone and Lasix. Over last 24 hours she has clinically improved and she has been weaned down to 3 L nasal cannula.. Continue diuretics. Incentive spirometry Continue NIPPV p.r.n. She was also started on antibiotics to cover community-acquired pneumonia. Cultures have been sent and are pending Urine Legionella and pneumococcal antigen are pending (2) Atrial fibrillation with RVR: Code(s): I48.91 - Unspecified atrial fibrillation Status: Acute Assessment and Plan: Presented with AFib with RVR. Patient has history of atrial flutter in the past and was on apixaban which was discontinued due to resolution. She was started on amiodarone infusion in the ER Patient was started on apixaban. 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 12/[address] Sparks again and she recommends transfer to tertiary facility where patient can have a right heart catheterization and be managed with a PA catheter. Our ICU and staff is not capable hence I will call [facility] for potential transfer. She has discuss with the patient and patient is agreeable to transfer if accepted Continue low-dose Milrinone and diuretics On aspirin and Coreg Losartan is on hold due to worsening renal function Statins on hold due to elevated LFTs Echocardiogram Summary 1. Left ventricular chamber dimension is moderately enlarged. 2. Left ventricular systolic function is moderately reduced, estimated at 30-35%. 3. There is mildly increased left ventricular wall thickness. 4. Right ventricular systolic function is normal. 5. Left atrial chamber dimension is severely enlarged. 6. Right atrial chamber dimension is moderately enlarged. 7. There is moderate to severe mitral valve regurgitation. 8. There is mild tricuspid valve regurgitation. 9. There is mild aortic valve regurgitation. 10. There is small pericardial effusion (4) Nonrheumatic mitral (valve) insufficiency: Code(s): I34.0 - Nonrheumatic mitral (valve) insufficiency Status: Acute Assessment and Plan: See above (5) AICD (automatic cardioverter/defibrillator) present: Code(s): Z95.810 - Presence of automatic (implantable) cardiac defibrillator Status: Acute Assessment and Plan: See above (6) Type 2 DM with CKD stage 3 and hypertension: Code(s): E11.22 - Type 2 diabetes mellitus with diabetic chronic kidney disease; I12.9 - Hypertensive chronic kidney disease with stage 1 through stage 4 chronic kidney disease, or unspecified chronic kidney disease; N18.30 - Chronic kidney disease, stage 3 unspecified Status: Acute Assessment and Plan: Sliding scale insulin ordered (7) Acute kidney injury: Code(s): N17.9 - Acute kidney failure, unspecified Status: Acute Assessment and Plan: Patient has a chronic kidney disease but presented with elevated creatinine likely secondary to AFib with RVR leading to hypotension and respiratory distress hypoxia Renal ultrasound confirmed medical renal disease Nephrology consulted and following Normal CK Patient was given Cautious IV fluid on 1st day but now is being diuresed due to her respiratory status Creatinine further increased 3.49 Continue diuretics at this time. Discussed with nephrology. Patient at risk of needing dialysis. Monitor urine output electrolytes and creatinine (8) Stage 3b chronic kidney disease (CKD): Code(s): N18.32 - Chronic kidney disease, stage 3b Status: Chronic Assessment and Plan: See above (9) Elevated liver enzymes: Code(s): R74.8 - Abnormal levels of other serum enzymes Status: Acute Assessment and Plan: Likely secondary to hypoperfusion from AFib with RVR and poor cardiac function Right upper quadrant ultrasound showed 1. Normal portal venous direction of flow but with increased pulsatility which along with dilation of the hepatic veins, can be seen in the setting of right heart failure. Hold statin (10) UTI (urinary tract infection): Code(s): N39.0 - Urinary tract infection, site not specified Status: Acute Assessment and Plan: UA suggestive UTI. Urine cultures is growing E coli which is pansensitive Continue Rocephin Plan DVT prophylaxis -patient is apixaban which will be held for potential right heart catheterization tomorrow Stress ulcer prophylaxis -PPI Nutrition -clear liquid diet due to respiratory status Code Status -discussed in detail with patient's 2 daughter and patient. Discussed possibility of her needing invasive mechanical ventilation. Also discussed possibility of her needing hemodialysis. Explained the difficult situation managing renal failure with heart failure. Answered their questions. Spoke to [facility] transfer center regarding potential transfer to [facility]. Provided all the information. Waiting for call back from position. Case discussed with Cardiology and Nephrology. Today Total Critical Care Time - 45 minutes Due to a high probability of clinically significant, life threatening deterioration, the patient required my highest level of preparedness to intervene emergently and I personally spent this critical care time directly and personally managing the patient. This critical care time included obtaining a history; examining the patient; pulse oximetry; ordering and review of studies; arranging urgent treatment with development of a management plan; evaluation of patient's response to treatment; frequent reassessment; and discussions with other providers. It was exclusive of separately billable procedures and treating other patients and teaching time. Please see Assessment and Plan section and the rest of the note for further information on patient assessment and treatment Subjective Date/time seen: 12/06/24 Overall she feels better today than yesterday. She is off of BiPAP and on 3 L nasal cannula. She is denies any shortness of breath today and complains of achy pain in both legs on the lateral side of each cough. She denies any chest pain. She does have cough which is dry. She denies any nausea vomiting abdominal pain headache dizziness lightheadedness palpitations. All other systems were reviewed and were negative. She continues to be in AFib with controlled ventricular rate she is on amiodarone infusion. She is on Milrinone infusion. Her blood pressure is 100 11 x 89 and she is saturating adequately with no respiratory distress. She is on clear liquid diet. She had a decent response to diuretics. Review of Systems Review of Systems: All systems reviewed & are unremarkable except as noted in HPI and below (HPI) ROS unobtainable: Yes unobtainable due to medical condition and unobtainable due to mental status Exam Narrative: General: Pt is alert awake and in NAD Lungs/Chest: Trachea central Clear BS B/L, few bibasilar crackles, no wheezing no respiratory distress or use of accessory muscles Cardiac: RRR. Normal S1 S2. No murmurs Circulation: Pedal pulses are intact and symmetrical. Abdomen: Normal bowel sounds. Obese. Soft. NT. ND. Extremities: Bilateral pitting edema present : Matos in place Neurologic: Follows commands. Moves all 4 extremities PERRL AO x3 Skin: No Rash Objective Data Vital Signs Vital Signs: Vital Signs - 24 hr 12/05/24 09:38 12/05/24 10:00 12/05/24 10:00 Temperature Pulse Rate 123 H 103 H 103 H Respiratory Rate 32 H Blood Pressure 134/75 133/80 Pulse Oximetry 97 Oxygen Delivery Oxygen Flow Rate Fraction of Inspired Oxygen 12/05/24 11:32 12/05/24 11:37 12/05/24 11:57 Temperature 36.9 C Pulse Rate 102 H 104 H Respiratory Rate 26 H 24 H Blood Pressure 109/63 Pulse Oximetry 96 96 Oxygen Delivery BiPAP BiPAP Oxygen Flow Rate Fraction of Inspired Oxygen 12/05/24 12:00 12/05/24 12:00 12/05/24 12:24 Temperature Pulse Rate 103 H 107 H 114 H Respiratory Rate Blood Pressure 128/100 H 114/87 Pulse Oximetry Oxygen Delivery Oxygen Flow Rate Fraction of Inspired Oxygen 12/05/24 12:30 12/05/24 14:00 12/05/24 14:00 Temperature Pulse Rate 111 H 110 H Respiratory Rate 29 H Blood Pressure 118/81 121/78 121/78 Pulse Oximetry 96 Oxygen Delivery Oxygen Flow Rate Fraction of Inspired Oxygen 12/05/24 14:00 12/05/24 14:00 12/05/24 14:42 Temperature Pulse Rate 110 H 110 H 116 H Respiratory Rate 28 H Blood Pressure 121/78 Pulse Oximetry 96 Oxygen Delivery BiPAP Oxygen Flow Rate Fraction of Inspired Oxygen 12/05/24 15:48 12/05/24 16:00 12/05/24 16:00 Temperature 36.8 C Pulse Rate 113 H 109 H Respiratory Rate 21 H Blood Pressure 130/69 130/69 Pulse Oximetry 94 92 Oxygen Delivery Nasal Cannula Oxygen Flow Rate 3 Fraction of Inspired Oxygen 12/05/24 16:00 12/05/24 17:15 12/05/24 18:00 Temperature 36.8 C Pulse Rate 109 H 108 H Respiratory Rate 23 H Blood Pressure 130/69 145/55 H Pulse Oximetry 95 95 Oxygen Delivery Nasal Cannula Oxygen Flow Rate 3 Fraction of Inspired Oxygen 12/05/24 18:00 12/05/24 18:04 12/05/24 18:04 Temperature Pulse Rate 103 H 113 H 113 H Respiratory Rate Blood Pressure 145/55 H 145/55 H Pulse Oximetry Oxygen Delivery Oxygen Flow Rate Fraction of Inspired Oxygen 12/05/24 18:05 12/05/24 20:00 12/05/24 20:00 Temperature Pulse Rate 113 H 102 H 107 H Respiratory Rate 25 H Blood Pressure 145/55 H 140/72 Pulse Oximetry 96 Oxygen Delivery Nasal Cannula Oxygen Flow Rate 3 Fraction of Inspired Oxygen 12/05/24 20:00 12/05/24 20:00 12/05/24 20:00 Temperature 36.9 C Pulse Rate 107 H 107 H 102 H Respiratory Rate 21 H Blood Pressure 140/72 140/72 Pulse Oximetry 99 Oxygen Delivery Oxygen Flow Rate Fraction of Inspired Oxygen 12/05/24 20:16 12/05/24 21:34 12/05/24 22:00 Temperature Pulse Rate 106 H 101 H 104 H Respiratory Rate 24 H Blood Pressure Pulse Oximetry 97 Oxygen Delivery BiPAP Oxygen Flow Rate Fraction of Inspired Oxygen 12/05/24 22:00 12/05/24 22:00 12/05/24 22:00 Temperature Pulse Rate 100 105 H 105 H Respiratory Rate 24 H Blood Pressure 93/50 L 93/50 L 93/50 L Pulse Oximetry 96 Oxygen Delivery Oxygen Flow Rate Fraction of Inspired Oxygen 12/05/24 23:46 12/06/24 00:00 12/06/24 00:00 Temperature Pulse Rate 91 113 H 113 H Respiratory Rate 21 H Blood Pressure 107/69 107/69 Pulse Oximetry 97 Oxygen Delivery BiPAP Oxygen Flow Rate Fraction of Inspired Oxygen 12/06/24 00:00 12/06/24 00:00 12/06/24 00:30 Temperature 36.3 C L Pulse Rate 113 H 113 H 113 H Respiratory Rate 22 H 21 H Blood Pressure 107/69 Pulse Oximetry 98 97 Oxygen Delivery BiPAP Oxygen Flow Rate Fraction of Inspired Oxygen 40 12/06/24 02:00 12/06/24 02:00 12/06/24 02:00 Temperature Pulse Rate 105 H 105 H 115 H Respiratory Rate 24 H Blood Pressure 95/63 L 99/53 L Pulse Oximetry 99 Oxygen Delivery Oxygen Flow Rate Fraction of Inspired Oxygen 12/06/24 02:00 12/06/24 03:11 12/06/24 04:00 Temperature 36.5 C Pulse Rate 115 H 101 H 117 H Respiratory Rate 22 H 20 Blood Pressure 96/53 L 110/56 L Pulse Oximetry 97 96 Oxygen Delivery BiPAP Oxygen Flow Rate Fraction of Inspired Oxygen 12/06/24 04:00 12/06/24 04:00 12/06/24 04:00 Temperature Pulse Rate 101 H 110 H 114 H Respiratory Rate Blood Pressure 110/56 L 110/56 L Pulse Oximetry Oxygen Delivery Oxygen Flow Rate Fraction of Inspired Oxygen 12/06/24 04:30 12/06/24 05:20 12/06/24 05:20 Temperature Pulse Rate 107 H 115 H 114 H Respiratory Rate 20 Blood Pressure 102/87 102/87 Pulse Oximetry 96 Oxygen Delivery BiPAP Oxygen Flow Rate Fraction of Inspired Oxygen 40 12/06/24 05:20 12/06/24 05:20 12/06/24 06:00 Temperature Pulse Rate 107 H 107 H 107 H Respiratory Rate Blood Pressure 102/87 102/87 Pulse Oximetry Oxygen Delivery Oxygen Flow Rate Fraction of Inspired Oxygen 12/06/24 06:00 12/06/24 06:00 12/06/24 06:00 Temperature Pulse Rate 105 H 115 H 105 H Respiratory Rate 18 Blood Pressure 101/65 101/65 101/65 Pulse Oximetry 98 Oxygen Delivery Oxygen Flow Rate Fraction of Inspired Oxygen 12/06/24 08:00 12/06/24 08:00 12/06/24 08:00 Temperature 36.4 C Pulse Rate 118 H 101 H 105 H Respiratory Rate 21 H Blood Pressure 116/70 119/65 119/65 Pulse Oximetry 96 Oxygen Delivery Oxygen Flow Rate Fraction of Inspired Oxygen 12/06/24 08:00 12/06/24 08:00 12/06/24 08:52 Temperature Pulse Rate 101 H 108 H 108 H Respiratory Rate 26 H Blood Pressure Pulse Oximetry 96 Oxygen Delivery Nasal Cannula Oxygen Flow Rate 3 Fraction of Inspired Oxygen Intake/Output Intake/Output: Intake & Output 12/03/24 12/04/24 12/05/24 12/06/24 23:59 23:59 23:59 23:59 Intake Total 3053.6 1192.3 565.0 Output Total 175 1975 900 Balance 2878.6 -782.7 -335.0 Meds/Results Medications: Active Medications Generic Name Dose Route Start Last Admin Trade Name Freq PRN Reason Stop Dose Admin Allopurinol 50 mg 12/05/24 09:00 12/05/24 09:27 Allopurinol 50 Mg Tablet PO 50 mg Q48H SHARIFA Administration Apixaban 5 mg 12/04/24 09:54 12/05/24 09:26 Apixaban 5 Mg Tablet PO 5 mg Q12HR SHARIFA Administration Aspirin 81 mg 12/05/24 09:00 12/06/24 08:52 Aspirin 81 Mg Enteric Tablet PO 81 mg DAILY SHARIFA Administration Carvedilol 6.25 mg 12/04/24 21:00 12/06/24 08:52 Carvedilol 6.25 Mg Tablet PO 6.25 mg Q12HR SHARIFA Administration Dextrose 12.5 gm 12/04/24 02:39 Dextrose 50% 25 Gm/50 Ml Syringe IV PUSH PRN PRN Hypoglycemia Protocol Glucagon 1 mg 12/04/24 02:39 Glucagon For Inj 1 Mg Vial IM PRN PRN Hypoglycemia Protocol Glucose 15 gm 12/04/24 02:39 Glucose Oral Gel 15 Gm Of Glucse In 37.5 Gm Tube PO PRN PRN Hypoglycemia Protocol Amiodarone HCl/Dextrose 360 mg in 200 mls @ 16.667 mls/hr 12/04/24 07:00 12/06/24 08:00 Nexterone 360 Mg/D5w 200 Ml IV CONT 0.5 mg/min .Q12H SHARIFA 16.67 mls/hr Infusion 0.5 MG/MIN Ceftriaxone Sodium 1 gm in 50 mls @ 100 mls/hr 12/04/24 23:00 12/05/24 23:00 Rocephin 1 Gm/Ns 50 Ml IVPB Not Given Q24H SHARIFA Doxycycline Hyclate 100 mg in 100 mls @ 100 mls/hr 12/04/24 17:00 12/06/24 05:23 Vibramycin 100 Mg/Ns 100 Ml IVPB Infused Q12H SHARIFA Infusion Dextrose 1,000 mls @ 100 mls/hr 12/04/24 02:39 Dextrose 5% 1,000 Ml IVPB PRN PRN Hypoglycemia Protocol Milrinone Lactate 20 mg/ 100 mls @ 4.856 mls/hr 12/05/24 11:35 12/06/24 08:00 Dextrose IV CONT 0.125 mcg/kg/min .[id number] SHARIFA 4.86 mls/hr Infusion 0.125 MCG/KG/MIN Insulin Aspart 3 - 6 units 12/04/24 08:00 12/06/24 08:42 Insulin Aspart (*Bkc) 100 Units/Ml SUB-Q Not Given TIDWM SHARIFA Protocol Insulin Aspart 1 - 3 units 12/04/24 21:00 12/05/24 20:16 Insulin Aspart (*Bkc) 100 Units/Ml SUB-Q Not Given HS SHARIFA Protocol Levalbuterol HCl 0.63 mg 12/05/24 08:01 Levalbuterol Neb 1.25 Mg/3 Ml INHALATION Q6HRT PRN Wheezing Pantoprazole Sodium 40 mg 12/05/24 09:00 12/06/24 08:52 Pantoprazole 40 Mg Tablet PO 40 mg QAM SHARIFA Administration Perflutren Lipid Microsphere 0 ml 12/04/24 02:34 Perflutren Lipid Microspheres 1.5 Ml Vial Diluted To 10 Ml Total Volume IV PUSH 12/07/24 02:37 ONCE PRN adequate visualization Protocol Fluticasone/Salmeterol 2 puff 12/04/24 20:59 Fluticasone/Salmeterol 115-21 Mcg Inhaler 1 Puff INHALATION Q12HRT PRN Shortness Of Breath Or Wheezin Simvastatin 20 mg 12/04/24 21:00 12/04/24 21:23 Simvastatin 20 Mg Tablet PO 20 mg HS SHARIFA Administration Radiology Results: ITS Impressions Pulmonary Perfusion Imaging 12/04/24 13:58 IMPRESSION: 1. Low probability for pulmonary embolism. Venous Doppler Study 12/04/24 14:46 IMPRESSION: Negative bilateral lower extremity venous US. No deep vein thrombosis. Abdomen Ultrasound 12/04/24 15:11 IMPRESSION: 1. Normal portal venous direction of flow but with increased pulsatility which along with dilation of the hepatic veins, can be seen in the setting of right heart failure. 2. Mild bilateral renal cortical thinning with increased echogenicity consistent with likely chronic medical renal disease. No hydronephrosis. Renal Ultrasound 12/04/24 15:11 IMPRESSION: 1. Normal portal venous direction of flow but with increased pulsatility which along with dilation of the hepatic veins, can be seen in the setting of right heart failure. 2. Mild bilateral renal cortical thinning with increased echogenicity consistent with likely chronic medical renal disease. No hydronephrosis. Chest X-Ray 12/05/24 05:29 Impression: Clear lungs. Stable cardiomegaly with pacemaker device. Labs Labs: Laboratory Results - last 24 hr 12/05/24 12/05/24 12/05/24 11:23 15:46 17:10 WBC RBC Hgb Hct MCV MCH MCHC RDW Plt Count MPV Sodium 135 L Potassium 4.1 Chloride 99 Carbon Dioxide 25 Anion Gap 11 BUN 64 H Creatinine 3.34 H Estim Creat Clear Calc 19 Estimated GFR 13 L Glucose 175 H POC Capillary Glucose 178 H 159 H Calcium 8.1 L Phosphorus Magnesium Total Bilirubin AST ALT Alkaline Phosphatase Total Protein Albumin 12/05/24 12/06/24 12/06/24 20:15 04:15 07:24 WBC 9.4 RBC 3.22 L Hgb 10.4 L Hct 31.7 L MCV 98.4 MCH 32.3 MCHC 32.8 RDW 13.2 Plt Count 143 L MPV 10.9 H Sodium 137 Potassium 3.8 Chloride 100 Carbon Dioxide 24 Anion Gap 13 H BUN 67 H Creatinine 3.49 H Estim Creat Clear Calc 18 Estimated GFR 13 L Glucose 116 H POC Capillary Glucose 115 H 160 H Calcium 8.2 L Phosphorus 4.8 H Magnesium 1.7 Total Bilirubin 1.9 H AST 516 H ALT 1022 H Alkaline Phosphatase 118 Total Protein 6.0 L Albumin 3.7 Quality VTE Prophylaxis VTE prophylaxis: pharmacologic ordered
--- NOTE | 2024-12-06 11:05 | P.PNCA_ITS ---
Progress Note: A&P Assessment and Plan (1) Atrial fibrillation with RVR: Code(s): I48.91 - Unspecified atrial fibrillation Status: Acute (2) Dilated cardiomyopathy: Code(s): I42.0 - Dilated cardiomyopathy Status: Chronic (3) AICD (automatic cardioverter/defibrillator) present: Code(s): Z95.810 - Presence of automatic (implantable) cardiac defibrillator Status: Acute (4) Mixed hyperlipidemia: Code(s): E78.2 - Mixed hyperlipidemia Status: Acute (5) Essential (primary) hypertension: Code(s): I10 - Essential (primary) hypertension Status: Chronic (6) Moderate to severe mitral regurgitation: Code(s): I34.0 - Nonrheumatic mitral (valve) insufficiency Status: Acute Plan Problem list: -Atrial fibrillation with RVR -Moderate to severe MR -SOB secondary to above -Elevated troponin without chest pain - most likely secondary to A fib with RVR -Elevated D-dimer with lower extremity Dopplers negative for DVT and V/Q scan showing low probability of PE -Hypoxic respiratory failure - most likely secondary to MR versus respiratory -HTN -HLD -Acute on chronic systolic heart failure with LVEF 30-35% -S/p PM, ICD -Sepsis -Acute on chronic kidney disease -T2DM Plan: -Continue Amiodarone drip. -Given depressed LVEF of 30-35% and end-organ damage with worsening renal failure and multiorgan dysfunction with elevated liver enzymes, Milrinone drip started 12/06. RHC was recommended by us, however, this institution not capable of managing [place] catheter placement in our ICU here, therefore, recommend transfer to tertiary center. -Continue diuresis as tolerated with IV Lasix -GDMT for systolic heart failure - continue Coreg; can add SGLT2 inhibitor; allergy to lisinopril - cough; hold Losartan due to ZULY on top of CKD -Eliquis on hold for possible procedure. -Outpatient SHD consult to evaluate MR with JANINA and institute appropriate therapy. She would be a candidate for MitraClip if MR remains moderate to severe after diuresis and GDMT. Recommendations and plan discussed with ICU Physician. Subjective Date/time seen: 12/06/24 11:05 Interval history: Reason for visit: AFIB with RVR, CHF HPI: 74-year-old female with history of hyperlipidemia, HTN, cardiomyopathy with LVEF 35% in 2020 (originally diagnoses in 2009 at which time cath showed no CAD), transient A flutter 3 years ago (was on Xarelto for 6 months and then stopped), s/p PM and ICD, type 2 diabetes mellitus, chronic kidney disease,GERD, arthritis, left branch block presents with chief complaints of worsening dyspnea for the past few days. She states that she was short of breath since last Monday and progressively getting worse. Last week, her pacemaker company called and told her she had been in A fib for which she was supposed to see Dr. 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 But given worsening of her symptoms, she presented to the ER today. She states that she had an episode of A flutter 3 years ago which was transient. She took Xarelto for 6 months and then stopped as there was no recurrence. Since then she has not had A flutter or fib until now. She reports an episode of emesis and diarrhea today. No chest pain, dizziness, LH, pre syncope, syncope, leg swelling, recent weight gain, palpitations, orthopnea, PND. In the ER, she was in respiratory distress with SaO2 of 85% and SBP in the 90s. She was noted to have A fib with RVR with ventricular rates in the 160s to 180s. Patient was placed on BiPAP and started on amiodarone drip. Work up: EKG: A fib with rate of 156 Follow up EKG: V paced rhythm WBC: 21.6 Creatinine: 2.87 (baseline 1.3-1.7) Troponin: 0.028--0.070 D-dimer: elevated at 3.07 CXR: cardiomegaly with coarse lung markings without focal infiltrate or effusion TTE: LVEF 30-35%, grade II diastolic dysfunction, moderate to severe MR, mild AR, mild TR, small pericardial effusion (TTE in 2020 also showed LVEF of 35%) Date of service 12/05: She complains of shortness of breath. She states shortness of breath was worse early in the morning around 2:30 a.m.. At this time the BiPAP settings were changed after which she feels better. No chest pain. Date of service 12/06: Off of BIPAP now, on nasal cannula. Clinically, remains volume overloaded. SCr continues to worsen. Review of Systems Cardiovascular: Cardiovascular: Reports as per HPI Exam Const: General: no acute distress HENMT: Mouth: Yes moist mucous membranes Eyes: General: appearance normal, both eyes and all related structures Sclera: sclerae normal Resp: Effort & Inspection: normal respiratory effort Other: On supplemental oxygen Cardio: Rate: tachycardic Rhythm: regular rhythm Other: Bilateral lower extremity edema Skin: General skin exam: normal color Neuro: Speech: normal speech Psych: Mental Status: mental status grossly normal Affect: normal affect Objective Data Vital Signs Vital Signs: Vital Signs - 24 hr 12/05/24 11:32 12/05/24 11:37 12/05/24 11:57 Temperature 36.9 C Pulse Rate 102 H 104 H Respiratory Rate 26 H 24 H Blood Pressure 109/63 Pulse Oximetry 96 96 Oxygen Delivery BiPAP BiPAP Oxygen Flow Rate Fraction of Inspired Oxygen 12/05/24 12:00 12/05/24 12:00 12/05/24 12:24 Temperature Pulse Rate 103 H 107 H 114 H Respiratory Rate Blood Pressure 128/100 H 114/87 Pulse Oximetry Oxygen Delivery Oxygen Flow Rate Fraction of Inspired Oxygen 12/05/24 12:30 12/05/24 14:00 12/05/24 14:00 Temperature Pulse Rate 111 H 110 H Respiratory Rate 29 H Blood Pressure 118/81 121/78 121/78 Pulse Oximetry 96 Oxygen Delivery Oxygen Flow Rate Fraction of Inspired Oxygen 12/05/24 14:00 12/05/24 14:00 12/05/24 14:42 Temperature Pulse Rate 110 H 110 H 116 H Respiratory Rate 28 H Blood Pressure 121/78 Pulse Oximetry 96 Oxygen Delivery BiPAP Oxygen Flow Rate Fraction of Inspired Oxygen 12/05/24 15:48 12/05/24 16:00 12/05/24 16:00 Temperature 36.8 C Pulse Rate 113 H 109 H Respiratory Rate 21 H Blood Pressure 130/69 130/69 Pulse Oximetry 94 92 Oxygen Delivery Nasal Cannula Oxygen Flow Rate 3 Fraction of Inspired Oxygen 12/05/24 16:00 12/05/24 17:15 12/05/24 18:00 Temperature 36.8 C Pulse Rate 109 H 108 H Respiratory Rate 23 H Blood Pressure 130/69 145/55 H Pulse Oximetry 95 95 Oxygen Delivery Nasal Cannula Oxygen Flow Rate 3 Fraction of Inspired Oxygen 12/05/24 18:00 12/05/24 18:04 12/05/24 18:04 Temperature Pulse Rate 103 H 113 H 113 H Respiratory Rate Blood Pressure 145/55 H 145/55 H Pulse Oximetry Oxygen Delivery Oxygen Flow Rate Fraction of Inspired Oxygen 12/05/24 18:05 12/05/24 20:00 12/05/24 20:00 Temperature Pulse Rate 113 H 102 H 107 H Respiratory Rate 25 H Blood Pressure 145/55 H 140/72 Pulse Oximetry 96 Oxygen Delivery Nasal Cannula Oxygen Flow Rate 3 Fraction of Inspired Oxygen 12/05/24 20:00 12/05/24 20:00 12/05/24 20:00 Temperature 36.9 C Pulse Rate 107 H 107 H 102 H Respiratory Rate 21 H Blood Pressure 140/72 140/72 Pulse Oximetry 99 Oxygen Delivery Oxygen Flow Rate Fraction of Inspired Oxygen 12/05/24 20:16 12/05/24 21:34 12/05/24 22:00 Temperature Pulse Rate 106 H 101 H 104 H Respiratory Rate 24 H Blood Pressure Pulse Oximetry 97 Oxygen Delivery BiPAP Oxygen Flow Rate Fraction of Inspired Oxygen 12/05/24 22:00 12/05/24 22:00 12/05/24 22:00 Temperature Pulse Rate 100 105 H 105 H Respiratory Rate 24 H Blood Pressure 93/50 L 93/50 L 93/50 L Pulse Oximetry 96 Oxygen Delivery Oxygen Flow Rate Fraction of Inspired Oxygen 12/05/24 23:46 12/06/24 00:00 12/06/24 00:00 Temperature Pulse Rate 91 113 H 113 H Respiratory Rate 21 H Blood Pressure 107/69 107/69 Pulse Oximetry 97 Oxygen Delivery BiPAP Oxygen Flow Rate Fraction of Inspired Oxygen 12/06/24 00:00 12/06/24 00:00 12/06/24 00:30 Temperature 36.3 C L Pulse Rate 113 H 113 H 113 H Respiratory Rate 22 H 21 H Blood Pressure 107/69 Pulse Oximetry 98 97 Oxygen Delivery BiPAP Oxygen Flow Rate Fraction of Inspired Oxygen 40 12/06/24 02:00 12/06/24 02:00 12/06/24 02:00 Temperature Pulse Rate 105 H 105 H 115 H Respiratory Rate 24 H Blood Pressure 95/63 L 99/53 L Pulse Oximetry 99 Oxygen Delivery Oxygen Flow Rate Fraction of Inspired Oxygen 12/06/24 02:00 12/06/24 03:11 12/06/24 04:00 Temperature 36.5 C Pulse Rate 115 H 101 H 117 H Respiratory Rate 22 H 20 Blood Pressure 96/53 L 110/56 L Pulse Oximetry 97 96 Oxygen Delivery BiPAP Oxygen Flow Rate Fraction of Inspired Oxygen 12/06/24 04:00 12/06/24 04:00 12/06/24 04:00 Temperature Pulse Rate 101 H 110 H 114 H Respiratory Rate Blood Pressure 110/56 L 110/56 L Pulse Oximetry Oxygen Delivery Oxygen Flow Rate Fraction of Inspired Oxygen 12/06/24 04:30 12/06/24 05:20 12/06/24 05:20 Temperature Pulse Rate 107 H 115 H 114 H Respiratory Rate 20 Blood Pressure 102/87 102/87 Pulse Oximetry 96 Oxygen Delivery BiPAP Oxygen Flow Rate Fraction of Inspired Oxygen 40 12/06/24 05:20 12/06/24 05:20 12/06/24 06:00 Temperature Pulse Rate 107 H 107 H 107 H Respiratory Rate Blood Pressure 102/87 102/87 Pulse Oximetry Oxygen Delivery Oxygen Flow Rate Fraction of Inspired Oxygen 12/06/24 06:00 12/06/24 06:00 12/06/24 06:00 Temperature Pulse Rate 105 H 115 H 105 H Respiratory Rate 18 Blood Pressure 101/65 101/65 101/65 Pulse Oximetry 98 Oxygen Delivery Oxygen Flow Rate Fraction of Inspired Oxygen 12/06/24 08:00 12/06/24 08:00 12/06/24 08:00 Temperature 36.4 C Pulse Rate 118 H 101 H 105 H Respiratory Rate 21 H Blood Pressure 116/70 119/65 119/65 Pulse Oximetry 96 Oxygen Delivery Oxygen Flow Rate Fraction of Inspired Oxygen 12/06/24 08:00 12/06/24 08:00 12/06/24 08:52 Temperature Pulse Rate 101 H 108 H 108 H Respiratory Rate 26 H Blood Pressure Pulse Oximetry 96 Oxygen Delivery Nasal Cannula Oxygen Flow Rate 3 Fraction of Inspired Oxygen 12/06/24 09:51 12/06/24 10:00 12/06/24 10:00 Temperature Pulse Rate 115 H 103 H Respiratory Rate 19 Blood Pressure 108/73 Pulse Oximetry 95 99 Oxygen Delivery Nasal Cannula Oxygen Flow Rate 3 Fraction of Inspired Oxygen 12/06/24 10:00 12/06/24 10:00 12/06/24 10:00 Temperature Pulse Rate 108 H 118 H 114 H Respiratory Rate 25 H Blood Pressure 121/73 121/73 121/73 Pulse Oximetry 96 Oxygen Delivery Oxygen Flow Rate Fraction of Inspired Oxygen 12/06/24 10:17 Temperature 36.6 C Pulse Rate Respiratory Rate Blood Pressure Pulse Oximetry Oxygen Delivery Oxygen Flow Rate Fraction of Inspired Oxygen Intake/Output Intake/Output: Intake & Output 12/03/24 12/04/24 12/05/24 12/06/24 23:59 23:59 23:59 23:59 Intake Total 3053.6 1192.3 608.0 Output Total 175 1975 900 Balance 2878.6 -782.7 -292.0 Meds/Results Medications: Active Medications Generic Name Dose Route Start Last Admin Trade Name Freq PRN Reason Stop Dose Admin Allopurinol 50 mg 12/05/24 09:00 12/05/24 09:27 Allopurinol 50 Mg Tablet PO 50 mg Q48H SHARIFA Administration Apixaban 5 mg 12/04/24 09:54 12/05/24 09:26 Apixaban 5 Mg Tablet PO 5 mg Q12HR SHARIFA Administration Aspirin 81 mg 12/05/24 09:00 12/06/24 08:52 Aspirin 81 Mg Enteric Tablet PO 81 mg DAILY SHARIFA Administration Carvedilol 6.25 mg 12/04/24 21:00 12/06/24 08:52 Carvedilol 6.25 Mg Tablet PO 6.25 mg Q12HR SHARIFA Administration Dextrose 12.5 gm 12/04/24 02:39 Dextrose 50% 25 Gm/50 Ml Syringe IV PUSH PRN PRN Hypoglycemia Protocol Furosemide 40 mg 12/06/24 17:00 Furosemide Inj 40 Mg/4 Ml Vial IV PUSH BID SHARIFA Glucagon 1 mg 12/04/24 02:39 Glucagon For Inj 1 Mg Vial IM PRN PRN Hypoglycemia Protocol Glucose 15 gm 12/04/24 02:39 Glucose Oral Gel 15 Gm Of Glucse In 37.5 Gm Tube PO PRN PRN Hypoglycemia Protocol Amiodarone HCl/Dextrose 360 mg in 200 mls @ 16.667 mls/hr 12/04/24 07:00 12/06/24 10:00 Nexterone 360 Mg/D5w 200 Ml IV CONT 0.5 mg/min .Q12H SHARIFA 16.67 mls/hr Infusion 0.5 MG/MIN Ceftriaxone Sodium 1 gm in 50 mls @ 100 mls/hr 12/04/24 23:00 12/05/24 23:00 Rocephin 1 Gm/Ns 50 Ml IVPB Not Given Q24H SHARIFA Doxycycline Hyclate 100 mg in 100 mls @ 100 mls/hr 12/04/24 17:00 12/06/24 05:23 Vibramycin 100 Mg/Ns 100 Ml IVPB 12/09/24 16:59 Infused Q12H SHARIFA Infusion Dextrose 1,000 mls @ 100 mls/hr 12/04/24 02:39 Dextrose 5% 1,000 Ml IVPB PRN PRN Hypoglycemia Protocol Milrinone Lactate 20 mg/ 100 mls @ 4.856 mls/hr 12/05/24 11:35 12/06/24 10:00 Dextrose IV CONT 0.125 mcg/kg/min .[id number] SHARIFA 4.86 mls/hr Infusion 0.125 MCG/KG/MIN Insulin Aspart 3 - 6 units 12/04/24 08:00 12/06/24 08:42 Insulin Aspart (*Bkc) 100 Units/Ml SUB-Q Not Given TIDWM SHARIFA Protocol Insulin Aspart 1 - 3 units 12/04/24 21:00 12/05/24 20:16 Insulin Aspart (*Bkc) 100 Units/Ml SUB-Q Not Given HS SHARIFA Protocol Levalbuterol HCl 0.63 mg 12/05/24 08:01 Levalbuterol Neb 1.25 Mg/3 Ml INHALATION Q6HRT PRN Wheezing Pantoprazole Sodium 40 mg 12/05/24 09:00 12/06/24 08:52 Pantoprazole 40 Mg Tablet PO 40 mg QAM SHARIFA Administration Perflutren Lipid Microsphere 0 ml 12/04/24 02:34 Perflutren Lipid Microspheres 1.5 Ml Vial Diluted To 10 Ml Total Volume IV PUSH 12/07/24 02:37 ONCE PRN adequate visualization Protocol Fluticasone/Salmeterol 2 puff 12/04/24 20:59 Fluticasone/Salmeterol 115-21 Mcg Inhaler 1 Puff INHALATION Q12HRT PRN Shortness Of Breath Or Wheezin Simvastatin 20 mg 12/04/24 21:00 12/04/24 21:23 Simvastatin 20 Mg Tablet PO 20 mg HS SHARIFA Administration Radiology Results: ITS Impressions Pulmonary Perfusion Imaging 12/04/24 13:58 IMPRESSION: 1. Low probability for pulmonary embolism. Venous Doppler Study 12/04/24 14:46 IMPRESSION: Negative bilateral lower extremity venous US. No deep vein thrombosis. Abdomen Ultrasound 12/04/24 15:11 IMPRESSION: 1. Normal portal venous direction of flow but with increased pulsatility which along with dilation of the hepatic veins, can be seen in the setting of right heart failure. 2. Mild bilateral renal cortical thinning with increased echogenicity consistent with likely chronic medical renal disease. No hydronephrosis. Renal Ultrasound 12/04/24 15:11 IMPRESSION: 1. Normal portal venous direction of flow but with increased pulsatility which along with dilation of the hepatic veins, can be seen in the setting of right heart failure. 2. Mild bilateral renal cortical thinning with increased echogenicity consistent with likely chronic medical renal disease. No hydronephrosis. Chest X-Ray 12/05/24 05:29 Impression: Clear lungs. Stable cardiomegaly with pacemaker device. Labs Labs: Laboratory Results - last 24 hr 12/05/24 12/05/24 12/05/24 11:23 15:46 17:10 WBC RBC Hgb Hct MCV MCH MCHC RDW Plt Count MPV Sodium 135 L Potassium 4.1 Chloride 99 Carbon Dioxide 25 Anion Gap 11 BUN 64 H Creatinine 3.34 H Estim Creat Clear Calc 19 Estimated GFR 13 L Glucose 175 H POC Capillary Glucose 178 H 159 H Calcium 8.1 L Phosphorus Magnesium Total Bilirubin AST ALT Alkaline Phosphatase Total Protein Albumin 12/05/24 12/06/24 12/06/24 20:15 04:15 07:24 WBC 9.4 RBC 3.22 L Hgb 10.4 L Hct 31.7 L MCV 98.4 MCH 32.3 MCHC 32.8 RDW 13.2 Plt Count 143 L MPV 10.9 H Sodium 137 Potassium 3.8 Chloride 100 Carbon Dioxide 24 Anion Gap 13 H BUN 67 H Creatinine 3.49 H Estim Creat Clear Calc 18 Estimated GFR 13 L Glucose 116 H POC Capillary Glucose 115 H 160 H Calcium 8.2 L Phosphorus 4.8 H Magnesium 1.7 Total Bilirubin 1.9 H AST 516 H ALT 1022 H Alkaline Phosphatase 118 Total Protein 6.0 L Albumin 3.7
[2024-12-06 11:09] LABS: Glucose Point of Care 143 mg/dl (65-105)
[2024-12-06 12:59] LABS: Lactic Acid Reflex 0.7 mmol/L (0.7-2.0)
[2024-12-06 15:43] LABS: Pneumococcal Antigen Urine NOT DETECTED
[2024-12-06 20:09] LABS: Legionella pneumophila Ag Ur NOT DETECTED
--- NOTE | 2024-12-10 08:56 | P.TS_ITS ---
Transfer Discharge Sum: Prov Provider Date of admission: 12/04/24 07:59 Primary care physician: Charisse Isaac MD Admitting clinician: Fawad Jackson MD Consults: 12/04/24 Consult to Physician Routine Comment: Spoke with Sandie Consulting Provider: Matheus Wyatt software developer/MD group to consult: Cardiology - Yoselin Reason for consultation: A-fib RVR Has provider been notified: Yes Consult to Physician Routine Comment: Voice mail message left for Dr. Ricci Consulting Provider: Vicki Ricci software developer/MD group to consult: Keiry Reason for consultation: ZULY, CKD Has provider been notified: Yes 12/04/24 02:19 Consult to Physician Routine Comment: Message given to Dr Leslie Consulting Provider: Paulo Leslie software developer/ group to consult: Dr. Leslie Reason for consultation: Acute hypoxic respiratory failure, pulmonary vascular congestion, AFib RVR Has provider been notified: Yes Discharging clinician: Paulo Leslie Anticipated date of transfer: 12/06/24 Receiving physician/facility: [facility] Dr. Duran DS: Admitting Diagnosis Discharge Date 12/06/24 Admitting Diagnosis acute respiratory failure, AFib with RVR, cardiomyopathy DS: Discharge Diagnosis Discharge Diagnosis (1) Acute hypoxic respiratory failure: Code(s): J96.01 - Acute respiratory failure with hypoxia Status: Acute (2) Atrial fibrillation with RVR: Code(s): I48.91 - Unspecified atrial fibrillation Status: Acute (3) Dilated cardiomyopathy: Code(s): I42.0 - Dilated cardiomyopathy Status: Chronic (4) Nonrheumatic mitral (valve) insufficiency: Code(s): I34.0 - Nonrheumatic mitral (valve) insufficiency Status: Acute (5) AICD (automatic cardioverter/defibrillator) present: Code(s): Z95.810 - Presence of automatic (implantable) cardiac defibrillator Status: Acute (6) Type 2 DM with CKD stage 3 and hypertension: Code(s): E11.22 - Type 2 diabetes mellitus with diabetic chronic kidney disease; I12.9 - Hypertensive chronic kidney disease with stage 1 through stage 4 chronic kidney disease, or unspecified chronic kidney disease; N18.30 - Chronic kidney disease, stage 3 unspecified Status: Acute (7) Acute kidney injury: Code(s): N17.9 - Acute kidney failure, unspecified Status: Acute (8) Stage 3b chronic kidney disease (CKD): Code(s): N18.32 - Chronic kidney disease, stage 3b Status: Chronic (9) Elevated liver enzymes: Code(s): R74.8 - Abnormal levels of other serum enzymes Status: Acute (10) UTI (urinary tract infection): Code(s): N39.0 - Urinary tract infection, site not specified Status: Acute Transfer Discharge Sum: Med Medications Active and Home Medications: Home Medications aspirin 81 mg tablet,delayed release 81 mg PO DAILY 06/28/19 [History Confirmed 12/04/24] cpap #1 ea 04/18/24 [Rx Confirmed 12/04/24] carvedilol 12.5 mg tablet 12.5 mg PO BID #180 tabs 05/20/24 [Rx Confirmed 12/04/24] furosemide 20 mg tablet 20 mg PO DAILY #90 tabs 05/20/24 [Rx Confirmed 12/04/24] allopurinol 300 mg tablet 300 mg PO BID #180 tabs 05/30/24 [Rx Confirmed 12/04/24] budesonide-formoterol HFA 160 mcg-4.5 mcg/actuation aerosol inhaler (Symbicort) 2 puff inhalation Q12H PRN Shortness Of Breath Or Wheezing #10.2 grams 07/25/24 [Rx Confirmed 12/04/24] albuterol sulfate 90 mcg/actuation aerosol inhaler See Rx Instructions .Route .COMPLEX #8.5 ea 08/26/24 [Rx Confirmed 12/04/24] citalopram 40 mg tablet See Rx Instructions .Route .COMPLEX #90 tabs 09/30/24 [Rx Confirmed 12/04/24] pantoprazole 40 mg tablet,delayed release See Rx Instructions .Route .COMPLEX #90 tabs 10/02/24 [Rx Confirmed 12/04/24] simvastatin 20 mg tablet See Rx Instructions .Route .COMPLEX #90 tabs 10/02/24 [Rx Confirmed 12/04/24] spironolactone 25 mg tablet 25 mg PO DAILY #90 tabs 10/14/24 [Rx Confirmed 12/04/24] losartan 25 mg tablet 25 mg PO DAILY #90 tabs 10/24/24 [Rx Confirmed 12/04/24] Transfer Discharge Sum: Hosp Hospital Course Hospital course: Eva Arriaza is a 74 year old female with history of nonischemic dilated cardiomyopathy status post pacemaker and AICD. History of atrial flutter but not on any anticoagulation at this time, left bundle-branch block, CKD, hypertension, hyperlipidemia who presented to ER with chief complaint of shortness of breath. She was told by the pacemaker company that she was having AFib and she was supposed to see her EP doctor but symptoms got worse and hence she presented to ER. In ER patient was diagnosed with AFib with RVR and was in respiratory distress and placed on BiPAP. Patient was given several dose of metoprolol but did not help hence patient was started on amiodarone infusion. Workup also showed elevated WBC at 15.9 hemoglobin 11.8 ABG 7.43//32/ 129/21 on BiPAP. Creatinine elevated at 2.87 lactic 1.6 troponin elevated at 0.07 elevated ALT and AST Procalcitonin 5 UA was suggestive of UTI. Patient was admitted to ICU for further evaluation management. In patient was shown was also seen by Nephrology and Cardiology. Patient was diuresed and eventually weaned off of BiPAP over next few days. Will Doppler lower extremity was negative for DVT. She was started on anticoagulation for AFib and rate to improved with amiodarone infusion. Echocardiogram showed nonischemic dilated cardiomyopathy with EF 30-35% and moderate to severe MR. Cardiology recommended right heart catheterization and management as per findings. patient had signs of cardiogenic shock with elevated LFTs and worsening creatinine. Patient was started on Milrinone and diuretics . UTI was treated with Rocephin and she grew out E coli which was pansensitive. After discussion with patient and her daughter's decision was made to transfer to tertiary facility for right heart catheterization and advanced heart failure management and intensive care where 24/7 intense was coverage is available And patient can be managed with a PA catheter. Patient was accepted by [facility] through [facility] transfer center. Patient was transferred in stable condition. on 12/06 Time Spent with Patient Time attestation: Total time spent providing and/or coordinating transfer services: Exam Narrative: General: Pt is alert awake and in NAD Lungs/Chest: Trachea central Clear BS B/L, few bibasilar crackles, no wheezing no respiratory distress or use of accessory muscles Cardiac: RRR. Normal S1 S2. No murmurs Circulation: Pedal pulses are intact and symmetrical. Abdomen: Normal bowel sounds. Obese. Soft. NT. ND. Extremities: Bilateral pitting edema present : Matos in place Neurologic: Follows commands. Moves all 4 extremities PERRL AO x3 Skin: No Rash DS: Data Data Completed and Pending Completed studies during hospitalization: Pulmonary Perfusion Imaging 12/04/24 13:58 IMPRESSION: 1. Low probability for pulmonary embolism. Venous Doppler Study 12/04/24 14:46 IMPRESSION: Negative bilateral lower extremity venous US. No deep vein thrombosis. Abdomen Ultrasound 12/04/24 15:11 IMPRESSION: 1. Normal portal venous direction of flow but with increased pulsatility which along with dilation of the hepatic veins, can be seen in the setting of right heart failure. 2. Mild bilateral renal cortical thinning with increased echogenicity consistent with likely chronic medical renal disease. No hydronephrosis. Renal Ultrasound 12/04/24 15:11 IMPRESSION: 1. Normal portal venous direction of flow but with increased pulsatility which along with dilation of the hepatic veins, can be seen in the setting of right heart failure. 2. Mild bilateral renal cortical thinning with increased echogenicity consistent with likely chronic medical renal disease. No hydronephrosis. Chest X-Ray 12/05/24 05:29 Impression: Clear lungs. Stable cardiomegaly with pacemaker device.
== END 2024-12-06 14:37 | disposition short-term general hospital (02) | DRG 308 ==
LOC: ANHED 12-04 02:18 → ANHICU 12-04 02:40
PROVIDERS: Emergency Medicine; General Practice; Internal Medicine; Internal Medicine Nephrology; Nurse Practitioner Adult Health; Admitting Provider Internal Medicine; Emergency Provider Physician Assistant; PCP Family Medicine; Visit Provider Internal Medicine
DX: I48.91 Unspecified atrial fibrillation (principal); I50.23 Acute on chronic systolic (congestive) heart failure; J96.01 Acute respiratory failure with hypoxia; R57.0 Cardiogenic shock; J18.9 Pneumonia, unspecified organism; I13.0 Hypertensive heart and chronic kidney disease with heart failure and stage 1 through stage 4 chronic kidney disease, or unspecified chronic kidney disease; N17.9 Acute kidney failure, unspecified; N39.0 Urinary tract infection, site not specified; Z68.42 Body mass index [BMI] 45.0-49.9, adult; E87.3 Alkalosis; I42.0 Dilated cardiomyopathy; B96.20 Unspecified Escherichia coli [E. coli] as the cause of diseases classified elsewhere; I34.0 Nonrheumatic mitral (valve) insufficiency; E11.22 Type 2 diabetes mellitus with diabetic chronic kidney disease; N18.32 Chronic kidney disease, stage 3b; K21.9 Gastro-esophageal reflux disease without esophagitis; E66.01 Morbid (severe) obesity due to excess calories; E87.5 Hyperkalemia; D72.829 Elevated white blood cell count, unspecified; E78.5 Hyperlipidemia, unspecified; Z96.653 Presence of artificial knee joint, bilateral; Z95.810 Presence of automatic (implantable) cardiac defibrillator; Z90.49 Acquired absence of other specified parts of digestive tract; Z90.711 Acquired absence of uterus with remaining cervical stump; F41.9 Anxiety disorder, unspecified
CPT/HCPCS: 36415; 36600; 71045; 76705; 76775; 78582; 80048; 80053; 81001; 82375; 82550; 82805; 82948; 83036; 83050; 83605; 83690; 83735; 83880; 84100; 84145; 84443; 84484; 85018; 85025; 85027; 85380; 85610; 85730; 86706; 87040; 87086; 87186; 87340; 87449; 87641; 87899; 93005; 93970; 94002; 94003; 94640; 96365; 96366; 96367; 96375; 96376; 99285; A9270; A9540; A9558; C8929; G0378; J0282; J0696; J1644; J1938; J2060; J2260; J7030; P9047; Q9957

== ENCOUNTER 2025-02-13 09:57 | Outpatient (CLI) | payer OTHER, SELFPAY | END 2025-02-13 09:58 | disposition home or self-care (01) | LOC: ANHGOSHLAB 09:57 | PROVIDERS: PCP Family Medicine; Visit Provider Family Medicine | DX: R11.0 Nausea (principal); R53.1 Weakness | CPT/HCPCS: 36415 ==

== ENCOUNTER 2025-03-20 12:30 | Outpatient (RCR) | payer OTHER, SELFPAY | END 2025-05-29 13:17 | disposition home or self-care (01) | LOC: ANHCPREHAB 12:30 | PROVIDERS: PCP Family Medicine; Visit Provider Specialist | DX: I50.89 Other heart failure (principal) | CPT/HCPCS: 93798 ==

== ENCOUNTER 2025-03-22 15:28 | Emergency (ER) | payer OTHER, SELFPAY ==
--- NOTE | ~2025-03-22 | CT_ITS ---
EXAMINATION: CT BRAIN W/O DATE: 03/22/2025 16:11 INDICATION: Head injury TECHNIQUE: Computed tomography (CT) of the head was performed without intravenous contrast. The dose-length product was 756.67 mGy-cm. Automated exposure control and iterative reconstruction technique were employed. COMPARISON: No prior studies for comparison. FINDINGS: Normal brain parenchymal volume for age. Normal bernard-white differentiation. No acute intracranial hemorrhage, infarction, mass or mass effect. No ventriculomegaly or midline shift. Midline sagittal images demonstrate a normal corpus callosum, craniovertebral junction and sella turcica. Basilar cisterns are patent. There is mucosal thickening of the right posterior ethmoid and sphenoid sinuses. Mastoids are pneumatized. No depressed skull fractures. IMPRESSION: 1. No acute intracranial abnormality. 2: Mild sinus disease. Reviewed, dictated and finalized at location O.
--- OUTSIDE RECORDS SUMMARY | 2025-03-22 15:30 | XMS_ITS | Encounter Summary ---
Author Organization [facility] Healthcare Address [address] [place] [address] Care Team Providers Care International Student Counselor Name Role Phone Charisse Isaac MD Primary Care Provider + Charisse Isaac MD Unavailable [phone] Ramon Nicole MD PhD Unavailable [phone] Lorraine Leon MD Unavailable [phone] Encounter Details Date Type Department Care Team (Late st Contact Info) Description 12/06/2024 Orders Only [facility] [place] [facility] Information Management [address] [place] [id number] Scanning, Provider Social History Tobacco Use Types Packs/Day Years Used Date Smoking Tobacco: Former Cigarettes Q uit: 1994 Smokeless Tobacco: Never Comments:Smoking History Pac ks/day: 1 Packs Alcohol Use Standard Drinks/Week Comments Yes 0 (1 standard drink = 0.6 oz pur e alcohol) [facility] Utilities Answer Date Recorded In the past 12 months has [facility] electric, gas, oil, or water company threatened to shut off services in your home? No 12/10/2024 Social Connection and Isolation Panel Answer Date Recorded In a typical week, how many times do you talk on the phone with family, friends, or neighbors? More than three times a week 12/10/2024 How often do you get togethe r with friends or relatives? More than three times a week 12/10/2024 How often do you attend chur ch or jewish services? Never 12/10/2024 Do you belong to any clubs o r organizations such as druze groups, unions, fraternal or athletic groups, or school groups? No 12/10/2024 How often do you attend meet ings of the clubs or organizations you belong to? Never 12/10/2024 Are you , , di vorced, , never , or living with a partner? 12/10/2024 AUDIT-C Answer Date Recorded Q1: How often do you have a drink containing alcohol? Never 10/23/2024 Q2: How many drinks containi ng alcohol do you have on a typical day when you are drinking? Patient does not drink Q3: How often do you have si x or more drinks on one occasion? Never 10/23/2024 Overall Financial Resource Strain (CARDIA) Answe r Date Recorded How hard is it for you to pa y for the very basics like food, housing, medical care, and heating? Not hard at all 12/10/2024 Hunger Vital Sign Answer Date Recorded Within the past 12 months, y ou worried that your food would run out before you got the money to buy more. Never true 12/11/19 25 Within the past 12 months, t he food you bought just didn't last and you didn't have money to get more. Never true 12/10/2024 PRAPARE - Transportation Answer Date Re corded In the past 12 months, has l ack of transportation kept you from medical appointments or from getting medications? No 11/28 In the past 12 months, has l ack of transportation kept you from meetings, work, or from getting things needed for daily living? No 12/10/2024 Housing Stability Vital Sign Answer Carlos e Recorded In the last 12 months, was t here a time when you were not able to pay the mortgage or rent on time? No 12/10/2024 In the past 12 months, how m any times have you moved where you were living? 0 12/10/2024 At any time in the past 12 m [facility], were you homeless or living in a long-term (including now)? No 12/10/2024 Personal Safety Answer Date Recorded Have you ever been in or are you currently in a harmful physical or emotional relationship or is someone making you feel afraid or unsafe? Denies 12/10/2024 Comments Unknown Sex and Gender Information Value Date Recorded Sex Assigned at Not on file Legal Sex Female 3:20 PM ONLINE TRADER Gender Identity Female 09/10/2024 9:39 PM ONLINE TRADER Sexual Orientation Straight 09/10/2024 9: 39 PM ONLINE TRADER documented as of this encounter Plan of Treatment Not on file documented as of this encounter Procedures Procedure Name Priority Date/Time Associated Diagnosis Comments SCAN - LABS 12/06/2024 documented in this encounter Results * SCAN - LABS (12/06/2024) us Provider Scanning Final Result documented in this encounter Visit Diagnoses Not on filedocumented in this encounter Additional Health Concerns Infection Onset Date Last Indicated Resolved Time Ring Surveillance: Aydee gaitan Comment:Round 1: 12/13 -[facility] IP 12/13/2024 12/13/2024 12/20/2024 7:26 PM C DT documented as of this encounter Care Teams International Student Counselor Relationship Specialty Start Date End Date Charisse Isaac MD [address] [place] [address] [address] [place] [address] PCP - General Family Medicine 08/15/24 Charisse Isaac MD [address] [place] [address] [address] [place] [address] Family Medicine 08/15/24 Ramon Nicole MD PhD [address] [place] [address] Consulting Physician Cardiology 12/17/24 Lorraine Leon MD [id number] [place] [address] Consulting Physician Nephrology 12/17/24 documented as of this encounter
--- OUTSIDE RECORDS SUMMARY | 2025-03-22 15:30 | XMS_ITS | Encounter Summary ---
Author Organization [facility] Healthcare Address [address] [place] [address] Care Team Providers Care Promotion Specialist Name Role Phone Charisse Isaac MD Primary Care Provider + Charisse Isaac MD Unavailable [phone] Ramon Nicole MD PhD Unavailable [phone] Lorraine Leon MD Unavailable [phone] Encounter Details Date Type Department Care Team (Late st Contact Info) Description 01/03/2025 Orders Only [facility] Health Information Management [address] [place] [id number] Scanning, Provider Social History Tobacco Use Types Packs/Day Years Used Date Smoking Tobacco: Former Cigarettes Q uit: 1994 Smokeless Tobacco: Never Comments:Smoking History Pac ks/day: 1 Packs Alcohol Use Standard Drinks/Week Comments Yes 0 (1 standard drink = 0.6 oz pur e alcohol) [facility] Utilities Answer Date Recorded In the past 12 months has [employer] electric, gas, oil, or water company threatened [...] often do you attend chur ch or tenriism services? Never 12/10/2024 Do you belong to any clubs o r organizations such as mormonism groups, unions, fraternal or athletic groups, or [...] any time in the past 12 m [facility], were you homeless or living in a snf (including now)? No 12/10/2024 Personal Safety Answer Date Recorded Have you ever been in or are you currently in a harmful physical or emotional relationship or is someone making you feel afraid or unsafe? Denies 12/10/2024 Comments Unknown Sex and Gender Information Value Date Recorded Sex Assigned at Not on file Legal Sex Female 3:20 PM INTEGRATION DEVELOPER Gender Identity Female 09/10/2024 9:39 PM INTEGRATION DEVELOPER Sexual Orientation Straight 09/10/2024 9: 39 PM INTEGRATION DEVELOPER documented as of this encounter Plan of Treatment Not on file documented as of this encounter Procedures Procedure Name Priority Date/Time Associated Diagnosis Comments SCAN - RADIOLOGY/IMAGING 01/03/2025 9:29 PM CDT documented in this encounter Results * SCAN - RADIOLOGY/IMAGING (01/03/2025 9:29 PM CDT) Anatomical Region Laterality Modality Other us Provider Scanning Final Result documented in this encounter Visit Diagnoses Not on filedocumented in this encounter Care Teams Promotion Specialist Relationship Specialty Start Date End Date Charisse Isaac MD [address] [facility] [address] [place] [address] PCP - General Family Medicine 08/15/24 Charisse Isaac MD [address] [place] [address] [address] [place] [address] Family Medicine 08/15/24 Ramon Nicole MD PhD [address] [place] [address] Consulting Physician Cardiology 12/17/24 Lorraine Leon MD [id number] [place] [address] Consulting Physician Nephrology 12/17/24 documented as of this encounter
--- OUTSIDE RECORDS SUMMARY | 2025-03-22 15:30 | XMS_ITS | Clinical Summary ---
Author Organization [address] Address [address] [place] [phone] Care Team Providers Care Supervisor Cell Maintenance Name Role Phone Charisse Isaac MD Primary Care Provider + Charisse Isaac MD Unavailable [phone] Ramon Nicole MD PhD Unavailable [phone] Lorraine Leon MD Unavailable [phone] Allergies Active Allergy Reactions Criticality Noted Date Comments Ibuprofen Naproxen Swelling Medium Salicylates Unknown 08/06/2013 Medications simvastatin (ZOCOR) 20 mg tablet take 1 tablet (20MG) by oral route every day at bedtime 0 012 Active aspirin 81 mg chewable tablet chew 1 tablet (81MG) by oral route every day [address] (PROTONIX) 40 mg EC tablet take 1 tablet (40MG) by oral route every day 0 013 Active Symbicort 160-4.5 mcg/actuation inhaler Inhale 2 puffs 2 (two) times a day 020 Active citalopram (CeleXA) 20 mg tablet Take 1 tablet (20 mg total) by mouth daily Active cholestyramine (QUESTRAN) 4 gram packet TAKE 1 PACKET BY MOUTH 2 TIMES A DAY WITH MEALS. 180 packet 1 025 Active amiodarone (PACERONE) 400 mg tablet Take 1 tablet (400 mg total) by mouth daily for 30 days, THEN 0.5 tablets (200 mg total) daily. 45 tablet 025 Active apixaban (ELIQUIS) 5 mg tabletIndications :atrial fibrillation Take 1 tablet (5 mg total) by mouth every 12 (twelve) hours 180 tablet 3 025 Active metoprolol XL (TOPROL-XL) 25 mg extended release tabletIndications :Paroxysmal atrial fibrillation (HCC) Take 1 tablet (25 mg total) by mouth daily 90 tablet 3 025 Active torsemide (DEMADEX) 20 mg tabletIndications :Dilated cardiomyopathy (HCC) Take 1 tablet (20 mg total) by mouth daily 90 tablet 3 025 Active amiodarone (PACERONE) 200 mg tabletIndications :Paroxysmal atrial fibrillation (HCC) TAKE 1 TAB BY MOUTH DAILY BEGIN THIS PRESCRIPTION AFTER FINISHING THE ONE GIVEN AT HOSPITAL DISCHARG 90 tablet 1 025 Active amiodarone (PACERONE) 200 mg tabletIndications :Paroxysmal atrial fibrillation (HCC) Take 1 tablet (200 mg total) by mouth daily Begin this prescription after finishing the prescription given at hospital discharge. 30 tablet 1 025 2024 Discontinued Active Problems Problem Noted Date Diagnosed Date Obesity 12/08/2024 Assessment & Plan (12/09/2024 1:33 PM CDT): Discussed weight loss she will f/u with PCP Assessment & Plan (12/08/2024 1:51 PM CDT): Discussed weight loss she will f/u with PCP [id number] kidney injury 12/08/2024 Assessment & Plan (12/09/2024 1:34 PM CDT): Euvolemic Baseline 1.5 to 2 per family and seems consistent with prior labs in care everywhere Here scr stable at 3 limiting GDMT F/u in AM Lab Results Component Value Date GLUCOSE 148 12/09/2024 CALCIUM 9.1 12/09/2024 SODIUM 137 12/09/2024 POTASSIUM 3.7 12/09/2024 CO2 23 12/09/2024 CHLORIDE 101 12/09/2024 BUNSER 68 (H) 12/09/2024 CREATININE 3.06 (H) 12/09/2024 Assessment & Plan (12/08/2024 1:53 PM CDT): Euvolemic In setting of cardio shock Scr improving trend BERTO (obstructive sleep apnea) 12/08/2024 Assessment & Plan (12/09/2024 1:33 PM CDT): Ppv qhs Assessment & Plan (12/08/2024 1:55 PM CDT): Ppv qhs Acute renal failure superimposed on chronic kidn ey disease 12/07/2024 Cardiogenic shock 12/06/2024 Assessment & Plan (12/09/2024 1:33 PM CDT): resolved Atrial fibrillation with rapid ventricular respo nse 12/06/2024 Assessment & Plan (12/09/2024 1:34 PM CDT): Cmu rev= paced Cont amio gtt Monitor Defer med adjustments to EP Cont eliquis Cont coreg JANINA CVN 12/09 Assessment & Plan (12/08/2024 1:53 PM CDT): Cmu rev= paced Cont amio gtt Monitor high risk med Cont eliquis Cont coreg JANINA CVN 12/09 Acute on chronic systolic CHF (congestive heart failure) 12/06/2024 Assessment & Plan (12/09/2024 1:36 PM CDT): Ef 34%, has ICD Cont coreg Defer viola/arb, eneida, sglt2i with sun Would like to get her back on GDMT but might need to hold at dc and have it re evaluated at short term follow up Re evaluate 12/10 For now, I think she is euvolemic and does not need ongoing diuresis Re evaluate 12/10 Needs a fib management- see above Rpt lbs in am Labs rev Lab Results Component Value Date GLUCOSE 148 12/09/2024 CALCIUM 9.1 12/09/2024 SODIUM 137 12/09/2024 POTASSIUM 3.7 12/09/2024 CO2 23 12/09/2024 CHLORIDE 101 12/09/2024 BUNSER 68 (H) 12/09/2024 CREATININE 3.06 (H) 12/09/2024 Lab Results Component Value Date MAGNESIUM 2.0 12/09/2024 Lab Results Component Value Date WBC 9.29 12/09/2024 HGB 11.2 (L) 12/09/2024 HCT 33.2 (L) 12/09/2024 MCV 97.4 (H) 12/09/2024 LABPLAT 168 12/09/2024 Lab Results Component Value Date HGBA1C 6.6 (H) 12/08/2024 No results found for: SCRA1C Lab Results Component Value Date TSH 3.61 12/08/2024 Assessment & Plan (12/08/2024 1:55 PM CDT): Ef 34%, has ICD Cont coreg Defer viola/arb, eneida, sglt2i with sun Needs a fib management- see above She has not had any UTI symptoms and is not septic she does not have UTI and I stopped CTX and will order cutler removal Rpt labs in am Labs rev Lab Results Component Value Date GLUCOSE 153 12/08/2024 CALCIUM 9.0 12/08/2024 SODIUM 138 12/08/2024 POTASSIUM 4.1 12/08/2024 CO2 22 12/08/2024 CHLORIDE 99 12/08/2024 BUNSER 68 (H) 12/08/2024 CREATININE 2.99 (H) 12/08/2024 Lab Results Component Value Date MAGNESIUM 1.7 12/06/2024 Lab Results Component Value Date WBC 9.57 12/08/2024 HGB 11.3 (L) 12/08/2024 HCT 33.3 (L) 12/08/2024 MCV 96.0 12/08/2024 LABPLAT 193 12/08/2024 No results found for: HGBA1C No results found for: SCRA1C No results found for: TSH Visit for wound check 04/11/2022 Presence of biventricular au tomatic cardioverter/defibrillator (AICD) 03/03/2022 Overview (04/05/2022): Medtronic [place] BIV ICD. Dx; NICM (Dilated), CHF, LBBB. DOI 04/01/2022-Kahanda. Chronic leads 07/13/2010. [employer] remote monitoring. NICM (nonischemic cardiomyopathy) 03/30/2017 Encounters Date Type Department Care Team Description 02/27/2025 8:30 AM CDT Office Visit [facility] Cardiology at [address] [place] [address] Matheus Wyatt MD NICM (nonischemic cardiomyopathy) (HCC) (Primary Dx); Cardiomyopathy, unspecified type (HCC); Other cardiomyopathies (HCC); Presence of automatic (implantable) cardiac defibrillator 02/20/2025 Telephone [facility] Cardiology [address] [place] [address] Matheus Wyatt MD 02/11/2025 7:36 AM CDT - 02/11/2025 11:59 PM CDT Hospital Encounter [facility] [address] [place] [phone] MRI contraindicated due to metal implant Discharge Disposition: Discharge to home or self care 02/11/2025 7:01 AM CDT - 02/11/2025 11:59 PM CDT Hospital Encounter [facility] [place] [phone] Valvular heart disease Discharge Disposition: Discharge to home or self care 02/11/2025 Results Follow-Up [facility] Cardiology [facility] [facility] [address] [place] [phone] Ramon Nicole MD PhD MRI Cardiac and MRA Chest WWO Contrast 02/11/2025 Orders Only [facility] Cardiology [facility] [facility] [address] [place] [phone] Ramon Nicole MD PhD Nonrheumatic mitral valve regurgitation (Primary Dx) 01/16/2025 Telephone [facility] Cardiology [address] [place] [address] [place] [phone] Matheus Wyatt MD 01/09/2025 10:45 AM CDT [facility] [address] [place] [address] [place] [phone] Zuleyka Franco NP Cardiac arrhythmia, unspecified cardiac arrhythmia type (Primary Dx); Presence of biventricular automatic cardioverter/defibrill ator (AICD); Dilated cardiomyopathy (HCC) 01/09/2025 10:30 AM CDT Ancillary Procedure [facility] [address] [place] [address] [place] [phone] NICM (nonischemic cardiomyopathy) (HCC) (Primary Dx); Automatic implantable cardiac defibrillator in situ 01/06/2025 Telephone [place] [address] [place] [phone] Katelyn Gutierrez NP 01/03/2025 Orders Only [facility] Health Information Management [address] [place] [phone] Scanning, Provider 12/30/2024 9:00 AM CDT Office Visit [address] [phone] Katelyn Gutierrez NP Paroxysmal atrial fibrillation (HCC) (Primary Dx); Dilated cardiomyopathy (HCC); Valvular heart disease; Presence of biventricular automatic cardioverter/defibrill ator (AICD); Hospital discharge follow-up 12/30/2024 Orders Only [facility] [address] [place] [address] [place] [phone] Miscellaneous, Not In File 12/30/2024 Telephone [facility] [address] [place] [phone] Benji Lock MD Atrial Fibrillation 12/24/2024 12:45 PM CDT Telemedicine [facility] Surgery [address] [facility] [address] [place] [phone] Gianna Thomas PA Incontinence of feces, unspecified fecal incontinence type (Primary Dx) from Last 3 Months Surgical History Surgery Date Site/Laterality Comments INSERT / REPLACE / REMOVE PACEMAKER OTHER SURGICAL HISTORY generator changes in 2013 and 2019 HYSTERECTOMY 1994 CHOLECYSTECTOMY 2020 COLONOSCOPY 07/31/2023 - 07/30/2024 TONSILLECTOMY 1957 CARDIAC CATHETERIZATION 12/16/2024 N/A Procedure: RIGHT HEART CATHETERIZATION CORONARY ARTERY ANGIOGRAM 26229; Surgeon: Keila Cortez MD; Location: 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 Never 12/10/2024 Do you belong to any clubs o r organizations such as shinto groups, unions, fraternal or athletic groups, or [...] any time in the past 12 m [facility], were you homeless or living in a group home (including now)? No 12/10/2024 Personal Safety Answer Date Recorded Have you ever been in or are you currently in a harmful physical or emotional relationship or is someone making you feel afraid or unsafe? Denies 12/10/2024 Comments Unknown Sex and Gender Information Value Date Recorded Sex Assigned at Not on file Legal Sex Female 3:20 PM [employer]S PULLER Gender Identity Female 09/10/2024 9:39 PM PARTS PULLER Sexual Orientation Straight 09/10/2024 9: 39 PM PARTS PULLER Obstetrics History Last Filed Vital Signs Vital Sign Reading Time Taken Comments Blood Pressure 128/74 02/27/2025 8:25 AM CDT Pulse 98 02/27/2025 8:25 AM CDT Temperature 36.6 C (97.8 F) 12/17/2024 11:48 AM CDT Respiratory Rate 18 12/17/2024 11:4 8 AM CDT Oxygen Saturation 98% 02/27/2025 8:25 AM CDT Inhaled Oxygen Concentration - - Weight 120.3 kg (265 lb 3.2 oz) 02/27/2025 8:25 AM CDT Height 167.6 cm (5' 6) 02/27/2025 8:25 AM CDT Body Mass Index 42.8 02/27/2025 8:25 AM CDT Plan of Treatment Health Maintenance Due Date Last Done Comments Albumin Creatinine Ratio, Urine 1950 Breast Cancer Screening-Mammogram 1950 Colon Cancer Screening-Colonoscopy 1950 Depression Screening 1950 Hepatitis C Screening 1950 Osteoporosis Screening-Bone Density Scan 1950 Dilated Eye Exam 1950 Foot Exam 1950 DTaP/Tdap/Td Vaccine (1 - Tdap) 1961 Hepatitis B Screening 1968 Pneumococcal vaccine 65+ (1 of 2 - PCV) 1969 Zoster Vaccine (1 of 2) 2000 Well Visit 65+ 2015 Influenza Vaccine (#1) 2025 9, 07/02/2018, 08/27/2013, Additional history exists Hemoglobin A1C 06/10/2025 12/08/2024 Lipid Panel 08/15/2025 08/15/2024, 08/01, 08/30/2022, Additional history exists Fall Risk Assessment 12/17/2025 12/17/2024 eGFR 12/17/2025 12/17/2024, 11/28, 12/15/2024, Additional history exists Medical Devices Implanted Type Area Fur Sewer Device Identifier Shelf Expiration Date Model / Serial / Lot Medtronic Inc [place] Hf Grinder Set Up Operator Thread Tool-D Mri Surescan Df1 [id number] - [id number] - [id number] Implanted:Qty: 1 on 04/01/2022 by Brayan Cota MD at [facility] ICD Medtronic Inc [id number] 06/27/2023 [id number] / [id number] / Medtronic Inc Capsurefix Novus 5.7fr 52cm Bipolar Tined Screw In Is-1 Atrium [id number] Atria Medtronic Inc [id number] / [id number] / Medtronic Inc Sprint Quattro Secure 8.6fr 65cm Quadripolar Defibrillator Screw 6947 Ventricle Medtronic Inc 6947 / [id number] / Medtronic Inc Attain Ability 4fr 78cm Bipolar Is-1 Left Heart Transvenous 2 [id number] Left: Ventricle Medtronic Inc 132652 / [id number] / Medtronic Inc Tyrx Absorbable Antibacterial Envelope-Large 3.3x2.9in [id number] - [id number] Implanted:Qty: 1 on 04/01/2022 by Brayan Cota MD at [facility] Medtronic Inc 12/25/2022 [id number] / / [id number] Procedures Procedure Name Priority Date/Time Associated Diagnosis Comments MRI CARDIAC AND MRA CHEST WWO CONTRAST Schedule Routine, Read Routine (OP Routine) 02/11/2025 11:03 AM CDT Valvular heart disease XR CHEST PA LATERAL 2 VIEWS Schedule CHARLA, Read CHARLA (Appt Today, Awaiting Results) 02/11/2025 7:51 AM CDT MRI contraindicated due to metal implant ECG 12-LEAD Routine 01/09/2025 10:50 AM CDT Cardiac arrhythmia, unspecified cardiac arrhythmia type DEVICE CHECK - IN OFFICE Routine 01/09/2025 10:09 AM CDT Automatic implantable cardiac defibrillator in situ SCAN - RADIOLOGY/IMAGING 01/03/2025 9:29 PM CDT DEVICE CHECK - REMOTE Routine 12/30/2024 2:32 PM CDT EGFR Routine 12/17/2024 5:56 AM CDT HEMOGLOBIN A1C Routine 12/08/2024 3:42 AM CDT POCT LIPID PANEL Routine 08/15/2024 11:4 9 AM PARTS PULLER Need for lead screening from Last 3 Months or Most Recently Relevant to Health Maintenance Results * MRI Cardiac and MRA Chest WWO Contrast (02/11/2025 11:03 AM CDT) Anatomical Region Laterality Modality Body N/A Magnetic Resonan ce 02/11/2025 7:23 PM CDT Narrative 02/11/2025 7:23 PM CDT Cardiac MRI along with chest MRA with and without contrast and velocity flow imaging were performed on a 1.5 T scanner to evaluate myocardial morphology, function and viability and assess for vascular anomalies in a patient with a history of as suggested vascular anomaly by cardiac catheterization. Image quality is somewhat degraded by the presence of a CIED. Cardiac MRI: 1. The left ventricle is severely enlarged with normal wall thickness. Global systolic function is moderately reduced. The quantitated LV ejection fraction is 33%. There is significant LV mechanical dyssynchrony. LVEDV: 286 ml LVESV: 190 ml 2. The right ventricle is normal in cavity size, wall thickness and systolic function. 3. The right atrium is borderline mildly enlarged. The left atrium is moderate-severely enlarged. 4. The aortic valve is tricuspid. There is mild aortic stenosis and moderate-severe or frankly severe aortic regurgitation. There is roughly moderate mitral regurgitation. There is mild pulmonic regurgitation seen. The tricuspid valve is inadequately visualized for functional assessment. 5. Delayed enhancement imaging reveals no evidence of myocardial scar, fibrosis or infarction. 6. There is no intracardiac thrombus identified. SUMMARY: Severe left ventricular enlargement. Moderate left ventricular systolic dysfunction. LVEF of 33%. There is significant LV mechanical dyssynchrony. Moderate-severe left atrial enlargement. Mild aortic stenosis and moderate-severe or frankly severe aortic regurgitation. Roughly moderate mitral regurgitation. No myocardial damage. Chest MRA: 1. The aortic root, ascending aorta, aortic arch and descending aorta are normal in diameter. 2. The aortic arch is left sided. There is normal branching of the arch vessels. There may be a patent ductus arteriosus although the possibility of its presence is based upon scant evidence. 3. The main pulmonary artery is moderately enlarged measuring 3.9 x 3.8 cm in bi-orthogonal cross-sectional dimension. SUMMARY: There may be a patent ductus arteriosus although the possibility of its presence is based upon scant evidence. The main pulmonary artery is moderately enlarged. Electronically signed by: Matheus Casey M.D. Procedure Note Matheus Casey MD - 02/11/2025 Cardiac MRI along with chest MRA with and without contrast and velocity flow imaging were performed on a 1.5 T scanner to evaluate myocardial morphology, function and viability and assess for vascular anomalies in a patient with a history of as suggested vascular anomaly by cardiac catheterization. Image quality is somewhat degraded by the presence of a CIED. Cardiac MRI: 1. The left ventricle is severely enlarged with normal wall thickness. Global systolic function is moderately reduced. The quantitated LV ejection fraction is 33%. There is significant LV mechanical dyssynchrony. LVEDV: 286 ml LVESV: 190 ml 2. The right ventricle is normal in cavity size, wall thickness and systolic function. 3. The right atrium is borderline mildly enlarged. The left atrium is moderate-severely enlarged. 4. The aortic valve is tricuspid. There is mild aortic stenosis and moderate-severe or frankly severe aortic regurgitation. There is roughly moderate mitral regurgitation. There is mild pulmonic regurgitation seen. The tricuspid valve is inadequately visualized for functional assessment. 5. Delayed enhancement imaging reveals no evidence of myocardial scar, fibrosis or infarction. 6. There is no intracardiac thrombus identified. SUMMARY: Severe left ventricular enlargement. Moderate left ventricular systolic dysfunction. LVEF of 33%. There is significant LV mechanical dyssynchrony. Moderate-severe left atrial enlargement. Mild aortic stenosis and moderate-severe or frankly severe aortic regurgitation. Roughly moderate mitral regurgitation. No myocardial damage. Chest MRA: 1. The aortic root, ascending aorta, aortic arch and descending aorta are normal in diameter. 2. The aortic arch is left sided. There is normal branching of the arch vessels. There may be a patent ductus arteriosus although the possibility of its presence is based upon scant evidence. 3. The main pulmonary artery is moderately enlarged measuring 3.9 x 3.8 cm in bi-orthogonal cross-sectional dimension. SUMMARY: There may be a patent ductus arteriosus although the possibility of its presence is based upon scant evidence. The main pulmonary artery is moderately enlarged. Electronically signed by: Matheus Casey M.D. us Ramon Nicole MD PhD IMG MRI PROCEDURES Fin al Result * XR Chest Pa Lateral 2 Views (02/11/2025 7:51 AM CDT) Anatomical Region Laterality Modality Body, Chest N/A Computed Radiogr aphy 02/11/2025 8:07 AM CDT Impressions 02/11/2025 8:07 AM CDT 1. Biventricular pacing internal cardiac defibrillator which show follows an expected course and appears to be within expected limits. The leads are unchanged in position compared to the previous examination in 2021. COMMENT: Please see above for additional findings. Electronically signed by: Dennis Keys M.D. Narrative 02/11/2025 8:07 AM CDT XR CHEST PA LATERAL 2 VIEWS HISTORY: Pre-MRI device evaluation COMPARISON: Portable chest 12/16/2024 at 0722 hours and AP and lateral chest radiograph 03/08/2022 A chest radiograph in the PA and lateral projections were presented. FINDINGS: A biventricular pacing internal cardiac defibrillator is present entering from the left subclavian approach and follows an expected course. The leads are intact and are unchanged in position compared to the previous examination. No abandoned are present. There is no evidence of pneumothorax. The mediastinum and ernestina within expected limits. The cardiac silhouette within normal size limits. The lateral and posterior costophrenic angles are preserved bilaterally. No definite infiltrates, suspicious opacities or abnormal interstitial markings are appreciated. The included portion of the upper abdomen is within expected limits. Procedure Note Dennis Keys MD - 02/11/2025 XR CHEST PA LATERAL 2 VIEWS HISTORY: Pre-MRI device evaluation COMPARISON: Portable chest 12/16/2024 at 0722 hours and AP and lateral chest radiograph 03/08/2022 A chest radiograph in the PA and lateral projections were presented. FINDINGS: A biventricular pacing internal cardiac defibrillator is present entering from the left subclavian approach and follows an expected course. The leads are intact and are unchanged in position compared to the previous examination. No abandoned are present. There is no evidence of pneumothorax. The mediastinum and ernestina within expected limits. The cardiac silhouette within normal size limits. The lateral and posterior costophrenic angles are preserved bilaterally. No definite infiltrates, suspicious opacities or abnormal interstitial markings are appreciated. The included portion of the upper abdomen is within expected limits. IMPRESSION: 1. Biventricular pacing internal cardiac defibrillator which show follows an expected course and appears to be within expected limits. The leads are unchanged in position compared to the previous examination in 2021. COMMENT: Please see above for additional findings. Electronically signed by: Dennis Keys M.D. us Rustam Cooper MD IMG XR PROCEDURES Fin al Result * ECG 12 lead (01/09/2025 10:50 AM CDT) us Zuleyka Franco CLINICAL REHABILITATION SPECIALIST ECG ORDERABLES Final Resu lt * DEVICE CHECK - IN OFFICE (01/09/2025 10:09 AM CDT) Anatomical Region Laterality Modality Other Narrative 01/09/2025 1:02 PM CDT Table formatting from the original result was not included. BiV ICD CHECK (IN OFFICE) Patient ID: Norberto Arriaza is a 74 y.o. female. This patient received a Medtronic BiV ICD. They had a routine in office device interrogation on 01/09/25. Device implant indications: Nonischemic cardiomyopathy, CHF, LBBB Interrogation of the patient's device demonstrates the following: Presenting EGM: A paced Bi V paced @ 70 bpm Underlying rhythm: A sense V sense at 65 Original Device Settings Right Atrium Right Ventricle Left Ventricle Sensitivity (mV) 0.3 mV 0.3 mV N/a mV Pacing Outputs 1.5 V @ 0.4 ms 2.5 V @ 0.4 ms 4.0 V @ 1.0 ms Testing Measurements Right Atrium Right Ventricle Left Ventricle Sensitivity (mV) 3 mV 12.8 mV Not done mV Impedence (Ohms) 456 ohms 361 ohms 722 ohms Pace Threshold 0.375 V @ 0.4 ms 1.5 V @ 0.4 ms 2.75 V @ 1.0 ms Pacing % 54.8 % 94.9 % 94.9 % HV Lead Impedance N/A 50/62 ohms N/A Battery Status: 2.9 years to KT, charge time 1.3 seconds. Episodes last 90 days/Comments: AF Cascade <0.1 % No new ventricular events. NORMAL DEVICE FUNCTION PROGRAMMED MEDICATIONS: Anti-coagulant(s): Aspirin 81 mg, Eliquis 5 mg twice a day Anti-arrhythmic(s): Amiodarone, Toprol-XL 25 mg daily PLAN: 1) Medtronic BiV ICD evaluation 2) Medtronic remote transmission scheduled in 3 months. 3) Programming appropriate for device settings Katelyn Conley RN us Maris Brown NP [facility] C[facility] PROCEDURES Final Result * SCAN - RADIOLOGY/IMAGING (01/03/2025 9:29 PM CDT) Anatomical Region Laterality Modality Other us Provider Scanning Final Result * DEVICE CHECK - REMOTE (12/30/2024 2:32 PM CDT) Anatomical Region Laterality Modality Other 12/30/2024 2:32 PM CDT Narrative 01/01/2025 6:14 PM CDT Refer to Epic phone encounter. MUNDO Game[employer] Device Specialist us Not In File Miscellaneous CV CARDIAC SERVICES NE OCEDURES Final Result * (ABNORMAL) eGFR (12/17/2024 5:56 AM CDT) eGFR 16(L) >=60 mL/min/1. 73 m2 Comment: Interpretive Data Reference Interval Normal >/= 90 mL/min/1.73m2 Mildly decreased* 60 - 89 mL/min/1.73m2 Mildly to moderately decreased 45 - 59 mL/min/1.73m2 Moderately to severely decreased 30 - 44 mL/min/1.73m2 Severely decreased 15 - 29 mL/min/1.73m2 Kidney Failure < 15 mL/min/1.73m2 *Relative to young adult level Estimated glomerular filtration rate is determined by the 2020 CKD-EPI equation recommended by the National Kidney Foundation (A Unifying Approach to GFR Estimation: Recommendations of the NKF-ASK Task Force on Reassessing the Inclusion of Race in Diagnosing Kidney Disease, JASN 2021). The CKD-EPI equation should not be used for patients with unstable renal function and has not been validated in children and those over 70. Current interpretive data was last reviewed 2021. Blood 12/17/2024 5:56 AM CDT 12/17/2024 7:01 AM CDT Henry Duran MD LAB BLOOD ORDERABLES Final R esult Performing Organization Address [facility] de Phone Number [facility] [address] [place] [address] * (ABNORMAL) Hemoglobin A1c (12/08/2024 3:42 AM CDT) Hgb A1C 6.6(H) 4.0 - 5.6 % Estimated Average Glucose 143 mg/dL [facility] Comment: The ADA recommends reporting an estimated Average Glucose (eAG) with all Hemoglobin A1c results using the equation derived from a study of 507 normal and diabetic adults. Minority populations were underrepresented and children were not included. (Diabetes Care 31:1391-8523, 2008). The eAG is not equivalent to a fasting glucose. Blood 12/08/2024 3:42 AM CDT 12/08/2024 2:05 PM CDT Ramy Dee MD LAB BLOOD ORDERABLES Fi nal Result Performing Organization Address [facility] de Phone Number [facility] [address] [place] [address] * POCT lipid panel (08/15/2024 11:49 AM PARTS PULLER) Cholesterol, POC 134 mg/dL Comment:GLU = 216 HDL, POC 28 mg/dL Triglycerides, POC 212 mg/dL LDL Cholesterol POC 64 mg/dL Chol/HDL Ratio, POC 2.3 Non-HDL Cholesterol, POC 106 mg/dL Cholesterol Total, POC 134 mg/dL Capillary blood 08/15/2024 1 1:49 AM PARTS PULLER us Matheus Wyatt MD POINT OF CARE TEST ORDER LEXY Final Result from Last 3 Months or Most Recently Relevant to Health Maintenance Insurance [employer]ARE [employer] HE[employer]CARE Advance Directives For more information, please contact: [phone] * Full Code (Latest Code Status on File) Date Activated Date Inactivated Comments 12/06/2024 3:59 PM 12/17/2024 7:38 PM Care Teams Supervisor Cell Maintenance Relationship Specialty Start Date End Date Charisse Isaac MD [address] [place] [address] [address] [place] [address] PCP - General Family Medicine 08/15/24 Charisse Isaac MD [address] [place] [address] [address] [place] [address] Family Medicine 08/15/24 Ramon Nicole MD PhD [address] [place] [address] Consulting Physician Cardiology 12/17/24 Lorraine Leon MD [id number] [place] [address] Consulting Physician Nephrology 12/17/24
--- OUTSIDE RECORDS SUMMARY | 2025-03-22 15:30 | XMS_ITS | Clinical Summary ---
Author Organization [facility] Address [address] [place] [phone] Phone Care Team Providers Care National Park Ranger Name Role Phone Charisse Isaac MD Primary Care Provider [phone] Allergies Active Allergy Reactions Criticality Noted Date Comments Duloxetine 03/08/2020 Jittery and hyper Lisinopril Cough 03/08/2020 Naproxen Edema 03/08/2020 Medications citalopram (CeleXA) 20 MG tablet Take 20 mg by mouth 1 (one) time each day Active simvastatin (ZOCOR) 20 MG tablet Take 20 mg by mouth every night Active pantoprazole (Protonix) 40 MG EC tablet Take 40 mg by mouth 1 (one) time each day before breakfast Active losartan (COZAAR) 25 MG tablet Take 25 mg by mouth 1 (one) time each day Active furosemide (LASIX) 20 MG tablet Take 20 mg by mouth 2 (two) times a day Active carvedilol (COREG) 12.5 MG tablet Take 12.5 mg by mouth 2 (two) times a day with meals Active spironolactone (ALDACTONE) 25 MG tablet Take 25 mg by mouth 1 (one) time each day Active aspirin 81 MG chewable tablet Chew 81 mg 1 (one) time each day Active glimepiride (AMARYL) 1 MG tablet Take 1 mg by mouth 1 (one) time each day before breakfast Active allopurinol (ZYLOPRIM) 100 MG tablet Take 300 mg by mouth 1 (one) time each day 2 Active Eliquis 5 MG tablet Take 5 mg by mouth 2 (two) times a day 2 Active Active Problems Problem Noted Date Diagnosed Date Chronic kidney disease Diabetes mellitus Hyperlipidemia Obstructive sleep apnea syndrome Cardiomyopathy Presence of cardioverter-defibrillator (ICD) Osteoarthritis Immunizations Immunization Administration Dates Next Due Sars-cov-2, Unspecified 11/20/2020 Family History Medical History Relation Comments Hypertension Brother Coronary artery disease Father Hypertension Father Myocardial infarction Father Coronary artery disease Mother Diabetes mellitus Mother Hypertension Mother Relation Status Comments Brother Father Mother Social History Tobacco Use Types Packs/Day Years Used Date Smoking Tobacco: Former Cigarettes 1 2000 Smokeless Tobacco: Never Alcohol Use Standard Drinks/Week Comments Never 0 (1 standard drink = 0.6 oz pur e alcohol) AUDIT-C Answer Date Recorded Q1: How often do you have a drink containing alc ohol? Never 03/08/2020 Average Number of Drinks Not on file 020 Frequency of Binge Drinking Not on file 03/2020 Comments Unknown Sex and Gender Information Value Date Recorded Sex Assigned at Not on file Legal Sex Female 11:04 AM MDT Gender Identity Not on file Sexual Orientation Not on file Last Filed Vital Signs Vital Sign Reading Time Taken Comments Blood Pressure 132/78 04/25/2022 11:53 AM CDT Pulse - - Temperature 36.7 C (98 F) 04/25/2022 11:53 AM CDT Respiratory Rate 18 04/25/2022 11:53 AM CDT Oxygen Saturation - - Inhaled Oxygen Concentration - - Weight 132 kg (290 lb) 04/25/2022 11:53 AM CDT Height 167.6 cm (5' 6) 04/25/2022 11:53 AM CDT Body Mass Index 46.81 04/25/2022 11:53 AM CDT Plan of Treatment Health Maintenance Due Date Last Done Comments Pneumococcal PPSV23/PCV13 65 + Years / Low and Medium Risk (1 of 2 - PCV) 2000 Influenza Vaccine (#1) 2025 Insurance MEDICARE HMO [facility] Address: [address] [phone] Care Teams National Park Ranger Relationship Specialty Start Date End Date Charisse Isaac MD [address] [place] [id number] PCP - General Family Medicine 10/20/21
--- OUTSIDE RECORDS SUMMARY | 2025-03-22 15:30 | XMS_ITS | Encounter Summary ---
Author Organization [facility] Healthcare Address [address] [place] [address] Care Team Providers Care Slot Service Specialist Name Role Phone Charisse Isaac MD Primary Care Provider + Charisse Isaac MD Unavailable [phone] Ramon Nicole MD PhD Unavailable [phone] Lorraine Leon MD Unavailable [phone] Encounter Details Date Type Department Care Team (Late st Contact Info) Description 02/11/2025 Results Follow-Up [facility] Medical Group Cardiology [address] [facility] [address] [place] [address] Ramon Nicole MD PhD [address] [facility] [address] [place] [address] MRI Cardiac and MRA Chest WWO Contrast Social History Tobacco Use Types Packs/Day Years Used Date Smoking Tobacco: Former Cigarettes Q uit: 1994 Smokeless Tobacco: Never Comments:Smoking History Pac ks/day: 1 Packs Alcohol Use Standard Drinks/Week Comments Yes 0 (1 standard drink = 0.6 oz pur e alcohol) [facility] Utilities Answer Date Recorded In the past 12 months has th e electric, gas, oil, or water company threatened [...] often do you attend chur ch or taoism services? Never 12/10/2024 Do you belong to any clubs o r organizations such as religion groups, unions, fraternal or athletic groups, or [...] any time in the past 12 m ont, were you homeless or living in a alf (including now)? No 12/10/2024 Personal Safety Answer Date Recorded Have you ever been in or are you currently in a harmful physical or emotional relationship or is someone making you feel afraid or unsafe? Denies 12/10/2024 Comments Unknown Sex and Gender Information Value Date Recorded Sex Assigned at Not on file Legal Sex Female 3:20 PM DISTILLER Gender Identity Female 09/10/2024 9:39 PM DISTILLER Sexual Orientation Straight 09/10/2024 9: 39 PM DISTILLER documented as of this encounter Miscellaneous Notes * Telephone Encounter - Hyun Dhillon - 02/12/2025 4:15 PM CDT Called and lvm with recommendations per Dr. Nicole. Advise pt to cb to schedule CTA * Telephone Encounter - Hyun Dhillon - 02/12/2025 4:14 PM CDT ----- Message from Ramon Nicole MD PhD sent at 02/11/2025 8:26 PM CDT ----- Plz refer for CCTA, thx. ----- Message ----- From: Interface, Radiology Results In Sent: 02/11/2025 7:26 PM CDT To: Ramon Nicole MD PhD documented in this encounter Plan of Treatment Not on file documented as of this encounter Visit Diagnoses Not on filedocumented in this encounter Care Teams Slot Service Specialist Relationship Specialty Start Date End Date Charisse Isaac MD [address] [place] [address] [place] [address] PCP - General Family Medicine 08/15/24 Charisse Isaac MD [address] [place] [address] [address] Family Medicine 08/15/24 Ramon Nicole MD PhD [address] [facility] [address] [place] [address] Consulting Physician Cardiology 12/17/24 Lorraine Leon MD [id number] [place] [address] Consulting Physician Nephrology 12/17/24 documented as of this encounter
[2025-03-22 15:36] VITALS: BP 130/72; PULSE 93; RESP 18; TEMP 37.2; O2SAT 98
--- OUTSIDE RECORDS SUMMARY | 2025-03-22 16:00 | XMS_ITS | Encounter Summary ---
Author Organization [facility] Healthcare Address [address] [place] [address] Care Team Providers Care Music Agent Name Role Phone Charisse Isaac MD Primary Care Provider + Charisse Isaac MD Unavailable [phone] Ramon Nicole MD PhD Unavailable [phone] Lorraine Leon MD Unavailable [phone] Encounter Details Date Type Department Care Team (Late st Contact Info) Description 01/03/2025 Orders Only [facility] Health Information Management [address] [place] [id number] Scanning, Provider Social History Tobacco Use Types Packs/Day Years Used Date Smoking Tobacco: Former Cigarettes Q uit: 1994 Smokeless Tobacco: Never Comments:Smoking History Pac ks/day: 1 Packs Alcohol Use Standard Drinks/Week Comments Yes 0 (1 standard drink = 0.6 oz pur e alcohol) [facility] Utilities Answer Date Recorded In the past 12 months has [employer] electric, gas, oil, or water company threatened [...] any clubs o r organizations such as rastafari groups, unions, fraternal or athletic groups, or [...] any time in the past 12 m [facility], were you homeless or living in a halfway (including now)? No 12/10/2024 Personal Safety Answer Date Recorded Have you ever been in or are you currently in a harmful physical or emotional relationship or is someone making you feel afraid or unsafe? Denies 12/10/2024 Comments Unknown Sex and Gender Information Value Date Recorded Sex Assigned at Not on file Legal Sex Female 3:20 PM FASHION DIRECTOR PARTY PLAN SALES Gender Identity Female 09/10/2024 9:39 PM FASHION DIRECTOR [employer] PLAN SALES Sexual Orientation Straight 09/10/2024 9: 39 PM FASHION DIRECTOR PARTY PLAN SALES documented as of this encounter Plan of [...] on filedocumented in this encounter Care Teams Music Agent Relationship Specialty Start Date End Date Charisse Isaac MD [address] [facility] [address] [place] [address] PCP - General Family Medicine 08/15/24 Charisse Isaac MD [address] [place] [address] [address] [place] [address] Family Medicine 08/15/24 Ramon Nicole MD PhD [address] [place] [address] Consulting Physician Cardiology 12/17/24 Lorraine Leon MD [id number] [place] [address] Consulting Physician Nephrology 12/17/24 documented as of this encounter
--- OUTSIDE RECORDS SUMMARY | 2025-03-22 16:00 | XMS_ITS | Encounter Summary ---
Author Organization [facility] Healthcare Address [address] [place] [address] Care Team Providers Care Flavoring Oil Filterer Name Role Phone Charisse Isaac MD Primary Care Provider + Charisse Isaac MD Unavailable [phone] Ramon Nicole MD PhD Unavailable [phone] Lorraine Leon MD Unavailable [phone] Encounter Details Date Type Department Care Team (Late st Contact Info) Description 02/11/2025 Results Follow-Up [facility] Medical Group Cardiology [address] [facility] [address] [place] [address] Ramon Nicole MD PhD [address] [facility] [address] [place] [address] MRI Cardiac and MRA Chest [...] any clubs o r organizations such as latter-day groups, unions, fraternal or athletic groups, or [...] were you homeless or living in a detention (including now)? No 12/10/2024 Personal Safety Answer Date Recorded Have you ever been in or are you currently in a harmful physical or emotional relationship or is someone making you feel afraid or unsafe? Denies 12/10/2024 Comments Unknown Sex and Gender Information Value Date Recorded Sex Assigned at Not on file Legal Sex Female 3:20 PM TAXI SERVICER Gender Identity Female 09/10/2024 9:39 PM TAXI SERVICER Sexual Orientation Straight 09/10/2024 9: 39 PM TAXI SERVICER documented as of this encounter Miscellaneous Notes [...] on filedocumented in this encounter Care Teams Flavoring Oil Filterer Relationship Specialty Start Date End Date Charisse Isaac MD [address] [place] [address] [place] [address] PCP - General Family Medicine 08/15/24 Charisse Isaac MD [address] [place] [address] [address] Family Medicine 08/15/24 Ramon Nicole MD PhD [address] [facility] [address] [place] [address] Consulting Physician Cardiology 12/17/24 Lorraine Leon MD [id number] [place] [address] Consulting Physician Nephrology 12/17/24 documented as of this encounter
--- OUTSIDE RECORDS SUMMARY | 2025-03-22 16:00 | XMS_ITS | Encounter Summary ---
Author Organization [facility] Healthcare Address [address] [place] [address] Care Team Providers Care El Teacher Name Role Phone Charisse Isaac MD Primary Care Provider + Charisse Isaca MD Unavailable [phone] Ramon Nicole MD PhD Unavailable [phone] Lorraine Leon MD Unavailable [phone] Encounter Details Date Type Department Care Team (Late st Contact Info) Description 12/06/2024 Orders Only [facility] Health Information Management [address] [place] [address] Scanning, Provider Social History Tobacco Use Types Packs/Day Years Used Date Smoking Tobacco: Former Cigarettes Q uit: 1994 Smokeless Tobacco: Never Comments:Smoking History Pac ks/day: 1 Packs Alcohol Use Standard Drinks/Week Comments Yes 0 (1 standard drink = 0.6 oz pur e alcohol) [facility] Utilities Answer Date Recorded In the past 12 months has [employer] electric, gas, oil, or water company threatened [...] often do you attend chur ch or baptist services? Never 12/10/2024 Do you belong to any clubs o r organizations such as rastafarian groups, unions, fraternal or athletic groups, or [...] any time in the past 12 m [facility], were you homeless or living in [...] on file Legal Sex Female 3:20 PM TELECASTING ENGINEER Gender Identity Female 09/10/2024 9:39 PM TELECASTING ENGINEER Sexual Orientation Straight 09/10/2024 9: 39 PM TELECASTING ENGINEER documented as of this encounter Plan of [...] Ring Surveillance: Aydee gaitan Comment:Round 1: 12/13 -[facility] IP 12/13/2024 12/13/2024 12/20/2024 7:26 PM C DT documented as of this encounter Care Teams El Teacher Relationship Specialty Start Date End Date Charisse Isaac MD [address] [place] [address] [address] [place] [address] PCP - General Family Medicine 08/15/24 Charisse Isaac MD [address] [place] [address] [address] [place] [address] Family Medicine 08/15/24 Ramon Nicole MD PhD [address] [place] [address] Consulting Physician Cardiology 12/17/24 Lorraine Leon MD [id number] [place] [address] Consulting Physician Nephrology 12/17/24 documented as of this encounter
--- OUTSIDE RECORDS SUMMARY | 2025-03-22 16:00 | XMS_ITS | Clinical Summary ---
Author Organization [facility] Address [address] [place] [address] Phone Care Team Providers Care Engraver Seals Name Role Phone Charisse Isaac MD Primary Care Provider [phone] Allergies Active Allergy Reactions Criticality Noted Date [...] Influenza Vaccine (#1) 2025 Insurance MEDICARE HMO Care Teams Engraver Seals Relationship Specialty Start Date End Date Charisse Isaac MD [address] [place] [phone] PCP - General Family Medicine 10/20/21
--- NOTE | 2025-03-22 16:07 | ED.GENADULT ---
HPI - General Adult General Chief complaint: Fall Stated complaint: fall Time Seen by Provider: 03/22/25 15:36 History of Present Illness HPI narrative: Patient 74-year-old female who presents emergency department with chief complaint of head injury patient reports she was bending over to move a rock fell forward had no loss of consciousness reports that abrasion on the left forehead the patient states she is up-to-date on her tetanus status reports that she is on apixaban patient states that she is not having any nausea or vomiting denies change in mental status reports no other injuries Related Data Home Medications ?Medication ?Instructions ?Recorded ?Confirmed ?Last Taken ?Type aspirin 81 mg tablet,delayed 81 mg PO DAILY 06/28/19 02/13/25 07/21/22 History release allopurinol 100 mg tablet 100 mg PO DAILY 12/19/24 02/13/25 Unknown History amiodarone 400 mg tablet 400 mg PO DAILY 12/19/24 02/13/25 Unknown History apixaban 5 mg tablet 5 mg PO BID 12/19/24 02/13/25 Unknown History metoprolol succinate 25 mg 25 mg PO DAILY 12/19/24 02/13/25 Unknown History tablet,extended release 24 hr torsemide 20 mg tablet 20 mg PO QAM 12/19/24 02/13/25 Unknown History Allergies Allergy/AdvReac Type Severity Reaction Status Date / Time naproxen Allergy Severe swelling Verified 03/22/25 15:40 in ankles and feet duloxetine Allergy Intermediate jittery Verified 03/22/25 15:40 and hyper lisinopril Allergy Intermediate cough Verified 03/22/25 15:40 Review of Systems Review of Systems: A 10 system review of systems was completed on the patient and is negative except for what is stated in the HPI. Nursing and ancillary documentation was reviewed. ON LICENSE OF [facility] Past Medical History Medical History Acute hypoxic respiratory failure Pulmonary congestion Atrial fibrillation with RVR Acute kidney injury Leukocytosis Shock Great toe pain Epistaxis Foot pain, left Lumbago Left hip pain Esophageal reflux Acute biliary pancreatitis without infection or necrosis Arthritis Hyperlipidemia Abdominal mass fullness Other left bundle branch block Surgical History Surgical History Hx laparoscopic cholecystectomy History of implantable cardioverter-defibrillator (ICD) placement replaced 04/21 Hx of tonsillectomy H/O: hysterectomy Vaginal partial hysterectomy History of knee replacement Bilateral History of cardiac cath 2010 cardiac cath due to abnormal stress test that reportedly showed no coronary artery disease. Family History Family History Father Acute myocardial infarction Hypertension Family history of cardiovascular disease Gallbladder disease Mother Diabetes mellitus Hypertension Family history of cardiovascular disease Sibling Hypertension Social History Social History Social History: caffeine-daily soda Smoking packs per day: 0.5 Smoking cigarettes per day: 10.0 Years smoked: 30 Smoking pack-years: 15.00 Smoking status: Former smoker Tobacco type: cigarettes Alcohol intake: former Alcohol use details: Rare occasions, such as 2-3 times per year. Substance use: never Substance use type: does not use Do You Feel Safe in your Home?: Yes Lack of Transportation: No Lack of Food: Never True Current Housing: I Have Housing Concerned About Future Housing: No Difficulty Paying Gas/Electric Bills: No Difficulty Paying for Meds: No Currently Unemployed: No Education: High School Diploma/GED Difficulty w/ Childcare or Family Care: No Living arrangements: with family Additional living arrangements comments: Her . Has 4 children. Occupation/Education: occupation Additional occupation/education comments: [employer]. Gender identity (if verbalized by the patient): Female Sexual Orientation (if Verbalized by the Patient): Straight or Heterosexual Spiritual care concerns: No Exam Narrative: GENERAL: Well-appearing, well-nourished, and in no acute distress. HEAD: Normocephalic, small abrasion to the left forehead. EYES: PERRLA and EOMI. ENT: Nares clear, no rhinorrhea or epistaxis. Mucous membranes moist. NECK: Supple. CHEST: Clear to auscultation. No respiratory distress. HEART: Regular rate and rhythm. No murmur heard. Normal peripheral pulses. ABDOMEN: Soft, nontender, nondistended, normal active bowel sounds. EXTREMITIES: Normal range of motion. No edema. SKIN: Warm, dry, no rash. NEURO: No focal deficits. Alert and oriented x3. PSYCH: Normal mood and affect. Course Vital Signs Vital signs: Vital Signs Temperature 37.2 C 03/22/25 15:36 Pulse Rate 93 03/22/25 15:36 Respiratory Rate 18 03/22/25 15:36 Blood Pressure 130/72 03/22/25 15:36 Pulse Oximetry 98 03/22/25 15:36 Oxygen Delivery Room Air 03/22/25 15:36 Temperature 37.2 C 03/22/25 15:36 Pulse Rate 93 03/22/25 15:36 Respiratory Rate 18 03/22/25 15:36 Blood Pressure 130/72 03/22/25 15:36 Pulse Oximetry 98 03/22/25 15:36 Oxygen Delivery Room Air 03/22/25 15:36 Medical Decision Making MDM Narrative Medical decision making narrative: Differential diagnosis includes intracranial hemorrhage, contusion, abrasion CT head showed no acute intracranial pathology The patient's wound was cleaned and dressed Vital Signs Vital Signs: Vital Signs Temperature 37.2 C 03/22/25 15:36 Pulse Rate 93 03/22/25 15:36 Respiratory Rate 18 03/22/25 15:36 Blood Pressure 130/72 03/22/25 15:36 Pulse Oximetry 98 03/22/25 15:36 Oxygen Delivery Room Air 03/22/25 15:36 Temperature 37.2 C 03/22/25 15:36 Pulse Rate 93 03/22/25 15:36 Respiratory Rate 18 03/22/25 15:36 Blood Pressure 130/72 03/22/25 15:36 Pulse Oximetry 98 03/22/25 15:36 Oxygen Delivery Room Air 03/22/25 15:36 Discharge Plan Discharge Clinical Impression: Abrasion of forehead, Head injury Patient Disposition: Home Condition: Stable Instructions: Antibiotic Form, Head Injury (ED), Abrasion (ED) Additional Instructions: Please follow-up with your primary care provider as needed. You have severe headache nausea vomiting changes in your mental status please return to the emergency department immediately Patient Language: Turkmen Prescriptions: No Action aspirin 81 mg tablet,delayed release (DR/EC) 81 mg PO DAILY allopurinol 100 mg tablet 100 mg PO DAILY apixaban 5 mg tablet 5 mg PO BID amiodarone 400 mg tablet 400 mg PO DAILY Patient Comments: take 1 tablet (400 mg) by mouth daily for 30 days then take .50 tablet (200 mg) daily metoprolol succinate 25 mg tablet extended release 24 hr 25 mg PO DAILY torsemide 20 mg tablet 20 mg PO QAM (DME) cpap See Rx Instructions .Route .MEDSUPPLY Qty: 1 0RF Rx Instructions: Resmed AirSense 11 CPAP 11 cm H2O, size medium Resmed AirTouch F20 full face mask, CPAP filters/tubing and heated humidity. budesonide-formoterol [Symbicort] 160-4.5 mcg/actuation HFA aerosol inhaler 2 puff inhalation Q12H PRN (Reason: Shortness Of Breath Or Wheezing) Qty: 10.2 1RF albuterol sulfate 90 mcg/actuation HFA aerosol inhaler See Rx Instructions .ROUTE .COMPLEX Qty: 8.5 0RF Dose Instruction: INHALE 1 PUFF EVERY 4 HOURS NEEDED FOR SHORTNESS OF BREATH OR WHEEZING Rx Instructions: INHALE 1 PUFF EVERY 4 HOURS NEEDED FOR SHORTNESS OF BREATH OR WHEEZING citalopram 40 mg tablet See Rx Instructions .ROUTE .COMPLEX Qty: 90 1RF Dose Instruction: TAKE 1 TABLET BY MOUTH EVERY DAY Rx Instructions: TAKE 1 TABLET BY MOUTH EVERY DAY simvastatin 20 mg tablet See Rx Instructions .ROUTE .COMPLEX Qty: 90 1RF Dose Instruction: TAKE 1 TABLET BY MOUTH EVERYDAY AT BEDTIME Rx Instructions: TAKE 1 TABLET BY MOUTH EVERYDAY AT BEDTIME pantoprazole 40 mg tablet,delayed release (DR/EC) See Rx Instructions .ROUTE .COMPLEX Qty: 90 1RF Dose Instruction: TAKE 1 TABLET BY MOUTH EVERY DAY IN THE MORNING Rx Instructions: TAKE 1 TABLET BY MOUTH EVERY DAY IN THE MORNING ondansetron 4 mg tablet,disintegrating 4 mg PO Q8H PRN (Reason: nausea and vomiting) Qty: 14 1RF Follow-up/Referrals: Charisse Isaac MD [Primary Care Provider, Family Practice] Time of Disposition: 16:31
== END 2025-03-22 16:38 | disposition home or self-care (01) ==
PROVIDERS: Emergency Provider Emergency Medicine; PCP Family Medicine
DX: S00.81XA Abrasion of other part of head, initial encounter (principal); I48.91 Unspecified atrial fibrillation; E78.5 Hyperlipidemia, unspecified; K21.9 Gastro-esophageal reflux disease without esophagitis; M19.90 Unspecified osteoarthritis, unspecified site; Z95.810 Presence of automatic (implantable) cardiac defibrillator; Z96.653 Presence of artificial knee joint, bilateral; Z87.891 Personal history of nicotine dependence; Z90.49 Acquired absence of other specified parts of digestive tract; Z79.82 Long term (current) use of aspirin; Z79.899 Other long term (current) drug therapy; Z79.01 Long term (current) use of anticoagulants; W18.39XA Other fall on same level, initial encounter
CPT/HCPCS: 70450; 99284

== ENCOUNTER 2025-03-27 10:30 | Outpatient (CLI) | payer OTHER, SELFPAY ==
--- NOTE | ~2025-03-27 | XR_ITS ---
RIGHT XR hip LT 2V w AP pelvis Indication: Pain in left hip x 1 week after a fall Comparison: None Technique: 3 view. Findings: No acute fracture or malalignment. No significant degenerative changes. Soft tissues are unremarkable. Impression: No acute fracture or malalignment. Reviewed, dictated and finalized at location A. Impression: No acute fracture or malalignment.
== END 2025-03-27 10:31 | disposition home or self-care (01) ==
LOC: GOSHIMG 10:31
PROVIDERS: PCP Family Medicine; Visit Provider Family Medicine
DX: M25.552 Pain in left hip (principal)
CPT/HCPCS: 73502

== ENCOUNTER 2025-04-02 14:22 | Emergency (ER) | payer OTHER, SELFPAY ==
--- NOTE | ~2025-04-02 | CT_ITS ---
EXAMINATION: CT pelvis wo con DATE: 04/02/2025 16:11 INDICATION: Left hip pain. TECHNIQUE: Computed tomography (CT) of the pelvis was performed without intravenous contrast. The dose-length product was 907.68 mGy-cm. COMPARISON: CT dated 01/14/2020 and left hip series dated 03/27/2025 FINDINGS: No acute fracture. There are degenerative changes of the lower lumbar spine, sacroiliac joints and hips. No soft tissue abnormalities. No abnormal fluid in the hips. Nonobstructive bowel gas pattern. IMPRESSION: 1. No acute bone or joint abnormality. Reviewed, dictated and finalized at location O.
[2025-04-02 14:25] VITALS: BP 119/46; PULSE 69; RESP 16; TEMP 36.1; O2SAT 100
--- OUTSIDE RECORDS SUMMARY | 2025-04-02 15:52 | XMS_ITS | Encounter Summary ---
Author Organization [facility] Healthcare Address [address] [place] [address] Care Team Providers Care Portable Feed Mill Operator Name Role Phone Charisse Isaac MD Primary Care Provider + Charisse Isaac MD Unavailable [phone] Ramon Nicole MD PhD Unavailable [phone] Lorraine Leon MD Unavailable [phone] Encounter Details Date Type Department Care Team (Late st Contact Info) Description 12/06/2024 Orders Only [facility] Information Management [address] [place] [id number] Scanning, Provider Social History Tobacco Use Types Packs/Day Years Used Date Smoking Tobacco: Former Cigarettes Q uit: 1994 Smokeless Tobacco: Never Comments:Smoking History Pac ks/day: 1 Packs Alcohol Use Standard Drinks/Week Comments Yes 0 (1 standard drink = 0.6 oz pur e alcohol) [facility] Utilities Answer Date Recorded In the past 12 months has [employer], gas, oil, or water company threatened [...] often do you attend chur ch or hoahaoism services? Never 12/10/2024 Do you belong to any clubs o r organizations such as samaritan groups, unions, fraternal or athletic groups, or [...] time in the past 12 m [facility], were you homeless or living in a [facility] (including now)? No 12/10/2024 Personal Safety Answer Date Recorded Have you ever been in or are you currently in a harmful physical or emotional relationship or is someone making you feel afraid or unsafe? Denies 12/10/2024 Comments Unknown Sex and Gender Information Value Date Recorded Sex Assigned at Not on file Legal Sex Female 3:20 PM DIE CUTTER OPERATOR Gender Identity Female 09/10/2024 9:39 PM DIE CUTTER OPERATOR Sexual Orientation Straight 09/10/2024 9: 39 PM DIE CUTTER OPERATOR documented as of this encounter Plan of [...] Ring Surveillance: Aydee gaitan Comment:Round 1: 12/13 -[facility] IP 12/13/2024 12/13/2024 12/20/2024 7:26 PM C DT documented as of this encounter Care Teams Portable Feed Mill Operator Relationship Specialty Start Date End Date Charisse Isaac MD [address] [place] [address] [address] [place] [address] PCP - General Family Medicine 08/15/24 Charisse Isaac MD [address] [place] [address] [address] [place] [address] Family Medicine 08/15/24 Ramon Nicole MD PhD [address] [place] [address] Consulting Physician Cardiology 12/17/24 Lorraine Leon MD [id number] [place] [address] Consulting Physician Nephrology 12/17/24 documented as of this encounter
--- OUTSIDE RECORDS SUMMARY | 2025-04-02 15:52 | XMS_ITS | Encounter Summary ---
Author Organization [facility] Healthcare Address [address] [place] [address] Care Team Providers Care Intake Manager Name Role Phone Charisse Isaac MD Primary Care Provider + Charisse Isaac MD Unavailable [phone] Ramon Nicole MD PhD Unavailable [phone] Lorraine Leon MD Unavailable [phone] Encounter Details Date Type Department Care Team (Late st Contact Info) Description 01/03/2025 Orders Only [facility] Health Information Management [address] [place] [id number] Scanning, Provider Social History Tobacco Use Types Packs/Day Years Used Date Smoking Tobacco: Former Cigarettes Q uit: 1994 Smokeless Tobacco: Never Comments:Smoking History Pac ks/day: 1 Packs Alcohol Use Standard Drinks/Week Comments Yes 0 (1 standard drink = 0.6 oz pur e alcohol) [facility] Utilities Answer Date Recorded In the past 12 months has [employer], gas, oil, or water company threatened [...] often do you attend chur ch or jehovah's witness services? Never 12/10/2024 Do you belong to any clubs o r organizations such as synagogue groups, unions, fraternal or athletic groups, or [...] any time in the past 12 m [facility], were you homeless or living in a [place] [facility] (including now)? No 12/10/2024 Personal Safety Answer Date Recorded Have you ever been in or are you currently in a harmful physical or emotional relationship or is someone making you feel afraid or unsafe? Denies 12/10/2024 Comments Unknown Sex and Gender Information Value Date Recorded Sex Assigned at Not on file Legal Sex Female 3:20 PM NURSE CHEMICAL DEPENDENCY Gender Identity Female 09/10/2024 9:39 PM NURSE CHEMICAL DEPENDENCY Sexual Orientation Straight 09/10/2024 9: 39 PM NURSE CHEMICAL DEPENDENCY documented as of this encounter Plan of [...] on filedocumented in this encounter Care Teams Intake Manager Relationship Specialty Start Date End Date Charisse Isaac MD [address] [facility] [address] [place] [address] PCP - General Family Medicine 08/15/24 Charisse Isaac MD [address] [place] [address] [address] [place] [address] Family Medicine 08/15/24 Ramon Nicole MD PhD [address] [place] [address] Consulting Physician Cardiology 12/17/24 Lorraine Leon MD [address] [place] [id number] [place] [address] Consulting Physician Nephrology 12/17/24 documented as of this encounter
--- OUTSIDE RECORDS SUMMARY | 2025-04-02 15:52 | XMS_ITS | Clinical Summary ---
Author Organization [address] Address [address] [place] [id number] Care Team Providers Care Tax Manager Public Name Role Phone Charisse Isaac MD Primary Care Provider + Charisse Isaac MD Unavailable [phone] Ramon Nicole MD PhD Unavailable [phone] Lorraine Leon MD Unavailable [phone] Allergies Active Allergy Reactions Criticality Noted Date [...] weight loss she will f/u with PCP [id number] kidney injury 12/08/2024 Assessment & Plan (12/09/2024 [...] tomatic cardioverter/defibrillator (AICD) 03/03/2022 Overview (04/05/2022): Medtronic [place] BIV ICD. Dx; NICM (Dilated), CHF, LBBB. DOI 04/01/2022-Kahanda. Chronic leads 07/13/2010. Carelink remote monitoring. NICM (nonischemic cardiomyopathy) 03/30/2017 Encounters Date Type Department Care Team Description 03/24/2025 3:30 PM CDT Ancillary Procedure [facility] [address], [place] [address] Presence of biventricular automatic cardioverter/defibrilla tor (AICD) (Primary Dx); Dilated cardiomyopathy (HCC) 02/27/2025 8:30 AM CDT Office Visit [facility] Cardiology at [address] [place] [address] Matheus Wyatt MD NICM (nonischemic cardiomyopathy) (HCC) (Primary Dx); Cardiomyopathy, unspecified type (HCC); Other cardiomyopathies (HCC); Presence of automatic (implantable) cardiac defibrillator 02/20/2025 Telephone [facility] Cardiology [address] [facility] [address] [place] [address] Matheus Wyatt MD 02/11/2025 7:36 AM CDT - 02/11/2025 11:59 PM CDT Hospital Encounter [facility] - Imaging [address] [place] [address] MRI contraindicated due to metal implant Discharge Disposition: Discharge to home or self care 02/11/2025 7:01 AM CDT - 02/11/2025 11:59 PM CDT Hospital Encounter [facility] - Imaging [address] [place] [address] Valvular heart disease Discharge Disposition: Discharge to home or self care 02/11/2025 Results Follow-Up [facility] Cardiology [address] [facility] [address] [place] [address] Ramon Nicole MD PhD MRI Cardiac and MRA Chest WWO Contrast 02/11/2025 Orders Only [facility] Cardiology [address] [facility] [address] [place] [address] Ramon Nicole MD PhD Nonrheumatic mitral valve regurgitation (Primary Dx) 01/16/2025 Telephone [facility] Cardiology [address] [place] [address] [address] [place] [address] Matheus Wyatt MD 01/09/2025 10:45 AM CDT Office Visit [facility] [address] [place] [address] [address], [place] [address] Zuleyka Franco NP Cardiac arrhythmia, unspecified cardiac arrhythmia type (Primary Dx); Presence of biventricular automatic cardioverter/defibrilla tor (AICD); Dilated cardiomyopathy (HCC) 01/09/2025 10:30 AM CDT Ancillary Procedure [facility] [address] [place] [address] NICM (nonischemic cardiomyopathy) (HCC) (Primary Dx); Automatic implantable cardiac defibrillator in situ 01/06/2025 Telephone [facility] Cardiology [address] [facility] [address] [place] [address] Katelyn Gutierrez NP 01/03/2025 Orders Only [facility] Health Information Management [address] [place] [address] Scanning, Provider from Last 3 Months Surgical History Surgery Date Site/Laterality Comments INSERT / REPLACE / REMOVE PACEMAKER OTHER SURGICAL HISTORY generator changes in 2013 and 2019 HYSTERECTOMY 1994 CHOLECYSTECTOMY 2020 COLONOSCOPY 07/31/2023 - 07/30/2024 TONSILLECTOMY 1957 CARDIAC CATHETERIZATION 12/16/2024 N/A Procedure: RIGHT HEART CATHETERIZATION CORONARY ARTERY ANGIOGRAM [id number]; Surgeon: Keila Cortez MD; Location: [facility] CARDIAC BELL CLEANER; Service: Cardiovascular; Laterality: N/A; Medical History Medical History Date Comments Depression Depression Presence of biventricular au tomatic cardioverter/defibrillator (AICD) Medtronic Claria DIRECTOR OF FIELD COORDINATION -D Hypertension Sleep apnea Gout Family History [...] drink = 0.6 oz pur e alcohol) [facility] Utilities Answer Date Recorded In the past 12 months has th e [employer], gas, oil, or water shenzhoufu threatened to shut off services in your [...] week 12/10/2024 How often do you attend [facility] or restoration services? Never 12/10/2024 Do you belong to any clubs o r organizations such as yazidi groups, unions, fraternal or athletic groups, or [...] any time in the past 12 m [facility], were you homeless or living in a [...] on file Legal Sex Female 3:20 PM FREEZING MACHINE OPERATOR Gender Identity Female 09/10/2024 9:39 PM FREEZING MACHINE OPERATOR Sexual Orientation Straight 09/10/2024 9: 39 PM FREEZING MACHINE OPERATOR Obstetrics History Last Filed Vital Signs Vital [...] Dilated Eye Exam 1950 Foot Exam 1950 Hepatitis B Screening 1968 Zoster Vaccine (1 of 2) 2000 Well Visit 65+ 2015 DTaP/Tdap/Td Vaccine (2 - Td or Tdap) 05/17/2020 05/17/2010, 06/30/2000 Pneumococcal vaccine 65+ (3 of 3 - PCV20 or PCV21) 06/21/2021 06/21/2016, 07/25/2014 Influenza Vaccine (#1) 2025 , 06/29/2020, 05/17/2019, Additional history exists Hemoglobin A1C 06/10/2025 12/08/2024 Lipid Panel 08/15/2025 08/15/2024, 08/01, 08/30/2022, Additional history exists Fall Risk Assessment 12/17/2025 12/17/2024 eGFR 12/17/2025 12/17/2024, 11/28, 12/15/2024, Additional history exists Medical Devices Implanted Type Area Mine Car Mechanic Device Identifier Shelf Expiration Date Model / Serial / Lot Medtronic Inc [place] Hf Controller Mechanic-D Mri Surescan Df1 [id number] - [id number] - [id number] Implanted:Qty: 1 on 04/01/2022 by Brayan Cota MD at [facility] ICD Medtronic Inc [id number] 06/27/2023 [id number] / [id number] / Medtronic Inc Capsurefix Novus 5.7fr 52cm Bipolar Tined Screw In Is-1 Atrium [id number] Atria Medtronic Inc [id number] / [id number] / Medtronic Inc Sprint Quattro Secure 8.6fr 65cm Quadripolar Defibrillator Screw 6947 Ventricle Medtronic Inc [id number] / [id number] / Medtronic Inc Attain Ability 4fr 78cm Bipolar Is-1 Left Heart Transvenous 2 [id number] Left: Ventricle Medtronic Inc [id number] / [id number] / Medtronic Inc Tyrx Absorbable Antibacterial Envelope-Large 3.3x2.9in [id number] - [id number] Implanted:Qty: 1 on 04/01/2022 by Brayan Cota MD at [facility] Medtronic Inc 12/25/2022 [id number] / / [id number] Procedures Procedure Name Priority Date/Time Associated Diagnosis Comments DEVICE CHECK - REMOTE Routine 03/24/2025 9:55 AM CDT Dilated cardiomyopathy (HCC) MRI CARDIAC AND MRA CHEST WWO CONTRAST [...] SCAN - RADIOLOGY/IMAGING 01/03/2025 9:29 PM CDT EGFR Routine 12/17/2024 5:56 AM CDT HEMOGLOBIN A1C Routine 12/08/2024 3:42 AM CDT POCT LIPID PANEL Routine 08/15/2024 11:4 9 AM FREEZING MACHINE OPERATOR Need for lead screening from Last 3 Months or Most Recently Relevant to Health Maintenance Results * DEVICE CHECK - REMOTE (03/24/2025 9:55 AM CDT) Anatomical Region Laterality Modality Other Narrative 03/26/2025 12:37 PM CDT Table formatting from the original result was not included. BiV ICD CHECK (REMOTE) Patient ID: Norberto Arriaza is a 74 y.o. female. This patient received a Medtronic BiV ICD. They had a routine remote transmission on 03/24/2025 Device implant indications: CHF, nonischemic cardiomyopathy, LBBB Interrogation of the patient's device demonstrates the following: Presenting EGM: A sensed Bi V paced @ 60 bpm Original Device Settings Right Atrium Right Ventricle Left Ventricle Sensitivity (mV) 0.3 mV 0.3 mV N/a mV Pacing Outputs 1.5 V @ 0.4 ms 2.5 V @ 0.4 ms 4.0 V @ 1.0 ms Testing Measurements Right Atrium Right Ventricle Left Ventricle Sensitivity (mV) 3.6 mV 10.0 mV N/a mV Impedence (Ohms) 475 ohms 342 ohms 722 ohms Pace Threshold 0.375 V @ 0.4 ms 1.625 V @ 0.4 ms 3.5 V @ 1.0 ms Pacing % 40 % 95 % 73 % HV Lead Impedance N/A 50/65 ohms N/A Battery Status: 2.4 years to KT, charge time 1.3 seconds. Episodes last 90 days/Comments: AF Padroni 0 %,longest duration 3 min 58 sec. NORMAL DEVICE FUNCTION PROGRAMMED MEDICATIONS: Anti-coagulant(s): Eliquis 5 mg twice daily, Anti-arrhythmic(s): Toprol 25 mg daily, amiodarone 200 mg daily PLAN: 1) Medtronic BiV ICD evaluation 2) Medtronic remote transmission scheduled in 3 months. 3) Programming appropriate for device settings Eryn Morton RN Benji Lock MD [facility] C[facility] PROC EDURES Final Result * MRI Cardiac and MRA Chest WWO [...] (01/09/2025 10:50 AM CDT) us Zuleyka Franco SENIOR LITIGATION PARALEGAL ECG ORDERABLES Final Resu lt * DEVICE [...] ohms N/A Battery Status: 2.9 years to [facility], charge time 1.3 seconds. Episodes last 90 days/Comments: AF Padroni <0.1 % No new ventricular events. NORMAL DEVICE FUNCTION PROGRAMMED MEDICATIONS: Anti-coagulant(s): Aspirin 81 mg, Eliquis 5 mg twice a day Anti-arrhythmic(s): Amiodarone, Toprol-XL 25 mg daily PLAN: 1) Medtronic BiV ICD evaluation 2) Medtronic remote transmission scheduled in 3 months. 3) Programming appropriate for device settings Katelyn Conley RN Maris Brown NP [facility] C[facility]IAC SERVICES PROCEDURES Final Result * SCAN - RADIOLOGY/IMAGING (01/03/2025 9:29 PM CDT) Anatomical Region Laterality Modality Other Provider Scanning Final Result * (ABNORMAL) eGFR (12/17/2024 5:56 [...] of Race in Diagnosing Kidney Disease, JASN 2020). The CKD-EPI equation should not be used for patients with unstable renal function and has not been validated in children and those over 70. Current interpretive data was last reviewed 2021. Blood 12/17/2024 5:56 AM CDT 12/17/2024 7:01 AM CDT us Henry Duran MD LAB BLOOD ORDERABLES Final R esult [facility] [address] [place] [address] * (ABNORMAL) Hemoglobin A1c (12/08/2024 3:42 AM CDT) Pathologist [facility] Hgb A1C 6.6(H) 4.0 - 5.6 % Estimated Average Glucose 143 mg/dL [facility] Comment: The ADA recommends reporting an estimated Average Glucose (eAG) with all Hemoglobin A1c results using the equation derived from a study of 507 normal and diabetic adults. Minority populations were underrepresented and children were not included. (Diabetes Care 31:3992-8984, 2008). The eAG is not equivalent to a fasting glucose. Blood 12/08/2024 3:42 AM CDT 12/08/2024 2:05 PM CDT us Ramy Dee MD LAB BLOOD ORDERABLES Fi nal Result [facility] [address] [place] [address] * POCT lipid panel (08/15/2024 11:49 AM FREEZING MACHINE OPERATOR) Cholesterol, POC 134 mg/dL Comment:GLU = 216 HDL, POC 28 mg/dL Triglycerides, POC 212 mg/dL LDL Cholesterol POC 64 mg/dL Chol/HDL Ratio, POC 2.3 Non-HDL Cholesterol, POC 106 mg/dL Cholesterol Total, POC 134 mg/dL Capillary blood 08/15/2024 1 1:49 AM FREEZING MACHINE OPERATOR us Matheus Wyatt MD POINT OF CARE TEST ORDER LEXY Final Result from Last 3 Months or Most Recently Relevant to Health Maintenance Insurance [facility] Advance Directives For more information, please contact: [phone] * Full Code (Latest Code Status on File) Date Activated Date Inactivated Comments 12/06/2024 3:59 PM 12/17/2024 7:38 PM Care Teams Tax Manager Public Relationship Specialty Start Date End Date Charisse Isaac MD [address] [place] [address] [address] [place] [address] PCP - General Family Medicine 08/15/24 Charisse Isaac MD [address] [place] [address] [address] [place] [address] Family Medicine 08/15/24 Ramon Nicole MD PhD [address] [place] [address] Consulting Physician Cardiology 12/17/24 Lorraine Leon MD [id number] [place] [address] Consulting Physician Nephrology 12/17/24
--- OUTSIDE RECORDS SUMMARY | 2025-04-02 15:52 | XMS_ITS | Encounter Summary ---
Author Organization [facility] Healthcare Address [address] [place] [address] Care Team Providers Care Computer Information Systems Professor Name Role Phone Charisse Isaac MD Primary Care Provider + Charisse Isaac MD Unavailable [phone] Ramon Nicole MD PhD Unavailable [phone] Lorraine Leon MD Unavailable [phone] Encounter Details Date Type Department Care Team (Late st Contact Info) Description 02/11/2025 Results Follow-Up [facility] Medical Group Cardiology [address] [facility] [address] [place] [address] Ramon Nicole MD PhD [address] [facility] [address] [place] [address] MRI Cardiac and MRA Chest WWO Contrast Social History Tobacco Use Types Packs/Day Years Used Date Smoking Tobacco: Former Cigarettes Q uit: 1994 Smokeless Tobacco: Never Comments:Smoking History Pac ks/day: 1 Packs Alcohol Use Standard Drinks/Week Comments Yes 0 (1 standard drink = 0.6 oz pur e alcohol) [facility] Utilities Answer Date Recorded In the past [...] often do you attend chur ch or latter-day services? Never 12/10/2024 Do you belong to any clubs o r organizations such as restorationism groups, unions, fraternal or athletic groups, or [...] were you homeless or living in a chcf (including now)? No 12/10/2024 Personal Safety Answer Date Recorded Have you ever been in or are you currently in a harmful physical or emotional relationship or is someone making you feel afraid or unsafe? Denies 12/10/2024 Comments Unknown Sex and Gender Information Value Date Recorded Sex Assigned at Not on file Legal Sex Female 3:20 PM STAFF TRAINER Gender Identity Female 09/10/2024 9:39 PM STAFF TRAINER Sexual Orientation Straight 09/10/2024 9: 39 PM STAFF TRAINER documented as of this encounter Miscellaneous Notes [...] on filedocumented in this encounter Care Teams Computer Information Systems Professor Relationship Specialty Start Date End Date Charisse Isaac MD [address] [place] [address] [place] [address] PCP - General Family Medicine 08/15/24 Charisse Isaac MD [address] [place] [address] [address] Family Medicine 08/15/24 Ramon Nicole MD PhD [address] [facility] [address] [place] [address] Consulting Physician Cardiology 12/17/24 Lorraine Leon MD [id number] [place] [address] Consulting Physician Nephrology 12/17/24 documented as of this encounter
[2025-04-02 15:55] VITALS: BP 127/70; PULSE 61; RESP 20; O2SAT 100
--- NOTE | 2025-04-02 15:56 | ED.LOWEXIN ---
HPI - Extremity Injury (Lower) General Chief Complaint: Extremity Injury, Lower Stated Complaint: pain s/p fall last week Time Seen by Provider: 04/02/25 15:22 Source: patient Mode of arrival: wheelchair Limitations: no limitations History of Present Illness HPI Narrative: This is a 74 year old female that presents to the ER for left hip/pelvic pain. Reports she had a fall over the weekend. Hit her head. Was evaluated in the ER with negative imaging of her brain. Her hip started hurting after discharge. Was seen by her PCP for this. No fractures noted. She has not been able to walk due to pain. Reports decreased ROM due to pain. Denies numbness. Related Data Home Medications ?Medication ?Instructions ?Recorded ?Confirmed ?Last Taken ?Type aspirin 81 mg tablet,delayed 81 mg PO DAILY 06/28/19 03/27/25 07/21/22 History release allopurinol 100 mg tablet 100 mg PO DAILY 12/19/24 03/27/25 Unknown History amiodarone 400 mg tablet 400 mg PO DAILY 12/19/24 03/27/25 Unknown History apixaban 5 mg tablet 5 mg PO BID 12/19/24 03/27/25 Unknown History metoprolol succinate 25 mg 25 mg PO DAILY 12/19/24 03/27/25 Unknown History tablet,extended release 24 hr torsemide 20 mg tablet 20 mg PO QAM 12/19/24 03/27/25 Unknown History Allergies Allergy/AdvReac Type Severity Reaction Status Date / Time naproxen Allergy Severe swelling Verified 04/02/25 15:59 in ankles and feet duloxetine Allergy Intermediate jittery Verified 04/02/25 15:59 and hyper lisinopril Allergy Intermediate cough Verified 04/02/25 15:59 Review of Systems Review of Systems: All systems reviewed & are unremarkable except as noted in HPI and below PMFSH Past Medical History Medical History Acute hypoxic respiratory failure Pulmonary congestion Atrial fibrillation with RVR Acute kidney injury Leukocytosis Shock Great toe pain Epistaxis Foot pain, left Lumbago Left hip pain Esophageal reflux Acute biliary pancreatitis without infection or necrosis Arthritis Hyperlipidemia Abdominal mass fullness Other left bundle branch block Surgical History Surgical History Hx laparoscopic cholecystectomy History of implantable cardioverter-defibrillator (ICD) placement replaced 04/21 Hx of tonsillectomy H/O: hysterectomy Vaginal partial hysterectomy History of knee replacement Bilateral History of cardiac cath 2010 cardiac cath due to abnormal stress test that reportedly showed no coronary artery disease. Family History Family History Father Acute myocardial infarction Hypertension Family history of cardiovascular disease Gallbladder disease Mother Diabetes mellitus Hypertension Family history of cardiovascular disease Sibling Hypertension Social History Social History Social History: caffeine-daily soda Smoking packs per day: 0.5 Smoking cigarettes per day: 10.0 Years smoked: 30 Smoking pack-years: 15.00 Smoking status: Former smoker Tobacco type: cigarettes Alcohol intake: former Alcohol use details: Rare occasions, such as 2-3 times per year. Substance use: never Substance use type: does not use Do You Feel Safe in your Home?: Yes Lack of Transportation: No Lack of Food: Never True Current Housing: I Have Housing Concerned About Future Housing: No Difficulty Paying Gas/Electric Bills: No Difficulty Paying for Meds: No Currently Unemployed: No Education: High School Diploma/GED Difficulty w/ Childcare or Family Care: No Living arrangements: with family Additional living arrangements comments: Her . Has 4 children. Occupation/Education: occupation Additional occupation/education comments: [employer]. Gender identity (if verbalized by the patient): Female Sexual Orientation (if Verbalized by the Patient): Straight or Heterosexual Spiritual care concerns: No Exam Narrative: GENERAL: Well-appearing, well-nourished, and in no acute distress. HEAD: Normocephalic. Old bruising over the left eyebrow EYES: EOMI. CHEST: Clear to auscultation. No respiratory distress. No wheezes rales or rhonchi HEART: Regular rate and rhythm. No murmur heard. Normal peripheral pulses. EXTREMITIES: Decreased active ROM in the left hip due to pain. No obvious deformity. Normal DP pulse. Normal sensation SKIN: Warm, dry, no rash. NEURO: No focal deficits. Alert and oriented x3. PSYCH: Normal mood and affect Course Course Emergency Course: Patient updated on her workup and agrees with plan of care Vital Signs Vital signs: Vital Signs Temperature 97 F L 04/02/25 14:25 Pulse Rate 69 04/02/25 14:25 Respiratory Rate 16 04/02/25 14:25 Blood Pressure 119/46 L 04/02/25 14:25 Pulse Oximetry 100 04/02/25 14:25 Oxygen Delivery Room Air 04/02/25 14:25 Temperature 97 F L 04/02/25 14:25 Pulse Rate 61 04/02/25 15:55 Respiratory Rate 20 04/02/25 15:55 Blood Pressure 127/70 04/02/25 15:55 Pulse Oximetry 100 04/02/25 15:55 Oxygen Delivery Room Air 04/02/25 15:55 MDM - Extremity Injury (Lower) MDM Narrative Medical decision making narrative: Patient presents the emergency department for left hip/pelvic pain after a fall several days ago. Her vitals are stable. She is neurovascularly intact. Pelvic CT obtained which does not show any acute fractures. Patient and family updated on workup and agree with plan of care. Will be given follow-up with Orthopedics. She was given warnings to return to the ER Differential Diagnosis Differential diagnosis: Likely other (Hip fracture, pelvic fracture, contusion) Imaging Data Radiologist's impression: ITS Impressions Pelvis CT 04/02/25 16:20 IMPRESSION: 1. No acute bone or joint abnormality. Critical Care Time Critical Care Time Critical Care Time: No Discharge Plan Discharge Clinical Impression: Acute pain of left hip Patient Disposition: Home Condition: Stable Instructions: Hip Sprain (ED) Additional Instructions: Return to the ER if you experience fever, redness and swelling of your extremity, numbness or any other symptoms that are concerning to you Use walker. No weight on the affected leg until able to bear weight without pain. Ice and elevate extremity. Cbqm-xvn-nmmqxee pain medication as needed. Topical anti-inflammatory as needed for pain. Muscle relaxer as needed for pain. Take caution if you take this as muscle relaxers can make you sleepy Follow up with orthopedics for further care. Patient Language: Kinyarwanda Prescriptions: New diclofenac sodium 1 % gel 2 g topical QID PRN (Reason: pain) Qty: 50 0RF Rx Instructions: apply to single elbow, wrist or hand; for hand includes palm/fingers/back of hand methocarbamol 750 mg tablet 1,500 mg PO TID PRN (Reason: muscle spasm) Qty: 14 0RF No Action aspirin 81 mg tablet,delayed release (DR/EC) 81 mg PO DAILY allopurinol 100 mg tablet 100 mg PO DAILY apixaban 5 mg tablet 5 mg PO BID amiodarone 400 mg tablet 400 mg PO DAILY Patient Comments: take 1 tablet (400 mg) by mouth daily for 30 days then take .50 tablet (200 mg) daily metoprolol succinate 25 mg tablet extended release 24 hr 25 mg PO DAILY torsemide 20 mg tablet 20 mg PO QAM (DME) cpap See Rx Instructions .Route .MEDSUPPLY Qty: 1 0RF Rx Instructions: Resmed AirSense 11 CPAP 11 cm H2O, size medium Resmed AirTouch F20 full face mask, CPAP filters/tubing and heated humidity. budesonide-formoterol [Symbicort] 160-4.5 mcg/actuation HFA aerosol inhaler 2 puff inhalation Q12H PRN (Reason: Shortness Of Breath Or Wheezing) Qty: 10.2 1RF albuterol sulfate 90 mcg/actuation HFA aerosol inhaler See Rx Instructions .ROUTE .COMPLEX Qty: 8.5 0RF Dose Instruction: INHALE 1 PUFF EVERY 4 HOURS NEEDED FOR SHORTNESS OF BREATH OR WHEEZING Rx Instructions: INHALE 1 PUFF EVERY 4 HOURS NEEDED FOR SHORTNESS OF BREATH OR WHEEZING citalopram 40 mg tablet See Rx Instructions .ROUTE .COMPLEX Qty: 90 1RF Dose Instruction: TAKE 1 TABLET BY MOUTH EVERY DAY Rx Instructions: TAKE 1 TABLET BY MOUTH EVERY DAY simvastatin 20 mg tablet See Rx Instructions .ROUTE .COMPLEX Qty: 90 1RF Dose Instruction: TAKE 1 TABLET BY MOUTH EVERYDAY AT BEDTIME Rx Instructions: TAKE 1 TABLET BY MOUTH EVERYDAY AT BEDTIME pantoprazole 40 mg tablet,delayed release (DR/EC) See Rx Instructions .ROUTE .COMPLEX Qty: 90 1RF Dose Instruction: TAKE 1 TABLET BY MOUTH EVERY DAY IN THE MORNING Rx Instructions: TAKE 1 TABLET BY MOUTH EVERY DAY IN THE MORNING methocarbamol 750 mg tablet 750 mg PO TID PRN (Reason: muscle pain) Qty: 30 1RF methylprednisolone [Medrol (Hilario)] 4 mg tablets,dose pack See Rx Instructions PO PER PKG DIR Qty: 21 0RF Rx Instructions: PO PER PKG DIR Follow-up/Referrals: Charisse Isaac MD [Primary Care Provider, Family Practice] Daniel Wilhelm MD [Physician, Orthopedics]
--- OUTSIDE RECORDS SUMMARY | 2025-04-02 17:07 | XMS_ITS | Encounter Summary ---
Author Organization [facility] Healthcare Address [address] [place] [address] Care Team Providers Care Room Service Food Service Attendant Name Role Phone Charisse Isaac MD Primary Care Provider + Charisse Isaac MD Unavailable [phone] Ramon Nicole MD PhD Unavailable [phone] Lorraine Leon MD Unavailable [phone] Encounter Details Date Type Department Care Team (Late st Contact Info) Description 12/06/2024 Orders Only [facility] [place] Information Management [address] [place] [address] Scanning, Provider Social History Tobacco Use Types Packs/Day Years Used Date Smoking Tobacco: Former Cigarettes Q uit: 1994 Smokeless Tobacco: Never Comments:Smoking History Pac ks/day: 1 Packs Alcohol Use Standard Drinks/Week Comments Yes 0 (1 standard drink = 0.6 oz pur e alcohol) [facility] Utilities Answer Date Recorded In the past 12 months has [employer], gas, oil, or water company threatened [...] often do you attend chur ch or evangelical services? Never 12/10/2024 Do you belong to any clubs o r organizations such as protestant groups, unions, fraternal or athletic groups, or [...] any time in the past 12 m [facility], were you homeless or living in a skilled nursing (including now)? No 12/10/2024 Personal Safety Answer Date Recorded Have you ever been in or are you currently in a harmful physical or emotional relationship or is someone making you feel afraid or unsafe? Denies 12/10/2024 Comments Unknown Sex and Gender Information Value Date Recorded Sex Assigned at Not on file Legal Sex Female 3:20 PM MISSION COORDINATOR Gender Identity Female 09/10/2024 9:39 PM MISSION COORDINATOR Sexual Orientation Straight 09/10/2024 9: 39 PM MISSION COORDINATOR documented as of this encounter Plan of [...] Ring Surveillance: Aydee gaitan Comment:Round 1: 12/13 -[facility] IP 12/13/2024 12/13/2024 12/20/2024 7:26 PM C DT documented as of this encounter Care Teams Room Service Food Service Attendant Relationship Specialty Start Date End Date Charisse Isaac MD [address] [place] [address] [address] [place] [address] PCP - General Family Medicine 08/15/24 Charisse Isaac MD [address] [place] [address] [address] [place] [address] Family Medicine 08/15/24 Ramon Nicole MD PhD [address] [place] [address] Consulting Physician Cardiology 12/17/24 Lorraine Leon MD [id number] [place] [address] Consulting Physician Nephrology 12/17/24 documented as of this encounter
--- OUTSIDE RECORDS SUMMARY | 2025-04-02 17:07 | XMS_ITS | Encounter Summary ---
Author Organization [facility] Healthcare Address [address] [place] [address] Care Team Providers Care Chemist Helper Name Role Phone Charisse Isaac MD Primary Care Provider + Charisse Isaac MD Unavailable [phone] Ramon Nicole MD PhD Unavailable [phone] Lorraine Leon MD Unavailable [phone] Encounter Details Date Type Department Care Team (Late st Contact Info) Description 01/03/2025 Orders Only [facility] [place] Health Information Management [address] [place] [address] Scanning, Provider Social History Tobacco Use Types Packs/Day Years Used Date Smoking Tobacco: Former Cigarettes Q uit: 1994 Smokeless Tobacco: Never Comments:Smoking History Pac ks/day: 1 Packs Alcohol Use Standard Drinks/Week Comments Yes 0 (1 standard drink = 0.6 oz pur e alcohol) [facility] Utilities Answer Date Recorded In the past 12 months has [employer], gas, oil, or water company threatened [...] often do you attend chur ch or jain services? Never 12/10/2024 Do you belong to [...] on file Legal Sex Female 3:20 PM LEAD SETTER Gender Identity Female 09/10/2024 9:39 PM LEAD SETTER Sexual Orientation Straight 09/10/2024 9: 39 PM LEAD SETTER documented as of this encounter Plan of [...] on filedocumented in this encounter Care Teams Chemist Helper Relationship Specialty Start Date End Date Charisse Isaac MD [address] [facility] [address] [place] [address] PCP - General Family Medicine 08/15/24 Charisse Isaac MD [address] [place] [address] [address] [place] [address] Family Medicine 08/15/24 Ramon Nicole MD PhD [address] [place] [address] Consulting Physician Cardiology 12/17/24 Lorraine Leon MD [id number] [place] [address] Consulting Physician Nephrology 12/17/24 documented as of this encounter
--- OUTSIDE RECORDS SUMMARY | 2025-04-02 17:07 | XMS_ITS | Clinical Summary ---
Author Organization [address] Address [address] [place] [id number] Care Team Providers Care Pick Out Hand Name Role Phone Charisse Isaac MD Primary Care Provider + Charisse Isaac MD Unavailable [phone] Ramon Nicole MD PhD Unavailable [phone] Lorraine Leon MD Unavailable [phone] Allergies Active Allergy Reactions Criticality Noted Date [...] weight loss she will f/u with PCP Suhyf-ls-vocvzjn kidney injury 12/08/2024 Assessment & Plan (12/09/2024 [...] tomatic cardioverter/defibrillator (AICD) 03/03/2022 Overview (04/05/2022): Medtronic Roosevelt BIV ICD. Dx; NICM (Dilated), CHF, LBBB. DOI 04/01/2022-Kahanda. Chronic leads 07/13/2010. Carelink remote monitoring. NICM (nonischemic cardiomyopathy) 03/30/2017 Encounters Date Type Department Care Team Description 03/24/2025 3:30 PM CDT Ancillary Procedure [facility] [address] [facility] [address], [place] [address] Presence of biventricular automatic cardioverter/defibrilla tor (AICD) (Primary Dx); Dilated cardiomyopathy (HCC) 02/27/2025 8:30 AM CDT Office Visit [facility] Cardiology at [address] [place] [address] Matheus Wyatt MD NICM (nonischemic cardiomyopathy) (HCC) (Primary Dx); Cardiomyopathy, unspecified type (HCC); Other cardiomyopathies (HCC); Presence of automatic (implantable) cardiac defibrillator 02/20/2025 Telephone [facility] Cardiology [address] [facility] [address] [place] [address] Matheus Wyatt MD 02/11/2025 7:36 AM CDT - 02/11/2025 11:59 PM CDT Hospital Encounter [facility] [address] [place] [address] MRI contraindicated due to metal implant Discharge Disposition: Discharge to home or self care 02/11/2025 7:01 AM CDT - 02/11/2025 11:59 PM CDT Hospital Encounter [facility] [address] [place] [address] Valvular heart disease Discharge Disposition: Discharge to home or self care 02/11/2025 Results Follow-Up [facility] Cardiology [address] [facility] [address] [place] [address] Ramon Nicole MD PhD MRI Cardiac and MRA Chest WWO Contrast 02/11/2025 Orders Only [facility] Cardiology [address] [facility] [address] [place] [address] Ramon Nicole MD PhD Nonrheumatic mitral valve regurgitation (Primary Dx) 01/16/2025 Telephone [facility] Cardiology [address] [place] [address] [address] [place] [address] Matheus Wyatt MD 01/09/2025 10:45 AM CDT Office Visit [facility] [address] [place] [address] [address], [place] [address] Zuleyka Franco NP Cardiac arrhythmia, unspecified cardiac arrhythmia type (Primary Dx); Presence of biventricular automatic cardioverter/defibrilla tor (AICD); Dilated cardiomyopathy (HCC) 01/09/2025 10:30 AM CDT Ancillary Procedure [facility] [address] [facility] [address] [place] [address] NICM (nonischemic cardiomyopathy) (HCC) (Primary Dx); Automatic implantable cardiac defibrillator in situ 01/06/2025 Telephone [facility] Cardiology [address] [facility] [address] [place] [address] Katelyn Gutierrez NP 01/03/2025 Orders Only [facility] Health Information Management [address] [place] [address] Scanning, Provider from Last 3 Months Surgical History Surgery Date Site/Laterality Comments INSERT / REPLACE / REMOVE PACEMAKER OTHER SURGICAL HISTORY generator changes in 2013 and 2019 HYSTERECTOMY 1994 CHOLECYSTECTOMY 2020 COLONOSCOPY 07/31/2023 - 07/30/2024 TONSILLECTOMY 1957 CARDIAC CATHETERIZATION 12/16/2024 N/A Procedure: RIGHT HEART CATHETERIZATION CORONARY ARTERY ANGIOGRAM 32526; Surgeon: Keila Cortez MD; Location: [facility]G [facility]; Service: Cardiovascular; Laterality: N/A; Medical History Medical History Date Comments Depression Depression Presence of biventricular au tomatic cardioverter/defibrillator (AICD) Medtronic Claria [employer] DEVELOPER -D Hypertension Sleep apnea Gout Family History [...] the past 12 months has th e [employer], gas, oil, or water [employer] threatened to shut off services in your [...] week 12/10/2024 How often do you attend [facility] or mormon services? Never 12/10/2024 Do you belong to any clubs o r organizations such as gnosticism groups, unions, fraternal or athletic groups, or [...] any time in the past 12 m [facility], were you homeless or living in a intermediate (including now)? No 12/10/2024 Personal Safety Answer Date Recorded Have you ever been in or are you currently in a harmful physical or emotional relationship or is someone making you feel afraid or unsafe? Denies 12/10/2024 Comments Unknown Sex and Gender Information Value Date Recorded Sex Assigned at Not on file Legal Sex Female 3:20 PM SUPERVISOR ELECTRONICS ASSEMBLY Gender Identity Female 09/10/2024 9:39 PM SUPERVISOR ELECTRONICS ASSEMBLY Sexual Orientation Straight 09/10/2024 9: 39 PM SUPERVISOR ELECTRONICS ASSEMBLY Obstetrics History Last Filed Vital Signs Vital [...] history exists Medical Devices Implanted Type Area Residential Worker Device Identifier Shelf Expiration Date Model / Serial / Lot Medtronic Inc Roosevelt Hf Hooker Laster-D Mri Surescan Df1 [id number] - [id number] - [id number] Implanted:Qty: 1 on 04/01/2022 by Brayan Cota MD at [facility] ICD Medtronic Inc [id number] 06/27/2023 [id number] / [id number] / Medtronic Inc Capsurefix Novus 5.7fr 52cm Bipolar Tined Screw In Is-1 Atrium 251001 Atria Medtronic Inc [id number] / [id number] / Medtronic Inc Sprint Quattro Secure 8.6fr 65cm Quadripolar Defibrillator Screw 6947 Ventricle Medtronic Inc 6947 / [id number] / Medtronic Inc Attain Ability 4fr 78cm Bipolar Is-1 Left Heart Transvenous 2 140069 Left: Ventricle Medtronic Inc [id number] / [id number] / Medtronic Inc Tyrx Absorbable Antibacterial Envelope-Large 3.3x2.9in [id number] - [id number] Implanted:Qty: 1 on 04/01/2022 by Brayan Cota MD at [facility] Medtronic Inc 12/25/2022 [id number] / / [id number] Procedures Procedure Name Priority Date/Time Associated Diagnosis [...] LIPID PANEL Routine 08/15/2024 11:4 9 AM SUPERVISOR ELECTRONICS ASSEMBLY Need for lead screening from Last 3 [...] 1.3 seconds. Episodes last 90 days/Comments: AF Elkins 0 %,longest duration 3 min 58 sec. [...] (01/09/2025 10:50 AM CDT) us Zuleyka Franco CSO ECG ORDERABLES Final Resu lt * DEVICE [...] 1.3 seconds. Episodes last 90 days/Comments: AF Elkins <0.1 % No new ventricular events. NORMAL [...] MD LAB BLOOD ORDERABLES Final R esult [facility] [address] [place] [address] * (ABNORMAL) Hemoglobin A1c (12/08/2024 3:42 AM CDT) Pathologist [facility] Hgb A1C 6.6(H) 4.0 - 5.6 % Estimated Average Glucose 143 mg/dL [facility] Comment: The ADA recommends reporting an estimated Average Glucose (eAG) with all Hemoglobin A1c results using the equation derived from a study of 507 normal and diabetic adults. Minority populations were underrepresented and children were not included. (Diabetes Care 31:3118-7996, 2008). The eAG is not equivalent to a fasting glucose. Blood 12/08/2024 3:42 AM CDT 12/08/2024 2:05 PM CDT us Ramy Dee MD LAB BLOOD ORDERABLES Fi nal Result [facility] [address] [place] [address] * POCT lipid panel (08/15/2024 11:49 AM SUPERVISOR ELECTRONICS ASSEMBLY) Cholesterol, POC 134 mg/dL Comment:GLU = 216 HDL, POC 28 mg/dL Triglycerides, POC 212 mg/dL LDL Cholesterol POC 64 mg/dL Chol/HDL Ratio, POC 2.3 Non-HDL Cholesterol, POC 106 mg/dL Cholesterol Total, POC 134 mg/dL Capillary blood 08/15/2024 1 1:49 AM SUPERVISOR ELECTRONICS ASSEMBLY us Matheus Wyatt MD POINT OF CARE TEST ORDER LEXY Final Result from Last 3 Months or Most Recently Relevant to Health Maintenance Insurance [facility] Advance Directives For more information, please contact: [phone] * Full Code (Latest Code Status on File) Date Activated Date Inactivated Comments 12/06/2024 3:59 PM 12/17/2024 7:38 PM Care Teams Pick Out Hand Relationship Specialty Start Date End Date Charisse Isaac MD [address] [place] [address] [address] [place] [address] PCP - General Family Medicine 08/15/24 Charisse Isaac MD [address] [place] [address] [address] [place] [address] Family Medicine 08/15/24 Ramon Nicole MD PhD [address] [place] [address] Consulting Physician Cardiology 12/17/24 Lorraine Leon MD [id number] [place] [address] Consulting Physician Nephrology 12/17/24
--- OUTSIDE RECORDS SUMMARY | 2025-04-02 17:07 | XMS_ITS | Encounter Summary ---
Author Organization [facility] Healthcare Address [address] [place] [address] Care Team Providers Care Telephone Service Representative Name Role Phone Charisse Isaac MD Primary Care Provider + Charisse Isaac MD Unavailable [phone] Ramon Nicole MD PhD Unavailable [phone] Lorraine Leon MD Unavailable [phone] Encounter Details Date Type Department Care Team (Late st Contact Info) Description 02/11/2025 Results Follow-Up [facility] Cardiology [address] [facility] [address] [place] [address] Ramon Nicole MD PhD [address] [facility] [address] [place] [address] MRI Cardiac and MRA Chest WWO Contrast Social History Tobacco Use Types Packs/Day Years Used Date Smoking Tobacco: Former Cigarettes Q uit: 1994 Smokeless Tobacco: Never Comments:Smoking History Pac ks/day: 1 Packs Alcohol Use Standard Drinks/Week Comments Yes 0 (1 standard drink = 0.6 oz pur e alcohol) [facility] Utilities Answer Date Recorded In the [...] often do you attend chur ch or jew services? Never 12/10/2024 Do you belong to any clubs o r organizations such as tenriism groups, unions, fraternal or athletic groups, or [...] No 12/10/2024 Housing Stability Vital Sign Answer Acrlos e Recorded In the last 12 months, [...] on file Legal Sex Female 3:20 PM NUCLEAR FUEL PROCESSING TECHNICIAN Gender Identity Female 09/10/2024 9:39 PM NUCLEAR FUEL PROCESSING TECHNICIAN Sexual Orientation Straight 09/10/2024 9: 39 PM NUCLEAR FUEL PROCESSING TECHNICIAN documented as of this encounter Miscellaneous Notes [...] on filedocumented in this encounter Care Teams Telephone Service Representative Relationship Specialty Start Date End Date Charisse Isaac MD [address] [place] [address] [place] [address] PCP - General Family Medicine 08/15/24 Charisse Isaac MD [address] [place] [address] [address] Family Medicine 08/15/24 Ramon Nicole MD PhD [address] [facility] [address] [place] [address] Consulting Physician Cardiology 12/17/24 Lorraine Leon MD [id number] [place] [address] Consulting Physician Nephrology 12/17/24 documented as of this encounter
== END 2025-04-02 18:05 | disposition home or self-care (01) ==
PROVIDERS: Emergency Provider Physician Assistant; PCP Family Medicine
DX: M25.552 Pain in left hip (principal); Z91.81 History of falling
CPT/HCPCS: 72192; 99284

== ENCOUNTER 2025-04-23 16:48 | Emergency (ER) | payer OTHER, SELFPAY ==
--- NOTE | 2025-04-23 16:54 | ED.GENADULT ---
HPI - General Adult General Chief complaint: Extremity Problem,Nontraumatic Stated complaint: REDNESS/SWELLING L LEG Source: patient Mode of arrival: wheelchair Limitations: no limitations History of Present Illness HPI narrative: Pt is a 74 y/o female presenting with c/o redness to the L. lower leg. Pt reports chronic pruritus, which has caused countless scabs all over her body. She reports itching the anterior aspect of her L. ankle last week and then noted redness around the area on Monday. Pt reports since Monday, the redness has worsened and is now associated with edema. She reports compliance with anticoagulant. No recent immobilization, surgery, long travel. 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 No additional complaints. Related Data Home Medications ?Medication ?Instructions ?Recorded ?Confirmed ?Last Taken ?Type aspirin 81 mg tablet,delayed 81 mg PO DAILY 06/28/19 04/10/25 07/21/22 History release allopurinol 100 mg tablet 100 mg PO DAILY 12/19/24 04/10/25 Unknown History amiodarone 400 mg tablet 400 mg PO DAILY 12/19/24 04/10/25 Unknown History apixaban 5 mg tablet 5 mg PO BID 12/19/24 04/10/25 Unknown History metoprolol succinate 25 mg 25 mg PO DAILY 12/19/24 04/10/25 Unknown History tablet,extended release 24 hr torsemide 20 mg tablet 20 mg PO QAM 12/19/24 04/10/25 Unknown History Allergies Allergy/AdvReac Type Severity Reaction Status Date / Time naproxen Allergy Severe swelling Verified 04/23/25 17:08 in ankles and feet duloxetine Allergy Intermediate jittery Verified 04/23/25 17:08 and hyper lisinopril Allergy Intermediate cough Verified 04/23/25 17:08 Review of Systems Review of Systems: CONSTITUTIONAL: Denies body aches, fever, chills, or sweats. EYES: Denies visual changes, redness, or discharge. ENT: Denies rhinorrhea, congestion, sore throat, or otalgia. CARDIOVASCULAR: Denies chest pain, palpitations, or edema. RESPIRATORY: Denies cough or dyspnea. GASTROINTESTINAL: Denies abdominal pain, nausea, vomiting, or diarrhea. GENITOURINARY: Denies dysuria or hematuria. SKIN: reports wound/redness/swelling to the LLE Denies rash MUSCULOSKELETAL: Denies back pain, joint pain, or myalgia. NEUROLOGIC: Denies headache, numbness, tingling, or weakness. PSYCH: Denies depression or anxiety. All systems reviewed & are unremarkable except as noted in HPI and below PMFSH Past Medical History Medical History Acute hypoxic respiratory failure Pulmonary congestion Atrial fibrillation with RVR Acute kidney injury Leukocytosis Shock Great toe pain Epistaxis Foot pain, left Lumbago Left hip pain Esophageal reflux Acute biliary pancreatitis without infection or necrosis Arthritis Hyperlipidemia Abdominal mass fullness Other left bundle branch block Surgical History Surgical History Hx laparoscopic cholecystectomy History of implantable cardioverter-defibrillator (ICD) placement replaced 04/21 Hx of tonsillectomy H/O: hysterectomy Vaginal partial hysterectomy History of knee replacement Bilateral History of cardiac cath 2010 cardiac cath due to abnormal stress test that reportedly showed no coronary artery disease. Family History Family History Father Acute myocardial infarction Hypertension Family history of cardiovascular disease Gallbladder disease Mother Diabetes mellitus Hypertension Family history of cardiovascular disease Sibling Hypertension Social History Social History Social History: caffeine-daily soda Smoking packs per day: 0.5 Smoking cigarettes per day: 10.0 Years smoked: 30 Smoking pack-years: 15.00 Smoking status: Former smoker Tobacco type: cigarettes Alcohol intake: former Alcohol use details: Rare occasions, such as 2-3 times per year. Substance use: never Substance use type: does not use Lack of Transportation: No Lack of Food: Never True Current Housing: I Have Housing Concerned About Future Housing: No Difficulty Paying Gas/Electric Bills: No Difficulty Paying for Meds: No Currently Unemployed: No Education: Trade/Vocational Certificate Difficulty w/ Childcare or Family Care: No Living arrangements: with family Additional living arrangements comments: Her . Has 4 children. Occupation/Education: occupation Additional occupation/education comments: [employer]. Gender identity (if verbalized by the patient): Female Sexual Orientation (if Verbalized by the Patient): Straight or Heterosexual Spiritual care concerns: No Exam Narrative: GENERAL: Well-appearing, well-nourished, and in no acute distress. HEAD: Normocephalic, atraumatic. EYES: EOMI. No redness or drainage. Conjunctivae normal. ENT: Mucous membranes pink and moist. NECK: Normal AROM. Supple. CHEST: No respiratory distress. HEART: Regular rate Normal peripheral pulses. EXTREMITIES: FROM of all extremities SKIN: Warm, dry. Capillary refill normal. Normal skin turgor. small wounds with overlying scab formation noted to trina. upper and lower extremities. linear, excoriated wound noted to the anterior aspect of the L. ankle. There is moderate, blanchable erythema, increased warmth, mild edema noted to the L. lower leg (excluding foot), extends about 1/4 up the lower leg; erythema, edema, increased warmth is not circumferential as it does not involve the entire posterior aspect nor does it involve the lateral aspect. NEURO: No focal deficits. Alert and oriented x3. PSYCH: Normal affect. No signs of depression or anxiety. Course Course Level of Care: Express Care Visit Vital Signs Vital signs: Vital Signs Temperature 96.1 F L 04/23/25 17:00 Pulse Rate 79 04/23/25 17:00 Respiratory Rate 16 04/23/25 17:00 Blood Pressure 157/66 H 04/23/25 17:00 Pulse Oximetry 100 04/23/25 17:00 Temperature 96.1 F L 04/23/25 17:00 Pulse Rate 79 04/23/25 17:00 Respiratory Rate 16 04/23/25 17:00 Blood Pressure 157/66 H 04/23/25 17:00 Pulse Oximetry 100 04/23/25 17:00 Medical Decision Making [facility] Narrative Medical decision making narrative: Discussed elevated blood pressure readings with patient and advised daily BP monitoring and f/u with PCP if persisting. Vital Signs Vital Signs: Vital Signs Temperature 96.1 F L 04/23/25 17:00 Pulse Rate 79 04/23/25 17:00 Respiratory Rate 16 04/23/25 17:00 Blood Pressure 157/66 H 04/23/25 17:00 Pulse Oximetry 100 04/23/25 17:00 Temperature 96.1 F L 04/23/25 17:00 Pulse Rate 79 04/23/25 17:00 Respiratory Rate 16 04/23/25 17:00 Blood Pressure 157/66 H 04/23/25 17:00 Pulse Oximetry 100 04/23/25 17:00 Discharge Plan Discharge Clinical Impression: Cellulitis of left leg without foot, Itching, Essential (primary) hypertension Leg wound, left Qualifiers: Encounter type: initial encounter Qualified Code(s): S81.802A - Unspecified open wound, left lower leg, initial encounter Patient Disposition: Home Condition: Stable Instructions: Antibiotic Form, Cellulitis (ED), Acute Wounds (DC) Additional Instructions: Go straight to ER should your symptoms become worse or should any new symptoms develop Patient Language: Estonian Prescriptions: New doxycycline hyclate 100 mg capsule 100 mg PO BID 10 Days Qty: 20 0RF No Action aspirin 81 mg tablet,delayed release (DR/EC) 81 mg PO DAILY allopurinol 100 mg tablet 100 mg PO DAILY apixaban 5 mg tablet 5 mg PO BID amiodarone 400 mg tablet 400 mg PO DAILY Patient Comments: take 1 tablet (400 mg) by mouth daily for 30 days then take .50 tablet (200 mg) daily metoprolol succinate 25 mg tablet extended release 24 hr 25 mg PO DAILY torsemide 20 mg tablet 20 mg PO QAM diclofenac sodium 1 % gel 2 g topical QID PRN (Reason: pain) Qty: 50 0RF Rx Instructions: apply to single elbow, wrist or hand; for hand includes palm/fingers/back of hand (DME) cpap See Rx Instructions .Route .MEDSUPPLY Qty: 1 0RF Rx Instructions: Resmed AirSense 11 CPAP 11 cm H2O, size medium Resmed AirTouch F20 full face mask, CPAP filters/tubing and heated humidity. budesonide-formoterol [Symbicort] 160-4.5 mcg/actuation HFA aerosol inhaler 2 puff inhalation Q12H PRN (Reason: Shortness Of Breath Or Wheezing) Qty: 10.2 1RF albuterol sulfate 90 mcg/actuation HFA aerosol inhaler See Rx Instructions .ROUTE .COMPLEX Qty: 8.5 0RF Dose Instruction: INHALE 1 PUFF EVERY 4 HOURS NEEDED FOR SHORTNESS OF BREATH OR WHEEZING Rx Instructions: INHALE 1 PUFF EVERY 4 HOURS NEEDED FOR SHORTNESS OF BREATH OR WHEEZING citalopram 40 mg tablet See Rx Instructions .ROUTE .COMPLEX Qty: 90 1RF Dose Instruction: TAKE 1 TABLET BY MOUTH EVERY DAY Rx Instructions: TAKE 1 TABLET BY MOUTH EVERY DAY simvastatin 20 mg tablet See Rx Instructions .ROUTE .COMPLEX Qty: 90 1RF Dose Instruction: TAKE 1 TABLET BY MOUTH EVERYDAY AT BEDTIME Rx Instructions: TAKE 1 TABLET BY MOUTH EVERYDAY AT BEDTIME pantoprazole 40 mg tablet,delayed release (DR/EC) See Rx Instructions .ROUTE .COMPLEX Qty: 90 1RF Dose Instruction: TAKE 1 TABLET BY MOUTH EVERY DAY IN THE MORNING Rx Instructions: TAKE 1 TABLET BY MOUTH EVERY DAY IN THE MORNING Follow-up/Referrals: Charisse Isaac MD [Primary Care Provider, Family Practice] - 04/24/25 Time of Disposition: 17:09
[2025-04-23 17:00] VITALS: BP 157/66; PULSE 79; RESP 16; TEMP 35.6; O2SAT 100
== END 2025-04-23 17:20 | disposition home or self-care (01) ==
PROVIDERS: Emergency Provider Registered Nurse; PCP Family Medicine
DX: L03.116 Cellulitis of left lower limb (principal); L29.9 Pruritus, unspecified; I10 Essential (primary) hypertension; S81.802A Unspecified open wound, left lower leg, initial encounter; X58.XXXA Exposure to other specified factors, initial encounter; I48.91 Unspecified atrial fibrillation; E78.5 Hyperlipidemia, unspecified; K21.9 Gastro-esophageal reflux disease without esophagitis; M19.90 Unspecified osteoarthritis, unspecified site; Z87.891 Personal history of nicotine dependence; Z79.82 Long term (current) use of aspirin
CPT/HCPCS: 99213; G0463

== ENCOUNTER 2025-05-19 19:13 | Inpatient (IN) | payer OTHER, SELFPAY ==
[2025-05-19] VITALS (28 sets, daily range): BP systolic 108–139; BP diastolic 49–105; PULSE 67–82; RESP 12–27; TEMP 36.4–36.7; O2SAT 93–100; BMI 40.8
--- NOTE | ~2025-05-19 | XR_ITS ---
[id number] INDICATION: knee pain from fall . COMPARISON: None. FINDINGS: Frontal and lateral views of the left knee demonstrate knee arthroplasty. Components are well-seated and in appropriate position. No acute fracture. IMPRESSION: Radiographic examination of the left knee demonstrates no acute fracture or dislocation. Reviewed, dictated and finalized at location S. IMPRESSION: Radiographic examination of the left knee demonstrates no acute fracture or dis location.
--- NOTE | ~2025-05-19 | XR_ITS ---
XR chest 1V INDICATION:HIP FX . REFERENCE: None FINDINGS: A single AP of the chest demonstrates enlarged heart. Dual-chamber pacing device is noted. The lungs are clear. There is no evidence of pneumothorax or pleural effusion. IMPRESSION: No acute pulmonary findings. Reviewed, dictated and finalized at location S.
--- NOTE | ~2025-05-19 | XR_ITS ---
XR hip LT 2V w AP pelvis INDICATION: pain COMPARISON: None FINDINGS: AP view the pelvis and 2 views of the left hip acute displaced subcapital fracture of the left femoral neck.. IMPRESSION: Acute displaced subcapital fracture of the left femoral neck. Reviewed, dictated and finalized at location S.
--- NOTE | ~2025-05-19 | XR_ITS ---
EXAMINATION: XR surgery orthopedic DATE: 05/21/2025 15:20 INDICATION: Intraoperative evaluation during left bipolar type left hip hemiarthroplasty TECHNIQUE: 2 frontal views of the left hip were obtained. COMPARISON: None. FINDINGS: Intraoperative images during a bipolar type left hip hemiarthroplasty demonstrate initial placement of temporary femoral broach with proximal tip centered over the left acetabulum. Subsequent image demonstrates placement of a bipolar type left hip hemiarthroplasty which appears well seated in near-elle omic alignment. Portions of the pelvis are either obscured by a bolster were excluded from the [id number]. No fractures in the visualized bones. IMPRESSION: 1. Expected appearance during bipolar type left hip hemiarthroplasty. Reviewed, dictated and finalized at location A.
--- NOTE | 2025-05-19 21:18 | ED.LOWEXIN ---
HPI - Extremity Injury (Lower) General Chief Complaint: Extremity Injury, Lower Stated Complaint: L HIP/KNEE PAIN/UNABLE TO BEAR WT. Time Seen by Provider: 05/19/25 20:19 Source: patient Mode of arrival: wheelchair Limitations: no limitations History of Present Illness HPI Narrative: This is a 74-year-old female with history of diabetes, CKD, a flutter, hypertension, cardiomyopathy status post AICD placement who presents the ED for hip pain. Patient states that for the past several weeks, she has been having consistent hip pain that has been evaluated several times providers. She has been going to PT for this with minimal relief. She had a steroid injection to her left hip 4 days ago and was doing well until either Monday or Monday when her pain worsened and she is no longer able walk due to this. She does not recall any specific injury. Related Data Home Medications ?Medication ?Instructions ?Recorded ?Confirmed ?Last Taken ?Type aspirin 81 mg tablet,delayed 81 mg PO DAILY 06/28/19 05/15/25 07/21/22 History release allopurinol 100 mg tablet 100 mg PO DAILY 12/19/24 05/15/25 Unknown History amiodarone 400 mg tablet 400 mg PO DAILY 12/19/24 05/15/25 Unknown History apixaban 5 mg tablet 5 mg PO BID 12/19/24 05/15/25 Unknown History metoprolol succinate 25 mg 25 mg PO DAILY 12/19/24 05/15/25 Unknown History tablet,extended release 24 hr torsemide 20 mg tablet 20 mg PO QAM 12/19/24 05/15/25 Unknown History hydralazine 10 mg tablet 10 mg PO BID 04/30/25 05/15/25 Unknown History Allergies Allergy/AdvReac Type Severity Reaction Status Date / Time naproxen Allergy Severe swelling Verified 05/15/25 07:11 in ankles and feet duloxetine Allergy Intermediate jittery Verified 05/15/25 07:11 and hyper lisinopril Allergy Intermediate cough Verified 05/15/25 07:11 Review of Systems Review of Systems: Gen.: Denies fevers or chills Eyes: Denies eye pain or visual change ENT: Denies congestion Respiratory: Denies shortness of breath or cough CV: Denies chest pain or palpitations GI: Denies abdominal pain nausea, emesis or diarrhea denies burning, urgency, frequency or hematuria Musculoskeletal: As per HPI Neuro: Denies numbness, tingling, weakness or focal weakness Skin: Denies rash Except as documented, all other systems reviewed and negative [facility] Past Medical History Medical History Acute hypoxic respiratory failure Pulmonary congestion Atrial fibrillation with RVR Acute kidney injury Leukocytosis Shock Great toe pain Epistaxis Foot pain, left Lumbago Left hip pain Esophageal reflux Acute biliary pancreatitis without infection or necrosis Arthritis Hyperlipidemia Abdominal mass fullness Other left bundle branch block Surgical History Surgical History Hx laparoscopic cholecystectomy History of implantable cardioverter-defibrillator (ICD) placement replaced 04/21 Hx of tonsillectomy H/O: hysterectomy Vaginal partial hysterectomy History of knee replacement Bilateral History of cardiac cath 2010 cardiac cath due to abnormal stress test that reportedly showed no coronary artery disease. Family History Family History Father Acute myocardial infarction Hypertension Family history of cardiovascular disease Gallbladder disease Mother Diabetes mellitus Hypertension Family history of cardiovascular disease Sibling Hypertension Social History Social History Social History: caffeine-daily soda Smoking packs per day: 0.5 Smoking cigarettes per day: 10.0 Years smoked: 30 Smoking pack-years: 15.00 Smoking status: Former smoker Tobacco type: cigarettes Alcohol intake: former Alcohol use details: Rare occasions, such as 2-3 times per year. Substance use: never Substance use type: does not use Current Housing: Decline to Answer Concerned About Future Housing: Decline to Answer Difficulty Paying Gas/Electric Bills: Decline to Answer Difficulty Paying for Meds: Decline to Answer Currently Unemployed: Decline to Answer Education: Decline to Answer Difficulty w/ Childcare or Family Care: Decline to Answer Living arrangements: with family Additional living arrangements comments: Her . Has 4 children. Occupation/Education: occupation Additional occupation/education comments: [employer]. Gender identity (if verbalized by the patient): Female Sexual Orientation (if Verbalized by the Patient): Straight or Heterosexual Spiritual care concerns: No Exam Narrative: APPEARANCE: No acute distress, nontoxic, resting in bed EYES: EOMI HEENT: Normocephalic, atraumatic, OMM RESPIRATORY: No respiratory distress Clear to auscultation bilaterally with no rhonchi wheezing or rales. CARDIOVASCULAR: Regular rate and rhythm without murmurs rubs or gallops. ABDOMINAL: Soft, nontender, nondistended, no rebound or guarding MUSCULOSKELETAl: Left lower extremity is slightly shortened and externally rotated. Pain with range of motion at the left hip. Slight tenderness to palpation over the greater trochanter of the left hip. Neurovascularly intact distally. NEURO: Awake and alert. Following commands, speech normal, no focal deficits SKIN:: Warm, dry. No rashes lesions or abrasions PSYCHIATRIC: Normal affect/mood, Course Vital Signs Vital signs: Vital Signs Temperature 98.0 F 05/19/25 19:17 Pulse Rate 68 05/19/25 19:17 Respiratory Rate 14 05/19/25 19:17 Blood Pressure 133/58 L 05/19/25 19:17 Pulse Oximetry 100 05/19/25 19:17 Oxygen Delivery Room Air 05/19/25 19:17 Temperature 98.0 F 05/19/25 19:17 Pulse Rate 68 05/19/25 19:17 Respiratory Rate 14 05/19/25 19:17 Blood Pressure 133/58 L 05/19/25 19:17 Pulse Oximetry 100 05/19/25 19:17 Oxygen Delivery Room Air 05/19/25 19:17 MDM - Extremity Injury (Lower) MDM Narrative Medical decision making narrative: 74-year-old female presenting for left hip pain. On initial evaluation, patient was in no acute distress afebrile hemodynamically stable. X-ray left hip did reveal a displaced subcapital femur fracture. I discussed this with Dr. Domingo, orthopedic surgery, does recommend the patient be admitted for surgery, recommends that patient's current orthopedic surgeon, Dr. Zaldivar, be consulted for surgical management. Case was discussed with hospitalist who will admit the patient. Differential Diagnosis Differential diagnosis: Likely other (Fracture, sprain, strain, contusion, muscle spasm) Medical Records Attestation: I reviewed the patient's medical records. Lab Data Attestation: I reviewed the patient's lab results. 05/19/25 22:10 05/19/25 22:10 Labs: Lab Results 05/19/25 05/19/25 Range/Units 22:10 22:10 WBC 15.2 H (4.5-10.0) K/mm3 RBC 3.68 L (4.2-5.4) M/mm3 Hgb 11.6 L (12.0-15.0) g/dL Hct 34.6 L (37.0-47.0) % MCV 94.0 (80-100) fl MCH 31.5 (26-34) pg MCHC 33.5 (32-36) g/dl RDW 14.3 (11.5-14.5) % Plt Count 209 (150-375) k/mm3 MPV 10.0 (7.4-10.4) fl Immature Gran % (Auto) 0.7 H (0-0.5) % Neut % (Auto) 78.9 H (45.5-73.1) % Lymph % (Auto) 13.1 L (18.3-44.2) % [place] % (Auto) 7.2 (2.6-8.5) % Eos % (Auto) 0.0 (0-4.4) % Baso % (Auto) 0.1 L (0.2-1.2) % Lymph # (Auto) 1.98 (0.9-3.2) K/mm3 [place] # (Auto) 1.1 H (0.1-0.6) K/mm3 Eos # (Auto) 0.0 (0-0.3) K/mm3 Baso # (Auto) 0.0 (0.0-0.1) K/mm3 Abs Immat Gran (auto) 0.10 H (0.00-0.031) K/mm3 Absolute Neuts (auto) 12.0 H (1.3-6.7) K/mm3 Absolute Nucleated RBC 0.000 (0.0-0.012) K/mm3 Nucleated RBC % 0.0 (0.0-0.2) % Sodium 135 L (137-145) mmol/L Potassium 3.6 (3.4-5.0) mmol/L Chloride 101 (98-107) mmol/L Carbon Dioxide 23 (22-30) mmol/L Anion Gap 11 (4-12) mmol/L BUN 90 H D (7-17) mg/dL Creatinine 3.41 H (0.7-1.0) mg/dL Estim Creat Clear Calc 17 ml/min Estimated GFR 13 L (59 - ) Glucose 117 H (65-110) mg/dL Calcium 9.1 (8.4-10.2) mg/dL Magnesium 1.6 Cancelled (1.6-2.3) mg/dL Total Bilirubin 1.5 H (0.2-1.3) mg/dL AST 30 (14-36) U/L ALT 24 (6-35) U/L Alkaline Phosphatase 115 (38-126) U/L Total Protein 7.1 (6.3-8.2) g/dL Albumin 3.8 (3.5-5.1) g/dL Imaging Data Attestation: I personally reviewed and interpreted this imaging study as follows: Radiologist's impression: Impressions Chest X-Ray 05/19/25 21:19 IMPRESSION: No acute pulmonary findings. Hip/Pelvis X-Ray 05/19/25 21:22 IMPRESSION: Acute displaced subcapital fracture of the left femoral neck. Knee X-Ray 05/19/25 21:24 IMPRESSION: Radiographic examination of the left knee demonstrates no acute fracture or dislocation. Discharge Plan Discharge Clinical Impression: Closed hip fracture Qualifiers: Encounter type: initial encounter Laterality: left Qualified Code(s): S72.002A - Fracture of unspecified part of neck of left femur, initial encounter for closed fracture Patient Disposition: Still a Patient Condition: Stable
[2025-05-19] MEDS: HYDROmorphone HCL INJ (*CRX) 1 MG/ML SYR 0.5 MG IV PUSH ×2 (21:20→22:15)
--- NOTE | 2025-05-19 21:23 | ECG_ITS ---
Test Date: 2025-05-19 23:25:06 Measurements Intervals Gordon Rate: 73 P: 0 LA: 0 QRS: 45 QRSD: 181 T: 169 QT: 465 QTc: 513 Interpretive Statements ELECTRONIC VENTRICULAR PACEMAKER UNDERLYING ATRIAL FLUTTER BASELINE ARTIFACT- I, II, III, AVR, AVL, AVF, V1-V6 NO FURTHER INTERPRETATION IS POSSIBLE ABNORMAL ECG Compared to ECG 12/04/2024 02:01:40 NO SIGNIFICANT CHANGE Electronically Signed On 05-20-2025 06:26:28 CDT by Dagoberto Ruff D.O.
[2025-05-19 22:17] LABS: Hematocrit 34.6 % (37.0-47.0); Hemoglobin 11.6 g/dL (12.0-15.0); Immature Granulocyte Percent A 0.7 % (0-0.5); Lymphocytes Absolute Auto 1.98 K/mm3 (0.9-3.2); Mean Corpuscular HGB Conc 33.5 g/dl (32-36); Mean Corpuscular Hemoglobin 31.5 pg (26-34); Mean Corpuscular Volume 94.0 fl (80-100); Nucleated Red Blood Cells Absolute Auto 0.000 K/mm3 (0.0-0.012); Nucleated Red Blood Cells Perc 0.0 % (0.0-0.2); Platelet Count Result 209 k/mm3 (150-375); Red Blood Count 3.68 M/mm3 (4.2-5.4); White Blood Count 15.2 K/mm3 (4.5-10.0)
[2025-05-19 22:28] LABS: Alanine Aminotransferase 24 U/L (6-35); Albumin Level 3.8 g/dL (3.5-5.1); Alkaline Phosphatase 115 U/L (38-126); Anion Gap 11 mmol/L (4-12); Aspartate Amino Transferase 30 U/L (14-36); Bilirubin,Total 1.5 mg/dL (0.2-1.3); Blood Urea Nitrogen 90 mg/dL (7-17); Calcium 9.1 mg/dL (8.4-10.2); Carbon Dioxide 23 mmol/L (22-30); Chloride 101 mmol/L (98-107); Estimated CRCL calculation 17 ml/min; Estimated Glomerular Filt Rate 13; Glucose 117 mg/dL (65-110); Potassium 3.6 mmol/L (3.4-5.0); Sodium 135 mmol/L (137-145); Total Protein 7.1 g/dL (6.3-8.2)
[2025-05-19 22:50] LABS: Magnesium 1.6 mg/dL (1.6-2.3)
--- NOTE | 2025-05-19 23:35 | ADMGEN ---
This patient, Norberto Arriaza, was admitted to 3 [facility] Surg Room 315-01. Patient/family oriented to hospital policies and general routines including ID bracelet, bed and alarms, visiting hours, pain management, procedures, bathroom and other care routines, personal items, smoking policy, room service/diet, and visiting hours. Information on how to activate the Rapid Response Team has been discussed. Patient/Family are encouraged to report perceived risks to care and to ask questions if they do not understand what they are told or what they should do.
[2025-05-20] VITALS (8 sets, daily range): BP systolic 104–129; BP diastolic 47–59; PULSE 59–78; RESP 18–20; TEMP 35.9–36.6; O2SAT 92–97
[2025-05-20] MEDS: HYDROcodone/acetaminophen (*CRX) 5-325 MG TABLET 1 TAB PO ×5 (00:23→18:48)
--- NOTE | 2025-05-20 00:31 | PM.IMHP ---
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 Wyatt with [facility] cardiology [place], EP Dr. Lock with [employer]. She has been seeing Dr. Zaldivar for left hip pain. Last seen in the office on 05/20/2025, she received a Kenalog injection, was prescribed prednisone mg p.o. b.i.d.. She presents to [facility] ER on 05/19/2025 with worsening pain. She was previously evaluated with x-rays with no identified fracture. On this occasion a left two view with AP pelvis roentegram demonstrates acute displaced subcapital fracture of the left femoral neck. Orthopedic surgery consulted from the ER. Advised admission with the hospitalist team. She was given Dilaudid 0.5 mg IV x1 which helped reduce the pain. She has no pain while resting but upon turning there is severe pain. Otherwise laboratory evaluation significant for WBC 84301, serum creatinine 3.41 which is near her recent baseline. She is on torsemide for cardiomyopathy/heart failure. Review of Systems Review of Systems: All systems reviewed & are unremarkable except as noted in HPI and below (Subjective) [facility] Past Medical History Medical History Acute hypoxic respiratory failure Pulmonary congestion Atrial fibrillation with RVR Acute kidney injury Leukocytosis Shock Great toe pain Epistaxis Foot pain, left Lumbago Left hip pain Esophageal reflux Acute biliary pancreatitis without infection or necrosis Arthritis Hyperlipidemia Abdominal mass fullness Other left bundle branch block Surgical History Surgical History Hx laparoscopic cholecystectomy History of implantable cardioverter-defibrillator (ICD) placement replaced 04/21 Hx of tonsillectomy H/O: hysterectomy Vaginal partial hysterectomy History of knee replacement Bilateral History of cardiac cath 2009 cardiac cath due to abnormal stress test that reportedly showed no coronary artery disease. Family History Family History Father Acute myocardial infarction Hypertension Family history of cardiovascular disease Gallbladder disease Mother Diabetes mellitus Hypertension Family history of cardiovascular disease Sibling Hypertension Social History Social History Social History: caffeine-daily soda Smoking packs per day: 0.5 Smoking cigarettes per day: 10.0 Years smoked: 30 Smoking pack-years: 15.00 Smoking status: Former smoker Tobacco type: cigarettes Alcohol intake: former Alcohol use details: Rare occasions, such as 2-3 times per year. Substance use: never Substance use type: does not use Lack of Transportation: No Lack of Food: Never True Current Housing: I Have Housing Concerned About Future Housing: No Difficulty Paying Gas/Electric Bills: No Difficulty Paying for Meds: No Currently Unemployed: No Education: High School Diploma/GED Difficulty w/ Childcare or Family Care: No Living arrangements: with family Additional living arrangements comments: Her . Has 4 children. Occupation/Education: occupation Additional occupation/education comments: [employer]. Gender identity (if verbalized by the patient): Female Sexual Orientation (if Verbalized by the Patient): Straight or Heterosexual Spiritual care concerns: No Meds Home Medications and Allergies Home Medications ?Medication ?Instructions ?Recorded ?Confirmed ?Type aspirin 81 mg tablet,delayed 81 mg PO DAILY 06/28/19 05/19/25 History release cpap #1 ea 04/18/24 05/19/25 Rx budesonide-formoterol HFA 160 2 puff inhalation Q12H PRN 07/25/24 05/19/25 Rx mcg-4.5 mcg/actuation aerosol Shortness Of Breath Or Wheezing inhaler (Symbicort) #10.2 grams albuterol sulfate 90 mcg/actuation See Rx Instructions .Route 08/26/24 05/19/25 Rx aerosol inhaler .COMPLEX #8.5 ea citalopram 40 mg tablet See Rx Instructions .Route 09/30/24 05/19/25 Rx .COMPLEX #90 tabs pantoprazole 40 mg tablet,delayed See Rx Instructions .Route 10/02/24 05/19/25 Rx release .COMPLEX #90 tabs simvastatin 20 mg tablet See Rx Instructions .Route 10/02/24 05/19/25 Rx .COMPLEX #90 tabs allopurinol 100 mg tablet 100 mg PO DAILY 12/19/24 05/19/25 History amiodarone 400 mg tablet 200 mg PO DAILY 12/19/24 05/19/25 History apixaban 5 mg tablet 5 mg PO BID 12/19/24 05/19/25 History metoprolol succinate 25 mg 25 mg PO DAILY 12/19/24 05/19/25 History tablet,extended release 24 hr torsemide 20 mg tablet 20 mg PO QAM 12/19/24 05/19/25 History hydralazine 10 mg tablet 10 mg PO BID 04/30/25 05/19/25 History prednisone 10 mg tablet 10 mg PO BID 10 days #20 tabs 05/15/25 05/19/25 Rx Allergies Allergy/AdvReac Type Severity Reaction Status Date / Time naproxen Allergy Severe swelling Verified 05/20/25 00:13 in ankles and feet duloxetine Allergy Intermediate jittery Verified 05/20/25 00:13 and hyper lisinopril Allergy Intermediate cough Verified 05/20/25 00:13 Vital Signs Vital Signs - 24 hr 05/19/25 19:17 05/19/25 19:40 05/19/25 19:45 Temperature 98.0 F Pulse Rate 68 80 68 Respiratory Rate 14 17 15 Blood Pressure 133/58 L Pulse Oximetry 100 Oxygen Delivery Room Air 05/19/25 19:47 05/19/25 20:00 05/19/25 20:03 Temperature Pulse Rate 69 70 68 Respiratory Rate 13 16 19 Blood Pressure 134/105 H 108/59 L Pulse Oximetry Oxygen Delivery 05/19/25 20:15 05/19/25 20:17 05/19/25 20:30 Temperature Pulse Rate 69 70 70 Respiratory Rate 20 23 H 18 Blood Pressure 115/49 L Pulse Oximetry 96 Oxygen Delivery 05/19/25 20:56 05/19/25 21:00 05/19/25 21:15 Temperature Pulse Rate 79 75 82 Respiratory Rate 15 18 Blood Pressure Pulse Oximetry Oxygen Delivery 05/19/25 21:22 05/19/25 21:30 05/19/25 21:31 Temperature Pulse Rate 70 69 70 Respiratory Rate 12 14 15 Blood Pressure 139/54 L 123/59 L Pulse Oximetry Oxygen Delivery 05/19/25 21:45 05/19/25 21:46 05/19/25 22:00 Temperature Pulse Rate 69 68 69 Respiratory Rate 13 22 H 17 Blood Pressure 133/67 Pulse Oximetry Oxygen Delivery 05/19/25 22:01 05/19/25 22:15 05/19/25 22:16 Temperature Pulse Rate 69 72 71 Respiratory Rate 27 H 15 12 Blood Pressure 137/59 L 125/55 L Pulse Oximetry Oxygen Delivery 05/19/25 22:30 05/19/25 22:31 05/19/25 22:45 Temperature Pulse Rate 69 69 67 Respiratory Rate 16 25 H 16 Blood Pressure 134/56 L Pulse Oximetry 100 Oxygen Delivery 05/19/25 22:46 05/19/25 23:00 05/19/25 23:02 Temperature Pulse Rate 68 72 72 Respiratory Rate 13 19 15 Blood Pressure 132/68 114/73 Pulse Oximetry 99 100 100 Oxygen Delivery 05/19/25 23:52 Temperature 97.6 F Pulse Rate 75 Respiratory Rate 20 Blood Pressure 135/55 L Pulse Oximetry 93 Oxygen Delivery Exam Const: General: comfortable and no acute distress Other: A&O x4 Eyes: Pupils: Equal, round and reactive pupils present Neck: Neck: supple Resp: Effort & Inspection: normal respiratory effort Auscultation: clear to auscultation bilaterally Cardio: Rate: regular rate Rhythm: regular rhythm Heart sounds: Murmur heart sound present (Systolic) GI: Inspection: non-distended GI Palp: Yes Soft to palpation Neuro: Motor exam (neuro): 5/5 motor strength present throughout Extrem: Other: Neurovascular intact in all 4 extremities. Bilateral lower extremity edema 1+ H&P: Results Labs Labs: Short CBC 05/19/25 Range/Units 22:10 WBC 15.2 H (4.5-10.0) K/mm3 Hgb 11.6 L (12.0-15.0) g/dL Hct 34.6 L (37.0-47.0) % Plt Count 209 (150-375) k/mm3 BMP 05/19/25 22:10 Sodium 135 L Potassium 3.6 Chloride 101 Carbon Dioxide 23 BUN 90 H D Creatinine 3.41 H Glucose 117 H Calcium 9.1 Liver Function 05/19/25 Range/Units 22:10 Total Bilirubin 1.5 H (0.2-1.3) mg/dL AST 30 (14-36) U/L ALT 24 (6-35) U/L Alkaline Phosphatase 115 (38-126) U/L Albumin 3.8 (3.5-5.1) g/dL Assessment and Plan Assessment and plan (1) Essential (primary) hypertension: Code(s): I10 - Essential (primary) hypertension Status: Chronic (2) Dilated cardiomyopathy: Code(s): I42.0 - Dilated cardiomyopathy Status: Chronic (3) Closed hip fracture: Qualifiers: Encounter type: initial encounter Laterality: left Qualified Code(s): S72.002A - Fracture of unspecified part of neck of left femur, initial encounter for closed fracture Code(s): S72.009A - Fracture of unspecified part of neck of unspecified femur, initial encounter for closed fracture Status: Acute (4) Obstructive sleep apnea (adult) (pediatric): Code(s): G47.33 - Obstructive sleep apnea (adult) (pediatric) Status: Acute Plan 74-year-old female with history cardiomyopathy with AICD, CKD, AFib on Eliquis, hyperlipidemia, BERTO on CPAP, Retail Field Representative is Dr. Wyatt with [facility] cardiology [place], EP Dr. Lock with [facility]. She has been seeing Dr. Zaldivar for left hip pain. Last seen in the office on 05/20/2025, she received a Kenalog injection, was prescribed prednisone mg p.o. b.i.d.. She presents to [facility] ER on 05/19/2025 with worsening pain. She was previously evaluated with x-rays with no identified fracture. On this occasion a left two view with AP pelvis roentegram demonstrates acute displaced subcapital fracture of the left femoral neck. Orthopedic surgery consulted from the ER. Advised admission with the hospitalist team. She was given Dilaudid 0.5 mg IV x1 which helped reduce the pain. She has no pain while resting but upon turning there is severe pain. Otherwise laboratory evaluation significant for WBC 37817, serum creatinine 3.41 which is near her recent baseline. She is on torsemide for cardiomyopathy/heart failure. ----- Daughter at bedside. They tell me she took Eliquis while in the ER tonight. Hold Eliquis. Will need washout prior to surgical intervention, they are amenable to surgery, orthopedic surgery consultation. The patient is a moderate-high risk patient for hip surgery. She otherwise does not have any acute contraindications. Cardiology to be consulted for further risk stratification at orthopedic surgeon discretion. Heart failure is compensated. No chest pain. No shortness of breath. We discussed the risk versus benefits of narcotics to treat her pain, she would like to continue with [place] and Dilaudid p.r.n.. Advised her to use these as sparingly as possible. Continuous pulse ox, CPAP nightly. Leukocytosis is likely reactive verses demargination due to systemic steroids. A comprehensive review systems she has no symptomatology to indicate infection, afebrile. No bandemia noted on CBC with differential. Will add a procalcitonin for the morning. Keep NPO. Hold torsemide. Continue to monitor volume status, trend renal function. Daily weights, strict intake/output. Currently normal sinus rhythm. 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 q.day. continue WASTEWATER PROCESS ENGINEER amiodarone 200 mg p.o. q.day. ----- Saline lock IV. SCDs. Patient wishes to be full code. NPO.
[2025-05-20] MEDS: HYDROmorphone HCL INJ (*CRX) 1 MG/ML SYR 0.5 MG IV PUSH ×2 (02:55→16:21)
[2025-05-20 06:53] LABS: Hematocrit 33.7 % (37.0-47.0); Hemoglobin 10.9 g/dL (12.0-15.0); Immature Granulocyte Percent A 0.7 % (0-0.5); Lymphocytes Absolute Auto 2.07 K/mm3 (0.9-3.2); Mean Corpuscular HGB Conc 32.3 g/dl (32-36); Mean Corpuscular Hemoglobin 31.4 pg (26-34); Mean Corpuscular Volume 97.1 fl (80-100); Nucleated Red Blood Cells Absolute Auto 0.000 K/mm3 (0.0-0.012); Nucleated Red Blood Cells Perc 0.0 % (0.0-0.2); Platelet Count Result 198 k/mm3 (150-375); Red Blood Count 3.47 M/mm3 (4.2-5.4); White Blood Count 13.6 K/mm3 (4.5-10.0)
[2025-05-20 07:04] LABS: INR 1.6; Prothrombin Time 18.5 Seconds (11.1-14.7)
--- NOTE | 2025-05-20 07:24 | PM.IMPN ---
Progress Note: A&P Assessment and Plan (1) Essential (primary) hypertension: Code(s): I10 - Essential (primary) hypertension Status: Chronic Assessment and Plan: --> stable currently -Continue SAUSAGE STUFFER metoprolol succinate 25 mg p.o. q.day. -continue SAUSAGE STUFFER amiodarone 200 mg p.o. q.day (2) Dilated cardiomyopathy: Code(s): I42.0 - Dilated cardiomyopathy Status: Chronic Assessment and Plan: --> stable currently - hold Eliquis -normal sinus rhythm. (3) Closed hip fracture: Qualifiers: Encounter type: initial encounter Laterality: left Qualified Code(s): S72.002A - Fracture of unspecified part of neck of left femur, initial encounter for closed fracture Code(s): S72.009A - Fracture of unspecified part of neck of unspecified femur, initial encounter for closed fracture Status: Acute Assessment and Plan: --> Orthopedic surgery consulted from the ER. - hold eliquis - plan for ORIF tomorrow at 1 pm. - NPO at midnight - Leukocytosis is likely reactive verses demargination due to systemic steroids --> continue with hydrocodone, tylenol, Dilaudid 0.5 mg IV (4) Obstructive sleep apnea (adult) (pediatric): Code(s): G47.33 - Obstructive sleep apnea (adult) (pediatric) Status: Acute Assessment and Plan: Continuous pulse ox, CPAP nightly. Plan Saline lock IV. SCDs. Patient wishes to be full code. NPO. 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 Wyatt with [facility] cardiology [place], EP Dr. Lock with [facility]. Patient has been seeing Dr. Zaldivar for left hip pain. Patient was last seen in the office on 05/20/2025, she received a Kenalog injection, was prescribed prednisone mg p.o. b.i.d.. Patient presented to [facility] ER on 05/19/2025 with worsening pain. Patient was previously evaluated with x-rays with no identified fracture. On this occasion a left two view with AP pelvis roentegram demonstrates acute displaced subcapital fracture of the left femoral neck. Orthopedic surgery consulted from the ER. Advised admission with the hospitalist team. She was given Dilaudid 0.5 mg IV x1 which helped reduce the pain. She has no pain while resting but upon turning or moving there is severe pain. laboratory evaluation significant for WBC 26956, serum creatinine 3.41 which is near her recent baseline. patient is on torsemide for cardiomyopathy/heart failure. Day #1 - Patient reports today pain in her hip with movement. patient did sadly have her Eliquis in ER last pm so Orthopedic surgery was delayed until 1 pm tomorrow. patient reports no distress. No other complaints. Vitals are stable. Labs today not to be improving - WBC 13.6, hgb 10.9, hct 33.7, Ptl 198. Review of Systems Review of Systems: All systems reviewed & are unremarkable except as noted in HPI and below (Subjective) Exam Const: General: comfortable and no acute distress Other: A&O x4 HENMT: Head: normal to inspection, No palpable skull fracture present, normocephalic and atraumatic Eyes: General: appearance normal, both eyes and all related structures Visual Vinson: normal visual vinson by confrontation Pupils: Equal, round and reactive pupils present Neck: Neck: supple Chest: Chest palpation & inspection: normal inspection of the chest Resp: Effort & Inspection: normal respiratory effort Auscultation: clear to auscultation bilaterally Cardio: Jugular venous distension: no JVD Rate: regular rate Rhythm: regular rhythm Heart sounds: S1 normal heart sound present, S2 normal heart sound present and Murmur heart sound present (Systolic) GI: Inspection: normal to inspection and non-distended Skin: General skin exam: normal color and no rashes or lesions noted Neuro: General: patient oriented x3, tone normal and Normal light touch and pain sensation Cranial nerves: Yes Equal, round and reactive pupils present Motor exam (neuro): 5/5 motor strength present throughout Extrem: Left lower extremity: hip/thigh Details: tenderness Location: of the hip and of the proximal upper leg and abnormal ROM Details: pain with active ROM, pain with resistance and pain with passive ROM Other: Neurovascular intact in all 4 extremities. Bilateral lower extremity edema 1+ Objective Data Vital Signs Vital Signs: Vital Signs - 24 hr 05/19/25 19:17 05/19/25 19:40 05/19/25 19:45 Temperature 98.0 F Pulse Rate 68 80 68 Respiratory Rate 14 17 15 Blood Pressure 133/58 L Pulse Oximetry 100 Oxygen Delivery Room Air 05/19/25 19:47 05/19/25 20:00 05/19/25 20:03 Temperature Pulse Rate 69 70 68 Respiratory Rate 13 16 19 Blood Pressure 134/105 H 108/59 L Pulse Oximetry Oxygen Delivery 05/19/25 20:15 05/19/25 20:17 05/19/25 20:30 Temperature Pulse Rate 69 70 70 Respiratory Rate 20 23 H 18 Blood Pressure 115/49 L Pulse Oximetry 96 Oxygen Delivery 05/19/25 20:56 05/19/25 21:00 05/19/25 21:15 Temperature Pulse Rate 79 75 82 Respiratory Rate 15 18 Blood Pressure Pulse Oximetry Oxygen Delivery 05/19/25 21:22 05/19/25 21:30 05/19/25 21:31 Temperature Pulse Rate 70 69 70 Respiratory Rate 12 14 15 Blood Pressure 139/54 L 123/59 L Pulse Oximetry Oxygen Delivery 05/19/25 21:45 05/19/25 21:46 05/19/25 22:00 Temperature Pulse Rate 69 68 69 Respiratory Rate 13 22 H 17 Blood Pressure 133/67 Pulse Oximetry Oxygen Delivery 05/19/25 22:01 05/19/25 22:15 05/19/25 22:16 Temperature Pulse Rate 69 72 71 Respiratory Rate 27 H 15 12 Blood Pressure 137/59 L 125/55 L Pulse Oximetry Oxygen Delivery 05/19/25 22:30 05/19/25 22:31 05/19/25 22:45 Temperature Pulse Rate 69 69 67 Respiratory Rate 16 25 H 16 Blood Pressure 134/56 L Pulse Oximetry 100 Oxygen Delivery 05/19/25 22:46 05/19/25 23:00 05/19/25 23:02 Temperature Pulse Rate 68 72 72 Respiratory Rate 13 19 15 Blood Pressure 132/68 114/73 Pulse Oximetry 99 100 100 Oxygen Delivery 05/19/25 23:52 05/20/25 01:05 05/20/25 03:00 Temperature 97.6 F Pulse Rate 75 Respiratory Rate 20 Blood Pressure 135/55 L Pulse Oximetry 93 Oxygen Delivery CPAP CPAP 05/20/25 04:00 Temperature 97.2 F L Pulse Rate 59 L Respiratory Rate 20 Blood Pressure 128/59 L Pulse Oximetry 92 Oxygen Delivery Intake/Output Intake/Output: Intake & Output 10/18/25 10/19/25 10/20/25 10/21/25 23:59 23:59 23:59 23:59 Intake Total 0 Output Total 100 Balance -100 Meds/Results Medications: Active Medications Generic Name Dose Route Start Last Admin Trade Name Freq PRN Reason Stop Dose Admin Acetaminophen 500 mg 05/20/25 00:29 Acetaminophen 500 Mg Tablet PO Q6H PRN Mild Pain (1-3) or Fever Hydrocodone Bitart/Acetaminophen 1 tab 05/20/25 00:03 05/20/25 06:20 Hydrocodone/Acetaminophen (*Crx) 5-325 Mg Tablet PO 1 tab Q4H PRN Administration Pain Rated 4-6 Allopurinol 100 mg 05/20/25 09:00 Allopurinol 100 Mg Tablet PO DAILY [facility] Amiodarone HCl 200 mg 05/20/25 08:00 Amiodarone Hcl 200 Mg Tablet PO DAILY@0800 [facility] Hydromorphone HCl 0.5 mg 05/20/25 00:29 05/20/25 02:55 Hydromorphone Hcl Inj (*Crx) 1 Mg/Ml Syr IV PUSH 0.5 mg Q3H PRN Administration Pain Rated 7-10 Metoprolol Succinate 25 mg 05/20/25 09:00 Metoprolol Succinate Ext Rel 25 Mg Tabcr PO DAILY [facility] Pantoprazole Sodium 40 mg 05/20/25 09:00 Pantoprazole 40 Mg Tablet BY MOUTH QAM [facility] Fluticasone/Salmeterol 2 puff 05/20/25 08:00 Fluticasone/Salmeterol 115-21 Mcg Inhaler 1 Puff INHALATION Q12HRT [facility] Simvastatin 20 mg 05/20/25 21:00 Simvastatin 20 Mg Tablet BY MOUTH QHS [facility] Radiology Results: ITS Impressions Chest X-Ray 05/19/25 21:19 IMPRESSION: No acute pulmonary findings. Hip/Pelvis X-Ray 05/19/25 21:22 IMPRESSION: Acute displaced subcapital fracture of the left femoral neck. Knee X-Ray 05/19/25 21:24 IMPRESSION: Radiographic examination of the left knee demonstrates no acute fracture or dislocation. Labs Labs: Laboratory Results - last 24 hr 05/19/25 05/19/25 05/20/25 22:10 22:10 05:51 WBC 15.2 H 13.6 H RBC 3.68 L 3.47 L Hgb 11.6 L 10.9 L Hct 34.6 L 33.7 L MCV 94.0 97.1 MCH 31.5 31.4 MCHC 33.5 32.3 RDW 14.3 14.3 Plt Count 209 198 MPV 10.0 11.1 H Immature Gran % (Auto) 0.7 H 0.7 H Neut % (Auto) 78.9 H 75.3 H Lymph % (Auto) 13.1 L 15.3 L Ness % (Auto) 7.2 8.6 H Eos % (Auto) 0.0 0.0 Baso % (Auto) 0.1 L 0.1 L Lymph # (Auto) 1.98 2.07 Ness # (Auto) 1.1 H 1.2 H Eos # (Auto) 0.0 0.0 Baso # (Auto) 0.0 0.0 Abs Immat Gran (auto) 0.10 H 0.10 H Absolute Neuts (auto) 12.0 H 10.2 H Absolute Nucleated RBC 0.000 0.000 Nucleated RBC % 0.0 0.0 PT 18.5 H INR 1.6 Sodium 135 L Potassium 3.6 Chloride 101 Carbon Dioxide 23 Anion Gap 11 BUN 90 H D Creatinine 3.41 H Estim Creat Clear Calc 17 Estimated GFR 13 L Glucose 117 H Calcium 9.1 Magnesium 1.6 Cancelled Total Bilirubin 1.5 H AST 30 ALT 24 Alkaline Phosphatase 115 Total Protein 7.1 Albumin 3.8 Hospitalist MIPS Advance Care Plan I have confirmed that the patient's Advanced Care Plan is present, code status is documented, or surrogate decision maker is listed in patient medical record.: Yes Medication Reconciliation I have utilized all available resources to obtain, update and review the patients current medications (includes all prescriptions, OTC, herbals, cannabis, and nutritional supplements).: Yes The patient is not eligible for med reconciliation; the patient is in a emergent medical situation where delaying treatment would jeopardize the patients health.: Yes
[2025-05-20 07:41] LABS: Alanine Aminotransferase 21 U/L (6-35); Albumin Level 3.5 g/dL (3.5-5.1); Alkaline Phosphatase 113 U/L (38-126); Anion Gap 10 mmol/L (4-12); Aspartate Amino Transferase 28 U/L (14-36); Bilirubin,Total 1.3 mg/dL (0.2-1.3); Blood Urea Nitrogen 90 mg/dL (7-17); Calcium 9.0 mg/dL (8.4-10.2); Carbon Dioxide 24 mmol/L (22-30); Chloride 101 mmol/L (98-107); Estimated CRCL calculation 17 ml/min; Estimated Glomerular Filt Rate 13; Glucose 113 mg/dL (65-110); Magnesium 1.8 mg/dL (1.6-2.3); Potassium 3.5 mmol/L (3.4-5.0); Sodium 135 mmol/L (137-145); Total Protein 6.7 g/dL (6.3-8.2)
--- NOTE | 2025-05-20 07:43 | PM.CNOR ---
Assessment and Plan Assessment and plan (1) Fracture of femoral neck, left: Code(s): S72.002A - Fracture of unspecified part of neck of left femur, initial encounter for closed fracture Status: Acute Assessment and Plan: Patient is a femoral neck fracture left. Unfortunately she took her Eliquis last night. She will require a bipolar endoprosthetic replacement. Discussed. History of Present Illness HPI Consult date: 05/20/25 Chief complaint: Hip fracture Review of Systems Musculoskeletal: Musculoskeletal: Reports arthralgias, Reports joint swelling and Reports stiffness Neurologic: Reports system reviewed and no additional complaints, except as documented and Reports abnormal gait [facility] Past Medical History Medical History Acute hypoxic respiratory failure Pulmonary congestion Atrial fibrillation with RVR Acute kidney injury Leukocytosis Shock Great toe pain Epistaxis Foot pain, left Lumbago Left hip pain Esophageal reflux Acute biliary pancreatitis without infection or necrosis Arthritis Hyperlipidemia Abdominal mass fullness Other left bundle branch block Surgical History Surgical History Hx laparoscopic cholecystectomy History of implantable cardioverter-defibrillator (ICD) placement replaced 04/21 Hx of tonsillectomy H/O: hysterectomy Vaginal partial hysterectomy History of knee replacement Bilateral History of cardiac cath 2010 cardiac cath due to abnormal stress test that reportedly showed no coronary artery disease. Family History Family History Father Acute myocardial infarction Hypertension Family history of cardiovascular disease Gallbladder disease Mother Diabetes mellitus Hypertension Family history of cardiovascular disease Sibling Hypertension Social History Social History Social History: caffeine-daily soda Smoking packs per day: 0.5 Smoking cigarettes per day: 10.0 Years smoked: 30 Smoking pack-years: 15.00 Smoking status: Former smoker Tobacco type: cigarettes Second hand tobacco smoke exposure: Yes Alcohol intake: former Alcohol use details: Rare occasions, such as 2-3 times per year. Substance use: never Substance use type: does not use Lack of Transportation: No Lack of Food: Never True Current Housing: I Have Housing Concerned About Future Housing: No Difficulty Paying Gas/Electric Bills: No Difficulty Paying for Meds: No Currently Unemployed: No Education: High School Diploma/GED Difficulty w/ Childcare or Family Care: No Living arrangements: with family Additional living arrangements comments: Her . Has 4 children. Occupation/Education: occupation Additional occupation/education comments: [employer] - [place]. Gender identity (if verbalized by the patient): Female Sexual Orientation (if Verbalized by the Patient): Straight or Heterosexual Spiritual care concerns: No Meds Home Medications and Allergies Home Medications ?Medication ?Instructions ?Recorded ?Confirmed ?Type aspirin 81 mg tablet,delayed 81 mg PO DAILY 06/28/19 05/19/25 History release cpap #1 ea 04/18/24 05/19/25 Rx budesonide-formoterol HFA 160 2 puff inhalation Q12H PRN 07/25/24 05/19/25 Rx mcg-4.5 mcg/actuation aerosol Shortness Of Breath Or Wheezing inhaler (Symbicort) #10.2 grams albuterol sulfate 90 mcg/actuation See Rx Instructions .Route 08/26/24 05/19/25 Rx aerosol inhaler .COMPLEX #8.5 ea citalopram 40 mg tablet See Rx Instructions .Route 09/30/24 05/19/25 Rx .COMPLEX #90 tabs pantoprazole 40 mg tablet,delayed See Rx Instructions .Route 10/02/24 05/19/25 Rx release .COMPLEX #90 tabs simvastatin 20 mg tablet See Rx Instructions .Route 10/02/24 05/19/25 Rx .COMPLEX #90 tabs allopurinol 100 mg tablet 100 mg PO DAILY 12/19/24 05/19/25 History amiodarone 400 mg tablet 200 mg PO DAILY 12/19/24 05/19/25 History apixaban 5 mg tablet 5 mg PO BID 12/19/24 05/19/25 History metoprolol succinate 25 mg 25 mg PO DAILY 12/19/24 05/19/25 History tablet,extended release 24 hr torsemide 20 mg tablet 20 mg PO QAM 12/19/24 05/19/25 History hydralazine 10 mg tablet 10 mg PO BID 04/30/25 05/19/25 History prednisone 10 mg tablet 10 mg PO BID 10 days #20 tabs 05/15/25 05/19/25 Rx Allergies Allergy/AdvReac Type Severity Reaction Status Date / Time naproxen Allergy Severe swelling Verified 05/20/25 00:13 in ankles and feet duloxetine Allergy Intermediate jittery Verified 05/20/25 00:13 and hyper lisinopril Allergy Intermediate cough Verified 05/20/25 00:13 Vital Signs Vital Signs - 24 hr 05/19/25 19:17 05/19/25 19:40 05/19/25 19:45 Temperature 98.0 F Pulse Rate 68 80 68 Respiratory Rate 14 17 15 Blood Pressure 133/58 L Pulse Oximetry 100 Oxygen Delivery Room Air 05/19/25 19:47 05/19/25 20:00 05/19/25 20:03 Temperature Pulse Rate 69 70 68 Respiratory Rate 13 16 19 Blood Pressure 134/105 H 108/59 L Pulse Oximetry Oxygen Delivery 05/19/25 20:15 05/19/25 20:17 05/19/25 20:30 Temperature Pulse Rate 69 70 70 Respiratory Rate 20 23 H 18 Blood Pressure 115/49 L Pulse Oximetry 96 Oxygen Delivery 05/19/25 20:56 05/19/25 21:00 05/19/25 21:15 Temperature Pulse Rate 79 75 82 Respiratory Rate 15 18 Blood Pressure Pulse Oximetry Oxygen Delivery 05/19/25 21:22 05/19/25 21:30 05/19/25 21:31 Temperature Pulse Rate 70 69 70 Respiratory Rate 12 14 15 Blood Pressure 139/54 L 123/59 L Pulse Oximetry Oxygen Delivery 05/19/25 21:45 05/19/25 21:46 05/19/25 22:00 Temperature Pulse Rate 69 68 69 Respiratory Rate 13 22 H 17 Blood Pressure 133/67 Pulse Oximetry Oxygen Delivery 05/19/25 22:01 05/19/25 22:15 05/19/25 22:16 Temperature Pulse Rate 69 72 71 Respiratory Rate 27 H 15 12 Blood Pressure 137/59 L 125/55 L Pulse Oximetry Oxygen Delivery 05/19/25 22:30 05/19/25 22:31 05/19/25 22:45 Temperature Pulse Rate 69 69 67 Respiratory Rate 16 25 H 16 Blood Pressure 134/56 L Pulse Oximetry 100 Oxygen Delivery 05/19/25 22:46 05/19/25 23:00 05/19/25 23:02 Temperature Pulse Rate 68 72 72 Respiratory Rate 13 19 15 Blood Pressure 132/68 114/73 Pulse Oximetry 99 100 100 Oxygen Delivery 05/19/25 23:52 05/20/25 01:05 05/20/25 03:00 Temperature 97.6 F Pulse Rate 75 Respiratory Rate 20 Blood Pressure 135/55 L Pulse Oximetry 93 Oxygen Delivery CPAP CPAP 05/20/25 04:00 Temperature 97.2 F L Pulse Rate 59 L Respiratory Rate 20 Blood Pressure 128/59 L Pulse Oximetry 92 Oxygen Delivery Exam Narrative: Patient has pain with any manipulation of her left leg. Neurologically she is intact. She is unable to bear weight. Results Labs 05/20/25 05:51 05/20/25 05:51 Labs: Abnormal lab results 05/19/25 05/20/25 Range/Units 22:10 05:51 WBC 15.2 H 13.6 H (4.5-10.0) K/mm3 RBC 3.68 L 3.47 L (4.2-5.4) M/mm3 Hgb 11.6 L 10.9 L (12.0-15.0) g/dL Hct 34.6 L 33.7 L (37.0-47.0) % MPV 11.1 H (7.4-10.4) fl Immature Gran % (Auto) 0.7 H 0.7 H (0-0.5) % Neut % (Auto) 78.9 H 75.3 H (45.5-73.1) % Lymph % (Auto) 13.1 L 15.3 L (18.3-44.2) % [place] % (Auto) 8.6 H (2.6-8.5) % Baso % (Auto) 0.1 L 0.1 L (0.2-1.2) % [place] # (Auto) 1.1 H 1.2 H (0.1-0.6) K/mm3 Abs Immat Gran (auto) 0.10 H 0.10 H (0.00-0.031) K/mm3 Absolute Neuts (auto) 12.0 H 10.2 H (1.3-6.7) K/mm3 PT 18.5 H (11.1-14.7) Seconds Sodium 135 L 135 L (137-145) mmol/L BUN 90 H D 90 H (7-17) mg/dL Creatinine 3.41 H 3.49 H (0.7-1.0) mg/dL Estimated GFR 13 L 13 L (59 - ) Glucose 117 H 113 H (65-110) mg/dL Total Bilirubin 1.5 H (0.2-1.3) mg/dL H & H 05/19/25 05/20/25 Range/Units 22:10 05:51 Hgb 11.6 L 10.9 L (12.0-15.0) g/dL Hct 34.6 L 33.7 L (37.0-47.0) % Coagulation 05/20/25 Range/Units 05:51 INR 1.6 All other labs normal.
--- NOTE | 2025-05-20 08:21 | PC.NURSE ---
RN called hospitalist, Carol, to ask if patient can have meds. RN was told to contact surgery to see if surgery was taking place today. RN called surgery and was told patient will be getting surgery tomorrow 05/21 at 1:00pm.
[2025-05-20 08:34] LABS: Procalcitonin 0.2 ng/mL
[2025-05-20] MEDS: PANTOPRAZOLE 40 MG TABLET BY MOUTH (10:04)
[2025-05-20] MEDS: METOPROLOL SUCCINATE EXT REL 25 MG TABCR PO (10:05)
[2025-05-20] MEDS: AMIODARONE HCL 200 MG TABLET PO (10:08)
[2025-05-20] MEDS: WATER FOR IRRIGATION, STERILE 500 ML BOTTLE (14:50)
[2025-05-20] MEDS: SIMVASTATIN 20 MG TABLET BY MOUTH (20:18)
[2025-05-21] VITALS (13 sets, daily range): BP systolic 108–145; BP diastolic 42–68; PULSE 73–95; RESP 14–20; TEMP 36.2–36.9; O2SAT 90–100
[2025-05-21] MEDS: HYDROcodone/acetaminophen (*CRX) 5-325 MG TABLET 1 TAB PO ×3 (00:33→22:51)
[2025-05-21 06:16] LABS: Hematocrit 32.0 % (37.0-47.0); Hemoglobin 10.5 g/dL (12.0-15.0); Immature Granulocyte Percent A 0.7 % (0-0.5); Lymphocytes Absolute Auto 1.92 K/mm3 (0.9-3.2); Mean Corpuscular HGB Conc 32.8 g/dl (32-36); Mean Corpuscular Hemoglobin 31.8 pg (26-34); Mean Corpuscular Volume 97.0 fl (80-100); Nucleated Red Blood Cells Absolute Auto 0.000 K/mm3 (0.0-0.012); Nucleated Red Blood Cells Perc 0.0 % (0.0-0.2); Platelet Count Result 165 k/mm3 (150-375); Red Blood Count 3.30 M/mm3 (4.2-5.4); White Blood Count 14.7 K/mm3 (4.5-10.0)
[2025-05-21] MEDS: HYDROmorphone HCL INJ (*CRX) 1 MG/ML SYR 0.5 MG IV PUSH ×2 (06:16→09:18)
[2025-05-21 06:56] LABS: Alanine Aminotransferase 19 U/L (6-35); Albumin Level 3.1 g/dL (3.5-5.1); Alkaline Phosphatase 108 U/L (38-126); Anion Gap 5 mmol/L (4-12); Aspartate Amino Transferase 29 U/L (14-36); Bilirubin,Total 1.4 mg/dL (0.2-1.3); Blood Urea Nitrogen 78 mg/dL (7-17); Calcium 9.0 mg/dL (8.4-10.2); Carbon Dioxide 26 mmol/L (22-30); Chloride 105 mmol/L (98-107); Estimated CRCL calculation 21 ml/min; Estimated Glomerular Filt Rate 17; Glucose 108 mg/dL (65-110); Potassium 4.2 mmol/L (3.4-5.0); Sodium 136 mmol/L (137-145); Total Protein 6.2 g/dL (6.3-8.2)
[2025-05-21 09:31] LABS: Magnesium 1.8 mg/dL (1.6-2.3)
--- NOTE | 2025-05-21 10:18 | PM.CNCAR ---
Assessment and Plan Assessment and plan (1) Paroxysmal atrial flutter: Code(s): I48.92 - Unspecified atrial flutter Status: Acute (2) AICD (automatic cardioverter/defibrillator) present: Code(s): Z95.810 - Presence of automatic (implantable) cardiac defibrillator Status: Acute (3) Dilated cardiomyopathy: Code(s): I42.0 - Dilated cardiomyopathy Status: Chronic (4) Essential (primary) hypertension: Code(s): I10 - Essential (primary) hypertension Status: Chronic (5) Fracture of femoral neck, left: Code(s): S72.002A - Fracture of unspecified part of neck of left femur, initial encounter for closed fracture Status: Acute Plan Acute left hip fracture: planned for hip replacement today, management as per ortho NICMP. EF of 25-30% per last echo 11/2024. She had LHC at that time as well with non obstructive CAD noted. She has Medtronic BIV ICD in place, with normal device function per last remote check 03/2025. Continue home Toprol XL 25 mg daily resume hydralazine 10 mg BID and torsemide 20 mg daily as needed. No ARB/ARNI secondary to her CKD Chronic Hfref. Appears compensated at this time. EF of 25-30% per last echo. Would monitor her volume status closely intra-operatively and post-operatively. paroxysmal atrial fibrillation. Currently paced. Remains on Toprol XL 25 mg daily and amiodarone 200 mg daily. Per last remote check no AT/AF noted. On Eliqus at home for AC would resume when cleared by surgery as currently on hold Valvular heart disease. With moderate AR, MR and TR per echo 12/12/24. Will continue OP monitoring Hypertension. Blood pressure with reasonable control. Continue current medication regimen and monitor CKD. Renal function at [facility] would monitor Per CV standpoint patient would be consider acceptable risk for planned surgical procedure Will need to monitor her volume status closely Would recommend telemetry monitoring post operatively given history of atrial flutter Would resume AC when cleared by surgery. History of Present Illness History of Present Illness Consult date/time: 05/21/25 10:18 Requesting physician: Carol Ocampo APRN Consult reason: pre-op evaluation Reason For Visit: Hip fracture Narrative: Mrs. Arriaza is a 74 y.o. female who follows with Dr. La in our office. She has a PMH of pafib, NICMP, Hypertension, valvular heart disease and HLD. She presented to the hospital with acute hip fracture. Patient reports she had a fall 8 weeks ago. She was seen and initial imaging did not reveal fracture. She continued to have pain and f/u imaging showed acute fracture. She was admitted for hip surgery. Anesthesia contacted us this am for cardiac evalatuion pre-operatively given patient significant cardiac history. Patient has been stable since her visit to [facility] earlier this year. She denies any chest pain, shortness of breath, dizziness or palpitations. She has been compliant with all medications. Review of Systems Review of Systems: All systems reviewed & are unremarkable except as noted in HPI and below PMFSH Past Medical History Medical History Acute hypoxic respiratory failure Pulmonary congestion Atrial fibrillation with RVR Acute kidney injury Leukocytosis Shock Great toe pain Epistaxis Foot pain, left Lumbago Left hip pain Esophageal reflux Acute biliary pancreatitis without infection or necrosis Arthritis Hyperlipidemia Abdominal mass fullness Other left bundle branch block Surgical History Surgical History Hx laparoscopic cholecystectomy History of implantable cardioverter-defibrillator (ICD) placement replaced 04/21 Hx of tonsillectomy H/O: hysterectomy Vaginal partial hysterectomy History of knee replacement Bilateral History of cardiac cath 2009 cardiac cath due to abnormal stress test that reportedly showed no coronary artery disease. Family History Family History Father Acute myocardial infarction Hypertension Family history of cardiovascular disease Gallbladder disease Mother Diabetes mellitus Hypertension Family history of cardiovascular disease Sibling Hypertension Social History Social History Social History: caffeine-daily soda Smoking packs per day: 0.5 Smoking cigarettes per day: 10.0 Years smoked: 30 Smoking pack-years: 15.00 Smoking status: Former smoker Tobacco type: cigarettes Second hand tobacco smoke exposure: Yes Alcohol intake: former Alcohol use details: Rare occasions, such as 2-3 times per year. Substance use: never Substance use type: does not use Lack of Transportation: No Lack of Food: Never True Current Housing: I Have Housing Concerned About Future Housing: No Difficulty Paying Gas/Electric Bills: No Difficulty Paying for Meds: No Currently Unemployed: No Education: High School Diploma/GED Difficulty w/ Childcare or Family Care: No Living arrangements: with family Additional living arrangements comments: Her . Has 4 children. Occupation/Education: occupation Additional occupation/education comments: [employer] - [place]. Gender identity (if verbalized by the patient): Female Sexual Orientation (if Verbalized by the Patient): Straight or Heterosexual Spiritual care concerns: No Meds Home Medications and Allergies Home Medications ?Medication ?Instructions ?Recorded ?Confirmed ?Type aspirin 81 mg tablet,delayed 81 mg PO DAILY 06/28/19 05/19/25 History release cpap #1 ea 04/18/24 05/19/25 Rx budesonide-formoterol HFA 160 2 puff inhalation Q12H PRN 07/25/24 05/19/25 Rx mcg-4.5 mcg/actuation aerosol Shortness Of Breath Or Wheezing inhaler (Symbicort) #10.2 grams albuterol sulfate 90 mcg/actuation See Rx Instructions .Route 08/26/24 05/19/25 Rx aerosol inhaler .COMPLEX #8.5 ea citalopram 40 mg tablet See Rx Instructions .Route 09/30/24 05/19/25 Rx .COMPLEX #90 tabs pantoprazole 40 mg tablet,delayed See Rx Instructions .Route 10/02/24 05/19/25 Rx release .COMPLEX #90 tabs simvastatin 20 mg tablet See Rx Instructions .Route 10/02/24 05/19/25 Rx .COMPLEX #90 tabs allopurinol 100 mg tablet 100 mg PO DAILY 12/19/24 05/19/25 History amiodarone 400 mg tablet 200 mg PO DAILY 12/19/24 05/19/25 History apixaban 5 mg tablet 5 mg PO BID 12/19/24 05/19/25 History metoprolol succinate 25 mg 25 mg PO DAILY 12/19/24 05/19/25 History tablet,extended release 24 hr torsemide 20 mg tablet 20 mg PO QAM 12/19/24 05/19/25 History hydralazine 10 mg tablet 10 mg PO BID 04/30/25 05/19/25 History prednisone 10 mg tablet 10 mg PO BID 10 days #20 tabs 05/15/25 05/19/25 Rx Allergies Allergy/AdvReac Type Severity Reaction Status Date / Time naproxen Allergy Severe swelling Verified 05/20/25 00:13 in ankles and feet duloxetine Allergy Intermediate jittery Verified 05/20/25 00:13 and hyper lisinopril Allergy Intermediate cough Verified 05/20/25 00:13 Vital Signs Vital Signs - 24 hr 05/20/25 10:20 05/20/25 10:25 05/20/25 14:00 Temperature 36.6 C 35.9 C L Pulse Rate 78 66 Respiratory Rate 18 18 Blood Pressure 116/47 L 104/57 L Pulse Oximetry 97 97 97 Oxygen Delivery Room Air 05/20/25 20:00 05/20/25 20:27 05/20/25 22:56 Temperature 36.4 C Pulse Rate 71 71 Respiratory Rate 20 20 Blood Pressure 129/50 L Pulse Oximetry 95 95 Oxygen Delivery Room Air CPAP 05/21/25 04:18 Temperature 36.4 C Pulse Rate 73 Respiratory Rate 20 Blood Pressure 108/68 Pulse Oximetry 90 Oxygen Delivery Exam Const: General: comfortable and no acute distress Neck: Neck: No no JVD Carotids: no bruits Resp: Effort & Inspection: normal respiratory effort Auscultation: clear to auscultation bilaterally Cardio: Rate: regular rate Rhythm: regular rhythm Heart sounds: no gallops, no murmurs and no rubs Skin: General skin exam: rashes and/or lesions noted and no erythema Extrem: General: no edema Psych: Mental Status: mental status grossly normal Results Labs and Meds 05/21/25 05:58 05/21/25 05:58 Lab results: Cardiac Enzymes 05/21/25 Range/Units 05:58 AST 29 (14-36) U/L CBC 05/21/25 Range/Units 05:58 WBC 14.7 H (4.5-10.0) K/mm3 RBC 3.30 L (4.2-5.4) M/mm3 Hgb 10.5 L (12.0-15.0) g/dL Hct 32.0 L (37.0-47.0) % Plt Count 165 (150-375) k/mm3 Lymph # (Auto) 1.92 (0.9-3.2) K/mm3 [place] # (Auto) 1.2 H (0.1-0.6) K/mm3 Eos # (Auto) 0.0 (0-0.3) K/mm3 Baso # (Auto) 0.0 (0.0-0.1) K/mm3 Comprehensive Metabolic Panel 05/21/25 Range/Units 05:58 Sodium 136 L (137-145) mmol/L Potassium 4.2 (3.4-5.0) mmol/L Chloride 105 (98-107) mmol/L Carbon Dioxide 26 (22-30) mmol/L BUN 78 H D (7-17) mg/dL Creatinine 2.76 H (0.7-1.0) mg/dL Glucose 108 (65-110) mg/dL Calcium 9.0 (8.4-10.2) mg/dL AST 29 (14-36) U/L ALT 19 (6-35) U/L Alkaline Phosphatase 108 (38-126) U/L Total Protein 6.2 L (6.3-8.2) g/dL Albumin 3.1 L (3.5-5.1) g/dL Intake and Output 05/20/25 05/21/25 05/21/25 23:59 07:59 15:59 Intake Total 790 0 Output Total 200 1000 Balance 590 -1000 Intake: Oral 790 0 Output: Catheter Urine 200 1000 External/Condom 200 Urethral Catheter 1000 Patient Weight 05/21/25 23:59 Weight 116.1 kg Imaging and Cardiology Echo: report reviewed (12/12/24: EF of 25-30% with mod MR, mod AR and mod TR ) Cardiac cath: report reviewed (12/16/24 with non-obstructive CAD ) EKG Interpretation EKG: no acute changes (shows paced rhythm no acute ST/T wave changes )
[2025-05-21] MEDS: LACTATED RINGERS 1,000 ML 30 ML IV CONT (12:12)
--- NOTE | 2025-05-21 12:26 | WPDANESEPPF ---
Anes - Initial Pre Proc Eval Procedure: Operation Date: 05/21/25 13:00 Proposed Procedures p Left Bipolar Hip Replacement - Vinnie Zaldivar MD Date/Time: 05/21/25 12:26 Surgeon: Justyna Joe MD Pre Op Diagnosis: Hip fracture Patient Data Age: 74 Gender: F Height: 1.68 m Weight: 116.1 kg Last Vital Signs Temp 97.6 F 05/21/25 04:18 Pulse 73 05/21/25 04:18 Resp 20 05/21/25 04:18 BP 108/68 05/21/25 04:18 Pulse Ox 90 05/21/25 04:18 O2 Del Method Room Air 05/21/25 09:20 Allergies Allergy/AdvReac Type Severity Reaction Status Date / Time naproxen Allergy Severe swelling Verified 05/20/25 00:13 in ankles and feet duloxetine Allergy Intermediate jittery Verified 05/20/25 00:13 and hyper lisinopril Allergy Intermediate cough Verified 05/20/25 00:13 Home Medications ?Medication ?Instructions ?Recorded ?Confirmed ?Type aspirin 81 mg tablet,delayed 81 mg PO DAILY 06/28/19 05/19/25 History release cpap #1 ea 04/18/24 05/19/25 Rx budesonide-formoterol HFA 160 2 puff inhalation Q12H PRN 07/25/24 05/19/25 Rx mcg-4.5 mcg/actuation aerosol Shortness Of Breath Or Wheezing inhaler (Symbicort) #10.2 grams albuterol sulfate 90 mcg/actuation See Rx Instructions .Route 08/26/24 05/19/25 Rx aerosol inhaler .COMPLEX #8.5 ea citalopram 40 mg tablet See Rx Instructions .Route 09/30/24 05/19/25 Rx .COMPLEX #90 tabs pantoprazole 40 mg tablet,delayed See Rx Instructions .Route 10/02/24 05/19/25 Rx release .COMPLEX #90 tabs simvastatin 20 mg tablet See Rx Instructions .Route 10/02/24 05/19/25 Rx .COMPLEX #90 tabs allopurinol 100 mg tablet 100 mg PO DAILY 12/19/24 05/19/25 History amiodarone 400 mg tablet 200 mg PO DAILY 12/19/24 05/19/25 History apixaban 5 mg tablet 5 mg PO BID 12/19/24 05/19/25 History metoprolol succinate 25 mg 25 mg PO DAILY 12/19/24 05/19/25 History tablet,extended release 24 hr torsemide 20 mg tablet 20 mg PO QAM 12/19/24 05/19/25 History hydralazine 10 mg tablet 10 mg PO BID 04/30/25 05/19/25 History prednisone 10 mg tablet 10 mg PO BID 10 days #20 tabs 05/15/25 05/19/25 Rx Laboratory Tests 05/21/25 05:58 WBC 14.7 H K/mm3 (4.5-10.0) RBC 3.30 L M/mm3 (4.2-5.4) Hgb 10.5 L g/dL (12.0-15.0) Hct 32.0 L % (37.0-47.0) MCV 97.0 fl (80-100) MCH 31.8 pg (26-34) MCHC 32.8 g/dl (32-36) RDW 14.2 % (11.5-14.5) Plt Count 165 k/mm3 (150-375) MPV 10.7 H fl (7.4-10.4) Immature Gran % (Auto) 0.7 H % (0-0.5) Neut % (Auto) 78.1 H % (45.5-73.1) Lymph % (Auto) 13.0 L % (18.3-44.2) [place] % (Auto) 8.1 % (2.6-8.5) Eos % (Auto) 0.0 % (0-4.4) Baso % (Auto) 0.1 L % (0.2-1.2) Lymph # (Auto) 1.92 K/mm3 (0.9-3.2) [place] # (Auto) 1.2 H K/mm3 (0.1-0.6) Eos # (Auto) 0.0 K/mm3 (0-0.3) Baso # (Auto) 0.0 K/mm3 (0.0-0.1) Abs Immat Gran (auto) 0.11 H K/mm3 (0.00-0.031) Absolute Neuts (auto) 11.5 H K/mm3 (1.3-6.7) Absolute Nucleated RBC 0.000 K/mm3 (0.0-0.012) Nucleated RBC % 0.0 % (0.0-0.2) Sodium 136 L mmol/L (137-145) Potassium 4.2 mmol/L (3.4-5.0) Chloride 105 mmol/L (98-107) Carbon Dioxide 26 mmol/L (22-30) Anion Gap 5 mmol/L (4-12) BUN 78 H D mg/dL (7-17) Creatinine 2.76 H mg/dL (0.7-1.0) Estim Creat Clear Calc 21 ml/min Estimated GFR 17 L (59 - ) Glucose 108 mg/dL (65-110) Calcium 9.0 mg/dL (8.4-10.2) Magnesium 1.8 mg/dL (1.6-2.3) Total Bilirubin 1.4 H mg/dL (0.2-1.3) AST 29 U/L (14-36) ALT 19 U/L (6-35) Alkaline Phosphatase 108 U/L (38-126) Total Protein 6.2 L g/dL (6.3-8.2) Albumin 3.1 L g/dL (3.5-5.1) Patient hx anesthesia problems: none Family hx anesthesia problems: none Results Review: All pre-operative results and documents have been reviewed as part of the pre-operative evaluation. [facility] Past Medical History Medical History Acute hypoxic respiratory failure Pulmonary congestion Atrial fibrillation with RVR Acute kidney injury Leukocytosis Shock Great toe pain Epistaxis Foot pain, left Lumbago Left hip pain Esophageal reflux Acute biliary pancreatitis without infection or necrosis Arthritis Hyperlipidemia Abdominal mass fullness Other left bundle branch block Surgical History Surgical History Hx laparoscopic cholecystectomy History of implantable cardioverter-defibrillator (ICD) placement replaced 04/21 Hx of tonsillectomy H/O: hysterectomy Vaginal partial hysterectomy History of knee replacement Bilateral History of cardiac cath 2009 cardiac cath due to abnormal stress test that reportedly showed no coronary artery disease. Family History Family History Father Acute myocardial infarction Hypertension Family history of cardiovascular disease Gallbladder disease Mother Diabetes mellitus Hypertension Family history of cardiovascular disease Sibling Hypertension Social History Social History Social History: caffeine-daily soda Smoking packs per day: 0.5 Smoking cigarettes per day: 10.0 Years smoked: 30 Smoking pack-years: 15.00 Smoking status: Former smoker Tobacco type: cigarettes Second hand tobacco smoke exposure: Yes Alcohol intake: former Alcohol use details: Rare occasions, such as 2-3 times per year. Substance use: never Substance use type: does not use Lack of Transportation: No Lack of Food: Never True Current Housing: I Have Housing Concerned About Future Housing: No Difficulty Paying Gas/Electric Bills: No Difficulty Paying for Meds: No Currently Unemployed: No Education: High School Diploma/GED Difficulty w/ Childcare or Family Care: No Living arrangements: with family Additional living arrangements comments: Her . Has 4 children. Occupation/Education: occupation Additional occupation/education comments: [employer]. Gender identity (if verbalized by the patient): Female Sexual Orientation (if Verbalized by the Patient): Straight or Heterosexual Spiritual care concerns: No Anes - Eval Final PreProcedure Day of Procedure 05/21/25 12:26 Patient weight: morbidly obese Heart: regular rate and rhythm Lungs: clear to auscultation and decreased breath sounds Airway: Mallampati scale class II and special considerations (Missing several teeth, none loose. ) Neurological: alert and oriented Last oral intake: >/= 8 hours ASA classification: IV Emergent: no Anesthetic plan: proceed Anesthesia type and monitoring: general ETT and standard monitoring Results Review: All pre-operative results and documents have been reviewed as part of the pre-operative evaluation. BERTO on CPAP, hx cardiomyopathy EF in the 30% range, mod MR, hx of afib w RVR, now NSR. PPM/AICD in place (medtronic). Cardiology eval noted and appreciated. Informed Consent: The patient's anesthetic plan and its attendant risks and benefits were discussed with the patient/family/POA. Questions were solicited and answers provided to the satisfaction of the patient/family/POA.
--- NOTE | 2025-05-21 12:57 | WPDHPUPDATE1 ---
History and Physical Update Update Date/Time: 05/21/25 12:57 History and Physical has been reviewed, including an updated exam of the patient. There are NO changes in the patient's condition. Risks, benefits, and alternatives have been discussed and questions answered. Patient agrees to proceed with procedure.
[2025-05-21] MEDS: VANCOMYCIN HCL 1,000 MG in SODIUM CHLORIDE 0.9% IV 250 ML 250 MG IVPB (13:05)
[2025-05-21] MEDS: ceFAZolin 2 GM in SODIUM CHLORIDE 0.9% IV 50 ML 100 ML IVPB ×2 (13:17→22:45)
--- NOTE | 2025-05-21 15:00 | SUR.OPER ---
Type and screen sent to lab via PCT Jorgito Bull handed blood specimen to Alexei at 1443.
--- NOTE | 2025-05-21 15:21 | W.PM.PROC2 ---
Procedure Note - Detailed Date of Procedure 05/21/25 Pre-op Diagnosis Left Femoral Neck Fracture Post-op Diagnosis Same Procedure Performed Bipolar endoprosthetic replacement left hip Surgeon Vinnie Zaldivar MD Anesthesia General Indications Left Hip Fracture Description of Procedure Patient brought to operating room #8. A general anesthetic was administered. Because of her significant cardiac history and the fact she has a pacemaker, I tried to minimize use of any cautery. I predominantly used the bipolar. After sterile prep and drape a longitudinal incision was made down to the fascia. The fascia split and anterior Rodriguez type approach was used. The hip hip femoral neck was dislocated anteriorly. A cut a fingerbreadth above the lesser trochanter was made to remove the excess bone. Femoral head was then removed with a corkscrew and measured 49 to 50 millimeters. The femur broached to accept a #5. This was impacted into place. A +3 head was chosen. Along with a of 49 millimeter bipolar. Excellent stability and motion were obtained. The wounds irrigated. Hemostasis obtained. And closed with 5. Ethibond 2. Vicryl 2-0 Vicryl and enrike. A sterile dressing applied. Patient tolerated procedure well and left the operating room in fair condition. Implants Andrzej T1 Stem Biolar Estimated Blood Loss 600 Urine Output 100 Complications No immediate complications Disposition PACU [facility] Billing Surgery - Charge Forward: Surgery Billing ([id number] Bipolar)
--- NOTE | 2025-05-21 16:50 | P.PNIM_ITS ---
Progress Note: A&P Assessment and Plan (1) Essential (primary) hypertension: Code(s): I10 - Essential (primary) hypertension Status: Chronic Assessment and Plan: --> stable currently -Continue [employer] Metoprolol succinate 25 mg p.o. q.day. -continue [employer] Amiodarone 200 mg p.o. q.day (2) Dilated cardiomyopathy: Code(s): I42.0 - Dilated cardiomyopathy Status: Chronic Assessment and Plan: --> stable currently - hold Eliquis - normal sinus rhythm. (3) Closed hip fracture: Qualifiers: Encounter type: initial encounter Laterality: left Qualified Code(s): S72.002A - Fracture of unspecified part of neck of left femur, initial encounter for closed fracture Code(s): S72.009A - Fracture of unspecified part of neck of unspecified femur, initial encounter for closed fracture Status: Acute Assessment and Plan: --> Orthopedic surgery consulted from the ER. - hold eliquis - ORIF done this afternoon. - Seen patient in the PACU. Dressing in place to left hip. No drainage noted on outside of dressing. - Leukocytosis is likely reactive verses demargination due to systemic steroids --> continue with hydrocodone, tylenol, Dilaudid 0.5 mg IV (4) Obstructive sleep apnea (adult) (pediatric): Code(s): G47.33 - Obstructive sleep apnea (adult) (pediatric) Status: Acute Assessment and Plan: -CPAP nightly. Subjective Date/time seen: 05/21/25 16:50 Interval history: Patient in recovery s/p left hip surgery. Patient denies pain, shortness of breath, nausea, or vomiting. Review of Systems Review of Systems: All systems reviewed & are unremarkable except as noted in HPI and below Exam Const: General: comfortable and no acute distress Resp: Effort & Inspection: normal respiratory effort Auscultation: clear to auscultation bilaterally Cardio: Rate: regular rate Rhythm: regular rhythm GI: GI Palp: Yes Soft to palpation Auscultation: normal bowel sounds Skin: Other: Dressing in place to left hip. No drainage noted on outside of dressing. Neuro: Speech: normal speech Extrem: General: no pedal edema Psych: Mental Status: mental status grossly normal Affect: normal affect Other: Awake but a little groggy. Objective Data Vital Signs Vital Signs: Vital Signs - 24 hr 05/20/25 20:00 05/20/25 20:27 05/20/25 22:56 Temperature 97.6 F Pulse Rate 71 71 Respiratory Rate 20 20 Blood Pressure 129/50 L Pulse Oximetry 95 95 Oxygen Delivery Room Air CPAP Oxygen Flow Rate 05/21/25 04:18 05/21/25 09:20 05/21/25 12:12 Temperature 97.6 F 97.7 F Pulse Rate 73 80 Respiratory Rate 20 16 Blood Pressure 108/68 132/54 L Pulse Oximetry 90 94 Oxygen Delivery Room Air Room Air Oxygen Flow Rate 05/21/25 16:00 05/21/25 16:15 05/21/25 16:30 Temperature 97.6 F Pulse Rate 78 75 77 Respiratory Rate 20 20 18 Blood Pressure 145/59 H 129/54 L 131/54 L Pulse Oximetry 100 100 100 Oxygen Delivery Simple Face Mask Simple Face Mask Simple Face Mask Oxygen Flow Rate 8 8 8 Intake/Output Intake/Output: Intake & Output 05/18/25 05/19/25 05/20/25 05/21/25 23:59 23:59 23:59 23:59 Intake Total 1510 300 Output Total 900 1950 Balance 610 -1650 Meds/Results Medications: Active Medications Generic Name Dose Route Start Last Admin Trade Name Freq PRN Reason Stop Dose Admin Acetaminophen 500 mg 05/20/25 00:29 Acetaminophen 500 Mg Tablet PO Q6H PRN Mild Pain (1-3) or Fever Hydrocodone Bitart/Acetaminophen 1 tab 05/20/25 00:03 05/21/25 00:33 Hydrocodone/Acetaminophen (*Crx) 5-325 Mg Tablet PO 1 tab Q4H PRN Administration Pain Rated 4-6 Allopurinol 100 mg 05/20/25 09:00 05/20/25 10:04 Allopurinol 100 Mg Tablet PO 100 mg DAILY SHARIFA Administration Amiodarone HCl 200 mg 05/20/25 08:00 05/20/25 10:08 Amiodarone Hcl 200 Mg Tablet PO 200 mg DAILY@0800 SHARIFA Administration Fentanyl Citrate 25 mcg 05/21/25 12:30 Fentanyl Citrate Inj (*Crx) 100 Mcg/2 Ml Vial IV PUSH Q2M PRN Pain Hydromorphone HCl 0.5 mg 05/20/25 00:29 05/21/25 09:18 Hydromorphone Hcl Inj (*Crx) 1 Mg/Ml Syr IV PUSH 0.5 mg Q3H PRN Administration Pain Rated 7-10 Lactated Ringer's 1,000 mls @ 30 mls/hr 05/21/25 12:30 Lr - Lactated Ringers Iv IV CONT .Q24H SHARIFA Lactated Ringer's 1,000 mls @ 30 mls/hr 05/21/25 12:30 05/21/25 16:00 Lr - Lactated Ringers Iv IV CONT 30 mls/hr .Q24H SHARIFA Infusion Metoprolol Succinate 25 mg 05/20/25 09:00 05/20/25 10:05 Metoprolol Succinate Ext Rel 25 Mg Tabcr PO 25 mg DAILY SHARIFA Administration Ondansetron HCl 4 mg 05/21/25 12:30 Ondansetron Inj 4 Mg/2 Ml Vial IV PUSH ONCE PRN Nausea Pantoprazole Sodium 40 mg 05/20/25 09:00 05/20/25 10:04 Pantoprazole 40 Mg Tablet BY MOUTH 40 mg QAM SHARIFA Administration Fluticasone/Salmeterol 2 puff 05/20/25 08:00 05/21/25 08:26 Fluticasone/Salmeterol 115-21 Mcg Inhaler 1 Puff INHALATION Not Given Q12HRT SHARIFA Simvastatin 20 mg 05/20/25 21:00 05/20/25 20:18 Simvastatin 20 Mg Tablet BY MOUTH 20 mg QHS SHARIFA Administration Radiology Results: ITS Impressions Chest X-Ray 05/19/25 21:19 IMPRESSION: No acute pulmonary findings. Hip/Pelvis X-Ray 05/19/25 21:22 IMPRESSION: Acute displaced subcapital fracture of the left femoral neck. Knee X-Ray 05/19/25 21:24 IMPRESSION: Radiographic examination of the left knee demonstrates no acute fracture or dislocation. Intraoperative X-Ray 05/21/25 16:03 IMPRESSION: 1. Expected appearance during bipolar type left hip hemiarthroplasty. Labs Labs: Laboratory Results - last 24 hr 05/21/25 05/21/25 05/21/25 05:58 14:26 16:07 WBC 14.7 H RBC 3.30 L Hgb 10.5 L Hct 32.0 L MCV 97.0 MCH 31.8 MCHC 32.8 RDW 14.2 Plt Count 165 MPV 10.7 H Immature Gran % (Auto) 0.7 H Neut % (Auto) 78.1 H Lymph % (Auto) 13.0 L [place] % (Auto) 8.1 Eos % (Auto) 0.0 Baso % (Auto) 0.1 L Lymph # (Auto) 1.92 [place] # (Auto) 1.2 H Eos # (Auto) 0.0 Baso # (Auto) 0.0 Abs Immat Gran (auto) 0.11 H Absolute Neuts (auto) 11.5 H Absolute Nucleated RBC 0.000 Nucleated RBC % 0.0 Sodium 136 L Potassium 4.2 Chloride 105 Carbon Dioxide 26 Anion Gap 5 BUN 78 H D Creatinine 2.76 H Estim Creat Clear Calc 21 Estimated GFR 17 L Glucose 108 POC Capillary Glucose 120 H Calcium 9.0 Magnesium 1.8 Total Bilirubin 1.4 H AST 29 ALT 19 Alkaline Phosphatase 108 Total Protein 6.2 L Albumin 3.1 L Blood Type A Negative Antibody Screen Negative Quality VTE Prophylaxis VTE prophylaxis: mechanical ordered
--- NOTE | 2025-05-21 16:51 | SUR.PHASEI ---
PT VISITED BY HOSPITALIST CARA IN PACU.
[2025-05-21] MEDS: SENNA/DOCUSATE SODIUM TABLET 2 TAB PO (17:54)
[2025-05-21] MEDS: SODIUM CHLORIDE 0.9% IV 1,000 ML 125 ML IV CONT ×2 (17:56→18:33)
[2025-05-21] MEDS: SIMVASTATIN 20 MG TABLET BY MOUTH (20:10)
[2025-05-21] MEDS: APIXABAN 2.5 MG TABLET PO (20:10)
[2025-05-22] VITALS (8 sets, daily range): BP systolic 128–146; BP diastolic 45–69; PULSE 84–100; RESP 14–20; TEMP 36.1–37; O2SAT 94–98
[2025-05-22] MEDS: HYDROcodone/acetaminophen (*CRX) 5-325 MG TABLET 1 TAB PO ×2 (03:19→14:13)
[2025-05-22] MEDS: ceFAZolin 2 GM in SODIUM CHLORIDE 0.9% IV 50 ML 100 ML IVPB ×2 (06:17→14:13)
[2025-05-22] MEDS: SODIUM CHLORIDE 0.9% IV 1,000 ML 125 ML IV CONT (06:20)
[2025-05-22 06:26] LABS: Hematocrit 25.5 % (37.0-47.0); Hemoglobin 8.5 g/dL (12.0-15.0); Immature Granulocyte Percent A 0.9 % (0-0.5); Lymphocytes Absolute Auto 1.44 K/mm3 (0.9-3.2); Mean Corpuscular HGB Conc 33.3 g/dl (32-36); Mean Corpuscular Hemoglobin 32.7 pg (26-34); Mean Corpuscular Volume 98.1 fl (80-100); Nucleated Red Blood Cells Absolute Auto 0.000 K/mm3 (0.0-0.012); Nucleated Red Blood Cells Perc 0.0 % (0.0-0.2); Platelet Count Result 137 k/mm3 (150-375); Red Blood Count 2.60 M/mm3 (4.2-5.4); White Blood Count 12.9 K/mm3 (4.5-10.0)
[2025-05-22 06:53] LABS: Alanine Aminotransferase 16 U/L (6-35); Albumin Level 2.5 g/dL (3.5-5.1); Alkaline Phosphatase 93 U/L (38-126); Anion Gap 3 mmol/L (4-12); Aspartate Amino Transferase 30 U/L (14-36); Bilirubin,Total 1.4 mg/dL (0.2-1.3); Blood Urea Nitrogen 63 mg/dL (7-17); Calcium 8.3 mg/dL (8.4-10.2); Carbon Dioxide 24 mmol/L (22-30); Chloride 106 mmol/L (98-107); Estimated CRCL calculation 26 ml/min; Estimated Glomerular Filt Rate 21; Glucose 125 mg/dL (65-110); Magnesium 2.0 mg/dL (1.6-2.3); Potassium 4.0 mmol/L (3.4-5.0); Sodium 133 mmol/L (137-145); Total Protein 5.3 g/dL (6.3-8.2)
--- NOTE | 2025-05-22 06:59 | P.PNOP_ITS ---
Progress Note: A&P Assessment and Plan (1) Fracture of femoral neck, left: Code(s): S72.002A - Fracture of unspecified part of neck of left femur, initial encounter for closed fracture Status: Acute Assessment and Plan: Patient is status post bipolar for left femoral neck fracture. She appears to be doing well. Pain is lessening and she is able to move a bit. Anticipate rehab. Will follow along. Subjective Subjective Date/Time Seen: 05/22/25 06:59 Post Op day: 1 Principal diagnosis: Left femoral neck fracture Review of Systems Musculoskeletal: Musculoskeletal: Reports arthralgias, Reports joint swelling and Reports stiffness Neurologic: Reports system reviewed and no additional complaints, except as documented and Reports abnormal gait Exam Narrative: Patient wiggles toes. Neurologically she is intact. The dressing is intact. Pain is markedly reduced. Objective Data Vital Signs Vital Signs: Vital Signs - 24 hr 05/21/25 09:20 05/21/25 12:12 05/21/25 16:00 Temperature 97.7 F 97.6 F Pulse Rate 80 78 Respiratory Rate 16 20 Blood Pressure 132/54 L 145/59 H Pulse Oximetry 94 100 Oxygen Delivery Room Air Room Air Simple Face Mask Oxygen Flow Rate 8 05/21/25 16:15 05/21/25 16:30 05/21/25 16:45 Temperature Pulse Rate 75 77 82 Respiratory Rate 20 18 20 Blood Pressure 129/54 L 131/54 L 131/48 L Pulse Oximetry 100 100 100 Oxygen Delivery Simple Face Mask Simple Face Mask Room Air Oxygen Flow Rate 8 8 05/21/25 17:00 05/21/25 17:15 05/21/25 17:55 Temperature 97.8 F 97.1 F L Pulse Rate 76 86 85 Respiratory Rate 20 20 14 Blood Pressure 134/50 L 141/66 H 117/42 L Pulse Oximetry 100 100 100 Oxygen Delivery Room Air Room Air Oxygen Flow Rate 05/21/25 18:10 05/21/25 18:40 05/21/25 20:09 Temperature 97.8 F 97.9 F 98.4 F Pulse Rate 84 88 91 Respiratory Rate 14 14 14 Blood Pressure 126/58 L 136/65 136/48 L Pulse Oximetry 94 92 97 Oxygen Delivery Oxygen Flow Rate 05/21/25 20:09 05/21/25 20:10 05/21/25 21:35 Temperature 98.4 F Pulse Rate 91 Respiratory Rate 14 Blood Pressure 136/48 L Pulse Oximetry 97 Oxygen Delivery Room Air CPAP Oxygen Flow Rate 05/21/25 23:14 05/22/25 01:40 05/22/25 03:14 Temperature 97.5 F L 97.9 F Pulse Rate 95 84 Respiratory Rate 16 16 Blood Pressure 135/45 L 141/54 H Pulse Oximetry 94 94 Oxygen Delivery CPAP Oxygen Flow Rate Intake/Output Intake/Output: Intake & Output 05/19/25 05/20/25 05/21/25 05/22/25 23:59 23:59 23:59 23:59 Intake Total 1510 997.1 1200 Output Total 900 2050 650 Balance 610 -1052.9 550 Meds/Results Medications: Active Medications Generic Name Dose Route Start Last Admin Trade Name Freq PRN Reason Stop Dose Admin Hydrocodone Bitart/Acetaminophen 1 tab 05/21/25 17:29 05/22/25 03:19 Hydrocodone/Acetaminophen (*Crx) 5-325 Mg Tablet PO 1 tab Q4H PRN Administration Pain Rated 4-6 Hydrocodone Bitart/Acetaminophen 1 tab 05/21/25 17:29 Hydrocodone/Acetaminophen (*Crx) 7.5-325 Mg Tablet PO Q4H PRN Pain Rated 7-10 Allopurinol 100 mg 05/20/25 09:00 05/21/25 17:45 Allopurinol 100 Mg Tablet PO Not Given DAILY [facility] Amiodarone HCl 200 mg 05/20/25 08:00 05/21/25 17:45 Amiodarone Hcl 200 Mg Tablet PO Not Given DAILY@0800 [facility] Apixaban 2.5 mg 05/21/25 21:00 05/21/25 20:10 Apixaban 2.5 Mg Tablet PO 2.5 mg Q12HR SHARIFA Administration Fentanyl Citrate 25 mcg 05/21/25 12:30 Fentanyl Citrate Inj (*Crx) 100 Mcg/2 Ml Vial IV PUSH Q2M PRN Pain Hydromorphone HCl 1 mg 05/21/25 17:29 Hydromorphone Hcl Inj (*Crx) 1 Mg/Ml Syr IV PUSH Q2H PRN Breakthrough Pain Rated 7-10 or NPO Hydromorphone HCl 0.5 mg 05/21/25 17:29 Hydromorphone Hcl Inj (*Crx) 1 Mg/Ml Syr IV PUSH Q2H PRN Breakthrough Pain Rated 4-6 or NPO Lactated Ringer's 1,000 mls @ 30 mls/hr 05/21/25 12:30 05/21/25 19:28 Lr - Lactated Ringers Iv IV CONT Not Given .Q24H SHARIFA Lactated Ringer's 1,000 mls @ 30 mls/hr 05/21/25 12:30 05/21/25 16:51 Lr - Lactated Ringers Iv IV CONT Infused .Q24H SHARIFA Infusion Cefazolin Sodium 2 gm/ Sodium 50 mls @ 100 mls/hr 05/21/25 23:00 05/22/25 06:17 Chloride IVPB 05/22/25 15:29 100 mls/hr Q8H SHARIFA Administration Sodium Chloride 1,000 mls @ 125 mls/hr 05/21/25 17:29 05/22/25 06:20 Normal Saline Iv IV CONT 125 mls/hr .Q8H SHARIFA Administration Metoprolol Succinate 25 mg 05/20/25 09:00 05/21/25 17:45 Metoprolol Succinate Ext Rel 25 Mg Tabcr PO Not Given DAILY SHARIFA Naloxone HCl 0.1 mg 05/21/25 17:29 Naloxone Hcl 0.4 Mg/Ml Vial IV PUSH Q2M PRN Opiate Reversal Ondansetron HCl 4 mg 05/21/25 12:30 Ondansetron Inj 4 Mg/2 Ml Vial IV PUSH ONCE PRN Nausea Ondansetron HCl 4 mg 05/21/25 17:29 Ondansetron Inj 4 Mg/2 Ml Vial IV PUSH Q4H PRN Nausea And Vomiting Pantoprazole Sodium 40 mg 05/20/25 09:00 05/21/25 17:45 Pantoprazole 40 Mg Tablet BY MOUTH Not Given QAM SHARIFA Polyethylene Glycol 17 gm 05/22/25 09:00 Polyethylene Glycol 3350 17 Gm Powd.Pack PO QAM SHARIFA Fluticasone/Salmeterol 2 puff 05/20/25 08:00 05/21/25 19:49 Fluticasone/Salmeterol 115-21 Mcg Inhaler 1 Puff INHALATION Not Given Q12HRT SHARIFA Senna/Docusate Sodium 2 tab 05/21/25 17:29 05/21/25 17:54 Senna/Docusate Sodium Tablet PO 2 tab BID SHARIFA Administration Simvastatin 20 mg 05/20/25 21:00 05/21/25 20:10 Simvastatin 20 Mg Tablet BY MOUTH 20 mg QHS SHARIFA Administration Tramadol HCl 50 mg 05/21/25 17:29 Tramadol Hcl (*Crx) 50 Mg Tablet PO Q4H PRN Pain Rated 1-3 Radiology Results: ITS Impressions Chest X-Ray 05/19/25 21:19 IMPRESSION: No acute pulmonary findings. Hip/Pelvis X-Ray 05/19/25 21:22 IMPRESSION: Acute displaced subcapital fracture of the left femoral neck. Knee X-Ray 05/19/25 21:24 IMPRESSION: Radiographic examination of the left knee demonstrates no acute fracture or dislocation. Intraoperative X-Ray 05/21/25 16:03 IMPRESSION: 1. Expected appearance during bipolar type left hip hemiarthroplasty. Labs Labs: Laboratory Results - last 24 hr 05/21/25 05/21/25 05/21/25 05:58 14:26 16:07 WBC RBC Hgb Hct MCV MCH MCHC RDW Plt Count MPV Immature Gran % (Auto) Neut % (Auto) Lymph % (Auto) [place] % (Auto) Eos % (Auto) Baso % (Auto) Lymph # (Auto) [place] # (Auto) Eos # (Auto) Baso # (Auto) Abs Immat Gran (auto) Absolute Neuts (auto) Absolute Nucleated RBC Nucleated RBC % Sodium Potassium Chloride Carbon Dioxide Anion Gap BUN Creatinine Estim Creat Clear Calc Estimated GFR Glucose POC Capillary Glucose 120 H Calcium Magnesium 1.8 Total Bilirubin AST ALT Alkaline Phosphatase Total Protein Albumin Blood Type A Negative Antibody Screen Negative 05/22/25 05:41 WBC 12.9 H RBC 2.60 L Hgb 8.5 L Hct 25.5 L MCV 98.1 MCH 32.7 MCHC 33.3 RDW 14.6 H Plt Count 137 L MPV 11.5 H Immature Gran % (Auto) 0.9 H Neut % (Auto) 79.3 H Lymph % (Auto) 11.2 L [place] % (Auto) 8.5 Eos % (Auto) 0.0 Baso % (Auto) 0.1 L Lymph # (Auto) 1.44 [place] # (Auto) 1.1 H Eos # (Auto) 0.0 Baso # (Auto) 0.0 Abs Immat Gran (auto) 0.12 H Absolute Neuts (auto) 10.2 H Absolute Nucleated RBC 0.000 Nucleated RBC % 0.0 Sodium 133 L Potassium 4.0 Chloride 106 Carbon Dioxide 24 Anion Gap 3 L BUN 63 H D Creatinine 2.26 H Estim Creat Clear Calc 26 Estimated GFR 21 L Glucose 125 H POC Capillary Glucose Calcium 8.3 L Magnesium 2.0 Total Bilirubin 1.4 H AST 30 ALT 16 Alkaline Phosphatase 93 Total Protein 5.3 L Albumin 2.5 L Blood Type Antibody Screen
[2025-05-22] MEDS: SENNA/DOCUSATE SODIUM TABLET 2 TAB PO (08:26)
[2025-05-22] MEDS: AMIODARONE HCL 200 MG TABLET PO (08:26)
[2025-05-22] MEDS: PANTOPRAZOLE 40 MG TABLET BY MOUTH (08:26)
[2025-05-22] MEDS: APIXABAN 2.5 MG TABLET PO ×2 (08:26→21:03)
[2025-05-22] MEDS: traMADol HCL (*CRX) 50 MG TABLET PO (08:27)
[2025-05-22] MEDS: METOPROLOL SUCCINATE EXT REL 25 MG TABCR PO (08:27)
--- NOTE | 2025-05-22 08:36 | P.PNIM_ITS ---
Progress Note: A&P Assessment and Plan (1) Closed hip fracture: Qualifiers: Encounter type: initial encounter Laterality: left Qualified Code(s): S72.002A - Fracture of unspecified part of neck of left femur, initial encounter for closed fracture Code(s): S72.009A - Fracture of unspecified part of neck of unspecified femur, initial encounter for closed fracture Status: Acute Assessment and Plan: Status post bipolar left femoral neck fracture on 05/21/2025 Orthopedics consulted Pain management a bowel protocol PT recommending skilled Eliquis restarted per Orthopedics Postop antibiotics (2) Essential (primary) hypertension: Code(s): I10 - Essential (primary) hypertension Status: Chronic Assessment and Plan: Continue REGULATORY LEAD Metoprolol succinate 25 mg p.o. q.day. continue REGULATORY LEAD Amiodarone 200 mg p.o. q.day (3) Obstructive sleep apnea (adult) (pediatric): Code(s): G47.33 - Obstructive sleep apnea (adult) (pediatric) Status: Acute Assessment and Plan: -CPAP nightly. (4) Paroxysmal atrial flutter: Code(s): I48.92 - Unspecified atrial flutter Status: Acute Assessment and Plan: Continue Eliquis, aspirin, metoprolol and statin (5) Diabetes mellitus with chronic kidney disease: Qualifiers: Chronic kidney disease stage: stage 4 (GFR 15-29) Diabetes mellitus mcc insulin use: without mcc use Diabetes mellitus type: type 2 Qualified Code(s): E11.22 - Type 2 diabetes mellitus with diabetic chronic kid kristin disease; N18.4 - Chronic kidney disease, stage 4 (severe) Code(s): E11.22 - Type 2 diabetes mellitus with diabetic chronic kidney disease Status: Acute Assessment and Plan: Hemoglobin A1c 6.4 Accu-Cheks a.c. HS No need for insulin Hypoglycemia protocol (6) Dilated cardiomyopathy: Code(s): I42.0 - Dilated cardiomyopathy Status: Chronic Assessment and Plan: Euvolemic Continue torsemide (7) Mixed hyperlipidemia: Code(s): E78.2 - Mixed hyperlipidemia Status: Acute Assessment and Plan: Continue statin Time Spent With Patient Time with patient: Greater than 35 minutes Subjective Date/time seen: 05/22/25 08:36 Interval history: 74-year-old female presents the hospital with hip fracture requiring a bipolar endoprosthetic replacement Drop in hemoglobin after OR, vital signs stable this morning, no signs of bleeding could be delusional PT OT recommending skilled facility will contact case management Review of Systems Review of Systems: 12 systems were reviewed and are negativ e except for as per HPI. Exam Narrative: General: well appearing, appears stated age. HEENT: normocephalic, atraumatic. Mucous membranes moist. EOMI, PERRLA, bilateral sclera anicteric, no conjunctival injection. Neck supple without JVD, lymphadenopathy, or bruit. Respiratory: clear to ascultation bilaterally. No rales/rhonic/wheezes. Cardiovascular: Regular rate and rhythm, normal S1-S2 upon ascultation. No murmurs, rubs, or clicks. PMI is nondisplaced, capillary refill less than 3 second. Abdomen: Obese Soft, round, no pulsatile masses, nondistended and nontender. No rebound, no guarding. No CVA tenderness, no hepatosplenomegaly. Bowel sounds present to all four quadrants. No high pitch or tinkling sounds, resonant to percussion. Extremities: No cyanosis, clubbing, or edema present. Pulses are palpable 2/2. Left thigh surgical dressing clean dry intact Neuro: Alert and orientated x 4. PERRLA. Cranial nerves 2-12 intact without focal deficit. Skin: Warm, dry, and intact, without rash, erythema, or lesion. Psych: pleasant, cooperative, normal speech, normal affect, no hallucinations, no dysarthia Objective Data Vital Signs Vital Signs: Vital Signs - 24 hr 05/21/25 09:20 05/21/25 12:12 05/21/25 16:00 Temperature 97.7 F 97.6 F Pulse Rate 80 78 Respiratory Rate 16 20 Blood Pressure 132/54 L 145/59 H Pulse Oximetry 94 100 Oxygen Delivery Room Air Room Air Simple Face Mask Oxygen Flow Rate 8 05/21/25 16:15 05/21/25 16:30 05/21/25 16:45 Temperature Pulse Rate 75 77 82 Respiratory Rate 20 18 20 Blood Pressure 129/54 L 131/54 L 131/48 L Pulse Oximetry 100 100 100 Oxygen Delivery Simple Face Mask Simple Face Mask Room Air Oxygen Flow Rate 8 8 05/21/25 17:00 05/21/25 17:15 05/21/25 17:55 Temperature 97.8 F 97.1 F L Pulse Rate 76 86 85 Respiratory Rate 20 20 14 Blood Pressure 134/50 L 141/66 H 117/42 L Pulse Oximetry 100 100 100 Oxygen Delivery Room Air Room Air Oxygen Flow Rate 05/21/25 18:10 05/21/25 18:40 05/21/25 20:09 Temperature 97.8 F 97.9 F 98.4 F Pulse Rate 84 88 91 Respiratory Rate 14 14 14 Blood Pressure 126/58 L 136/65 136/48 L Pulse Oximetry 94 92 97 Oxygen Delivery Oxygen Flow Rate 05/21/25 20:09 05/21/25 20:10 05/21/25 21:35 Temperature 98.4 F Pulse Rate 91 Respiratory Rate 14 Blood Pressure 136/48 L Pulse Oximetry 97 Oxygen Delivery Room Air CPAP Oxygen Flow Rate 05/21/25 23:14 05/22/25 01:40 05/22/25 03:14 Temperature 97.5 F L 97.9 F Pulse Rate 95 84 Respiratory Rate 16 16 Blood Pressure 135/45 L 141/54 H Pulse Oximetry 94 94 Oxygen Delivery CPAP Oxygen Flow Rate 05/22/25 08:26 05/22/25 08:27 Temperature Pulse Rate 84 84 Respiratory Rate Blood Pressure Pulse Oximetry Oxygen Delivery Oxygen Flow Rate Intake/Output Intake/Output: Intake & Output 05/19/25 05/20/25 05/21/25 05/22/25 23:59 23:59 23:59 23:59 Intake Total 1510 997.1 1250 Output Total 900 2050 650 Balance 610 -1052.9 600 Meds/Results Medications: Active Medications Generic Name Dose Route Start Last Admin Trade Name Freq PRN Reason Stop Dose Admin Hydrocodone Bitart/Acetaminophen 1 tab 05/21/25 17:29 05/22/25 03:19 Hydrocodone/Acetaminophen (*Crx) 5-325 Mg Tablet PO 1 tab Q4H PRN Administration Pain Rated 4-6 Hydrocodone Bitart/Acetaminophen 1 tab 05/21/25 17:29 Hydrocodone/Acetaminophen (*Crx) 7.5-325 Mg Tablet PO Q4H PRN Pain Rated 7-10 Allopurinol 100 mg 05/20/25 09:00 05/22/25 08:26 Allopurinol 100 Mg Tablet PO 100 mg DAILY SHARIFA Administration Amiodarone HCl 200 mg 05/20/25 08:00 05/22/25 08:26 Amiodarone Hcl 200 Mg Tablet PO 200 mg DAILY@0800 SHARIFA Administration Apixaban 2.5 mg 05/21/25 21:00 05/22/25 08:26 Apixaban 2.5 Mg Tablet PO 2.5 mg Q12HR SHARIFA Administration Fentanyl Citrate 25 mcg 05/21/25 12:30 Fentanyl Citrate Inj (*Crx) 100 Mcg/2 Ml Vial IV PUSH Q2M PRN Pain Hydromorphone HCl 1 mg 05/21/25 17:29 Hydromorphone Hcl Inj (*Crx) 1 Mg/Ml Syr IV PUSH Q2H PRN Breakthrough Pain Rated 7-10 or NPO Hydromorphone HCl 0.5 mg 05/21/25 17:29 Hydromorphone Hcl Inj (*Crx) 1 Mg/Ml Syr IV PUSH Q2H PRN Breakthrough Pain Rated 4-6 or NPO Lactated Ringer's 1,000 mls @ 30 mls/hr 05/21/25 12:30 05/21/25 19:28 Lr - Lactated Ringers Iv IV CONT Not Given .Q24H SHARIFA Lactated Ringer's 1,000 mls @ 30 mls/hr 05/21/25 12:30 05/21/25 16:51 Lr - Lactated Ringers Iv IV CONT Infused .Q24H SHARIFA Infusion Cefazolin Sodium 2 gm/ Sodium 50 mls @ 100 mls/hr 05/21/25 23:00 05/22/25 07:00 Chloride IVPB 05/22/25 15:29 Infused Q8H SHARIFA Infusion Sodium Chloride 1,000 mls @ 125 mls/hr 05/21/25 17:29 05/22/25 06:20 Normal Saline Iv IV CONT 125 mls/hr .Q8H SHARIFA Administration Metoprolol Succinate 25 mg 05/20/25 09:00 05/22/25 08:27 Metoprolol Succinate Ext Rel 25 Mg Tabcr PO 25 mg DAILY SHARIFA Administration Naloxone HCl 0.1 mg 05/21/25 17:29 Naloxone Hcl 0.4 Mg/Ml Vial IV PUSH Q2M PRN Opiate Reversal Ondansetron HCl 4 mg 05/21/25 12:30 Ondansetron Inj 4 Mg/2 Ml Vial IV PUSH ONCE PRN Nausea Ondansetron HCl 4 mg 05/21/25 17:29 Ondansetron Inj 4 Mg/2 Ml Vial IV PUSH Q4H PRN Nausea And Vomiting Pantoprazole Sodium 40 mg 05/20/25 09:00 05/22/25 08:26 Pantoprazole 40 Mg Tablet BY MOUTH 40 mg QAM SHARIFA Administration Polyethylene Glycol 17 gm 05/22/25 09:00 05/22/25 08:27 Polyethylene Glycol 3350 17 Gm Powd.Pack PO 17 gm QAM SHARIFA Administration Fluticasone/Salmeterol 2 puff 05/20/25 08:00 05/22/25 07:06 Fluticasone/Salmeterol 115-21 Mcg Inhaler 1 Puff INHALATION Not Given Q12HRT SHARIFA Senna/Docusate Sodium 2 tab 05/21/25 17:29 05/22/25 08:26 Senna/Docusate Sodium Tablet PO 2 tab BID SHARIFA Administration Simvastatin 20 mg 05/20/25 21:00 05/21/25 20:10 Simvastatin 20 Mg Tablet BY MOUTH 20 mg QHS SHARIFA Administration Tramadol HCl 50 mg 05/21/25 17:29 05/22/25 08:27 Tramadol Hcl (*Crx) 50 Mg Tablet PO 50 mg Q4H PRN Administration Pain Rated 1-3 Radiology Results: ITS Impressions Chest X-Ray 05/19/25 21:19 IMPRESSION: No acute pulmonary findings. Hip/Pelvis X-Ray 05/19/25 21:22 IMPRESSION: Acute displaced subcapital fracture of the left femoral neck. Knee X-Ray 05/19/25 21:24 IMPRESSION: Radiographic examination of the left knee demonstrates no acute fracture or dislocation. Intraoperative X-Ray 05/21/25 16:03 IMPRESSION: 1. Expected appearance during bipolar type left hip hemiarthroplasty. Labs Labs: Laboratory Results - last 24 hr 05/21/25 05/21/25 05/21/25 05:58 14:26 16:07 WBC RBC Hgb Hct MCV MCH MCHC RDW Plt Count MPV Immature Gran % (Auto) Neut % (Auto) Lymph % (Auto) [place] % (Auto) Eos % (Auto) Baso % (Auto) Lymph # (Auto) [place] # (Auto) Eos # (Auto) Baso # (Auto) Abs Immat Gran (auto) Absolute Neuts (auto) Absolute Nucleated RBC Nucleated RBC % Sodium Potassium Chloride Carbon Dioxide Anion Gap BUN Creatinine Estim Creat Clear Calc Estimated GFR Glucose POC Capillary Glucose 120 H Calcium Magnesium 1.8 Total Bilirubin AST ALT Alkaline Phosphatase Total Protein Albumin Blood Type A Negative Antibody Screen Negative 05/22/25 05:41 WBC 12.9 H RBC 2.60 L Hgb 8.5 L Hct 25.5 L MCV 98.1 MCH 32.7 MCHC 33.3 RDW 14.6 H Plt Count 137 L MPV 11.5 H Immature Gran % (Auto) 0.9 H Neut % (Auto) 79.3 H Lymph % (Auto) 11.2 L [place] % (Auto) 8.5 Eos % (Auto) 0.0 Baso % (Auto) 0.1 L Lymph # (Auto) 1.44 [place] # (Auto) 1.1 H Eos # (Auto) 0.0 Baso # (Auto) 0.0 Abs Immat Gran (auto) 0.12 H Absolute Neuts (auto) 10.2 H Absolute Nucleated RBC 0.000 Nucleated RBC % 0.0 Sodium 133 L Potassium 4.0 Chloride 106 Carbon Dioxide 24 Anion Gap 3 L BUN 63 H D Creatinine 2.26 H Estim Creat Clear Calc 26 Estimated GFR 21 L Glucose 125 H POC Capillary Glucose Calcium 8.3 L Magnesium 2.0 Total Bilirubin 1.4 H AST 30 ALT 16 Alkaline Phosphatase 93 Total Protein 5.3 L Albumin 2.5 L Blood Type Antibody Screen Quality VTE Prophylaxis VTE prophylaxis: mechanical ordered Hospitalist MIPS Advance Care Plan I have confirmed that the patient's Advanced Care Plan is present, code status is documented, or surrogate decision maker is listed in patient medical record.: Yes Medication Reconciliation I have utilized all available resources to obtain, update and review the patients current medications (includes all prescriptions, OTC, herbals, cannabis, and nutritional supplements).: Yes
--- NOTE | 2025-05-22 10:37 | WPDANESPN ---
Anes - Prog Note Post-Op Date/Time: 05/22/25 10:37 Cardiovascular status: normal Respiratory status: normal Airway patency: baseline Mental status: baseline Post-Op hydration status: normal Vital Signs: Last Vital Signs Temp 36.5 C 05/22/25 07:14 Pulse 84 05/22/25 08:27 Resp 14 05/22/25 07:14 BP 146/69 H 05/22/25 07:14 Pulse Ox 98 05/22/25 07:14 O2 Del Method Room Air 05/22/25 09:03 O2 Flow Rate 8 05/21/25 16:30 Pain Score (VAS): 0 I/O: Intake & Output 05/21/25 05/22/25 05/22/25 23:59 07:59 15:59 Intake Total 697.1 1250 236 Output Total 100 650 Balance 597.1 600 236 Laboratory Tests 05/22/25 05:41 05/22/25 05:41 05/21/25 05/21/25 05/22/25 14:26 16:07 05:41 WBC 12.9 H RBC 2.60 L Hgb 8.5 L Hct 25.5 L MCV 98.1 MCH 32.7 MCHC 33.3 RDW 14.6 H Plt Count 137 L MPV 11.5 H Immature Gran % (Auto) 0.9 H Neut % (Auto) 79.3 H Lymph % (Auto) 11.2 L [place] % (Auto) 8.5 Eos % (Auto) 0.0 Baso % (Auto) 0.1 L Lymph # (Auto) 1.44 [place] # (Auto) 1.1 H Eos # (Auto) 0.0 Baso # (Auto) 0.0 Abs Immat Gran (auto) 0.12 H Absolute Neuts (auto) 10.2 H Absolute Nucleated RBC 0.000 Nucleated RBC % 0.0 Sodium 133 L Potassium 4.0 Chloride 106 Carbon Dioxide 24 Anion Gap 3 L BUN 63 H D Creatinine 2.26 H Estim Creat Clear Calc 26 Estimated GFR 21 L Glucose 125 H POC Capillary Glucose 120 H Calcium 8.3 L Magnesium 2.0 Total Bilirubin 1.4 H AST 30 ALT 16 Alkaline Phosphatase 93 Total Protein 5.3 L Albumin 2.5 L Blood Type A Negative Antibody Screen Negative Post-procedural complaints: none Patient Feedback: Patient satisfied with anesthetic care.
[2025-05-22] MEDS: ASPIRIN 81 MG ENTERIC TABLET PO (11:15)
[2025-05-22] MEDS: TORSEMIDE 20 MG TABLET PO (11:15)
[2025-05-22] MEDS: SIMVASTATIN 20 MG TABLET BY MOUTH (21:03)
[2025-05-22] MEDS: WATER FOR IRRIGATION, STERILE 1,000 ML BOTTLE 1000 ML IRRIGATION (22:00)
[2025-05-23] MEDS: HYDROcodone/acetaminophen (*CRX) 5-325 MG TABLET 1 TAB PO ×2 (01:09→15:58)
[2025-05-23 03:57] VITALS: BP 119/52; PULSE 81; RESP 20; TEMP 36.7; O2SAT 97
--- NOTE | 2025-05-23 05:54 | PCRCNOTE ---
Patient refused MDI and stated that she doesn't use it regularly when at home.
[2025-05-23 06:29] LABS: Hematocrit 22.3 % (37.0-47.0); Hemoglobin 7.2 g/dL (12.0-15.0); Immature Granulocyte Percent A 1.1 % (0-0.5); Lymphocytes Absolute Auto 1.57 K/mm3 (0.9-3.2); Mean Corpuscular HGB Conc 32.3 g/dl (32-36); Mean Corpuscular Hemoglobin 31.7 pg (26-34); Mean Corpuscular Volume 98.2 fl (80-100); Nucleated Red Blood Cells Absolute Auto 0.000 K/mm3 (0.0-0.012); Nucleated Red Blood Cells Perc 0.0 % (0.0-0.2); Platelet Count Result 111 k/mm3 (150-375); Red Blood Count 2.27 M/mm3 (4.2-5.4); White Blood Count 11.2 K/mm3 (4.5-10.0)
--- NOTE | 2025-05-23 06:39 | PC.NURSE ---
0630 Matos Cath removed. Pt tolerated well. 150ml output
[2025-05-23 07:01] LABS: Alanine Aminotransferase 10 U/L (6-35); Albumin Level 2.4 g/dL (3.5-5.1); Alkaline Phosphatase 80 U/L (38-126); Anion Gap 6 mmol/L (4-12); Aspartate Amino Transferase 26 U/L (14-36); Bilirubin,Total 1.0 mg/dL (0.2-1.3); Blood Urea Nitrogen 52 mg/dL (7-17); Calcium 8.2 mg/dL (8.4-10.2); Carbon Dioxide 23 mmol/L (22-30); Chloride 104 mmol/L (98-107); Estimated CRCL calculation 27 ml/min; Estimated Glomerular Filt Rate 22; Glucose 107 mg/dL (65-110); Magnesium 1.8 mg/dL (1.6-2.3); Potassium 3.7 mmol/L (3.4-5.0); Sodium 133 mmol/L (137-145); Total Protein 5.1 g/dL (6.3-8.2)
--- NOTE | 2025-05-23 07:34 | P.PNIM_ITS ---
Progress Note: A&P Assessment and Plan (1) Closed hip fracture: Qualifiers: Encounter type: initial encounter Laterality: left Qualified Code(s): S72.002A - Fracture of unspecified part of neck of left femur, initial encounter for closed fracture Code(s): S72.009A - Fracture of unspecified part of neck of unspecified femur, initial encounter for closed fracture Status: Acute Assessment and Plan: Status post bipolar left femoral neck fracture on 05/21/2025 Orthopedics consulted Pain management a bowel protocol PT recommending skilled Eliquis restarted per Orthopedics Postop antibiotics (2) Anemia: Code(s): D64.9 - Anemia, unspecified Status: Acute Assessment and Plan: 11.6 on admission to the 7.2 this a.m. could be dilutional versus acute blood loss from fracture versus other No signs of acute bleeding Transfuse hemoglobin less 7 or symptomatic Diuretics restarted CBC tomorrow morning, if stable patient likely discharge to rehab (3) Essential (primary) hypertension: Code(s): I10 - Essential (primary) hypertension Status: Chronic Assessment and Plan: Continue LINE PATROLLER Metoprolol succinate 25 mg p.o. q.day. continue LINE PATROLLER Amiodarone 200 mg p.o. q.day (4) Obstructive sleep apnea (adult) (pediatric): Code(s): G47.33 - Obstructive sleep apnea (adult) (pediatric) Status: Acute Assessment and Plan: -CPAP nightly. (5) Paroxysmal atrial flutter: Code(s): I48.92 - Unspecified atrial flutter Status: Acute Assessment and Plan: Continue Eliquis, aspirin, metoprolol and statin (6) Diabetes mellitus with chronic kidney disease: Qualifiers: Chronic kidney disease stage: stage 4 (GFR 15-29) Diabetes mellitus manager long term care insulin use: without fpc use Diabetes mellitus type: type 2 Qualified Code(s): E11.22 - Type 2 diabetes mellitus with diabetic chronic kidney disease; N18.4 - Chronic kidney disease, stage 4 (severe) Code(s): E11.22 - Type 2 diabetes mellitus with diabetic chronic kidney disease Status: Acute Assessment and Plan: Hemoglobin A1c 6.4 Accu-Cheks a.c. HS No need for insulin Hypoglycemia protocol (7) Dilated cardiomyopathy: Code(s): I42.0 - Dilated cardiomyopathy Status: Chronic Assessment and Plan: Euvolemic Continue torsemide (8) Mixed hyperlipidemia: Code(s): E78.2 - Mixed hyperlipidemia Status: Acute Assessment and Plan: Continue statin Time Spent With Patient Time with patient: Greater than 35 minutes Subjective Date/time seen: 05/23/25 07:34 Interval history: 74-year-old female presents the hospital with hip fracture requiring a bipolar endoprosthetic replacement Drop in hemoglobin after OR, vital signs stable this morning, no signs of bleeding could be delusional Patient will be ready for discharge to rehab tomorrow if her hemoglobin is stable or improved, diuretics started this morning. Review of Systems Review of Systems: 12 systems were reviewed and are negativ e except for as per HPI. All systems reviewed & are unremarkable except as noted in HPI and below Exam Narrative: General: well appearing, appears stated age. HEENT: normocephalic, atraumatic. Mucous membranes moist. EOMI, PERRLA, bilateral sclera anicteric, no conjunctival injection. Neck supple without JVD, lymphadenopathy, or bruit. Respiratory: clear to ascultation bilaterally. No rales/rhonic/wheezes. Cardiovascular: Regular rate and rhythm, normal S1-S2 upon ascultation. No murmurs, rubs, or clicks. PMI is nondisplaced, capillary refill less than 3 second. Abdomen: Obese Soft, round, no pulsatile masses, nondistended and nontender. No rebound, no guarding. No CVA tenderness, no hepatosplenomegaly. Bowel sounds present to all four quadrants. No high pitch or tinkling sounds, resonant to percussion. Extremities: No cyanosis, clubbing, or edema present. Pulses are palpable 2/2. Left thigh surgical dressing clean dry intact Neuro: Alert and orientated x 4. PERRLA. Cranial nerves 2-12 intact without focal deficit. Skin: Warm, dry, and intact, without rash, erythema, or lesion. Psych: pleasant, cooperative, normal speech, normal affect, no hallucinations, no dysarthia Objective Data Vital Signs Vital Signs: Vital Signs - 24 hr 05/22/25 08:26 05/22/25 08:27 05/22/25 08:30 Temperature Pulse Rate 84 84 Respiratory Rate Blood Pressure Pulse Oximetry Oxygen Delivery Room Air 05/22/25 09:03 05/22/25 11:02 05/22/25 11:14 Temperature 97.0 F L Pulse Rate 100 Respiratory Rate 16 Blood Pressure 135/65 Pulse Oximetry 95 Oxygen Delivery Room Air Room Air 05/22/25 15:14 05/22/25 19:14 05/22/25 20:00 Temperature 97.7 F 98.6 F Pulse Rate 88 87 Respiratory Rate 18 20 Blood Pressure 128/45 L 140/50 L Pulse Oximetry 98 96 Oxygen Delivery Room Air 05/22/25 20:51 05/23/25 03:00 05/23/25 03:57 Temperature 98.6 F 98.1 F Pulse Rate 87 81 Respiratory Rate 20 20 Blood Pressure 140/50 L 119/52 L Pulse Oximetry 96 97 Oxygen Delivery CPAP Intake/Output Intake/Output: Intake & Output 05/20/25 05/21/25 05/22/25 05/23/25 23:59 23:59 23:59 23:59 Intake Total 1510 997.1 2244.3 290 Output Total 900 2050 2225 550 Balance 610 -1052.9 19.3 -260 Meds/Results Medications: Active Medications Generic Name Dose Route Start Last Admin Trade Name Freq PRN Reason Stop Dose Admin Hydrocodone Bitart/Acetaminophen 1 tab 05/21/25 17:29 05/23/25 01:09 Hydrocodone/Acetaminophen (*Crx) 5-325 Mg Tablet PO 1 tab Q4H PRN Administration Pain Rated 4-6 Hydrocodone Bitart/Acetaminophen 1 tab 05/21/25 17:29 Hydrocodone/Acetaminophen (*Crx) 7.5-325 Mg Tablet PO Q4H PRN Pain Rated 7-10 Albuterol 1 puff 05/22/25 08:45 Albuterol Sulfate (*Sp) Aerosol 1 Puff INHALATION Q4H PRN SOB/WHEEZING Allopurinol 100 mg 05/20/25 09:00 05/22/25 08:26 Allopurinol 100 Mg Tablet PO 100 mg DAILY SHARIFA Administration Amiodarone HCl 200 mg 05/20/25 08:00 05/22/25 08:26 Amiodarone Hcl 200 Mg Tablet PO 200 mg DAILY@0800 SHARIFA Administration Apixaban 2.5 mg 05/21/25 21:00 05/22/25 21:03 Apixaban 2.5 Mg Tablet PO 2.5 mg Q12HR SHARIFA Administration Aspirin 81 mg 05/22/25 09:00 05/22/25 11:15 Aspirin 81 Mg Enteric Tablet PO 81 mg DAILY SHARIFA Administration Dextrose 12.5 gm 05/22/25 08:47 Dextrose 50% 25 Gm/50 Ml Syringe IV PUSH PRN PRN Hypoglycemia Protocol Fentanyl Citrate 25 mcg 05/21/25 12:30 Fentanyl Citrate Inj (*Crx) 100 Mcg/2 Ml Vial IV PUSH Q2M PRN Pain Glucose 15 gm 05/22/25 08:47 Glucose Oral Gel 15 Gm Of Glucse In 37.5 Gm Tube PO PRN PRN Hypoglycemia Protocol Hydromorphone HCl 1 mg 05/21/25 17:29 Hydromorphone Hcl Inj (*Crx) 1 Mg/Ml Syr IV PUSH Q2H PRN Breakthrough Pain Rated 7-10 or NPO Hydromorphone HCl 0.5 mg 05/21/25 17:29 Hydromorphone Hcl Inj (*Crx) 1 Mg/Ml Syr IV PUSH Q2H PRN Breakthrough Pain Rated 4-6 or NPO Dextrose 1,000 mls @ 100 mls/hr 05/22/25 08:47 Dextrose 5% 1,000 Ml IVPB PRN PRN Hypoglycemia Protocol Methocarbamol 500 mg 05/22/25 09:00 05/22/25 21:03 Methocarbamol 500 Mg Tablet PO 500 mg QID SHARIFA Administration Metoprolol Succinate 25 mg 05/20/25 09:00 05/22/25 08:27 Metoprolol Succinate Ext Rel 25 Mg Tabcr PO 25 mg DAILY SHARIFA Administration Naloxone HCl 0.1 mg 05/21/25 17:29 Naloxone Hcl 0.4 Mg/Ml Vial IV PUSH Q2M PRN Opiate Reversal Ondansetron HCl 4 mg 05/21/25 12:30 Ondansetron Inj 4 Mg/2 Ml Vial IV PUSH ONCE PRN Nausea Ondansetron HCl 4 mg 05/21/25 17:29 Ondansetron Inj 4 Mg/2 Ml Vial IV PUSH Q4H PRN Nausea And Vomiting Pantoprazole Sodium 40 mg 05/20/25 09:00 05/22/25 08:26 Pantoprazole 40 Mg Tablet BY MOUTH 40 mg QAM SHARIFA Administration Polyethylene Glycol 17 gm 05/22/25 09:00 05/22/25 08:27 Polyethylene Glycol 3350 17 Gm Powd.Pack PO 17 gm QAM SHARIFA Administration Fluticasone/Salmeterol 2 puff 05/20/25 08:00 05/23/25 04:52 Fluticasone/Salmeterol 115-21 Mcg Inhaler 1 Puff INHALATION Not Given Q12HRT SHARIFA Senna/Docusate Sodium 2 tab 05/21/25 17:29 05/22/25 18:44 Senna/Docusate Sodium Tablet PO Not Given BID SHARIFA Simvastatin 20 mg 05/20/25 21:00 05/22/25 21:03 Simvastatin 20 Mg Tablet BY MOUTH 20 mg QHS SHARIFA Administration Torsemide 20 mg 05/22/25 09:00 05/22/25 11:15 Torsemide 20 Mg Tablet PO 20 mg QAM SHARIFA Administration Tramadol HCl 50 mg 05/21/25 17:29 05/22/25 08:27 Tramadol Hcl (*Crx) 50 Mg Tablet PO 50 mg Q4H PRN Administration Pain Rated 1-3 Radiology Results: ITS Impressions Chest X-Ray 05/19/25 21:19 IMPRESSION: No acute pulmonary findings. Hip/Pelvis X-Ray 05/19/25 21:22 IMPRESSION: Acute displaced subcapital fracture of the left femoral neck. Knee X-Ray 05/19/25 21:24 IMPRESSION: Radiographic examination of the left knee demonstrates no acute fracture or dislocation. Intraoperative X-Ray 05/21/25 16:03 IMPRESSION: 1. Expected appearance during bipolar type left hip hemiarthroplasty. Labs Labs: Laboratory Results - last 24 hr 05/22/25 05/22/25 05/22/25 11:57 16:51 20:58 WBC RBC Hgb Hct MCV MCH MCHC RDW Plt Count MPV Immature Gran % (Auto) Neut % (Auto) Lymph % (Auto) [place] % (Auto) Eos % (Auto) Baso % (Auto) Lymph # (Auto) [place] # (Auto) Eos # (Auto) Baso # (Auto) Abs Immat Gran (auto) Absolute Neuts (auto) Absolute Nucleated RBC Nucleated RBC % Sodium Potassium Chloride Carbon Dioxide Anion Gap BUN Creatinine Estim Creat Clear Calc Estimated GFR Glucose POC Capillary Glucose 163 H 148 H 156 H Calcium Magnesium Total Bilirubin AST ALT Alkaline Phosphatase Total Protein Albumin 05/23/25 05/23/25 06:22 07:24 WBC 11.2 H RBC 2.27 L Hgb 7.2 L Hct 22.3 L MCV 98.2 MCH 31.7 MCHC 32.3 RDW 14.6 H Plt Count 111 L MPV 10.3 Immature Gran % (Auto) 1.1 H Neut % (Auto) 74.3 H Lymph % (Auto) 14.1 L [place] % (Auto) 10.4 H Eos % (Auto) 0.0 Baso % (Auto) 0.1 L Lymph # (Auto) 1.57 [place] # (Auto) 1.2 H Eos # (Auto) 0.0 Baso # (Auto) 0.0 Abs Immat Gran (auto) 0.12 H Absolute Neuts (auto) 8.3 H Absolute Nucleated RBC 0.000 Nucleated RBC % 0.0 Sodium 133 L Potassium 3.7 Chloride 104 Carbon Dioxide 23 Anion Gap 6 BUN 52 H D Creatinine 2.18 H Estim Creat Clear Calc 27 Estimated GFR 22 L Glucose 107 POC Capillary Glucose 119 H Calcium 8.2 L Magnesium 1.8 Total Bilirubin 1.0 AST 26 ALT 10 Alkaline Phosphatase 80 Total Protein 5.1 L Albumin 2.4 L Quality VTE Prophylaxis VTE prophylaxis: mechanical ordered and pharmacologic ordered
[2025-05-23 09:52] VITALS: PULSE 81
[2025-05-23] MEDS: PANTOPRAZOLE 40 MG TABLET BY MOUTH (09:52)
[2025-05-23] MEDS: TORSEMIDE 20 MG TABLET PO (09:52)
[2025-05-23] MEDS: AMIODARONE HCL 200 MG TABLET PO (09:52)
[2025-05-23] MEDS: SENNA/DOCUSATE SODIUM TABLET 2 TAB PO ×2 (09:52→17:02)
[2025-05-23] MEDS: ASPIRIN 81 MG ENTERIC TABLET PO (09:52)
[2025-05-23] MEDS: APIXABAN 2.5 MG TABLET PO (09:52)
[2025-05-23] MEDS: CALCIUM/VITAMIN D 500 MG/5 MCG (200 I.U.) TABLET PO (09:52)
[2025-05-23 09:53] VITALS: PULSE 81
[2025-05-23] MEDS: METOPROLOL SUCCINATE EXT REL 25 MG TABCR PO (09:53)
[2025-05-23 12:52] LABS: Hematocrit 24.1 % (37.0-47.0); Hemoglobin 7.8 g/dL (12.0-15.0)
[2025-05-23 14:00] VITALS: BP 131/50; PULSE 84; RESP 18; TEMP 36.4; O2SAT 100
--- NOTE | 2025-05-23 15:20 | P.DS_ITS ---
DS: Admitting Diagnosis Discharge Date 05/23/25 Admitting Diagnosis bipolar left femoral neck fracture DS: Discharge Diagnosis Discharge Diagnosis (1) Closed hip fracture: Qualifiers: Encounter type: initial encounter Laterality: left Qualified Code(s): S72.002A - Fracture of unspecified part of neck of left femur, initial encounter for closed fracture Code(s): S72.009A - Fracture of unspecified part of neck of unspecified femur, initial en counter for closed fracture Status: Acute Assessment and Plan: Status post bipolar left femoral neck fracture on 05/21/2025 Orthopedics consulted Pain management a bowel protocol PT recommending skilled Eliquis restarted per Orthopedics Postop antibiotics Okay to discharge from my orthopedic standpoint (2) Anemia: Code(s): D64.9 - Anemia, unspecified Status: Acute Assessment and Plan: 11.6 on admission to the 7.2 this a.m. could be dilutional versus acute blood loss from fracture versus other No signs of acute bleeding Transfuse hemoglobin less 7 or symptomatic Diuretics restarted Rehab bed became available hemoglobin recheck with slight improvement patient is stable for discharge. (3) Essential (primary) hypertension: Code(s): I10 - Essential (primary) hypertension Status: Chronic Assessment and Plan: Continue MARINE ENGINE MACHINIST APPRENTICE Metoprolol succinate 25 mg p.o. q.day. continue MARINE ENGINE MACHINIST APPRENTICE Amiodarone 200 mg p.o. q.day (4) Obstructive sleep apnea (adult) (pediatric): Code(s): G47.33 - Obstructive sleep apnea (adult) (pediatric) Status: Acute Assessment and Plan: -CPAP nightly. (5) Paroxysmal atrial flutter: Code(s): I48.92 - Unspecified atrial flutter Status: Acute Assessment and Plan: Continue Eliquis, aspirin, metoprolol and statin (6) Diabetes mellitus with chronic kidney disease: Qualifiers: Chronic kidney disease stage: stage 4 (GFR 15-29) Diabetes mellitus assisted insulin use: without blending machine operator use Diabetes mellitus type: type 2 Qualified Code(s): E11.22 - Type 2 diabetes mellitus with diabetic chronic kidney disease; N18.4 - Chronic kidney disease, stage 4 (severe) Code(s): E11.22 - Type 2 diabetes mellitus with diabetic chronic kidney disease Status: Acute Assessment and Plan: Hemoglobin A1c 6.4 Accu-Cheks a.c. HS No need for insulin Hypoglycemia protocol (7) Dilated cardiomyopathy: Code(s): I42.0 - Dilated cardiomyopathy Status: Chronic Assessment and Plan: Euvolemic Continue torsemide (8) Mixed hyperlipidemia: Code(s): E78.2 - Mixed hyperlipidemia Status: Acute Assessment and Plan: Continue statin DS: Summary Hospital Course Reason for hospitalization: bipolar left femoral neck fracture Hospital Course: 74-year-old female with history cardiomyopathy with AICD, CKD, AFib on Eliquis, hyperlipidemia, BERTO on CPAP, Rack Carrier is Dr. Wyatt with [facility] cardiology rock, EP Dr. Lock with [facility] patient presenting with acute on chronic hip pain. She had been following up outpatient with orthopedics for pain management. X-ray imaging in the emergency room head shows acute displaced subcapital fracture of the left femoral neck. Orthopedics was consulted due to her taking her Eliquis the morning surgery was delayed. Cardiology had seen patient due to her previously low echo and approved her for surgery. Dr. Zaldivar had performed a Bipolar endoprosthetic replacement left hip. Surgery was uneventful. After surgery patient did have acute pain limiting her mobility pain medications were adjusted and mobility improved somewhat however physical therapy still recommended rehab. While patient was in hospital her hemoglobin had trended down which was most likely acute blood loss from original fracture, blood in OR and delusional due to holding diuretics. Patient was restarted on diuretics and blood pressure medications this morning. Residual plan was to recheck hemoglobin tomorrow morning however bed became available. Stat hemoglobin was drawn which was improved the patient was sent to discharge to rehab. Status at Discharge Functional status at discharge: uses cane/walker Time Spent with Patient Time attestation: Total time spent providing and/or coordinating discharge services: Time spent: Greater than 30 minutes Exam Narrative: General: well appearing, appears stated age. HEENT: normocephalic, atraumatic. Mucous membranes moist. EOMI, PERRLA, bilateral sclera anicteric, no conjunctival injection. Neck supple without JVD, lymphadenopathy, or bruit. Respiratory: clear to ascultation bilaterally. No rales/rhonic/wheezes. Cardiovascular: Regular rate and rhythm, normal S1-S2 upon ascultation. No murmurs, rubs, or clicks. PMI is nondisplaced, capillary refill less than 3 second. Abdomen: Obese Soft, round, no pulsatile masses, nondistended and nontender. No rebound, no guarding. No CVA tenderness, no hepatosplenomegaly. Bowel sounds present to all four quadrants. No high pitch or tinkling sounds, resonant to percussion. Extremities: No cyanosis, clubbing. Pulses are palpable 2/2. Left thigh surgical dressing clean dry intact, 1+ pitting edema Neuro: Alert and orientated x 4. PERRLA. Cranial nerves 2-12 intact without focal deficit. Skin: Warm, dry, and intact, without rash, erythema, or lesion. Psych: pleasant, cooperative, normal speech, normal affect, no hallucinations, no dysarthia DS: Data Data Completed and Pending Labs on day of discharge: Labs from last 24 hours 05/23/25 05/23/25 05/23/25 12:45 11:25 07:24 WBC RBC Hgb 7.8 L Hct 24.1 L MCV MCH MCHC RDW Plt Count MPV Immature Gran % (Auto) Neut % (Auto) Lymph % (Auto) [place] % (Auto) Eos % (Auto) Baso % (Auto) Lymph # (Auto) [place] # (Auto) Eos # (Auto) Baso # (Auto) Abs Immat Gran (auto) Absolute Neuts (auto) Absolute Nucleated RBC Nucleated RBC % Sodium Potassium Chloride Carbon Dioxide Anion Gap BUN Creatinine Estim Creat Clear Calc Estimated GFR Glucose POC Capillary Glucose 146 H 119 H Calcium Magnesium Total Bilirubin AST ALT Alkaline Phosphatase Total Protein Albumin 05/23/25 05/22/25 05/22/25 06:22 20:58 16:51 WBC 11.2 H RBC 2.27 L Hgb 7.2 L Hct 22.3 L MCV 98.2 MCH 31.7 MCHC 32.3 RDW 14.6 H Plt Count 111 L MPV 10.3 Immature Gran % (Auto) 1.1 H Neut % (Auto) 74.3 H Lymph % (Auto) 14.1 L [place] % (Auto) 10.4 H Eos % (Auto) 0.0 Baso % (Auto) 0.1 L Lymph # (Auto) 1.57 [place] # (Auto) 1.2 H Eos # (Auto) 0.0 Baso # (Auto) 0.0 Abs Immat Gran (auto) 0.12 H Absolute Neuts (auto) 8.3 H Absolute Nucleated RBC 0.000 Nucleated RBC % 0.0 Sodium 133 L Potassium 3.7 Chloride 104 Carbon Dioxide 23 Anion Gap 6 BUN 52 H D Creatinine 2.18 H Estim Creat Clear Calc 27 Estimated GFR 22 L Glucose 107 POC Capillary Glucose 156 H 148 H Calcium 8.2 L Magnesium 1.8 Total Bilirubin 1.0 AST 26 ALT 10 Alkaline Phosphatase 80 Total Protein 5.1 L Albumin 2.4 L Discharge Plan Discharge Consulting providers: Vinnie Zaldivar; Matheus Wyatt; Dagoberto Ruff; Olga Lidia Pinto; Alissa Herndon; Edgardo Elliott; Carol Ocampo; Juanita Jernigan; Kavya Sood; Everette Morelos; Franki Stack Discharging Clinician: Alissa Herndon Anticipated Discharge Date/Time: 05/23/25 15:10 Patient Disposition: SNF Activity: may shower Diet: regular Wound Care Instructions: other - see discharge instructions Discharge Instructions: Discharge instructions: Take medications as prescribed New medications prescribed: You are [place] for pain management, it is recommended that he take a stool softener with this You are taking Robaxin for muscle spasms Your home dose Eliquis has been restarted You are activity as tolerated Monitor blood pressures Avoid social areas, you wear a mask when in social settings Encouraged to continue with yearly vaccinations Return to the emergency department if he developed sudden shortness of breath, chest pain, nausea, vomiting, upset stomach or intractable diarrhea Return to the emergency department if you develop fever greater than 101.5 Follow-up with: Your orthopedics within 1-2 weeks for post hospitalization check up Wound care per Orthopedics Thank you for choosing [facility] for your healthcare needs Patient Instructions: Antibiotic Form, Deep Vein Thrombosis Prevention (DC) Patient Language: Syriac Stand Alone Forms: General Discharge Information Follow-up/Referrals: Vinnie Zaldivar MD [Physician, Orthopedics] - 2 Weeks Discharge Medications: New methocarbamol 500 mg Tablet 500 mg PO QID Qty: 30 1RF hydrocodone-acetaminophen 5-325 mg Tablet 1 tablet PO Q4H PRN (Reason: Pain Rated 4-6) Qty: 10 0RF Continued aspirin 81 mg tablet,delayed release (DR/EC) 81 mg PO DAILY allopurinol 100 mg tablet 100 mg PO DAILY apixaban 5 mg tablet 5 mg PO BID amiodarone 400 mg tablet 200 mg PO DAILY Patient Comments: take 1 tablet (400 mg) by mouth daily for 30 days then take .50 tablet (200 mg) daily metoprolol succinate 25 mg tablet extended release 24 hr 25 mg PO DAILY torsemide 20 mg tablet 20 mg PO QAM hydralazine 10 mg tablet 10 mg PO BID (DME) cpap See Rx Instructions .Route .MEDSUPPLY Qty: 1 0RF Patient Comments: Family will bring in 05/20/25 Rx Instructions: Resmed AirSense 11 CPAP 11 cm H2O, size medium Resmed AirTouch F20 full face mask, CPAP filters/tubing and heated humidity. budesonide-formoterol [Symbicort] 160-4.5 mcg/actuation HFA aerosol inhaler 2 puff inhalation Q12H PRN (Reason: Shortness Of Breath Or Wheezing) Qty: 10.2 1RF albuterol sulfate 90 mcg/actuation HFA aerosol inhaler See Rx Instructions .ROUTE .COMPLEX Qty: 8.5 0RF Dose Instruction: INHALE 1 PUFF EVERY 4 HOURS NEEDED FOR SHORTNESS OF BREATH OR WHEEZING Rx Instructions: INHALE 1 PUFF EVERY 4 HOURS NEEDED FOR SHORTNESS OF BREATH OR WHEEZING citalopram 40 mg tablet See Rx Instructions .ROUTE .COMPLEX Qty: 90 1RF Dose Instruction: TAKE 1 TABLET BY MOUTH EVERY DAY Rx Instructions: TAKE 1 TABLET BY MOUTH EVERY DAY simvastatin 20 mg tablet See Rx Instructions .ROUTE .COMPLEX Qty: 90 1RF Dose Instruction: TAKE 1 TABLET BY MOUTH EVERYDAY AT BEDTIME Rx Instructions: TAKE 1 TABLET BY MOUTH EVERYDAY AT BEDTIME pantoprazole 40 mg tablet,delayed release (DR/EC) See Rx Instructions .ROUTE .COMPLEX Qty: 90 1RF Dose Instruction: TAKE 1 TABLET BY MOUTH EVERY DAY IN THE MORNING Rx Instructions: TAKE 1 TABLET BY MOUTH EVERY DAY IN THE MORNING Date of admission: 05/19/25 22:17 Primary Care Provider: Charisse Isaac Admitting Provider: Justyna Joe Attending physician on admission: Justyna Joe Condition: Stable Quality VTE Prophylaxis VTE prophylaxis: mechanical ordered and pharmacologic ordered Hospitalist MIPS Heart Failure (Exclusion) Patient has history of Heart Transplant or Left Ventricular Assistive Device?: No IF YES, STOP HERE Heart Failure (Qualifier) Patient has current or prior documentation of LVEF less than or equal to 40%, or mod/servere depressed LVSF?: No IF NO, STOP HERE
== END 2025-05-23 18:30 | DRG 522 ==
LOC: ANHED 21:07 → ANH3MEDSUR 22:53
PROVIDERS: Nurse Practitioner Family; Nurse Practitioner Gerontology; Orthopaedic Surgery; Admitting Provider General Practice; Emergency Provider Student in an Organized Health Care Education/Training Program; PCP Family Medicine; Visit Provider General Practice
PROC: 0SRS01Z Replacement of Left Hip Joint, Femoral Surface with Metal Synthetic Substitute, Open Approach (ICD-10-PCS; CPT 27125; principal; 2025-05-21 13:00)
DX: S72.012A Unspecified intracapsular fracture of left femur, initial encounter for closed fracture (principal); I48.92 Unspecified atrial flutter; I42.0 Dilated cardiomyopathy; N18.4 Chronic kidney disease, stage 4 (severe); I12.9 Hypertensive chronic kidney disease with stage 1 through stage 4 chronic kidney disease, or unspecified chronic kidney disease; E78.2 Mixed hyperlipidemia; E11.22 Type 2 diabetes mellitus with diabetic chronic kidney disease; G47.33 Obstructive sleep apnea (adult) (pediatric); I48.91 Unspecified atrial fibrillation; W19.XXXA Unspecified fall, initial encounter; Z95.810 Presence of automatic (implantable) cardiac defibrillator; Z79.82 Long term (current) use of aspirin; Z79.01 Long term (current) use of anticoagulants; Z90.49 Acquired absence of other specified parts of digestive tract; Z96.653 Presence of artificial knee joint, bilateral; Z87.891 Personal history of nicotine dependence; Z99.89 Dependence on other enabling machines and devices; D63.1 Anemia in chronic kidney disease
CPT/HCPCS: 36415; 71045; 73502; 73560; 80053; 82948; 83735; 84145; 85014; 85018; 85025; 85610; 86850; 86900; 86901; 93005; 96374; 96376; 97110; 97162; 97165; 97530; 97535; 99199; 99285; J0690; A9270; J1171; J2371; J3010; J3373; J7030; J7050; J7120

== ENCOUNTER 2025-06-03 15:02 | Outpatient (CLI) | payer OTHER, SELFPAY ==
--- OUTSIDE RECORDS SUMMARY | 2025-06-03 16:27 | XMS_ITS | Encounter Summary ---
Author Organization [facility] Healthcare Address [address] [place] [address] Care Team Providers Care Music Grapher Name Role Phone Charisse Isaac MD Primary Care Provider + Charisse Isaac MD Unavailable [phone] Ramon Nicole MD PhD Unavailable [phone] Lorraine Leon MD Unavailable [phone] Encounter Details Date Type Department Care Team (Late st Contact Info) Description 01/03/2025 Orders Only [facility] Information Management [address] [place] [id number] Scanning, Provider Social History Tobacco Use Types Packs/Day Years Used Date Smoking Tobacco: Former Cigarettes Q uit: 1994 Smokeless Tobacco: Never Comments:Smoking History Pac ks/day: 1 Packs Alcohol Use Standard Drinks/Week Comments Yes 0 (1 standard drink = 0.6 oz pur e alcohol) [facility] Utilities Answer Date Recorded In the past 12 months has [employer] electric, gas, oil, or water company threatened [...] often do you attend chur ch or yarsanism services? Never 12/10/2024 Do you belong to any clubs o r organizations such as anabaptism groups, unions, fraternal or athletic groups, or [...] any time in the past 12 m [facility], were you homeless or living in a retirement (including now)? No 12/10/2024 Personal Safety Answer Date Recorded Have you ever been in or are you currently in a harmful physical or emotional relationship or is someone making you feel afraid or unsafe? 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 Gender Identity Female 09/10/2024 9:39 PM NUT ORCHARDIST Sexual Orientation Straight 09/10/2024 9: 39 PM NUT ORCHARDIST documented as of this encounter Plan of [...] filedocumented in this encounter Care Teams Music Grapher Relationship Specialty Start Date End Date Charisse Isaac MD [address] [facility] [address] [place] [address] PCP - General Family Medicine 08/15/24 Charisse Isaac MD [address] [place] [address] [address] [place] [address] Family Medicine 08/15/24 Ramon Nicole MD PhD [address] [place] [address] Consulting Physician Cardiology 12/17/24 Lorraine Leon MD [address] [place] [id number] [place] [address] Consulting Physician Nephrology 12/17/24 documented as of this encounter
--- OUTSIDE RECORDS SUMMARY | 2025-06-03 16:27 | XMS_ITS | Encounter Summary ---
Author Organization [facility] Healthcare Address [address] [place] [address] Care Team Providers Care Land Management Supervisor Name Role Phone Charisse Isaac MD Primary Care Provider + Charisse Isaac MD Unavailable [phone] Ramon Nicole MD PhD Unavailable [phone] Lorraine Leon MD Unavailable [phone] Encounter Details Date Type Department Care Team (Late st Contact Info) Description 12/06/2024 Orders Only [facility] [place] Health Information Management [address] [place] [id number] Scanning, Provider Social History Tobacco Use Types Packs/Day Years Used Date Smoking Tobacco: Former Cigarettes Q uit: 1994 Smokeless Tobacco: Never Comments:Smoking History Pac ks/day: 1 Packs Alcohol Use Standard Drinks/Week Comments Yes 0 (1 standard drink = 0.6 oz pur e alcohol) [facility] Utilities Answer Date Recorded In the past 12 months has [employer] electric, gas, oil, or water company threatened [...] often do you attend chur ch or restorationist services? Never 12/10/2024 Do you belong to any clubs o r organizations such as restoration groups, unions, fraternal or athletic groups, or [...] any time in the past 12 m [facility], were you homeless or living in a correction (including now)? No 12/10/2024 Personal Safety Answer Date Recorded Have you ever been in or are you currently in a harmful physical or emotional relationship or is someone making you feel afraid or unsafe? 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 Gender Identity Female 09/10/2024 9:39 PM STANDARD MACHINE STITCHER Sexual Orientation Straight 09/10/2024 9: 39 PM STANDARD MACHINE STITCHER documented as of this encounter Plan of [...] Ring Surveillance: Aydee gaitan Comment:Round 1: 12/13 -[facility] IP 12/13/2024 12/13/2024 12/20/2024 7:26 PM C DT documented as of this encounter Care Teams Land Management Supervisor Relationship Specialty Start Date End Date Charisse Isaac MD [address] [place] [address] [address] [place] [address] PCP - General Family Medicine 08/15/24 Charisse Isaac MD [address] [place] [address] [address] [place] [address] Family Medicine 08/15/24 Ramon Nicole MD PhD [address] [place] [address] Consulting Physician Cardiology 12/17/24 Lorraine Leon MD [id number] [place] [address] Consulting Physician Nephrology 12/17/24 documented as of this encounter
--- OUTSIDE RECORDS SUMMARY | 2025-06-03 16:27 | XMS_ITS | Clinical Summary ---
Author Organization [address] Address [address] [place] [address] Care Team Providers Care Junior Software Developer Name Role Phone Charisse Isaac MD Primary Care Provider + Charisse Isaac MD Unavailable [phone] Ramon Nicole MD PhD Unavailable [phone] Lorraine Leon MD Unavailable [phone] Allergies Active Allergy Reactions Criticality Noted Date Comments Duloxetine Unknown High 03/08/2020 Jittery and hyper Ibuprofen Lisinopril Cough High 03/08/2020 Naproxen Swelling Medium Salicylates Unknown 08/06/2013 Medications simvastatin (ZOCOR) 20 mg tablet take 1 tablet (20MG) by oral route every day at bedtime 0 03/27/20 12 Active aspirin 81 mg chewable tablet chew 1 tablet (81MG) by oral route every day 0 03/27/[address] (PROTONIX) 40 mg EC tablet take 1 tablet (40MG) by oral route every day 0 09/06/19 13 Active Symbicort 160-4.5 mcg/actuation inhaler Inhale 2 puffs 2 (two) times a day 09/12/19 20 Active citalopram (CeleXA) 20 mg tablet Take 1 tablet (20 mg total) by mouth daily Active cholestyramine (QUESTRAN) 4 gram packet TAKE 1 PACKET BY MOUTH 2 TIMES A DAY WITH MEALS. 180 packet 1 11/05/19 25 Active Additional Information Patient not taking.Reported on 04/29/2025 amiodarone (PACERONE) 400 mg tablet Take 1 tablet (400 mg total) by mouth daily for 30 days, THEN 0.5 tablets (200 mg total) daily. 45 tablet 12/19/19 25 Active apixaban (ELIQUIS) 5 mg tabletIndications: atrial fibrillation Take 1 tablet (5 mg total) by mouth every 12 (twelve) hours 180 tablet 3 12/31/19 25 Active metoprolol XL (TOPROL-XL) 25 mg extended release tabletIndications: Paroxysmal atrial fibrillation (HCC) Take 1 tablet (25 mg total) by mouth daily 90 tablet 3 01/07/20 25 Active torsemide (DEMADEX) 20 mg tabletIndications: Dilated cardiomyopathy (HCC) Take 1 tablet (20 mg total) by mouth daily 90 tablet 3 01/07/20 25 Active amiodarone (PACERONE) 200 mg tabletIndications: Paroxysmal atrial fibrillation (HCC) TAKE 1 TAB BY MOUTH DAILY BEGIN THIS PRESCRIPTION AFTER FINISHING THE ONE GIVEN AT HOSPITAL DISCHARG 90 tablet 1 03/10/20 25 Active allopurinoL (ZYLOPRIM) 100 mg tablet Take 1 tablet (100 mg total) by mouth 12/20/19 25 Active ondansetron ODT (ZOFRAN-ODT) 4 mg disintegrating tablet Take 1 tablet (4 mg total) by mouth 02/22/20 25 Active hydrALAZINE (APRESOLINE) 10 mg tabletIndications: hypertension Take 1 tablet (10 mg total) by mouth 2 (two) times a day 60 tablet 3 04/29/20 25 Active Active Problems Problem Noted Date Diagnosed Date Obesity 12/08/2024 Assessment & Plan (12/09/2024 1:33 PM CDT): Discussed weight loss she will f/u with PCP Assessment & Plan (12/08/2024 1:51 PM CDT): Discussed weight loss she will f/u with PCP [id number] kidney injury 12/08/2024 Assessment & Plan (12/09/2024 [...] tomatic cardioverter/defibrillator (AICD) 03/03/2022 Overview (04/05/2022): Medtronic [place] BIV ICD. Dx; NICM (Dilated), CHF, LBBB. DOI 04/01/2022-Cipriano. Chronic leads 07/13/2010. Carelink remote monitoring. NICM (nonischemic cardiomyopathy) 03/30/2017 Encounters Date Type Department Care Team Description 05/30/2025 [facility]phone [facility] [address] [place] [address] [place] [phone] Benji Lock MD Follow-Up: FREELANCE DATA ENTRY-D Beeping 05/26/2025 Orders Only [facility] Cardiology [address] [place] [address] [place] [phone] Olga Lidia Pinto NP 05/26/2025 Telephone [facility] Cardiology [address] [place] [address] [address] [place] [phone] Matheus Wyatt MD Leg Swelling 04/29/2025 8:45 AM CDT Office Visit [facility] Cardiology at [address] [place] [address] Matheus Wyatt MD NICM (nonischemic cardiomyopathy) (HCC) (Primary Dx); Presence of biventricular automatic cardioverter/defibrill ator (AICD); Atrial fibrillation with rapid ventricular response (HCC) 04/21/2025 2:45 PM CDT Office [facility] [address] [place] [address] [place] [phone] Benji Lock MD Presence of biventricular automatic cardioverter/defibrill ator (AICD) (Primary Dx); Cardiac arrhythmia, unspecified cardiac arrhythmia type 04/21/2025 2:30 PM CDT Ancillary Procedure [facility] [address] [facility] [address] [place] [phone] NICM (nonischemic cardiomyopathy) (HCC) (Primary Dx); Biventricular automatic implantable cardioverter defibrillator in situ 04/16/2025 Telephone [facility] [address] [facility] [address] [place] [phone] Benji Lock MD Insurance Referrals 03/24/2025 3:30 PM CDT Ancillary Procedure [facility] [address] [facility] [address] [place] [phone] Presence of biventricular automatic cardioverter/defibrill ator (AICD) (Primary Dx); Dilated cardiomyopathy (HCC) from Last 3 Months Surgical History Surgery Date Site/Laterality Comments INSERT / REPLACE / REMOVE PACEMAKER OTHER SURGICAL HISTORY generator changes in 2013 and 2019 HYSTERECTOMY 1993 CHOLECYSTECTOMY 2020 COLONOSCOPY 07/31/2023 - 07/30/2024 TONSILLECTOMY 1957 CARDIAC CATHETERIZATION 12/16/2024 N/A Procedure: RIGHT HEART CATHETERIZATION CORONARY ARTERY ANGIOGRAM [id number]; Surgeon: Keila Cortez MD; Location: [facility] CARDIAC [facility] CLEARING LABORER; Service: Cardiovascular; Laterality: N/A; Medical History Medical History Date Comments Depression Depression Presence of biventricular au tomatic cardioverter/defibrillator (AICD) Medtronic [place] FREELANCE DATA ENTRY -D Hypertension Sleep apnea Gout Family History [...] drink = 0.6 oz pur e alcohol) [facility] Utilities Answer Date Recorded In the past 12 months has [employer], gas, oil, or water [employer] threatened to shut off services in your [...] any clubs o r organizations such as yarsani groups, unions, fraternal or athletic groups, or [...] on file Legal Sex Female 3:20 PM LOT WORKER Gender Identity Female 09/10/2024 9:39 PM LOT WORKER Sexual Orientation Straight 09/10/2024 9: 39 PM LOT WORKER Last Filed Vital Signs Vital Sign Reading Time Taken Comments Blood Pressure 130/70 04/29/2025 8:42 AM CDT Pulse 88 04/29/2025 8:42 AM CDT Temperature 36.6 C (97.8 F) 12/17/2024 11:48 AM CDT Respiratory Rate 18 12/17/2024 11:4 8 AM CDT Oxygen Saturation 93% 04/29/2025 8:42 AM CDT Inhaled Oxygen Concentration - - Weight 114.5 kg (252 lb 6.4 oz) 04/29/2025 8:42 AM CDT Height 167.6 cm (5' 6) 04/29/2025 8:42 AM CDT Body Mass Index 40.74 04/29/2025 8:42 AM CDT Plan of Treatment Health Maintenance [...] history exists Medical Devices Implanted Type Area Digital Specialist Device Identifier Shelf Expiration Date Model / Serial / Lot Medtronic Inc [place] Hf Transit Bus Operator-D Mri Surescan Df1 [id number] - [id number] - [id number] Implanted:Qty: 1 on 04/01/2022 by Brayan Cota MD at [facility] ICD Medtronic Inc [id number] 06/27/2023 [id number] / [id number] / Medtronic Inc Capsurefix Novus 5.7fr 52cm Bipolar Tined Screw In Is-1 Atrium [id number] Atria Medtronic Inc [id number] / [id number] / Medtronic Inc Sprint Quattro Secure 8.6fr 65cm Quadripolar Defibrillator Screw 6947 Ventricle Medtronic Inc 6947 / [id number] / Medtronic Inc Attain Ability 4fr 78cm Bipolar Is-1 Left Heart Transvenous 2 [id number] Left: Ventricle Medtronic Inc [id number] / [id number] / Medtronic Inc Tyrx Absorbable Antibacterial Envelope-Large 3.3x2.9in [id number] - [id number] Implanted:Qty: 1 on 04/01/2022 by Brayan Cota MD at [facility] Medtronic Inc 12/25/2022 [id number] / / [id number] Procedures Procedure Name Priority Date/Time Associated Diagnosis Comments CARDIOLOGY DOCUMENT SCAN Routine 05/21/2025 5:17 PM CDT ECG 12-LEAD Routine 04/21/2025 2:40 PM CDT Cardiac arrhythmia, unspecified cardiac arrhythmia type DEVICE CHECK - IN OFFICE Routine 04/21/2025 2:00 PM CDT Biventricular automatic implantable cardioverter defibrillator in situ DEVICE CHECK - REMOTE Routine 03/24/2025 9:55 AM CDT Dilated cardiomyopathy (HCC) EGFR Routine 12/17/2024 5:56 AM CDT HEMOGLOBIN A1C Routine 12/08/2024 3:42 AM CDT POCT LIPID PANEL Routine 08/15/2024 11:4 9 AM LOT WORKER Need for lead screening from Last 3 Months or Most Recently Relevant to Health Maintenance Results * Cardiology Document Scan (05/21/2025 5:17 PM CDT) Anatomical Region Laterality Modality Other us Olga Lidia Pinto NP CV CARDIAC SERVICE S PROCEDURES Final Result * ECG 12 lead (04/21/2025 2:40 PM CDT) us Benji Lock MD ECG ORDERABLES Final Re sult * DEVICE CHECK - IN OFFICE (04/21/2025 2:00 PM CDT) Anatomical Region Laterality Modality Other Narrative 04/21/2025 4:13 PM CDT Table formatting from the original result was not included. BiV ICD CHECK (IN OFFICE) Patient ID: Norberto Arriaza is a 74 y.o. female. This patient received a Medtronic BiV ICD. They had a routine in office device interrogation on 04/21/25. Device implant indications: Nonischemic cardiomyopathy, CHF, LBBB Interrogation of the patient's device demonstrates the following: Presenting EGM: A sensed Bi V paced @ 77 bpm Underlying rhythm: A sense V sense at 77 Original Device Settings Right Atrium Right Ventricle Left Ventricle Sensitivity (mV) 0.3 mV 0.3 mV N/a mV Pacing Outputs 1.5 V @ 0.4 ms 2.0 V @ 0.4 ms 3.75 V @ 1.0 ms Testing Measurements Right Atrium Right Ventricle Left Ventricle Sensitivity (mV) 3.8 mV 9.8 mV Not done mV Impedence (Ohms) 475 ohms 380 ohms 836 ohms Pace Threshold 0.5 V @ 0.4 ms 1.25 V @ 0.4 ms 3.25 V @ 1.0 ms Pacing % 49.6 % 95.5 % 95.5 % HV Lead Impedance N/A 52/69 ohms N/A Battery Status: 2.3 years to KT, charge time 1.3 seconds. Episodes last 90 days/Comments: [place] <0.1 %,longest duration 4 minutes on 01/31. Episode was treated with ATP x8 with success. No new ventricular events. NORMAL DEVICE FUNCTION PROGRAMMED MEDICATIONS: Anti-coagulant(s): Aspirin 81 mg, Eliquis 5 mg twice a day Anti-arrhythmic(s): Amiodarone 200 mg daily, Toprol-XL 25 mg daily PLAN: 1) Medtronic BiV ICD evaluation 2) Medtronic remote transmission scheduled in 3 months. 3) Programming appropriate for device settings Katelyn Conley RN Benji Lock MD CV CARDIAC SERVICES PROC EDURES Final Result * DEVICE CHECK - REMOTE (03/24/2025 9:55 [...] 1.3 seconds. Episodes last 90 days/Comments: [place] 0 %,longest duration 3 min 58 sec. NORMAL DEVICE FUNCTION PROGRAMMED MEDICATIONS: Anti-coagulant(s): Eliquis 5 mg twice daily, Anti-arrhythmic(s): Toprol 25 mg daily, amiodarone 200 mg daily PLAN: 1) Medtronic BiV ICD evaluation 2) Medtronic remote transmission scheduled in 3 months. 3) Programming appropriate for device settings Eryn Morton RN us Benji Lock MD CV CARDIAC SERVICES PROC EDURES Final Result * (ABNORMAL) eGFR (12/17/2024 5:56 [...] MD LAB BLOOD ORDERABLES Final R esult [facility] [address] [facility] [place] [address] * (ABNORMAL) Hemoglobin A1c (12/08/2024 3:42 AM CDT) Pathologist [facility] Hgb A1C 6.6(H) 4.0 - 5.6 % Estimated Average Glucose 143 mg/dL [facility] Comment: The ADA recommends reporting an estimated Average Glucose (eAG) with all Hemoglobin A1c results using the equation derived from a study of 507 normal and diabetic adults. Minority populations were underrepresented and children were not included. (Diabetes Care 31:3924-0433, 2008). The eAG is not equivalent to a fasting glucose. Blood 12/08/2024 3:42 AM CDT 12/08/2024 2:05 PM CDT us Ramy Dee MD LAB BLOOD ORDERABLES Fi nal Result Performing Organization Address [facility] de Phone Number [facility] [address] [facility] [place] [address] * POCT lipid panel (08/15/2024 11:49 AM LOT WORKER) [facility] Cholesterol, POC 134 mg/dL Comment:GLU = 216 HDL, POC 28 mg/dL Triglycerides, POC 212 mg/dL LDL Cholesterol POC 64 mg/dL Chol/HDL Ratio, POC 2.3 Non-HDL Cholesterol, POC 106 mg/dL Cholesterol Total, POC 134 mg/dL Capillary blood 08/15/2024 1 1:49 AM LOT WORKER us Matheus Wyatt MD POINT OF CARE TEST ORDER LEXY Final Result from Last 3 Months or Most Recently Relevant to Health Maintenance Insurance [facility] [id number] [place] [id number] [place] [address] HEALTHCARE Advance Directives For more information, please contact: [phone] * Full Code (Latest Code Status on File) Date Activated Date Inactivated Comments 12/06/2024 3:59 PM 12/17/2024 7:38 PM Care Teams Junior Software Developer Relationship Specialty Start Date End Date Charisse Isaac MD [address] [place] [address] [address] [place] [address] PCP - General Family Medicine 08/15/24 Charisse Isaac MD [address] [place] [address] [address] [place] [address] Family Medicine 08/15/24 Ramon Nicole MD PhD [address] [place] [address] Consulting Physician Cardiology 12/17/24 Lorraine Leon MD [id number] [place] [address] Consulting Physician Nephrology 12/17/24
--- OUTSIDE RECORDS SUMMARY | 2025-06-03 16:27 | XMS_ITS | Encounter Summary ---
Author Organization [facility] Healthcare Address [address] [place] [address] Care Team Providers Care Deputy Chief Sheriff Name Role Phone Charisse Isaac MD Primary Care Provider + Charisse Isaac MD Unavailable [phone] Ramon Nicole MD PhD Unavailable [phone] Lorraine Leon MD Unavailable [phone] Reason for Visit * Reason Onset Date Comments Follow-Up: HOME HEALTH PROVIDER-D Beeping 05/30/2025 Encounter Details Date Type Department Care Team (Late st Contact Info) Description 05/30/2025 Telephone [facility]ia [facility] [address] [facility] [address] [address] Benji Lock MD [address] [facility] [address], [place] [address] Follow-Up: HOME HEALTH PROVIDER-D Beeping Social History Tobacco Use Types Packs/Day Years Used Date Smoking Tobacco: Former Cigarettes Q uit: 1994 Smokeless Tobacco: Never Comments:Smoking History Pac ks/day: 1 Packs Alcohol Use Standard Drinks/Week Comments Yes 0 (1 standard drink = 0.6 oz pur e alcohol) [facility] Utilities Answer Date Recorded In the [...] often do you attend chur ch or christian services? Never 12/10/2024 Do you belong to any clubs o r organizations such as confucianist groups, unions, fraternal or athletic groups, or [...] any time in the past 12 m [facility], were you homeless or living in a care home (including now)? No 12/10/2024 Personal Safety Answer Date Recorded Have you ever been in or are you currently in a harmful physical or emotional relationship or is someone making you feel afraid or unsafe? Denies 12/10/2024 Comments Unknown Sex and Gender Information Value Date Recorded Sex Assigned at Not on file Legal Sex Female 3:20 PM GUITAR MAKER Gender Identity Female 09/10/2024 9:39 PM GUITAR MAKER Sexual Orientation Straight 09/10/2024 9: 39 PM GUITAR MAKER documented as of this encounter Miscellaneous Notes * Telephone Encounter - Amandeep Peck MA - 06/03/2025 3:19 PM CST Message left to update patient with SEASONER (Maris) response. AR MAKER * Telephone Encounter - Maris Brown NP - 06/03/2025 12:50 PM GUITAR MAKER Please have the patient call her general electoral officer Dr. Wyatt to let him know that her deviceshowed indications of possible fluid overload. AR MAKER * Telephone Encounter - Amandeep Peck MA - 06/02/2025 1:09 PM CST Images from the original note were not included. Device toned due to unsuccessful Carelink Alert transmission for possible fluid accumulation. Of note: Spoke with patient to update with this information. Device should no longer tone since successful transmission on 31-May-2025,. Informed patient to call if device continues to tone; patient verbalized understanding. See cardiac tab for detailed report. AR MAKER * Telephone Encounter - Sheba Kingston MA - 06/02/2025 11:39 AM GUITAR MAKER Remote received. AR MAKER * Telephone Encounter - Amandeep Peck MA - 05/30/2025 11:06 AM CDT No transmission received as of 30-May-2025 at 11:07 AM. * Telephone Encounter - Yuli Quigley - 05/30/2025 10:42 AM CDT Pt reports her device is beeping. She is not away from her monitor, no symptoms or issues. Was instructed to send a transmission for review. documented in this encounter Plan of Treatment Not on file documented as of this encounter Visit Diagnoses Not on filedocumented in this encounter Care Teams Deputy Chief Sheriff Relationship Specialty Start Date End Date Charisse Isaac MD [address] [place] [address] [address] [place] [address] PCP - General Family Medicine 08/15/24 Charisse Isaac MD [address] [place] [address] [address] [place] [address] Family Medicine 08/15/24 Ramon Nicole MD PhD [address] [facility] [address] [place] [address] Consulting Physician Cardiology 12/17/24 Lorraine Leon MD [id number] [place] [address] Consulting Physician Nephrology 12/17/24 documented as of this encounter
[2025-06-03 19:26] LABS: Hematocrit 28.9 % (37.0-47.0); Hemoglobin 9.1 g/dL (12.0-15.0); Immature Granulocyte Percent A 0.7 % (0-0.5); Lymphocytes Absolute Auto 1.32 K/mm3 (0.9-3.2); Mean Corpuscular HGB Conc 31.5 g/dl (32-36); Mean Corpuscular Hemoglobin 31.8 pg (26-34); Mean Corpuscular Volume 101.0 fl (80-100); Nucleated Red Blood Cells Absolute Auto 0.000 K/mm3 (0.0-0.012); Nucleated Red Blood Cells Perc 0.0 % (0.0-0.2); Platelet Count Result 286 k/mm3 (150-375); Red Blood Count 2.86 M/mm3 (4.2-5.4); White Blood Count 8.6 K/mm3 (4.5-10.0)
[2025-06-03 19:31] LABS: Alanine Aminotransferase 25 U/L (6-35); Albumin Level 3.7 g/dL (3.5-5.1); Alkaline Phosphatase 110 U/L (38-126); Anion Gap 9 mmol/L (4-12); Aspartate Amino Transferase 38 U/L (14-36); Bilirubin,Total 1.3 mg/dL (0.2-1.3); Blood Urea Nitrogen 41 mg/dL (7-17); Calcium 8.8 mg/dL (8.4-10.2); Carbon Dioxide 27 mmol/L (22-30); Chloride 100 mmol/L (98-107); Estimated Glomerular Filt Rate 18; Glucose 115 mg/dL (65-110); Potassium 3.4 mmol/L (3.4-5.0); Sodium 136 mmol/L (137-145); Total Protein 6.8 g/dL (6.3-8.2)
== END 2025-06-03 15:03 | disposition home or self-care (01) ==
LOC: ANHGOSHLAB 15:02
PROVIDERS: PCP Family Medicine; Visit Provider Family Medicine
DX: E11.22 Type 2 diabetes mellitus with diabetic chronic kidney disease (principal); N18.9 Chronic kidney disease, unspecified; D63.1 Anemia in chronic kidney disease
CPT/HCPCS: 36415; 80053; 85025

== ENCOUNTER 2025-06-24 14:26 | Outpatient (CLI) | payer OTHER, SELFPAY ==
--- OUTSIDE RECORDS SUMMARY | 2025-06-23 17:30 | XMS_ITS | Encounter Summary ---
Author Organization [facility] Healthcare Address [address] [place] [address] Care Team Providers Care Tank Insulator Rubber Name Role Phone Charisse Isaac MD Primary Care Provider + Charisse Isaac MD Unavailable [phone] Ramon Nicole MD PhD Unavailable [phone] Lorraine Leon MD Unavailable [phone] Reason for Visit * Cardiology (Routine) - Closed Specialty Diagnoses / Procedures Referred By Contac t Referred To Contact Diagnoses Dilated cardiomyopathy (HCC) Procedures DEVICE CHECK - REMOTE Benji Lock MD [address] [facility] [address], [place] [address] Phone: tel: fax: Referral ID Status Reason Start Date Expiration Date Visits Re quested Visits Authorized [id number] Closed 04/17/2024 10/15/2025 1 1 Encounter Details Date Type Department Care Team (Latest Contact Info) Description 06/23/2025 5:30 PM BRIDGE OPERATOR Ancillary Procedure [facility] [address] [facility] [address], [place] [address] Dilated cardiomyopathy (HCC) Social History Tobacco Use Types Packs/Day Years Used Date Smoking Tobacco: Former Cigarettes Q uit: 1994 Smokeless Tobacco: Never Comments:Smoking History Pac ks/day: 1 Packs Alcohol Use Standard Drinks/Week Comments Yes 0 (1 standard drink = 0.6 oz pur e alcohol) [facility] Utilities Answer Date Recorded In the past 12 months has e electric, gas, oil, or water company [...] any clubs o r organizations such as adventist groups, unions, fraternal or athletic groups, or [...] any time in the past 12 m [facility], were you homeless or living in a residential (including now)? No 12/10/2024 Personal Safety Answer Date Recorded Have you ever been in or are you currently in a harmful physical or emotional relationship or is someone making you feel afraid or unsafe? Denies 12/10/2024 Comments Unknown Sex and Gender Information Value Date Recorded Sex Assigned at Not on file Legal Sex Female 3:20 PM BRIDGE OPERATOR Gender Identity Female 09/10/2024 9:39 PM BRIDGE OPERATOR Sexual Orientation Straight 09/10/2024 9: 39 PM BRIDGE OPERATOR documented as of this encounter Plan of Treatment Not on file documented as of this encounter Procedures Procedure Name Priority Date/Time Associated Diagnosis Comments DEVICE CHECK - REMOTE Routine 06/23/2025 8:43 AM BRIDGE OPERATOR Dilated cardiomyopathy (HCC) documented in this encounter Results * DEVICE CHECK - REMOTE (06/23/2025 8:43 AM BRIDGE OPERATOR) Anatomical Region Laterality Modality Other Narrative 06/23/2025 10:27 AM BRIDGE OPERATOR Table formatting from the original result was not included. BiV ICD CHECK (REMOTE) Patient ID: Norberto Arriaza is a 74 y.o. female. This patient received a MDT BiV ICD. They had a routine remote transmission on 06/23/2025 Device implant indications: CHF, LBBB Interrogation of the patient's device demonstrates the following: Presenting EGM: A sense V pace @ 70 bpm Original Device Settings Right Atrium Right Ventricle Left Ventricle Sensitivity (mV) 0.3 mV 0.3 mV N/a mV Pacing Outputs 1.5 V @ 0.4 ms 2.0 V @ 0.4 ms 3.5 V @ 1.0 ms Testing Measurements Right Atrium Right Ventricle Left Ventricle Sensitivity (mV) 3.9 mV 9.1 mV N/a mV Impedence (Ohms) 418 ohms 323 ohms 627 ohms Pace Threshold 0.5 V @ 0.4 ms 1.375 V @ 0.4 ms 3.0 V @ 1.0 ms Pacing % 10 % 90 % 99 % HV Lead Impedance N/A 46/58 ohms N/A Battery Status: 2.2 years to KT, charge time 4.1 seconds. Episodes last 90 days/Comments: AF [place] 0 % No ventricular high rates NORMAL DEVICE FUNCTION PROGRAMMED MEDICATIONS: Anti-coagulant(s): eliquis 5 mg bid Anti-arrhythmic(s): amiodarone 200mg daily, toprol 25mg daily PLAN: 1) MDT BiV ICD evaluation 2) MDT remote transmission scheduled in 3 months. 3) Programming appropriate for device settings Eryn Morton RN Benji Lock MD CV CARDIAC SERVICES PROC EDURES Final Result documented in this encounter Visit Diagnoses Diagnosis Dilated cardiomyopathy (HCC) Other primary cardiomyopathies documented in this encounter Care Teams Tank Insulator Rubber Relationship Specialty Start Date End Date Charisse Isaac MD [address] [facility] [address] [place] [address] PCP - General Family Medicine 08/15/24 Charisse Isaac MD [address] [place] [address] [address] [place] [address] Family Medicine 08/15/24 Ramon Nicole MD PhD [address] [facility] [address] [place] [address] Consulting Physician Cardiology 12/17/24 Lorraine Leon MD [id number] [place] [address] Consulting Physician Nephrology 12/17/24 documented as of this encounter
--- OUTSIDE RECORDS SUMMARY | 2025-06-24 16:20 | XMS_ITS | Encounter Summary ---
Author Organization [facility] Healthcare Address [address] [place] [address] Care Team Providers Care Cafe Attendant Name Role Phone Charisse Isaac MD Primary Care Provider + Charisse Isaac MD Unavailable [phone] Ramon Nicole MD PhD Unavailable [phone] Lorraine Leon MD Unavailable [phone] Encounter Details Date Type Department Care Team (Late st Contact Info) Description 12/06/2024 Orders Only [facility] Information Management [address] [place] [id number] Scanning, Provider Social History Tobacco Use Types Packs/Day Years Used Date Smoking Tobacco: Former Cigarettes Q uit: 1994 Smokeless Tobacco: Never Comments:Smoking History Pac ks/day: 1 Packs Alcohol Use Standard Drinks/Week Comments Yes 0 (1 standard drink = 0.6 oz pur e alcohol) [facility] Utilities Answer Date Recorded In the past 12 months has [employer] electric, gas, oil, or water company threatened [...] often do you attend chur ch or methodist services? Never 12/10/2024 Do you belong to any clubs o r organizations such as advent groups, unions, fraternal or athletic groups, or [...] time in the past 12 m [facility], were you homeless or living in a [...] on file Legal Sex Female 3:20 PM SCHOOL TRANSPORTATION DIRECTOR Gender Identity Female 09/10/2024 9:39 PM SCHOOL TRANSPORTATION DIRECTOR Sexual Orientation Straight 09/10/2024 9: 39 PM SCHOOL TRANSPORTATION DIRECTOR documented as of this encounter Functional Status * Question Answer Date of Assessment Author MAP (mmHg) 68 12/09/2024 11:51 PM CDT Alissa Hernandez RN * Difference in Last Two Cristobal Scores Answer Date of Assessment Author -1 12/09/2024 7:50 PM CDT Alissa Moreira RN * Question Answer Date of Assessment Author BP Location Right arm 12/09/2024 11:51 PM Alissa Lemus RN BP Method Automatic 12/09/2024 11:51 PM CDT Alissa Hernandez RN * Marin Fall Risk Question Answer Date of Assessment Author History of Falling 0 12/09/2024 7:50 PM Alissa Disla RN Secondary Diagnosis 15 12/09/2024 7:50 PM CD Alissa Ramirez RN Ambulatory Aids 15 12/09/2024 7:50 PM Alissa Fernandez RN Intravenous Therapy/Heparin/Saline Lock 20 12/09/2024 7:50 PM Alissa Disla RN Gait/Transferring 10 12/09/2024 7:50 PM Alissa Disla RN Mental Status 0 12/09/2024 7:50 PM CDT Alissa Hernandez RN Marin Fall Risk Score (Score >= 45 places fall precaution order) 60 12/09/2024 7:50 PM Alissa Disla RN Prior Fall Event (Autopopulated from EMR) None found 12/09/2024 7:50 PM YONYT Vinh Moreira RN * Cristobal Scale Question Answer Date of Assessment Author Sensory Perceptions 4 12/09/2024 7:50 PM CD Alissa Ramirez RN Moisture 4 12/09/2024 7:50 PM CDT Alissa Ramírez RN Activity 3 12/09/2024 7:50 PM CDT Alissa Ramírez RN Mobility 3 12/09/2024 7:50 PM CDT Alissa Ramírez RN Nutrition 2 12/09/2024 7:50 PM CDT Alissa Ramírez RN Friction and Shear 2 12/09/2024 7:50 PM Alissa Disla RN Cristobal Scale Score 18 12/09/2024 7:50 PM Alissa Disla RN * Fall Risk Interventions Question Answer Date of Assessment Author All Low Fall Interventions Applied Yes 12/09/2024 7:50 PM Alissa Disla RN All Moderate Fall Interventi ons Applied Yes 12/09/2024 7:50 PM Alissa Disla RN All High Fall Risk Interventions Applied Yes 12/09/2024 7:50 PM Alissa Disla RN * B.M.A.T. - Bedside Mobility Assessment Tool for Nurses Question Answer Date of Assessment Author Is patient able to participate in the BMAT? Yes 12/08/2024 8:00 AM Gina Davis RN Reason patient is unable to participate in BMAT Bed rest orders 12/07/2024 8:00 PM Kiersten Garcia RN BMAT Level Level 3 - Yellow 12/08/2024 8:00 AM Gina Davis RN Level 1 Equipment Use total lift with sling and/or repositioning sheet 12/07/2024 8:00 PM Kiersten Garcia RN Level 3 Equipment Use assistive device such as cane/walker 12/08/2024 8:00 AM Gina Davis RN * Question Answer Date of Assessment Author 1. Has the patient self-reported, presented with clinical signs of, or have a documented history of any of the following within the past 30 days? No 12/06/2024 4:12 PM Gina Davis RN * Question Answer Date of Assessment Author Is the patient being treated today because it is known or suspected that they prepared, started, or tried to end their life? No 12/06/2024 4:12 PM Gina Davis RN * Question Answer Date of Assessment Author 1. In the past month, have y ou wished you were or that you could go to sleep and not wake up? No 12/06/2024 4:12 PM Gina Davis RN 2. In the past month, have y ou actually had any thoughts of killing yourself? No 12/06/2024 4:12 PM Gina Davis RN 6. Have you ever done anything, started to do anything, or prepared to do anything to end your life? No 12/06/2024 4:12 PM Jhon Davis RN * Suicide Risk Level Answer Date of Assessment Author No risk level 12/06/2024 4:12 PM Claudette Davis RN * Self-Injurious Risk Level Answer Date of Assessment Author No risk level 12/06/2024 4:12 PM Claudette Davis RN * Pressure Injury Prevention Question Answer Date of Assessment Author Pressure Ulcer Prevention Interventions Keep skin clean and dry (Sensory Perception/Moisture);Sylvia ce on pressure redistribution surface (Sensory Perception/Activity/Mobi lity);Float Heels (Activity/Mobility);Use pillows/wedge for positioning (Activity/Mobility);Use pressure-relief cushions in chair (Mobility) 12/09/2024 7:30 AM Alma Delia Adbul RN 2 Nurse Skin Assessment Raffy Singer 025 4:12 PM Gina Davis RN Special Mattress Low air loss and alternating pressure relief;Special chair cushion 12/09/2024 7:30 AM Alma Delia Abdul RN * Integumentary Question Answer Date of Assessment Author Skin Color Appropriate for ethnicity 12/09/2024 7:50 PM CDT Alissa Moreira RN Skin Condition/Temp Warm;Dry 12/09/2024 7 :50 PM CDT Alissa Moreira RN Skin Integrity Blanchable redness 12/09/2024 7: 50 PM CDT Alissa Moreira RN Skin Turgor Epidermis thin with loss of subcutaneous tissue 12/09/2024 7:30 AM CDT Alma Delia Bermudez RN Integumentary Additional Assessments Yes-Cristobal 12/08/2024 8:00 AM CDT Gina Blount RN Integumentary (WDL) X 12/09/2024 7 :50 PM CDT Alissa Moreira RN Skin Location generalized, buttocks 12/09/2024 7:50 PM CDT Alissa Moreira RN * Question Answer Date of Assessment Author BP Location Right arm 12/09/2024 11:51 PM CDT Alissa Hernandez RN BP Method Automatic 12/09/2024 11:51 PM CDT Alissa Hernandez RN * Question Answer Date of Assessment Author Edema No pitting 12/09/2024 7:50 PM CDT Alissa Ramírez RN RUE Edema +1 12/08/2024 8:00 AM CDT Gina Rain RN RLE Edema +1 12/08/2024 7:30 PM CDT Renetta Benton RN LUE Edema +1 12/08/2024 8:00 AM CDT Gina Rain RN LLE Edema +1 12/08/2024 7:30 PM CDT Renetta Benton RN Edema Generalized;Right lo wer extremity;Left lower extremity 12/08/2024 7:30 PM CDT Renetta Quinn RN * Question Answer Date of Assessment Author Affect Calm;Appropriate 12/09/2024 7:30 AM CDT Alma Delia Baig RN * Question Answer Date of Assessment Author Percent Meal Eaten (%) 75 12/09/2024 6:50 PM YONYT Alma Delia Bermudez RN Feeding Level of Assistance Able to feed self 12/09/2024 6:50 PM CDT Breana Bermudez RN Appetite Good 12/09/2024 6:50 PM CDT Alma Delia Retana RN Percent Snack Eaten (%) 100 12/09/2024 2:30 P M YONYT Alma Delia Bermudez RN * Fall Risk Interventions Question Answer Date of Assessment Author All Low Fall Interventions Applied Yes 12/09/2024 7:50 PM YONYT Alissa Moreira RN All Moderate Fall Interventi ons Applied Yes 12/09/2024 7:50 PM CDT Alissa Moreira RN All High Fall Risk Interventions Applied Yes 12/09/2024 7:50 PM CDT Alissa Moreira RN * Question Answer Date of Assessment Author Hygiene Level of Assistance Moderate assist 12/07/2024 8:00 PM YONYT Kiersten Mir RN Toileting: Assistance with Use of bedpan/urinal setup 12/07/2024 8:00 PM YONYT Kiersten Mir RN Reason not bathed/showered Patient/family refused bath/shower 12/07/2024 8:00 PM YONYT Kiersten Mir RN * ADL Screening Question Answer Date of Assessment Author Patient's Judgement Adequate to Safely Complete Daily Activities Yes 12/06/2024 4:12 PM YONYT Chad Blount RN Patient's Memory Adequate to Safely Complete Daily Activities Yes 12/06/2024 4:12 PM YONYT Gina Blount RN Patient Able to Express Needs/Desires Yes 12/06/2024 4:12 PM Gina Davis, ASIM Dressing Independent 12/06/2024 4:12 PM YONYT Gina Rain RN Grooming Independent 12/06/2024 4:12 PM Gina Chan RN Feeding Independent 12/06/2024 4:12 PM Gina Chan RN Bathing Independent 12/06/2024 4:12 PM Gina Chan RN Toileting Independent 12/06/2024 4:12 PM Gina Chan RN In/Out Bed Independent 12/06/2024 4:12 PM Gina Chan RN Walks in Home Independent 12/06/2024 4:12 PM YONYT Gina Skaggs RN Weakness of Legs None 12/06/2024 4:12 PM YONYT Gina Blount RN Weakness of Arms/Hands None 12/06/2024 4:12 PM YONYT Gina Blount RN Hearing - Right Ear Functional 12/06/2024 4:12 PM YONY T Gina Blount RN Hearing - Left Ear Functional 12/06/2024 4:12 PM YONYT Gina Blount RN Dominant hand? Right 12/06/2024 4:12 PM CDT Gina Espinoza RN Decline in ADLs in last 2 weeks? No 12/06/2024 4:12 PM YONYT Gina Blount RN * Therapy Consults Question Answer Date of Assessment Author PT Evaluation Needed 1 12/06/2024 4:12 PM Gina Mcguire RN OT Evaluation Needed 1 12/06/2024 4:12 PM Gina Mcguire RN SERVICE EMPLOYEE Evaluation Needed 2 12/06/2024 4:12 PM Gina Davis RN * Assistive Devices Question Answer Date of Assessment Author Assistive Devices/DME Eyeglasses 12/06/2024 4:12 PM Gina Davis RN * Speech/Swallow Screening Question Answer Date of Assessment Author Currently, does patient have difficulty swallowing; coughing/choking while swallowing, or feels like food is sticking No 12/06/2024 4:12 PM Gina Davis RN In the past two weeks has the patient had changes in speaking or ability to comprehend conversation No 12/06/2024 4:12 PM Gina Davis RN Currently, does patient require thickened liquids or dysphagia diet No 12/06/2024 4:12 PM YONYT Gina Blount RN Patient is in need of SERVICE EMPLOYEE Order: No SERVICE EMPLOYEE order needed from this assessment 12/06/2024 4:12 PM YONYT Gina Blount RN * Hygiene Question Answer Date of Assessment Author Hygiene Skin cleanser 12/08/2024 8:00 PM YONYT Renetta Quinn RN Oral Care Mouth swabbed 12/09/2024 7:30 AM CDT Alma Delia Bermudez RN Toileting: Level of assistance Contact guard 12/08/2024 8:00 PM YONYT Renetta Quinn, ASIM Perineal Care Leanne Care 12/09/2024 8:00 PM YONYT Alissa Moreira RN Linens Complete linen change 12/09/2024 8:00 PM CDT Alissa Moreira RN Bath Bathed/showered with chlorhexidine (CHG) 12/09/2024 8:00 PM CDT Alissa Moreira RN documented as of this encounter Mental Status * Question Answer Entry Date Author Neuro (WDL) WDL 12/09/2024 7:50 PM CDT Alissa Ramírez RN * Question Answer Entry Date Author Feature 1: Acute Onset or Fluctuating Course Negative 12/09/2024 7:50 PM CDT Alissa Moreira RN Overall CAM-ICU Negative 12/09/2024 7:50 PM CDT Alissa Dick RN documented in this encounter Plan of Treatment [...] Ring Surveillance: Aydee gaitan Comment:Round 1: 12/13 -[facility] IP 12/13/2024 12/13/2024 12/20/2024 7:26 PM C DT documented as of this encounter Care Teams Cafe Attendant Relationship Specialty Start Date End Date Charisse Isaac MD [address] [facility] [address] [place] [address] PCP - General Family Medicine 08/15/24 Charisse Isaac MD [address] [facility] [address] [place] [address] Family Medicine 08/15/24 Ramon Nicole MD PhD [address] [place] [address] Consulting Physician Cardiology 12/17/24 Lorraine Leon MD [id number] [place] [address] Consulting Physician Nephrology 12/17/24 documented as of this encounter
--- OUTSIDE RECORDS SUMMARY | 2025-06-24 16:20 | XMS_ITS | Clinical Summary ---
Author Organization [address] Address [address] [place] [phone] Care Team Providers Care Pediatric Sports Medicine Specialist Name Role Phone Charisse Isaac MD Primary Care Provider + Charisse Isaac MD Unavailable [phone] Ramon Nicole MD PhD Unavailable [phone] Lorraine Leon MD Unavailable [phone] Allergies Active Allergy Reactions Criticality Noted Date [...] weight loss she will f/u with PCP Jupya-oc-eivgoav kidney injury 12/08/2024 Assessment & Plan (12/09/2024 [...] tomatic cardioverter/defibrillator (AICD) 03/03/2022 Overview (04/05/2022): Medtronic [place] BIV ICD. Dx; NICM (Dilated), CHF, LBBB. DOI 04/01/2022-Cipriano. Chronic leads 07/13/2010. Carelink remote monitoring. NICM (nonischemic cardiomyopathy) 03/30/2017 Encounters Date Type Department Care Team Description 06/23/2025 5:30 PM WELDER/FABRICATOR Ancillary Procedure [facility] [address] [place] [phone] Dilated cardiomyopathy (HCC) 06/16/2025 Orders Only [facility] [address] [place] [phone] Miscellaneous, Not In File 05/30/2025 Telephone [facility] [address] [place] [phone] Benji Lock MD Follow-Up: WHOLESALE BUYER-D Beeping 05/26/2025 Orders Only [facility] Cardiology [address] [place] [address] [place] [phone] Olga Lidia Pinto NP 05/26/2025 Telephone [facility] Cardiology [address] [place] [address] [address] [place] [phone] Matheus Wyatt MD Leg Swelling 04/29/2025 8:45 AM CDT Office Visit [facility] Cardiology at [address] [place] [address] Matheus Wyatt MD NICM (nonischemic cardiomyopathy) (HCC) (Primary Dx); Presence of biventricular automatic cardioverter/defibrill ator (AICD); Atrial fibrillation with rapid ventricular response (HCC) 04/21/2025 2:45 PM CDT Office Visit [facility] [address] [place] [address] [place] [phone] Benji Lock MD Presence of biventricular automatic cardioverter/defibrill ator (AICD) (Primary Dx); Cardiac arrhythmia, unspecified cardiac arrhythmia type 04/21/2025 2:30 PM CDT Ancillary Procedure [facility] [address] [place] [address] [place] [phone] NICM (nonischemic cardiomyopathy) (HCC) (Primary Dx); Biventricular automatic implantable cardioverter defibrillator in situ 04/16/2025 Telephone [facility] [address] [place] [phone] Benji Lock MD Insurance Referrals 03/24/2025 3:30 PM CDT Ancillary Procedure [facility] [address] [place] [phone] Presence of biventricular automatic cardioverter/defibrill ator (AICD) (Primary Dx); Dilated cardiomyopathy (HCC) from Last 3 Months Surgical History Surgery Date Site/Laterality Comments INSERT / REPLACE / REMOVE PACEMAKER OTHER SURGICAL HISTORY generator changes in 2013 and 2019 HYSTERECTOMY 1994 CHOLECYSTECTOMY 2020 COLONOSCOPY 07/31/2023 - 07/30/2024 TONSILLECTOMY 1957 CARDIAC CATHETERIZATION 12/16/2024 N/A Procedure: RIGHT HEART CATHETERIZATION CORONARY ARTERY ANGIOGRAM 42512; Surgeon: Keila Cortez MD; Location: [facility] CARDIAC DELI DEPARTMENT MANAGER; Service: Cardiovascular; Laterality: N/A; Medical History Medical History Date Comments Depression Depression Presence of biventricular au tomatic cardioverter/defibrillator (AICD) Medtronic Claria WHOLESALE BUYER -D Hypertension Sleep apnea Gout Family History [...] drink = 0.6 oz pur e alcohol) [facility] Utilities Answer Date Recorded In the past [...] often do you attend chur ch or shinto services? Never 12/10/2024 Do you belong to any clubs o r organizations such as religious groups, unions, fraternal or athletic groups, or [...] any time in the past 12 m [facility], were you homeless or living [...] on file Legal Sex Female 3:20 PM WELDER/FABRICATOR Gender Identity Female 09/10/2024 9:39 PM WELDER/FABRICATOR Sexual Orientation Straight 09/10/2024 9: 39 PM WELDER/FABRICATOR Last Filed Vital Signs Vital Sign Reading [...] - PCV20 or PCV21) 06/21/2021 06/21/2016, 07/25/2014 Covid-19 Vaccine (4 - 2024-2 6 season) 2025 11/20/2020, 09/12/2020, 08/22/2020 Hemoglobin A1C 06/10/2025 12/08/2024 Lipid Panel 08/15/2025 08/15/2024, 08/01, 08/30/2022, Additional history exists Fall Risk Assessment 12/17/2025 12/17/2024 eGFR 12/17/2025 12/17/2024, 11/28, 12/15/2024, Additional history exists Influenza Vaccine Completed 04/30/2025, , 06/29/2020, Additional history exists Medical Devices Implanted Type Area Picture Enlarger Device Identifier Shelf Expiration Date Model / Serial / Lot Medtronic Inc [place] Hf Research Executive-D Mri Surescan Df1 [id number] - [id number] - [id number] Implanted:Qty: 1 on 04/01/2022 by Brayan Cota MD at [facility] ICD Medtronic Inc [id number] 06/27/2023 [id number] / [id number] / Medtronic Inc Capsurefix Novus 5.7fr 52cm Bipolar Tined Screw In Is-1 Atrium [id number] Atria Medtronic Inc [id number] / [id number] / Medtronic Inc Sprint Quattro Secure 8.6fr 65cm Quadripolar Defibrillator Screw 6947 Ventricle Medtronic Inc [id number] / [id number] / Medtronic Inc Attain Ability 4fr 78cm Bipolar Is-1 Left Heart Transvenous 2 [id number] Left: Ventricle Medtronic Inc [id number] / [id number] / Medtronic Inc Tyrx Absorbable Antibacterial Envelope-Large 3.3x2.9in [id number] - [id number] Implanted:Qty: 1 on 04/01/2022 by Brayan Cota MD at [facility] Medtronic [facility] 12/25/2022 [id number] / / [id number] Procedures Procedure Name Priority Date/Time Associated Diagnosis Comments DEVICE CHECK - REMOTE Routine 06/23/2025 8:43 AM WELDER/FABRICATOR Dilated cardiomyopathy (HCC) DEVICE CHECK - REMOTE Routine 06/16/2025 8:48 AM WELDER/FABRICATOR CARDIOLOGY DOCUMENT SCAN Routine 05/21/2025 5:17 PM [...] LIPID PANEL Routine 08/15/2024 11:4 9 AM WELDER/FABRICATOR Need for lead screening from Last 3 Months or Most Recently Relevant to Health Maintenance Results * DEVICE CHECK - REMOTE (06/23/2025 8:43 AM WELDER/FABRICATOR) Anatomical Region Laterality Modality Other Narrative 06/23/2025 10:27 AM WELDER/FABRICATOR Table formatting from the original result was [...] 4.1 seconds. Episodes last 90 days/Comments: AF [place] 0 % No ventricular high rates NORMAL DEVICE FUNCTION PROGRAMMED MEDICATIONS: Anti-coagulant(s): eliquis 5 mg bid Anti-arrhythmic(s): amiodarone 200mg daily, toprol 25mg daily PLAN: 1) MDT BiV ICD evaluation 2) MDT remote transmission scheduled in 3 months. 3) Programming appropriate for device settings Eryn Morton RN us Benji Lock MD CV CARDIAC SERVICES PROC EDURES Final Result * DEVICE CHECK - REMOTE (06/16/2025 8:48 AM WELDER/FABRICATOR) Anatomical Region Laterality Modality Other 06/16/2025 8:48 AM WELDER/FABRICATOR Narrative 06/16/2025 4:44 PM WELDER/FABRICATOR See phone encounter. MUNDO Gamez Device Specialist us Not In File Miscellaneous CV CARDIAC SERVICES AL OCEDURES Final Result * Cardiology Document Scan (05/21/2025 5:17 PM [...] 1.3 seconds. Episodes last 90 days/Comments: AF [place] <0.1 %,longest duration 4 minutes on 01/31. [...] for device settings Katelyn Conley RN us Benji Lock MD CV CARDIAC [...] 1.3 seconds. Episodes last 90 days/Comments: AF [place] 0 %,longest duration 3 min 58 sec. NORMAL DEVICE FUNCTION PROGRAMMED MEDICATIONS: Anti-coagulant(s): Eliquis 5 mg twice daily, Anti-arrhythmic(s): Toprol 25 mg daily, amiodarone 200 mg daily PLAN: 1) Medtronic BiV ICD evaluation 2) Medtronic remote transmission scheduled in 3 months. 3) Programming appropriate for device settings Eryn Morton, ASIM us Benji Lock MD CV CARDIAC SERVICES [...] ORDERABLES Final R esult Performing Organization Address City/[facility]/ZIP Co de Phone Number [facility] [address] [place] [address] * (ABNORMAL) Hemoglobin A1c (12/08/2024 3:42 AM CDT) Hgb A1C 6.6(H) 4.0 - 5.6 % Estimated Average Glucose 143 mg/dL [facility] [employer] [facility] [employer] Comment: The ADA recommends reporting an estimated Average Glucose (eAG) with all Hemoglobin A1c results using the equation derived from a study of 507 normal and diabetic adults. Minority populations were underrepresented and children were not included. (Diabetes Care 31:8262-4935, 2008). The eAG is not equivalent to a fasting glucose. Blood 12/08/2024 3:42 AM CDT 12/08/2024 2:05 PM CDT us Ramy Dee MD LAB BLOOD ORDERABLES Fi nal Result [facility] [address] [place] [address] * POCT lipid panel (08/15/2024 11:49 AM WELDER/FABRICATOR) Cholesterol, POC 134 mg/dL Comment:GLU = 216 HDL, POC 28 mg/dL Triglycerides, POC 212 mg/dL LDL Cholesterol POC 64 mg/dL Chol/HDL Ratio, POC 2.3 Non-HDL Cholesterol, POC 106 mg/dL Cholesterol Total, POC 134 mg/dL Capillary blood 08/15/2024 1 1:49 AM WELDER/FABRICATOR Matheus Wyatt MD POINT OF CARE TEST ORDER LEXY Final Result from Last 3 Months or Most Recently Relevant to Health Maintenance Insurance [facility] HEALTHC[facility] HEALTHCARE [facility] Advance Directives For more information, please contact: [phone] * Full Code (Latest Code Status on File) Date Activated Date Inactivated Comments 12/06/2024 3:59 PM 12/17/2024 7:38 PM Care Teams Pediatric Sports Medicine Specialist Relationship Specialty Start Date End Date Charisse Isaac MD [address] [place] [address] [address] [place], [place] [id number] PCP - General Family Medicine 08/15/24 Charisse Isaac MD [address] [place] [address] [address] [place] [address] Family Medicine 08/15/24 Ramon Nicole MD PhD [address] [place] [address] Consulting Physician Cardiology 12/17/24 Lorraine Leon MD [id number] [place] [address] Consulting Physician Nephrology 12/17/24
--- OUTSIDE RECORDS SUMMARY | 2025-06-24 16:20 | XMS_ITS | Encounter Summary ---
Author Organization [facility] Healthcare Address [address] [place] [address] Care Team Providers Care Pst Supervisor Name Role Phone Charisse Isaac MD Primary Care Provider + Charisse Isaac MD Unavailable [phone] Ramon Nicole MD PhD Unavailable [phone] Lorraine Leon MD Unavailable [phone] Encounter Details Date Type Department Care Team (Late st Contact Info) Description 01/03/2025 Orders Only [facility] Health Information Management [address] [place] [phone] Scanning, Provider Social History Tobacco Use Types Packs/Day Years Used Date Smoking Tobacco: Former Cigarettes Q uit: 1994 Smokeless Tobacco: Never Comments:Smoking History Pac ks/day: 1 Packs Alcohol Use Standard Drinks/Week Comments Yes 0 (1 standard drink = 0.6 oz pur e alcohol) [facility] Utilities Answer Date Recorded In the past 12 months has [employer] electric, gas, oil, or water company threatened [...] often do you attend chur ch or christianity services? Never 12/10/2024 Do you belong to [...] any time in the past 12 m [facility], were you homeless or living in [...] on file Legal Sex Female 3:20 PM FLOOR WORKER Gender Identity Female 09/10/2024 9:39 PM FLOOR WORKER Sexual Orientation Straight 09/10/2024 9: 39 PM FLOOR WORKER documented as of this encounter Plan of [...] on filedocumented in this encounter Care Teams Pst Supervisor Relationship Specialty Start Date End Date Charisse Isaac MD [address] [facility] [address] [place] [address] PCP - General Family Medicine 08/15/24 Charisse Isaac MD [address] [place] [address] [address] [place] [address] Family Medicine 08/15/24 Ramon Nicole MD PhD [address] [place] [address] Consulting Physician Cardiology 12/17/24 Lorraine Leon MD [id number] [place] [address] Consulting Physician Nephrology 12/17/24 documented as of this encounter
[2025-06-24 19:58] LABS: Anion Gap 8 mmol/L (4-12); Blood Urea Nitrogen 35 mg/dL (7-17); Calcium 8.4 mg/dL (8.4-10.2); Carbon Dioxide 28 mmol/L (22-30); Chloride 98 mmol/L (98-107); Estimated Glomerular Filt Rate 17; Glucose 108 mg/dL (65-110); Potassium 3.7 mmol/L (3.4-5.0); Sodium 134 mmol/L (137-145)
== END 2025-06-24 14:27 | disposition home or self-care (01) ==
LOC: ANHGOSHLAB 14:27
PROVIDERS: PCP Family Medicine; Visit Provider Family Medicine
DX: N18.4 Chronic kidney disease, stage 4 (severe) (principal)
CPT/HCPCS: 36415; 80048

== ENCOUNTER 2025-07-21 14:55 | Outpatient (CLI) | payer OTHER, SELFPAY ==
--- NOTE | ~2025-07-21 | XR_ITS ---
XR chest 2V 07/21/2025 15:21 Indication: Shortness of breath and fatigue Procedure: PA and lateral views the chest Comparison: Comparison to multiple prior studies sequentially, with oldest reviewed study dated 12/03/2024. Findings: Moderate cardiomegaly. Pacemaker leads are stable. Small pleural effusions. Bibasilar atelectasis. No focal pneumonia or pneumothorax. Impression: 1: Small pleural effusions with bibasilar atelectasis. 2: Stable cardiomegaly. Reviewed, dictated and finalized at location O. [facility] Impression: 1: Small pleural effusions with bibasilar atelectasis. 2: Stable cardiomegaly.
== END 2025-07-21 14:56 | disposition home or self-care (01) ==
LOC: GOSHIMG 14:56
PROVIDERS: PCP Student in an Organized Health Care Education/Training Program; Visit Provider Student in an Organized Health Care Education/Training Program
DX: R06.09 Other forms of dyspnea (principal); R06.02 Shortness of breath; R53.83 Other fatigue; I50.9 Heart failure, unspecified; J90 Pleural effusion, not elsewhere classified
CPT/HCPCS: 71046